=== PATIENT | male | born 1960 | race Caucasian/White ===

== ENCOUNTER → 2020-03-04 15:27 | Outpatient (CLI) | payer MEDICARE, SELFPAY ==
[2020-03-04 19:01] LABS: Chloride 107 mmol/L (98-107)
[2020-03-04 19:02] LABS: Potassium 4.3 mmoL/L (3.5-5.1); Sodium 144 mmol/L (136-145)
[2020-03-04 19:04] LABS: Alanine Aminotransferase 16 U/L (12-78); Albumin Level 4.3 g/dl (3.5-5.0); Albumin/Globulin Ratio 1.2 (1.1-1.8); Alkaline Phosphatase 86 U/L (38-126); Anion Gap 16.3 mEq/L (5-15); Aspartate Amino Transferase 23 U/L (17-59); Bilirubin,Total 0.8 mg/dl (0.2-1.3); Blood Urea Nitrogen 19 mg/dl (9-20); Carbon Dioxide 25 mmol/L (22.0-30.0); Cholesterol 145 mg/dl (140-200); Estimated Glomerular Filt Rate 99 ml/min (>60); GFR (African American) 119 ML/MIN (>60); Globulin 3.5 g/dL (1.3-3.2); Total Protein,Serum 7.8 g/dl (6.3-8.2); Triglycerides 159 mg/dl (30-150); VLDL Cholesterol 32 mg/dL (0-40)
[2020-03-04 19:05] LABS: Calcium 9.7 mg/dl (8.4-10.2); Chol/HDL Ratio 3.6 (1-3.5); Glucose 100 mg/dl (74-100); HDL Cholesterol 40 mg/dl (40-60)
[2020-03-04 19:16] LABS: Direct LDL Cholesterol 87.23 mg/dL (100-129)
== END ==
PROVIDERS: Visit Provider Family Medicine
DX: E11.9 Type 2 diabetes mellitus without complications (principal); Z79.84 Long term (current) use of oral hypoglycemic drugs
CPT/HCPCS: 80053; 80061

== ENCOUNTER → 2020-11-07 14:04 | Outpatient (CLI) | payer MEDICARE, SELFPAY ==
[2020-11-07 14:29] LABS: Basophils # 0.2 K/mm3 (0-0.2); Basophils % 1.4 % (0.1-2.0); Eosinophils # 0.2 K/mm3 (0.0-0.4); Eosinophils % 1.7 % (0.1-12.0); Hematocrit 54.7 % (42.0-52.0); Hemoglobin 17.4 g/dL (14.1-18.0); Lymphocytes # 2.3 K/mm3 (0.7-4.5); Mean Corpuscular HGB Conc 31.9 g/dL (31.8-35.4); Mean Corpuscular Hemoglobin 29.1 pg (27.0-31.2); Mean Corpuscular Volume 91.5 fl (80-94); Mean Platelet Volume 7.8 fl (7.4-10.4); Monocytes # 0.6 K/mm3 (0.1-1.0); Monocytes % 5.5 % (1.7-9.3); Neutrophils # 7.4 K/mm3 (1.8-7.8); Neutrophils % 69.5 % (37.0-80.0); Platelet Count 390 K/mm3 (142-424); Red Blood Count 5.98 M/mm3 (4.60-6.20); Red Cell Distribution Width 14.7 % (11.5-17.5); White Blood Count 10.6 K/mm3 (4.8-10.8)
[2020-11-07 14:32] LABS: Chol/HDL Ratio 4.5 (1-3.5); Cholesterol 156 mg/dl (140-200); HDL Cholesterol 35 mg/dl (40-60); Triglycerides 221 mg/dl (30-150); VLDL Cholesterol 44 mg/dL (0-40)
[2020-11-07 14:43] LABS: Direct LDL Cholesterol 79.27 mg/dL (100-129)
[2020-11-07 15:04] LABS: Prostate Specific Ag Screen 0.7 ng/ml (0.0-4.0)
[2020-11-07 15:09] LABS: Hemoglobin A1C 6.3 % (4.0-6.0)
== END ==
PROVIDERS: Visit Provider Family Medicine
DX: E11.9 Type 2 diabetes mellitus without complications (principal); Z12.5 Encounter for screening for malignant neoplasm of prostate; E66.09 Other obesity due to excess calories; Z68.33 Body mass index [BMI] 33.0-33.9, adult; Z79.84 Long term (current) use of oral hypoglycemic drugs
CPT/HCPCS: 80061; 83036; 85025; G0103

== ENCOUNTER → 2021-06-11 14:29 | Outpatient (CLI) | payer MEDICARE, SELFPAY ==
[2021-06-11 15:16] LABS: Basophils # 0.1 K/mm3 (0-0.2); Basophils % 1.5 % (0.1-2.0); Eosinophils # 0.2 K/mm3 (0.0-0.4); Hematocrit 51.2 % (42.0-52.0); Hemoglobin 16.7 g/dL (14.1-18.0); Lymphocytes # 2.4 K/mm3 (0.7-4.5); Mean Corpuscular HGB Conc 32.5 g/dL (31.8-35.4); Mean Corpuscular Hemoglobin 30.7 pg (27.0-31.2); Mean Corpuscular Volume 94.4 fl (80-94); Mean Platelet Volume 9.1 fl (7.4-10.4); Monocytes # 0.5 K/mm3 (0.1-1.0); Monocytes % 6.7 % (1.7-9.3); Neutrophils # 4.5 K/mm3 (1.8-7.8); Neutrophils % 58.8 % (37.0-80.0); Platelet Count 318 K/mm3 (142-424); Red Blood Count 5.42 M/mm3 (4.60-6.20); Red Cell Distribution Width 14.6 % (11.5-17.5); White Blood Count 7.6 K/mm3 (4.8-10.8)
[2021-06-11 15:23] LABS: Alanine Aminotransferase 9 U/L (12-78); Albumin Level 3.8 g/dl (3.5-5.0); Albumin/Globulin Ratio 1.2 (1.1-1.8); Alkaline Phosphatase 81 U/L (38-126); Anion Gap 11.3 mEq/L (5-15); Aspartate Amino Transferase 20 U/L (17-59); Bilirubin,Total 0.4 mg/dl (0.2-1.3); Blood Urea Nitrogen 22 mg/dl (9-20); Calcium 9.1 mg/dl (8.4-10.2); Carbon Dioxide 28 mmol/L (22.0-30.0); Chloride 105 mmol/L (98-107); Chol/HDL Ratio 2.9 (1-3.5); Cholesterol 120 mg/dl (140-200); Estimated Glomerular Filt Rate 98 ml/min (>60); GFR (African American) 119 ML/MIN (>60); Globulin 3.1 g/dL (1.3-3.2); Glucose 81 mg/dl (74-100); HDL Cholesterol 42 mg/dl (40-60); Potassium 4.3 mmoL/L (3.5-5.1); Sodium 140 mmol/L (136-145); Total Protein,Serum 6.9 g/dl (6.3-8.2); Triglycerides 81 mg/dl (30-150); VLDL Cholesterol 16 mg/dL (0-40)
[2021-06-11 15:34] LABS: Direct LDL Cholesterol 70.53 mg/dL (100-129)
[2021-06-11 16:11] LABS: Hemoglobin A1C 5.4 % (4.0-6.0)
== END ==
PROVIDERS: Visit Provider Family Medicine
DX: E78.5 Hyperlipidemia, unspecified (principal); E11.9 Type 2 diabetes mellitus without complications; Z79.84 Long term (current) use of oral hypoglycemic drugs
CPT/HCPCS: 80053; 80061; 83036; 85025

== ENCOUNTER → 2022-02-09 20:43 | Outpatient (CLI) | payer MEDICARE, SELFPAY ==
[2022-02-09 17:07] LABS: Basophils # 0.1 K/mm3 (0-0.2); Basophils % 1.4 % (0.1-2.0); Eosinophils # 0.1 K/mm3 (0.0-0.4); Eosinophils % 1.4 % (0.1-12.0); Hematocrit 50.1 % (42.0-52.0); Hemoglobin 16.7 g/dL (14.1-18.0); Lymphocytes % 24.1 % (10-50); Mean Corpuscular HGB Conc 33.3 g/dL (31.8-35.4); Mean Corpuscular Hemoglobin 31.4 pg (27.0-31.2); Mean Corpuscular Volume 94.3 fl (80-94); Mean Platelet Volume 8.2 fl (7.4-10.4); Monocytes # 0.5 K/mm3 (0.1-1.0); Monocytes % 6.4 % (1.7-9.3); Neutrophils # 5.5 K/mm3 (1.8-7.8); Neutrophils % 66.7 % (37.0-80.0); Platelet Count 307 K/mm3 (142-424); Red Blood Count 5.32 M/mm3 (4.60-6.20); Red Cell Distribution Width 13.4 % (11.5-17.5); White Blood Count 8.2 K/mm3 (4.8-10.8)
[2022-02-09 17:11] LABS: Alanine Aminotransferase 14 U/L (12-78); Albumin Level 3.7 g/dl (3.5-5.0); Albumin/Globulin Ratio 1.1 (1.1-1.8); Alkaline Phosphatase 85 U/L (38-126); Anion Gap 11.5 mEq/L (5-15); Aspartate Amino Transferase 23 U/L (17-59); Bilirubin,Total 0.2 mg/dl (0.2-1.3); Blood Urea Nitrogen 18 mg/dl (9-20); Calcium 9.5 mg/dl (8.4-10.2); Carbon Dioxide 24 mmol/L (22.0-30.0); Chloride 105 mmol/L (98-107); Chol/HDL Ratio 4.4 (1-3.5); Cholesterol 159 mg/dl (140-200); Estimated Glomerular Filt Rate 98 ml/min (>60); GFR (African American) 119 ML/MIN (>60); Globulin 3.3 g/dL (1.3-3.2); Glucose 111 mg/dl (74-100); HDL Cholesterol 36 mg/dl (40-60); Potassium 4.5 mmoL/L (3.5-5.1); Sodium 136 mmol/L (136-145); Triglycerides 108 mg/dl (30-150); VLDL Cholesterol 22 mg/dL (0-40)
[2022-02-09 17:22] LABS: Direct LDL Cholesterol 96.67 mg/dL (100-129)
[2022-02-09 17:37] LABS: Hemoglobin A1C 5.5 % (4.0-6.0)
[2022-02-09 17:42] LABS: Prostate Specific Ag Screen 3.2 ng/ml (0.0-4.0)
== END ==
PROVIDERS: PCP Family Medicine; Visit Provider Family Medicine
DX: E78.5 Hyperlipidemia, unspecified (principal); E11.9 Type 2 diabetes mellitus without complications; Z00.00 Encounter for general adult medical examination without abnormal findings; N40.0 Benign prostatic hyperplasia without lower urinary tract symptoms; Z12.5 Encounter for screening for malignant neoplasm of prostate; Z79.84 Long term (current) use of oral hypoglycemic drugs
CPT/HCPCS: 80053; 80061; 83036; 85025; G0103

== ENCOUNTER → 2022-05-06 14:01 | Outpatient (CLI) | payer MEDICARE, SELFPAY ==
[2022-05-06 13:36] LABS: Microalbumin/Creatinine Ratio 12.8
[2022-05-06 13:58] LABS: Creatinine,Urine Random 52 mg/dL (Not Estab.)
== END ==
PROVIDERS: PCP Family Medicine; Visit Provider Family Medicine
DX: E11.9 Type 2 diabetes mellitus without complications (principal); G89.29 Other chronic pain; Z79.84 Long term (current) use of oral hypoglycemic drugs
CPT/HCPCS: 82043; 82570

== ENCOUNTER → 2022-08-04 11:08 | Outpatient (CLI) | payer MEDICARE, SELFPAY ==
[2022-08-04 12:03] LABS: Chloride 103 mmol/L (98-107); Potassium 4.7 mmoL/L (3.5-5.1); Sodium 139 mmol/L (136-145)
[2022-08-04 12:04] LABS: Basophils # 0.2 K/mm3 (0-0.2); Basophils % 1.8 % (0.1-2.0); Eosinophils # 0.2 K/mm3 (0.0-0.4); Eosinophils % 2.2 % (0.1-12.0); Hematocrit 56.1 % (42.0-52.0); Hemoglobin 17.9 g/dL (14.1-18.0); Lymphocytes # 2.7 K/mm3 (0.7-4.5); Lymphocytes % 30.6 % (10-50); Mean Corpuscular Hemoglobin 30.7 pg (27.0-31.2); Mean Corpuscular Volume 95.9 fl (80-94); Mean Platelet Volume 7.7 fl (7.4-10.4); Monocytes # 0.5 K/mm3 (0.1-1.0); Monocytes % 5.6 % (1.7-9.3); Neutrophils # 5.2 K/mm3 (1.8-7.8); Neutrophils % 59.8 % (37.0-80.0); Platelet Count 324 K/mm3 (142-424); Red Blood Count 5.85 M/mm3 (4.60-6.20); White Blood Count 8.7 K/mm3 (4.8-10.8)
[2022-08-04 12:06] LABS: Alanine Aminotransferase 14 U/L (12-78); Albumin Level 4.2 g/dl (3.5-5.0); Albumin/Globulin Ratio 1.1 (1.1-1.8); Alkaline Phosphatase 95 U/L (38-126); Anion Gap 14.7 mEq/L (5-15); Aspartate Amino Transferase 19 U/L (17-59); Bilirubin,Total 0.6 mg/dl (0.2-1.3); Blood Urea Nitrogen 21 mg/dl (9-20); Carbon Dioxide 26 mmol/L (22.0-30.0); Estimated Glomerular Filt Rate 86 ml/min (>60); GFR (African American) 103 ML/MIN (>60); Globulin 3.7 g/dL (1.3-3.2); Total Protein,Serum 7.9 g/dl (6.3-8.2)
[2022-08-04 12:07] LABS: Calcium 9.2 mg/dl (8.4-10.2); Glucose 121 mg/dl (74-100)
[2022-08-04 13:15] LABS: INR 1.01 (0.9-1.1); Prothrombin Time 10.9 seconds (10.1-12.5)
== END ==
PROVIDERS: PCP Family Medicine; Visit Provider Surgery
DX: E11.9 Type 2 diabetes mellitus without complications (principal); K29.70 Gastritis, unspecified, without bleeding; K61.1 Rectal abscess; Z01.812 Encounter for preprocedural laboratory examination
CPT/HCPCS: 36415; 80053; 85025; 85610

== ENCOUNTER 2022-08-04 11:11 | Day surgery (SDC) | payer MEDICARE, SELFPAY ==
[2022-08-04] VITALS (8 sets, daily range): BP systolic 91–141; BP diastolic 50–80; PULSE 95–106; RESP 12–18; TEMP 36.5–36.8; O2SAT 91–94; BMI 29.6
[2022-08-04 12:14] LABS: POC Glucose,Bedside 112 (70-110)
--- NOTE | 2022-08-04 14:58 | EXP.OP.NOTE ---
Date of procedure: 08/04/22 Pre-op Diagnosis:: Right perianal/ischiorectal fossa abscess Post-op Diagnosis:: Same Procedure performed:: Incision and drainage of right perianal/ischiorectal fossa abscess Surgeon:: Alex White MD MIXING MACHINE TENDER CORK GASKET:: Jeromy Marquez Anesthesia: LMA Estimated blood loss (mL): 10 Operative findings:: Pocket of purulence with surrounding induration and right perianal/ischiorectal fossa region Operative note:: After informed consent was obtained the patient was taken to the operating room and placed in the supine position. General anesthesia with laryngeal mask airway was achieved. He was transferred to the left lateral decubitus position. The perianal/buttock region was prepped and draped in a sterile fashion. An elliptical incision around the central portion of lesion was made with electrocautery. The underlying tissue was dissected with electrocautery into the deeper subcutaneous space where a pocket of purulence was encountered. The entire cavity was evacuated and packed with dry gauze. The entire region was then infiltrated with 1% lidocaine. Dressings were applied and the patient was transferred recovery in stable condition. Condition: stable Disposition: PACU Specimens:: None Complications:: No immediate
--- NOTE | 2022-08-04 15:00 | P.PN_ITS ---
[facility] Disclaimer: The information contained in this section may have been updated after the patient was seen, as this information can be updated by other users. Medical History (Updated 08/04/22 @ 12:02 by Ap Weber RN) Cervical vertebral fusion Diabetes GERD (gastroesophageal reflux disease) HLD (hyperlipidemia) HTN (hypertension) Spinal cord stimulator status Surgical History History of colonoscopy Family History (Updated 08/04/22 @ 12:02 by Ap Weber RN) Other Family history of cardiac disorder Social History (Updated 08/04/22 @ 12:03 by Ap Weber RN) Smoking Status: Current every day smoker tobacco type: cigarettes packs per day: 1 alcohol intake: never substance use type: denies use current occupational status: unemployed and disabled Travel in the last 8 weeks: None household members: significant other housing: house [facility] Anesthesia Checklist Patient Identification Patient Identification: Verbal (Name & ) Structural Data Admitted From: Home Planned Operative Procedure/s: i/d abcess buttock Consent for Planned Operative Procedure(s) Verified: Yes Additional verifications Anesthesia Reactions: No Hx Blood Transfusions: No Blood Transfusion Reaction: No Airway Assessment C-Spine Mobility Assessed: Yes TMJ Mobility Assessed: Yes Dentition: Edentulous Neurological Assessment Level of Consciousness: Awake, Alert and Appropriate Anesthesia Plan Anesthesia Risk discussed: Yes Anesthesia Plan: Verified ASA Class: III Anesthesia Type: General
--- NOTE | 2022-08-04 15:00 | EXP.ANES.I ---
[facility] Anesthesia Record Part I Anesthesia Record I Intake, IV Amount: 500 Estimated blood loss (mL): 0 Urine output (mL): 0 Blood Pressure: 106/56 SaO2: 94 Pulse Rate: 105 Respiratory Rate: 12 Temperature: 98.2 F Patient is:: Awake and Stable Stable to PACU at:: 14:55
[2022-08-04 15:07] LABS: POC Glucose,Bedside 105 (70-110)
== END 2022-08-04 16:07 | disposition home or self-care (01) ==
PROVIDERS: PCP Family Medicine; Visit Provider Surgery
DX: K61.39 Other ischiorectal abscess (principal); F17.210 Nicotine dependence, cigarettes, uncomplicated; E11.9 Type 2 diabetes mellitus without complications
CPT/HCPCS: 46040; 36415; 80053; 82962; 85025; 85610; 96374

== ENCOUNTER 2022-11-02 10:13 | Day surgery (SDC) | payer MEDICARE, SELFPAY ==
[2022-08-06 07:19] VITALS: BP 103/57; PULSE 102; TEMP 36.8
--- NOTE | 2022-08-06 07:19 | P.PNANES_ITS ---
[facility] Anesthesia Record Part II Anesthesia Record Part II Discharge Time: 15:25 Destination: Surgical Day Care (OP Surgery) PACU nurse assessment reviewed?: Yes Patient Condition:: Good Anesthesia Complications:: None Swallowing reflex intact?: Yes Cyanosis?: No Blood Pressure: 103/57 Pulse Rate: 102 Temperature: 98.3 F Mental Status: Alert & Oriented Pain level:: 0 Nausea and/or vomitting:: None Intake, IV Amount: 0
[2022-11-01 10:48] VITALS: BMI 31.3
[2022-11-02 10:37] VITALS: BP 153/95; PULSE 91; RESP 18; TEMP 36.4; O2SAT 92
[2022-11-02 10:42] LABS: POC Glucose,Bedside 123 (70-110)
--- NOTE | 2022-11-02 10:47 | EXP.ANES.CKL ---
[facility] Disclaimer: The information contained in this section may have been updated after the patient was seen, as this information can be updated by other users. Medical History Anxiety and depression Cervical vertebral fusion Diabetes GERD (gastroesophageal reflux disease) HLD (hyperlipidemia) HTN (hypertension) Spinal cord stimulator status Surgical History History of appendectomy History of cervical spinal surgery History of colonoscopy History of incision and drainage History of laparoscopic cholecystectomy History of lumbar surgery Family History Other Family history of cardiac disorder Social History Smoking Status: Current every day smoker tobacco type: cigarettes packs per day: 1 alcohol intake: never substance use type: denies use current occupational status: unemployed and disabled Travel in the last 8 weeks: None household members: significant other housing: house caffeine: Yes [facility] Anesthesia Checklist Patient Identification Patient Identification: Arm Band and Verbal (Name & ) Structural Data Admitted From: Home Planned Operative Procedure/s: Colonoscopy Consent for Planned Operative Procedure(s) Verified: Yes NPO Status Verified Time NPO: 00:00 Additional verifications Anesthesia Reactions: No Hx Blood Transfusions: No Blood Transfusion Reaction: No Airway Assessment C-Spine Mobility Assessed: Yes TMJ Mobility Assessed: Yes Dentition: Dentures-poor fitting Neurological Assessment Level of Consciousness: Awake Hx Seizures: No Numbness or tingling in extremities: No Anesthesia Plan Anesthesia Risk discussed: Yes Anesthesia Plan: Verified ASA Class: III Anesthesia Type: MAC
[2022-11-02 11:11] VITALS: O2SAT 92
[2022-11-02 11:47] VITALS: BP 107/72; PULSE 116; RESP 14; TEMP 36.5; O2SAT 94
--- NOTE | 2022-11-02 11:53 | HMH.SCOPE ---
Procedure: Date: 11/02/22 Patient Date of :: 1960 Procedure Performed:: Colonoscopy with polypectomy by means other than snare Indications:: History of colon polyps Performing Provider:: Alex White MD Referring Provider:: . Sedation:: Monitored anesthesia care Procedure:: After informed consent was obtained the patient was taken to the endoscopy suite. Sedation ensued after the patient was transferred to the left lateral decubitus position. Pulse, blood pressure, and oxygen saturation were monitored throughout the procedure. Digital rectal exam revealed no significant abnormality. The colonoscope was placed in position. The entire colon was evaluated. The colonoscope was carefully removed and the patient was transferred to recovery in stable condition. Please see findings and specimens below for detail. Findings:: Bowel preparation moderate (somewhat poor in areas) Fairly significant spasticity/lack of relaxation Scattered sigmoid diverticulosis Tattoo at prior polypectomy site appeared normal Polyp at 10 cm Specimens:: Polyp at 10 cm (cold biopsy forceps) Recommendations:: Timing of repeat colonoscopy is pending pathology but likely be around 2 years with extended/alternate bowel preparation. Complications:: No immediate Estimated blood obtained (mL): 1
[2022-11-02 11:57] VITALS: BP 102/71; PULSE 108; RESP 16; O2SAT 96
[2022-11-02 12:07] VITALS: BP 135/74; PULSE 103; RESP 18; O2SAT 96
[2022-11-02 12:16] VITALS: BP 128/86; PULSE 99; RESP 18; O2SAT 93
== END 2022-11-02 12:21 | disposition home or self-care (01) ==
PROVIDERS: PCP Family Medicine; Visit Provider Surgery
PROC: 0DJD8ZZ Inspection of Lower Intestinal Tract, Via Natural or Artificial Opening Endoscopic (ICD-10-PCS; principal; 2022-11-02 11:30)
DX: Z12.11 Encounter for screening for malignant neoplasm of colon (principal); K63.5 Polyp of colon; Z86.010 Personal history of colon polyps; K57.30 Diverticulosis of large intestine without perforation or abscess without bleeding; Z79.899 Other long term (current) drug therapy; E11.9 Type 2 diabetes mellitus without complications
CPT/HCPCS: 45380; 82962; 88305; J2704

== ENCOUNTER → 2023-03-09 06:57 | Outpatient (CLI) | payer MEDICARE, SELFPAY ==
--- NOTE | 2023-03-09 | CA_ITS ---
APPROVED REPORT Exam: Pharmacologic Technologist: Francesca Hamilton Ht: 5 ft 7 in Wt: 206 lbs BSA: 2.05 m2 HR: 76 bpm BP: 126/70 mmHg Rhythm: NSR Indications: Chest pain Medical History Medications: Lisinopril,,,,, Metformin,,,,, Lexapro,,,,, Vitamin D3,,,,, Pantoprazole,,,,, Calcium,,,,, FeNOfibrate,,,,, DicyCLOMINE,,,,, Fluoxetine,,,,, Cyclobenzaprine,,,,, Vitamin D2,,,,, Hydroxyzine,,,,, Stress Test Details Test: LEXISCAN HR Resting HR: 84 bpm Max Heart Rate (APMHR): 157 bpm Max HR Achieved: 107 bpm Target HR (85% APMHR): 133 bpm % of APMHR: 68 Recovery HR: 95 bpm BP Resting BP: 126.0/70.0 mmHg Max BP: 140.0/71.0 mmHg Recovery BP: 125.0/71.0 mmHg ECG Resting ECG: Normal sinus rhythm, NS ST abnormalities inferiorly and laterally. Stress ECG: No change Arrhythmia: PACs Clinical Exercise duration: 04:01 min Highest Stage Achieved: Stress ECG Conclusion Symptoms: dyspnea, mild head discomfort. No chest pain. Arrhythmias/Ectopy: occasional PACs ST-T Changes: No significant ST changes. Conclusion: Unremarkable Lexiscan stress test. Myoview images reported separately. Test Summary REST . . . . . . . Resting REST 03:35 . . 84 . 126/ 70 . . Stage 1 . . . . . . . Myoview Injected Stage 1 01:00 . . 100 . . . . Stage 2 01:00 . . 103 . 115/ 68 . . Stage 3 01:00 . . 97 . 125/ 73 . . Stage 4 01:00 . . 96 . 122/ 69 . . Stage 4 01:01 . . 96 . 122/ 69 . Stop exercise at 04:01 RECOVERY 01:00 . . 98 . . . . RECOVERY 02:00 . . 98 . 127/ 71 . . RECOVERY 03:00 . . 98 . 140/ 71 . . RECOVERY 04:00 . . 95 . 125/ 71 . . RECOVERY 04:40 . . 94 . 125/ 71 . . Electronically signed by : Melissa Moscoso, 03/12/2023 15:08:04
--- NOTE | 2023-03-09 07:08 | NM_ITS ---
APPROVED REPORT Exam: Nuclear Stress Test Indication: chest pain..soa Patient Location: Outpatient Stress Tech: Francesca Hamilton CT Tech:DELORES Elizabeth RT(R)(N) Ht: 5 ft 7 in Wt: 200 lbs HR: 84 bpm BP: 126/70 mmHg BSA: 2.02 m2 TID: 1.14 BMI: 31.3 History: chest pain..soa Procedure: Patient received 0.4 mg of intravenous Lexiscan, resting heart rate 84 bpm, resting blood pressure 126/70 mmHg, with Lexiscan maximum heart rate achieved was 107 bpm which is 85 % of the maximum predicted heart rate and blood pressure was 140/71 mmHg. With Lexiscan, patient denied any complaint of chest pain. The pt was not able to lay on his abdomen for prone images. Cardiac Stress and Resting SPECT Images: Cardiac Stress and Resting SPECT images were obtained using technetium 99m Myoview 30.1 mCi stress and 10.35 mCi at rest. The patient could not lie on his abdomen. Therefore, prone stress imaging could not be performed. This may affect the diagnostic interpretation of the study findings. Resting and stress imaging in supine position demonstrate a large-sized, moderate, fixed perfusion defect in the inferior, inferoseptal, and septal LV smith from the base and extending distally towards the inferoapical region. Gated imaging demonstrates normal global LV systolic function. There is mild hypokinesis in the inferior and septal LV smith. LVEF is calculated at 67%. Conclusion: The patient could not lie on his abdomen. Therefore, prone stress imaging could not be performed. This may affect the diagnostic interpretation of the study findings. Large-sized, moderate, fixed perfusion defect in the inferior, inferoseptal, and septal LV smith from the base and extending distally towards the inferoapical region. No evidence of reversible ischemia. Gated imaging demonstrates normal global LV systolic function. There is mild hypokinesis in the inferior and septal LV smith. LVEF is calculated at 67%. Electronically signed by : Melissa Moscoso, 03/12/2023 15:11:32
== END ==
LOC: RAD 06:58
PROVIDERS: PCP Family Medicine; Visit Provider Family Medicine
DX: R07.9 Chest pain, unspecified (principal)
CPT/HCPCS: 78452; 93017; A9502; J2785

== ENCOUNTER → 2023-03-25 12:41 | Outpatient (CLI) | payer MEDICARE, SELFPAY ==
--- NOTE | 2023-03-25 13:07 | CA_ITS ---
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 [employer] Processing: Jessica Almazan, RCS, RVS Ht: 5 ft 7 in Wt: 204lbs BSA: 2.04 BP: 142/76 mmHg Indications: CP, Abn stress test, smoker, LEMON 2D Dimensions Aortic Root 3.31 cm LA Volume 83.90 mL Left Atrium 3.13 cm LA Volume Index [id number] mL/m2 (M/F) 16-34 LVOT 1.94 cm (M/F) 1.5-2.5 M-Mode Dimensions RVDd 1.73 cm (0.9-2.6) LVDd 6.09 cm (3.5-5.7) LVDs 3.83 cm (3.5-5.7) IVSd 1.42 cm (0.6-1.1) PWd 1.16 cm (0.6-1.1) EF (Teich) 66.10% EPSs 0.45 cm FS 37.10% EDV (Teich) 186.20 mL ESV (Teich) 63.10 mL LV Diastology E Decel Time 160.00 (160-240 msec) E/A Ratio 1.09 MED E' 8.50 (< 7 cm/sec) MED A' 11.90 cm/s E'/MED E' Ratio 10.31 (>14) LAT E' 8.00 (<10 cm/sec) LAT A' 9.90 cm/s E/LAT E' Ratio 10.95 (>14) Aortic Valve LVOT Max 125.00 (70-110 cm/s) LVOT VTI 23.66 cm AoV Peak Jaguar. 162.00 (50-130 cm/s) AO Peak GR. 10.50 mmHg AO Mean GR. 4.60 (<5 mmHg) AO VTI 25.58 (18-25 cm) YENNI (VTI) 2.73 (2.5-4.5 cm2) Mitral Valve MV A Velocity 81.00 (40-130 cm/s) E/A Ratio 1.09 MV Decel. Time 160.00 (160-240 ms) MV Mean Gr. 2.00 (<2mmHg) Pulmonary Valve PV Peak Velocity 70.00 (50-150 cm/s) Tricuspid Valve TR P. Velocity 179.00 cm/s RAP Estimate 10.00 mmHg RVSP 22.70 mmHg Left Ventricle The left ventricle is normal size. The left ventricular systolic function is normal. The left ventricular ejection fraction is within the normal range. There is normal left ventricular wall thickness. There is normal LV segmental wall motion. The left ventricular diastolic function is normal. LVEF is 60%. Right Ventricle Right ventricle is mildly dilated. The right ventricular systolic function is normal. Atria The left atrium size is normal. The right atrium size is normal. There is no Doppler evidence of interatrial shunt. Aortic Valve The aortic valve is mildly thickened. There is no aortic valvular stenosis. No aortic regurgitation is present. Mitral Valve The mitral valve is normal in structure. No evidence of mitral valve stenosis. Trace mitral regurgitation. Tricuspid Valve The tricuspid valve leaflets are thin and pliable. Trace tricuspid regurgitation. RVSP is normal. Pulmonic Valve The pulmonary valve is normal in structure. Trace pulmonic regurgitation. Great Vessels The aortic root is normal in size. The ascending aorta is not well visualized. IVC is normal in size and collapses >50% with inspiration. Pericardium There is no pericardial effusion. Other Information Study Quality: Fair Conclusion Normal biventricular systolic function. Mild RV dilation. No significant valvular disease. Electronically signed by : Melissa Moscoso, 03/28/2023 16:21:29
== END ==
LOC: RT 12:41
PROVIDERS: PCP Family Medicine; Visit Provider Family Medicine
DX: R06.09 Other forms of dyspnea (principal); R07.9 Chest pain, unspecified
CPT/HCPCS: 93306

== ENCOUNTER → 2023-03-30 10:43 | Outpatient (CLI) | payer MEDICARE, SELFPAY ==
[2023-03-30 11:40] LABS: Basophils # 0.1 K/mm3 (0-0.2); Basophils % 0.8 % (0.1-2.0); Eosinophils # 0.1 K/mm3 (0.0-0.4); Eosinophils % 1.7 % (0.1-12.0); Hematocrit 54.9 % (42.0-52.0); Hemoglobin 17.4 g/dL (14.1-18.0); Lymphocytes # 2.6 K/mm3 (0.7-4.5); Lymphocytes % 31.7 % (10-50); Mean Corpuscular HGB Conc 31.6 g/dL (31.8-35.4); Mean Corpuscular Hemoglobin 29.5 pg (27.0-31.2); Mean Corpuscular Volume 93.1 fl (80-94); Mean Platelet Volume 7.7 fl (7.4-10.4); Monocytes # 0.5 K/mm3 (0.1-1.0); Monocytes % 6.1 % (1.7-9.3); Neutrophils # 4.9 K/mm3 (1.8-7.8); Neutrophils % 59.6 % (37.0-80.0); Platelet Count 283 K/mm3 (142-424); Red Blood Count 5.89 M/mm3 (4.60-6.20); Red Cell Distribution Width 14.3 % (11.5-17.5); White Blood Count 8.2 K/mm3 (4.8-10.8)
[2023-03-30 12:09] LABS: Chloride 105 mmol/L (98-107); Potassium 4.5 mmoL/L (3.5-5.1); Sodium 140 mmol/L (136-145)
[2023-03-30 12:11] LABS: Blood Urea Nitrogen 20 mg/dl (9-20); Estimated Glomerular Filt Rate 85 ml/min (>60); GFR (African American) 103 ML/MIN (>60)
[2023-03-30 12:12] LABS: Alanine Aminotransferase 19 U/L (12-78); Albumin Level 3.8 g/dl (3.5-5.0); Alkaline Phosphatase 107 U/L (38-126); Anion Gap 14.5 mEq/L (5-15); Aspartate Amino Transferase 22 U/L (17-59); Bilirubin,Direct 0.3 mg/dl (0.0-0.4); Bilirubin,Total 0.3 mg/dl (0.2-1.3); Calcium 9.3 mg/dl (8.4-10.2); Carbon Dioxide 25 mmol/L (22.0-30.0); Cholesterol 165 mg/dl (140-200); Glucose 165 mg/dl (74-100); Magnesium 1.6 mg/dl (1.6-2.3); Total Protein,Serum 7.5 g/dl (6.3-8.2); Triglycerides 151 mg/dl (30-150); VLDL Cholesterol 30 mg/dL (0-40)
[2023-03-30 12:13] LABS: Chol/HDL Ratio 4.5 (1-3.5); HDL Cholesterol 37 mg/dl (40-60)
[2023-03-30 12:24] LABS: Direct LDL Cholesterol 95.37 mg/dL (100-129)
[2023-03-30 12:29] LABS: Free T4 (Free Thyroxine) 1.06 ng/dl (0.78-2.19)
[2023-03-30 12:42] LABS: Thyroid Stimulating Hormone 0.76 uIU/mL (0.465-4.68)
== END ==
PROVIDERS: PCP Family Medicine; Visit Provider Internal Medicine
DX: E78.5 Hyperlipidemia, unspecified (principal); I10 Essential (primary) hypertension; R06.00 Dyspnea, unspecified; R07.9 Chest pain, unspecified; R94.30 Abnormal result of cardiovascular function study, unspecified; R94.31 Abnormal electrocardiogram [ECG] [EKG]; I20.8 Other forms of angina pectoris
CPT/HCPCS: 36415; 80048; 80061; 80076; 83735; 84439; 84443; 85025

== ENCOUNTER 2023-04-08 07:50 | Day surgery (SDC) | payer MEDICARE, SELFPAY ==
[2023-04-08] VITALS (13 sets, daily range): BP systolic 83–120; BP diastolic 49–75; PULSE 82–101; RESP 12–18; O2SAT 90–95; BMI 31.8
--- NOTE | 2023-04-08 07:14 | IR_ITS ---
APPROVED REPORT Patient Location: Outpatient PROCEDURES Left heart catheterization Left ventriculogram Selective coronary angiogram INDICATION Abnormal Myoview, Angina pectoris, Informed consent was obtained prior to the procedure. COMPLICATIONS None Estimated Blood Loss: Less than 10 mls TECHNIQUE One percent lidocaine used to anesthetize the right anterior aspect of the wrist. The right radial artery was accessed via the Seldinger technique. A 6 [place] sheath was placed in the right radial artery. 2.5 mg of Verapamil, 800 mcg of nitroglycerin, 1mg Lidocaine and 5000 U Heparin were given through the arterial sheath. The papa catheter was also used to perform left heart catheterization, left ventriculogram and selective coronary angiogram. At the end of the procedure the sheath was removed good hemostasis was achieved using Traclet band, patient was transferred to the postop holding area in stable condition. ANGIOGRAPHIC RESULTS The left main artery Has an ostial 30% stenosis The left anterior descending artery Has proximal mid vessel 20% stenosis The circumflex artery Nondominant yet still large with mild 10% luminal irregularities The right coronary artery Large dominant with mid vessel 30 to 40% stenoses and distal 30% stenoses The [place] ventriculogram reveals Normal 65% The left ventricular end-diastolic pressure 20 mmHg IMPRESSION Mild to moderate disease in the dominant right coronary as described above Mild to moderate ostial left main disease Normal ejection fraction Elevated LVEDP PLAN 1. Medical management 2. Aggressive risk factor modification 3. Consider stress testing in 2 to 3 years for surveillance of left main disease Electronically signed by : Fausto Sr MD 04/08/2023 14:43:30
--- NOTE | 2023-04-08 11:42 | SUR.PHASEII ---
LUNCH TRAY PROVIDED. PT. STATES NO NEEDS AT THIS TIME.
== END 2023-04-08 13:40 | disposition home or self-care (01) ==
PROVIDERS: PCP Family Medicine; Visit Provider Internal Medicine
DX: E78.5 Hyperlipidemia, unspecified (principal); I10 Essential (primary) hypertension; I25.118 Atherosclerotic heart disease of native coronary artery with other forms of angina pectoris; R06.00 Dyspnea, unspecified; R07.9 Chest pain, unspecified; R94.31 Abnormal electrocardiogram [ECG] [EKG]; Z79.899 Other long term (current) drug therapy; Z79.84 Long term (current) use of oral hypoglycemic drugs
CPT/HCPCS: 93458; 99152; C1725; C1769; J1644; Q9967

== ENCOUNTER → 2023-06-09 23:45 | Outpatient (CLI) | payer MEDICARE, SELFPAY ==
[2023-06-09 19:47] LABS: Prostate Specific Ag Screen 0.4 ng/ml (0.0-4.0)
[2023-06-09 20:08] LABS: Hemoglobin A1C 7.9 % (4.0-6.0)
== END ==
PROVIDERS: PCP Family Medicine; Visit Provider Family Medicine
DX: Z12.5 Encounter for screening for malignant neoplasm of prostate (principal); E11.9 Type 2 diabetes mellitus without complications; Z79.84 Long term (current) use of oral hypoglycemic drugs
CPT/HCPCS: 83036; G0103

== ENCOUNTER → 2023-07-11 06:47 | Outpatient (CLI) | payer MEDICARE, SELFPAY ==
[2023-07-11 19:22] LABS: Amphetamine/Metha Screen,Urine Negative ng/ml (<1000)
[2023-07-11 19:25] LABS: Barbiturates Screen,Urine Negative ng/ml (<200); Cannabinoid Screen,Urine Negative ng/ml (<50)
[2023-07-11 19:26] LABS: Benzodiazepines Screen,Urine Negative ng/ml (<200)
[2023-07-11 19:27] LABS: Cocaine Screen,Urine Negative ng/ml (<300); Opiate Screen,Urine Positive ng/ml (<300)
[2023-07-11 19:28] LABS: Methadone Screen,Urine Negative ng/ml (<300)
[2023-07-11 19:29] LABS: Phencyclidine Screen,Urine Negative ng/ml (<25)
== END ==
PROVIDERS: PCP Family Medicine; Visit Provider Family Medicine
DX: Z79.899 Other long term (current) drug therapy (principal)
CPT/HCPCS: 80305

== ENCOUNTER 2023-09-20 12:29 | Day surgery (SDC) | payer MEDICARE, SELFPAY ==
[2023-09-20] MEDS: LACTATED RINGERS 1000ML 1,000 ML 25 ML IV (12:42)
[2023-09-20 12:48] VITALS: BP 151/78; PULSE 101; RESP 18; TEMP 36.5; O2SAT 90; BMI 31.3
--- NOTE | 2023-09-20 12:54 | HMH.SCOPE ---
Procedure: Date: 09/20/23 Patient Date of :: 1960 Procedure Performed:: Esophagogastroduodenoscopy with biopsy Indications:: Dysphagia Performing Provider:: Alex White MD Referring Provider:: Dr. Croft Sedation:: Monitored anesthesia care Procedure:: After informed consent was obtained the patient was taken to the endoscopy suite. Sedation ensued after the patient was transferred to the left lateral decubitus position. Pulse, blood pressure, and oxygen saturation were monitored throughout the procedure. The endoscope was advanced beyond the duodenal bulb. Retroflexion within the gastric lumen was accomplished. The gastroscope was carefully removed and the patient was transferred to recovery in stable condition. Please see findings and specimens below for detail. Findings:: No definitive stricture Moderate gastritis Recommendations:: Follow-up pathology Continue PPI Consider barium swallow Consider modified barium swallow Considering ENT evaluation Complications:: No immediate Estimated blood obtained (mL): 1 Colonoscopy Component Colonoscopy Component Was a colonoscopy performed during today's procedure?: No
[2023-09-20 12:57] LABS: POC Glucose,Bedside 137 (70-110)
--- NOTE | 2023-09-20 12:58 | EXP.ANES.CKL ---
[facility] Disclaimer: The information contained in this section may have been updated after the patient was seen, as this information can be updated by other users. Medical History Anxiety and depression Cervical vertebral fusion Chest pain Coronary artery disease Diabetes GERD (gastroesophageal reflux disease) HLD (hyperlipidemia) HTN (hypertension) Spinal cord stimulator status Surgical History History of appendectomy History of cervical spinal surgery History of colonoscopy History of incision and drainage History of laparoscopic cholecystectomy History of lumbar surgery Family History Other Family history of cardiac disorder Social History Smoking Status: Current every day smoker tobacco type: cigarettes packs per day: 1 alcohol intake: never substance use type: denies use current occupational status: unemployed and disabled Travel in the last 8 weeks: None household members: significant other housing: house caffeine: Yes [facility] Anesthesia Checklist Patient Identification Patient Identification: Arm Band and Verbal (Name & ) Structural Data Admitted From: Home Planned Operative Procedure/s: EGD NPO Status Verified Time NPO: 00:00 Additional verifications Anesthesia Reactions: No Hx Blood Transfusions: No Blood Transfusion Reaction: No Airway Assessment Mallampati Score:: Class III C-Spine Mobility Assessed: Yes TMJ Mobility Assessed: Yes Dentition: Edentulous Neurological Assessment Level of Consciousness: Awake Hx Seizures: No Numbness or tingling in extremities: No Anesthesia Plan Anesthesia Risk discussed: Yes Anesthesia Plan: Verified ASA Class: III Anesthesia Type: MAC
[2023-09-20 13:05] VITALS: O2SAT 90
[2023-09-20 13:25] VITALS: BP 152/80; PULSE 122; RESP 12; TEMP 37.3; O2SAT 96
--- NOTE | 2023-09-20 13:27 | XR_ITS ---
FINAL REPORT CLINICAL HISTORY: r/o asp pna FINDINGS: A portable view of the chest was obtained. Cardiac and mediastinal silhouettes are within normal limits. There is right greater than left basilar opacity, may represent pneumonia. There is no pleural effusion or pneumothorax. IMPRESSION: Right greater than left basilar opacity, may represent pneumonia. Reviewed, Interpreted and Dictated by Prachi Corrales MD Transcribed by Xin Chambers Authenticated and . [facility]
[2023-09-20 13:35] VITALS: BP 127/75; PULSE 106; RESP 17; O2SAT 91
[2023-09-20 13:45] VITALS: BP 136/68; PULSE 99; RESP 16; O2SAT 91
[2023-09-20 13:55] VITALS: BP 142/78; PULSE 98; RESP 16; TEMP 36.6; O2SAT 91
--- NOTE | 2023-09-20 13:59 | SUR.PHASEII ---
1340 - Per Karthik Bains,PATTIE pt appropriate for DC from her standpoint. F/U made w/ Dr. Croft' office.
== END 2023-09-20 14:05 | disposition home or self-care (01) ==
PROVIDERS: PCP Family Medicine; Visit Provider Surgery
PROC: 0DJ08ZZ Inspection of Upper Intestinal Tract, Via Natural or Artificial Opening Endoscopic (ICD-10-PCS; CPT 43235; principal; 2023-09-20 13:30)
DX: R13.10 Dysphagia, unspecified (principal); K29.50 Unspecified chronic gastritis without bleeding; E11.9 Type 2 diabetes mellitus without complications
CPT/HCPCS: 43239; 71045; 82962; 88305

== ENCOUNTER 2023-11-07 10:27 | Emergency (ER) | payer MEDICARE, SELFPAY ==
[2023-11-07] VITALS (9 sets, daily range): BP systolic 115–145; BP diastolic 62–79; PULSE 79–105; RESP 16–20; TEMP 36.8; O2SAT 83–98; BMI 31.3
--- NOTE | 2023-11-07 10:31 | PC.NURSE ---
Dr. Delvalle at [facility] for pt eval
--- NOTE | 2023-11-07 10:34 | XR_ITS ---
FINAL REPORT TECHNIQUE: Chest PA & Lateral CLINICAL HISTORY: SOB, decreased breath sounds COMPARISON: 09/20/2023 FINDINGS: 2 views of the chest were performed. The heart size is normal. The mediastinum is within normal limits. Linear opacities at the lung bases are probably due to scarring. There are no pleural effusions. There is no pneumothorax. The bony thorax appears intact. Stimulator leads are seen in the lower thoracic spine. IMPRESSION: No acute cardiopulmonary process. Reviewed, Interpreted and Dictated by Jose D Martin MD Transcribed by Bethany Winkler Authenticated and [facility]
--- NOTE | 2023-11-07 10:39 | PC.NURSE ---
Respiratory notified of [facility]BG order
--- NOTE | 2023-11-07 10:41 | HMH.EDCP ---
Discharge Plan Disposition Patient Disposition: Left Against Medical Advice Condition: Good Prescriptions Prescriptions: New prednisone 50 mg tablet 50 mg PO DAILY 5 Days Qty: 5 0RF No Action ergocalciferol (vitamin D2) 50 mcg (2,000 unit) tablet 50 mcg PO DAILY hydroxyzine HCl 25 mg tablet 25 mg PO HS PRN (Reason: sleep) Qty: 90 3RF fluoxetine 20 mg capsule 20 mg PO DAILY Qty: 90 3RF metformin 1,000 mg tablet 1,000 mg PO BID Qty: 180 3RF atorvastatin 40 mg tablet 40 mg PO ONCE Qty: 90 5RF cholecalciferol (vitamin D3) 250 mcg (10,000 unit) capsule 250 mcg PO DAILY Qty: 90 3RF escitalopram oxalate [Lexapro] 20 mg tablet 20 mg PO DAILY Qty: 90 3RF fenofibrate 160 mg tablet 160 mg PO DAILY Qty: 90 3RF lisinopril 10 mg tablet See Rx Instructions .ROUTE .COMPLEX Qty: 90 3RF Dose Instruction: TAKE 1 TABLET BY MOUTH DAILY Rx Instructions: TAKE 1 TABLET BY MOUTH DAILY tamsulosin 0.4 mg capsule 0.4 mg PO DAILY Qty: 90 3RF pantoprazole 40 mg tablet,delayed release (DR/EC) See Rx Instructions .ROUTE .COMPLEX Qty: 180 0RF Dose Instruction: TAKE 1 TABLET BY MOUTH TWICE DAILY Rx Instructions: TAKE 1 TABLET BY MOUTH TWICE DAILY hydrocodone-acetaminophen 10-325 mg tablet 1 tab PO .bid-tid PRN (Reason: pain) Qty: 70 0RF trazodone 150 mg tablet See Rx Instructions .ROUTE .COMPLEX Qty: 90 3RF Rx Instructions: TAKE 1 TABLET BY MOUTH EVERYDAY AT BEDTIME cyclobenzaprine 10 mg tablet 10 mg PO DAILY Qty: 90 0RF Referrals Follow up/Referrals: Gerson Giang MD [Primary Care Provider] - See instructions Activity Restrictions/Add. Instructions Additional Instructions/Restrictions: You have been evaluated in the ED for your complaints. You may follow-up with your PCP in the next 3 to 5 days. Please return to ED for any new or worsening symptoms. I have written for prednisone to take over the next 5 days. As discussed, you will need to use your oxygen at home as you has been hypoxic today in the ED. Please follow-up with your primary care physician tomorrow or soon as possible as discussed. Clinical Impressions Clinical Impression: COPD exacerbation Other Amb Orders Other Ambulatory Orders: Home Medical Equipment (Routine) Location: None Selected Ordered By: Sander Arellano Discharge ED Provider: Mj Delvalle General Chief Complaint: Shortness of Breath/Dyspnea Stated Complaint: SOA Time Seen by Provider: 11/07/23 10:30 Mode of Arrival: Ambulatory Source of Information: Patient Limitations: No Limitations Description of Symptoms (Recalled from ER Triage Doc. by RN): pt presents to ED from dr giang office for further evaluation. pt presented to dr rose for shortness of air and increased swelling. pt reports that he has had increased shortness of air over the past 3 months. worsening today. pt does have COPD and has history of oxygen use. History of Present Illness HPI narrative: 63-year-old male with past medical history significant for CAD, GERD, HLD, HTN, DM2, COPD not currently requiring oxygen however he does state that he used to be on 2 L a year ago, presents today for evaluation concerning shortness of breath, cough and congestion over the past few days. He was at his provider's office and was noted to have an oxygen saturation of 76% on room air and was sent to the ED for further evaluation. He denies have any fevers, chills, chest pain, nausea, vomiting and abdominal pain or any other associated symptoms at this time. No further complaints. Related Data Home Medications Medication Instructions Recorded Confirmed ergocalciferol (vitamin D2) 50 mcg 50 mcg PO DAILY . 09/23/20 11/07/23 (2,000 unit) tablet Previous Rx's Medication Instructions Recorded hydroxyzine HCl 25 mg tablet 25 mg PO HS PRN sleep #90 tabs 03/03/23 fluoxetine 20 mg capsule 20 mg PO DAILY #90 caps 05/05/23 metformin 1,000 mg tablet 1,000 mg PO BID Diabetes #180 tabs 07/11/23 atorvastatin 40 mg tablet 40 mg PO ONCE #90 tabs 08/24/23 cholecalciferol (vitamin D3) 250 250 mcg PO DAILY . #90 caps 08/24/23 mcg (10,000 unit) capsule escitalopram oxalate 20 mg tablet 20 mg PO DAILY Anxiety #90 tabs 08/24/23 (Lexapro) fenofibrate 160 mg tablet 160 mg PO DAILY supple,ment #90 08/24/23 tabs lisinopril 10 mg tablet See Rx Instructions .Route 08/24/23 .COMPLEX #90 tabs pantoprazole 40 mg tablet,delayed See Rx Instructions .Route 08/24/23 release .COMPLEX #180 tabs tamsulosin 0.4 mg capsule 0.4 mg PO DAILY . #90 caps 08/24/23 cyclobenzaprine 10 mg tablet 10 mg PO DAILY . #90 tabs 09/01/23 hydrocodone 10 mg-acetaminophen 1 tab PO .bid-tid PRN pain #70 tabs 11/07/23 325 mg tablet prednisone 50 mg tablet 50 mg PO DAILY 5 days #5 tabs 11/07/23 trazodone 150 mg tablet See Rx Instructions .Route 11/07/23 .COMPLEX sleep #90 tabs Allergies Allergy/AdvReac Type Severity Reaction Status Date / Time ciprofloxacin [From Cipro] Allergy Severe Rash Verified 11/07/23 08:14 methocarbamol [Robaxin] Allergy Severe Rash Verified 11/07/23 08:14 From Penicillin G Sodium Allergy Unknown Uncoded 11/07/23 08:14 Penicillin Allergy Unknown Uncoded 11/07/23 08:14 [facility] Disclaimer: The information contained in this section may have been updated after the patient was seen, as this information can be updated by other users. Medical History Coronary artery disease Chest pain Anxiety and depression Spinal cord stimulator status Cervical vertebral fusion GERD (gastroesophageal reflux disease) HLD (hyperlipidemia) HTN (hypertension) Diabetes Surgical History History of laparoscopic cholecystectomy History of appendectomy History of cervical spinal surgery History of lumbar surgery History of incision and drainage History of colonoscopy Family History Other Family history of cardiac disorder Social History Smoking Status: Current every day smoker tobacco type: cigarettes packs per day: 1 alcohol intake: never substance use type: denies use current occupational status: unemployed and disabled Travel in the last 8 weeks: None household members: significant other housing: house caffeine: Yes ROS Obtained: Yes All systems reviewed & no additional complaints except as documented Physical Exam General General appearance: alert and in no apparent distress Head Head exam: atraumatic and normocephalic Eye Eye exam: Present normal appearance, PERRL and EOMI ENT ENT exam: Present normal oropharynx and mucous membranes moist Neck Neck exam: Present full ROM; Absent meningismus Respiratory Respiratory exam: Present wheezes and other (Decreased breath sounds in the upper and midlung finney. Mild expiratory wheezing auscultated.); Absent respiratory distress, stridor or accessory muscle use Cardiovascular Cardiovascular exam: Present normal rhythm Abdominal Exam Abdominal exam: Present soft; Absent distention, tenderness, guarding, rebound or rigidity Neurological Exam Neurological exam: Present alert, oriented X3 and CN II-XII intact; Absent motor sensory deficit Psychiatric Psychiatric exam: Present normal affect and normal mood Skin Skin exam: Present warm and dry HEART Score HEART Score HEART Score assessment performed?: Yes History (anamnesis): Slightly suspicious ECG: Normal Age: 45-65 years Risk factors: 3 or more risk factors Troponin: </= normal limit HEART Score: 3 Critical Care Critical Care Time Critical Care Time: No Medical Decision Making Martínez Inquiry Pt receiving controlled substance: No Vital Signs Vital Signs: 11/07/23 10:27 11/07/23 10:27 11/07/23 10:32 Temperature 98.3 F Temperature Source Oral Pulse Rate 91 H Pulse Rate [Left Radial] 85 Respiratory Rate 16 Blood Pressure Blood Pressure [Right Arm] 145/79 H Blood Pressure Mean [Right Arm] 101 02 Sat by Pulse Oximetry 94 L 85 L 92 L Oxygen Delivery Method Nasal Cannula Room Air Nasal Cannula Oxygen Flow Rate (LPM) 2 2 11/07/23 11:00 11/07/23 12:00 11/07/23 12:30 Temperature Temperature Source Pulse Rate 79 102 H 82 Pulse Rate [Left Radial] Respiratory Rate Blood Pressure 120/78 122/69 115/65 Blood Pressure [Right Arm] Blood Pressure Mean [Right Arm] 02 Sat by Pulse Oximetry 98 86 L 93 L Oxygen Delivery Method Room Air Room Air Nasal Cannula Oxygen Flow Rate (LPM) 11/07/23 12:52 11/07/23 13:00 11/07/23 13:30 Temperature Temperature Source Pulse Rate 105 H 91 H 83 Pulse Rate [Left Radial] Respiratory Rate Blood Pressure 127/76 119/62 Blood Pressure [Right Arm] Blood Pressure Mean [Right Arm] 02 Sat by Pulse Oximetry 83 L 91 L 92 L Oxygen Delivery Method Room Air Nasal Cannula Nasal Cannula Oxygen Flow Rate (LPM) 2 2 Lab Data Labs: Lab Results 11/07/23 10:39: WBC 7.1, RBC 6.21 H, Hgb 16.9, Hct 54.3 H, MCV 87.5, MCH 27.3, MCHC 31.2 L, RDW 17.6 H, Plt Count 222, MPV 7.9, Neut % (Auto) 63.7, Lymph % (Auto) 27.6, Atkinson % (Auto) 5.6, Eos % (Auto) 2.0, Baso % (Auto) 1.1, Neut # (Auto) 4.5, Lymph # (Auto) 2.0, Atkinson # (Auto) 0.4, Eos # (Auto) 0.1, Baso # (Auto) 0.1, VBG pH 7.34, VBG pCO2 52.4 H, VBG pO2 32.9, VBG HCO3 27.9, VBG Total CO2 29.5 H, VBG O2 Saturation 73.4 H, VBG Base Excess 2.2, VBG Lactic Acid 1.6, Sodium 138, Potassium 4.4, Chloride 104, Carbon Dioxide 31 H, Anion Gap 7.4, BUN 14, Creatinine 0.80, Estimated Creat Clear 96, Estimated GFR 97, Est GFR ( Amer) 118, Glucose 174 H, Calcium 8.8, Total Bilirubin 0.6, AST 27, ALT 18, Alkaline Phosphatase 88, Troponin I < 0.01, NT-Pro-B Natriuret Pep 33.1, Total Protein 7.6, Albumin 3.8, Globulin 3.8 H, Albumin/Globulin Ratio 1.0 L 11/07/23 14:11: Troponin I < 0.01 11/07/23 10:39 11/07/23 10:39 Response Orders (Tests/Meds): ED MEDICATIONS Generic Name Dose Route Start Last Admin Trade Name Freq PRN Reason Stop Dose Admin Sodium Chloride 10 ml 11/07/23 10:45 Sodium Chloride 0.9% 10ml Flush Syringe IV 12/07/23 10:44 NEEDED PRN Maintain IV Site Discontinued Medications Generic Name Dose Route Start Last Admin Trade Name Freq PRN Reason Stop Dose Admin Albuterol/Ipratropium 9 ml 11/07/23 10:35 11/07/23 10:58 Ipratropium/Albuterol 3 Ml Neb IH 11/07/23 10:36 9 ml ONCE ONE Administration Magnesium Sulfate 2 gm in 50 mls @ 50 mls/hr 11/07/23 13:14 11/07/23 13:16 Magnesium Sulfate 2gm/50ml Premix IV 11/07/23 14:13 50 mls/hr ONCE ONE Administration Magnesium Sulfate 2 gm 11/07/23 13:08 11/07/23 13:19 Magnesium Sulfate 1gm/2ml Vial IM 11/07/23 13:09 Not Given ONCE ONE Prednisone 60 mg 11/07/23 11:42 11/07/23 11:47 Prednisone 20mg Tab PO 11/07/23 11:43 60 mg ONCE ONE Administration ORDERS Category Date Time Status CXR 2 view (NOT portable) [XR chest 2V] Stat Exams 11/07/23 10:34 Completed BNP [NT Pro Brain Natriuretic Pep.] Stat Lab 11/07/23 10:39 Completed CBC w/Auto Diff [Complete Blood Count Auto Diff] Stat Lab 11/07/23 10:39 Completed CMP [Comprehensive Metabolic Panel] Stat Lab 11/07/23 10:39 Completed Trop I [Troponin I] Stat Lab 11/07/23 10:39 Completed Troponin I Q3H Lab 11/07/23 14:11 Completed Troponin I Q3H Lab 11/07/23 16:45 Ordered VBG [Venous Blood Gas] Stat RT 11/07/23 10:39 Completed EKG Request [ECG Request] Stat Y 11/07/23 10:34 Ordered ECG Data Tracing #1: Attestation: I reviewed this ECG and interpreted as documented below: ECG Narrative: EKG personally inter by me. Normal sinus rhythm with a rate of 79 bpm. No ischemic changes. MDM Narrative Medical Decision Narrative: 63-year-old male with past medical history significant for CAD, GERD, HLD, HTN, DM2, COPD not currently requiring oxygen however he does state that he used to be on 2 L a year ago, presents today for evaluation concerning shortness of breath, cough and congestion over the past few days. He was at his provider's office and was noted to have an oxygen saturation of 76% on room air and was sent to the ED for further evaluation. On assessment, the patient is medically stable and in no acute distress. Afebrile. He did have decreased breath sounds in the upper and mid lung finney. There was also expiratory wheezing auscultated. He was not tachycardic. Abdomen soft nondistended nontender palpation. No peripheral edema noted. Otherwise exam vitals unremarkable. Differential diagnoses include but limited to COPD exacerbation, pneumonia, ACS, pleural effusion, CHF, among others. Patient has a room air saturation of 83% at rest. Was placed on 2 L of oxygen for support. His lab workup today has been remarkable for a WBC of 7.1. Mild CO2 retention on VBG at 52.4. No acidosis with pH of 7.34. Troponin is less than 0.01. BNP 33.1. I did give patient 60 mg of prednisone and also gave DuoNebs while in the ED. He was reassessed and his breath sounds were improved. I did give him an ambulatory trial without oxygen and when he returned and was at rest he was a candidate 83%. I did place him on 2 L of oxygen once again and he had appropriate oxygen saturation in the mid and upper 90s. I did give him 2 g of magnesium to further facilitate his airway and oxygenation in the setting of his COPD exacerbation. He remained well-appearing overall on 2 L of oxygen. He did reveal to me that he has oxygen at home and when he had to use it he used 2 L however has not had to use this for quite some time. He has also voiced that he would prefer not to be admitted to the hospital today since he has oxygen at home and can follow-up with his provider very soon. Given this, I did have a shared decision-making discussion with patient and decision was made to discuss with case management to assist with providing patient with oxygen so that he can transition to his home for his home oxygen. Case management has been working on obtaining oxygen for patient however patient has decided that he will like to leave the hospital against medical vice at this time as he has oxygen at home and does not want to pay $25 to have oxygen delivered to his home. I discussed with patient risks versus benefits of leaving in the setting of hypoxia. I noted to patient that his oxygen saturation on 2 L was appropriate however when off of oxygen he did have desaturations. He stated that he will get his oxygen as soon as possible and will schedule appointment with his PCP. He verbalized understanding and agreement of risks versus benefits. I provided him with strict return ED precautions. He was subsequently allowed to leave the hospital AMA. He was overall well-appearing and was not in distress.
--- NOTE | 2023-11-07 10:43 | ECG_ITS ---
APPROVED REPORT Exam: Resting ECG HR:79 bpm ECG Measurements Heart Rate 79 AXES WV 148 P 46 QRSd 101 QRS 66 QT 388 T 68 QTc 422 Conclusion SINUS RHYTHM NORMAL ECG UNCONFIRMED REPORT Electronically signed by : RANULFO SLOAN, 11/07/2023 16:14:46
[2023-11-07 10:47] LABS: Lactate Venous 1.6 mmol/L (0.4-2.0); VBG Base Excess 2.2 mmol/L (-2.4-2.3); VBG HCO3 27.9 mmol/L (23-30); VBG Oxygen Saturation 73.4 % (50-70); VBG PCO2 52.4 mmol/L (35-51); VBG PH 7.34 mmol/L (7.31-7.41); VBG PO2 32.9 mmol/L (28-40); VBG Total CO2 29.5 mmol/L (23-27)
[2023-11-07 10:49] LABS: Basophils # 0.1 K/mm3 (0-0.2); Basophils % 1.1 % (0.1-2.0); Eosinophils # 0.1 K/mm3 (0.0-0.4); Hematocrit 54.3 % (42.0-52.0); Hemoglobin 16.9 g/dL (14.1-18.0); Lymphocytes % 27.6 % (10-50); Mean Corpuscular HGB Conc 31.2 g/dL (31.8-35.4); Mean Corpuscular Hemoglobin 27.3 pg (27.0-31.2); Mean Corpuscular Volume 87.5 fl (80-94); Mean Platelet Volume 7.9 fl (7.4-10.4); Monocytes # 0.4 K/mm3 (0.1-1.0); Monocytes % 5.6 % (1.7-9.3); Neutrophils # 4.5 K/mm3 (1.8-7.8); Neutrophils % 63.7 % (37.0-80.0); Platelet Count 222 K/mm3 (142-424); Red Blood Count 6.21 M/mm3 (4.60-6.20); Red Cell Distribution Width 17.6 % (11.5-17.5); White Blood Count 7.1 K/mm3 (4.8-10.8)
[2023-11-07 10:52] LABS: Chloride 104 mmol/L (98-107); Sodium 138 mmol/L (136-145)
[2023-11-07 10:53] LABS: Potassium 4.4 mmoL/L (3.5-5.1)
[2023-11-07 10:55] LABS: Alanine Aminotransferase 18 U/L (12-78); Albumin Level 3.8 g/dl (3.5-5.0); Alkaline Phosphatase 88 U/L (38-126); Anion Gap 7.4 mEq/L (5-15); Aspartate Amino Transferase 27 U/L (17-59); Bilirubin,Total 0.6 mg/dl (0.2-1.3); Blood Urea Nitrogen 14 mg/dl (9-20); Carbon Dioxide 31 mmol/L (22.0-30.0); Creatinine Clearance Estimated 96 mL/min (50-200); Estimated Glomerular Filt Rate 97 ml/min (>60); GFR (African American) 118 ML/MIN (>60); Globulin 3.8 g/dL (1.3-3.2); Total Protein,Serum 7.6 g/dl (6.3-8.2)
[2023-11-07 10:56] LABS: Calcium 8.8 mg/dl (8.4-10.2); Glucose 174 mg/dl (74-100)
[2023-11-07] MEDS: IPRATROPIUM/ALBUTEROL 3 ML NEB 9 ML IH (10:58)
[2023-11-07 11:05] LABS: NT Pro Brain Natriuretic Pep. 33.1 pg/mL (0-125)
[2023-11-07 11:09] LABS: Troponin I < 0.01 ng/ml (0.00-0.034)
[2023-11-07] MEDS: predniSONE 20MG TAB 60 MG PO (11:47)
[2023-11-07] MEDS: MAGNESIUM SULFATE IN WATER 2 GM/50 ML PIGGYBACK IV (13:16)
[2023-11-07 14:49] LABS: Troponin I < 0.01 ng/ml (0.00-0.034)
--- NOTE | 2023-11-07 15:01 | CARE MANAGER ---
Patient stated he got his O2 from [employer]. Could not locate the company. Spoke with Dr. Croft's office and they stated he received it from [facility] in [facility]. Patient had stated he would like to switch his Oxygen to somewhere more local. Contacted [employer] and they called and found patient is actually with [employer] and changing companies right now is not possible. Reached out to [facility], but have ont heard back from them yet. [employer] can provide a portable tank for $25 and pick it up later this week. Communicated this to ER staff and they state patient is signing out AMA. Will send order and information to [facility] so they can still set up what he needs. ANGELIQUE Bahena
--- NOTE | 2023-11-07 15:09 | PC.NURSE ---
Pt elected to leave A vs paying for $25 for another tank from [employer] or waiting further for [employer] to bring another O2 tank.
== END 2023-11-07 15:16 | disposition left against medical advice (07) ==
PROVIDERS: Emergency Provider Emergency Medicine; PCP Family Medicine
DX: J44.1 Chronic obstructive pulmonary disease with (acute) exacerbation (principal); F17.210 Nicotine dependence, cigarettes, uncomplicated; R06.02 Shortness of breath; R05.9 Cough, unspecified; R09.81 Nasal congestion; I11.9 Hypertensive heart disease without heart failure; I25.10 Atherosclerotic heart disease of native coronary artery without angina pectoris; E78.5 Hyperlipidemia, unspecified; K21.9 Gastro-esophageal reflux disease without esophagitis; E11.9 Type 2 diabetes mellitus without complications; Z79.84 Long term (current) use of oral hypoglycemic drugs
CPT/HCPCS: 71046; 80053; 82803; 83880; 84484; 85025; 93005; 96365; 96372; 99284; J3475

== ENCOUNTER 2023-11-16 10:37 | Outpatient (CLI) | payer MEDICARE, SELFPAY ==
--- NOTE | 2023-11-16 10:38 | FL_ITS ---
FINAL REPORT CLINICAL HISTORY: 426.83 dap 4.33 fluoro time FINDINGS: MODIFIED BARIUM SWALLOW History: Dysphagia FINDINGS: Fluoroscopy was provided for the speech pathologist to evaluate the swallowing mechanism. The patient was given several different consistencies of barium while the swallow was visualized fluoroscopically. The report of the speech pathologist should be consulted prior to making dietary decisions. Fluoroscopy time: 4 minutes and 33 Fluoro dose: 426.83 DAP in uGym2 IMPRESSION: Modified barium swallow under fluoroscopic guidance. Please see the report of the speech pathologist for Dietary recommendations. Films reviewed , interpreted and dictated by Dr. Martin. Transcribed by Jeromy Mcdonnell PA-C. Reviewed, Interpreted and Dictated by Jose D Martin MD Transcribed by NICK Steinberg Authenticated and [facility]
--- NOTE | 2023-11-16 13:49 | HMH.SLMBS2 ---
Speech & Language Evaluation Speech/Language Mod Barium Swallow Start: 11/16/23 13:17 Freq: once Status: Complete Protocol: Document 11/16/23 13:18 SCARLETTROLANDO (Rec: 11/16/23 13:49 [facility] [id number][facility] General Information General Current Food Consistancy Regular,Thin Liquids Dentition Good Dentition Oxygen Status Room Air Patient Orientation Person,Place,Time,Situation Ability to Follow Directions Good Communication Ability No Impairment MBS Recommendations Diet Dietary Recommendations Regular,Thin Liquids Treatment/Strategies Strategy/Precaution Recommend Sitting Upright (90 deg),Chin Tuck,Double Swallow, Supraglottic Swallow, Supersupraglottic Swallow,No Straw,Small Bites and Sips, Alternate Liquids/Solids Referrals/Other Recommended Referrals GI Consult Other Recommendations Globus sensation, difficulty with GERD, Mod Barium Swallow Impressions Summary and Impressions Oral Phase Impression No Impairment (WFL) Oral Phase Summary No impairment of the oral preparatory or oral transit phases of the swallow. Mastication and manipulation of the bolus appear to be WFL. Pharyngeal Phase Impression Severe Impairment Pharyngeal Phase Summary Moderate to severe impairment of the pharyngeal phase of the swallow. Pt exhibits copious amounts of residual in the vallecular space across all consistencies trialed that require multiple swallows, a throat clear, and a head tilt to clear. Pt aspirated a small amount of thin liquid when given prompt to take consecutive sips. Pt has reduced BOT retraction, limited PPW movement, reduced hyolaryngeal excursion resulting in decreased epiglottic coverage. Mr. Sandhu was also noted to report discomfort following swallow, attempting to clear his throat. It was observed throughout that Mr. Sandhu had an abnormal of the esophagus resulting in multiple effortful swallows to successfully clear bolus. When presented with head tilt back, bolus was observed to move at a more efficient rate. NUISANCE [employer]IMAL DAMAGE CONTROL AGENT reviewed various strategies performed during MBSS and importance of implementing into day to day meals in the home environment. He expressed understanding. Speech/Language MBS Assessment/Goals/Plan Assessment Date of Evaluation: 11/16/23 Evaluation Type Initial Certification Assessment/Problems dysphagia per MD order. Does Patient Qualify for Service No Qualify/Failure Comment Based on results of MBSS instrumental assessment, pt would benefit from a GI consult to further assess esophageal phase of the swallow. Mastication and manipulation of bolus appear to be WFL. Swallow with implementation of compensatory strategies is WFL and pt expressed understanding. At this time, no further skilled speech therapy services are warranted at this time. Recommendations PHYSICIAN CERTIFICATION: The specified therapy services are required, authorized, and reviewed every 30 days. Diet Recommendations Normal Liquid Type Recommendations Normal/Thin SL Swallow Guidelines Alt bite w/sip thru meal, Standard Aspiration Prec.,Eat at slow rate,Reflux precautions Dysphagia Swallow Precautions/Strategies Chin Tuck,Double Swallow, Supraglottic Swallow, Supersupraglottic Swallow,No Straw,Small Bites and Sips, Alternate Liquids/Solids Plan Pt/Guardian verbally ack understanding Yes of dx/prognosis/goals G -code Required No Education Instructions provided Discussed, MBSS results, diet recommendations, aspiration precautions, and compensatory stratgies; as well as provided an educational handout to pt who expressed understanding. Pt/Caregiver able to recall information Able to recall/restate Reinforcement needed No Mod Barium Swallow Setup Exam Setup Radiologist Joesph Franks Level of Consciousness Awake,Alert,Appropriate, Follows Commands Mod Barium Swallow-Lat View Textures Lateral View Food Presentation Thin Liquid via Cup,[place] Liquid via Cup,Pureed Food- Thin,Mech. Soft Food- Regular, Barium Tablet,Regular Food, Pudding Oral Phase Labial Closure No Impairment (WFL) Bolus Formation Pooling L/R No Impairment (WFL) Bolus Formation under Tongue Minimal Impairment Bolus Formation Scattered Loss No Impairment (WFL) Mastication Rotary Chew Minimal Impairment Mastication Munching No Impairment (WFL) Mastication Lateralization No Impairment (WFL) Lingual Movement Minimal Impairment Residue Clearing Minimal Impairment Pharyngeal Phase A/P Lingual Propulsion Spills Mild Impairment Swallow Response Delay Mild Impairment Base of Tongue Moderate Impairment Epiglottic Coverage Moderate Impairment Laryngeal Elevation Moderate Impairment Vallecular Retention Clearing Severe Impairment Pharyn. Wall Residue Clearing Severe Impairment Piriform Sinus Retention Moderate Impairment Aspiration? Yes Degree of Aspiration Small When aspirated During the swallow Consistencies Aspirated thin liquid with consecutive sips Silent aspiration? No Mod Barium Swallow-AP View Performed Mod Barium Swallow A/P View Test Not Applicable/Performed PHYSICIAN CERTIFICATION: I certify the specified therapy services for Douglas Zazueta are required, authorized, and reviewed every 30 days.
== END 2023-11-16 23:59 | disposition home or self-care (01) ==
LOC: RAD 10:38
PROVIDERS: PCP Family Medicine; Visit Provider Family Medicine
DX: R13.10 Dysphagia, unspecified (principal)
CPT/HCPCS: 70371; 92611

== ENCOUNTER 2024-03-08 11:17 | Outpatient (CLI) | payer MEDICARE, SELFPAY ==
--- NOTE | 2024-03-08 11:30 | XR_ITS ---
FINAL REPORT CLINICAL HISTORY: pain LUE FINDINGS: CERVICAL SPINE Three views demonstrate no acute fracture. There are moderate degenerative changes. There is fusion from C4-C6. There is no malalignment. IMPRESSION: Degenerative and postsurgical changes. Reviewed, Interpreted and Dictated by Joesph Franks III, MD Transcribed by Xin Chambers Authenticated and [facility]
--- NOTE | 2024-03-08 11:30 | XR_ITS ---
FINAL REPORT CLINICAL HISTORY: LUE pain FINDINGS: Left humerus Two views were obtained. There is no acute fracture or dislocation. There are mild degenerative changes of the AC joint. No soft tissue abnormality is identified. IMPRESSION: No acute process. Reviewed, Interpreted and Dictated by Joesph Franks III, MD Transcribed by Xin Chambers Authenticated and [facility]
--- NOTE | 2024-03-08 11:30 | XR_ITS ---
FINAL REPORT CLINICAL HISTORY: COPD COMPARISON: 11/07/2023 FINDINGS: TWO-VIEW CHEST The heart size is normal. The mediastinum is normal. The lungs are hyperinflated consistent with COPD. There is mild pulmonary vascular congestion. There are mild bibasilar opacities, favor atelectasis over pneumonia. Moderate right and small left pleural effusions are identified. There is no pneumothorax. IMPRESSION: Bibasilar opacities, favor atelectasis over pneumonia with bilateral effusions. Reviewed, Interpreted and Dictated by Joesph Franks III, MD Transcribed by Xin Chambers Authenticated and [facility]
== END 2024-03-08 23:59 | disposition home or self-care (01) ==
LOC: RAD 11:19
PROVIDERS: PCP Family Medicine; Visit Provider Family Medicine
DX: M79.602 Pain in left arm (principal); G89.29 Other chronic pain; J44.1 Chronic obstructive pulmonary disease with (acute) exacerbation
CPT/HCPCS: 71046; 72040; 73060

== ENCOUNTER 2024-03-20 10:28 | Emergency (ER) | payer MEDICARE, SELFPAY ==
[2024-03-20] VITALS (10 sets, daily range): BP systolic 103–128; BP diastolic 66–83; PULSE 93–127; RESP 9–18; TEMP 36.6–36.7; O2SAT 92–95; BMI 31.3
--- NOTE | 2024-03-20 10:33 | ECG_ITS ---
APPROVED REPORT Exam: Resting ECG HR:115 bpm ECG Measurements Heart Rate 115 AXES CO 130 P 54 QRSd 101 QRS 74 QT 332 T 52 QTc 400 Conclusion SINUS TACHYCARDIA V4 ARTIFACT Electronically signed by : Terry Coon, 03/20/2024 16:12:29
--- NOTE | 2024-03-20 10:58 | PC.NURSE ---
DR LOMBARDO AT BEDSIDE
--- NOTE | 2024-03-20 11:03 | XR_ITS ---
FINAL REPORT CLINICAL HISTORY: Left shoulder pain, no known trauma FINDINGS: LEFT SHOULDER 3 views were obtained. There is no acute fracture or dislocation. There are mild hypertrophic changes at the acromioclavicular joint. The glenohumeral joint is intact. There is no soft tissue abnormality. IMPRESSION: No acute bony abnormality. Reviewed, Interpreted and Dictated by Jose D Martin MD Transcribed by Bethany Winkler Authenticated and [facility] [place] [place]
--- NOTE | 2024-03-20 11:03 | XR_ITS ---
FINAL REPORT CLINICAL HISTORY: Left arm pain, no known trauma FINDINGS: LEFT HUMERUS 2 views were obtained. There is no acute fracture or dislocation. There is a slightly, expansile, lucent lesion in the distal humeral diaphysis measuring 2.5 cm. There is no overlying periosteal reaction. The margins are not well-defined. The joint spaces are intact. There is no soft tissue abnormality. IMPRESSION: Lucent lesion in the distal humeral diaphysis concerning for an aggressive lesion. Correlate with known history of malignancy. CT or MRI could better define. Reviewed, Interpreted and Dictated by Jose D Martin MD Transcribed by Bethany Winkler Authenticated and [facility]
--- NOTE | 2024-03-20 11:03 | XR_ITS ---
FINAL REPORT CLINICAL HISTORY: Left elbow pain, no trauma FINDINGS: LEFT ELBOW 3 views were obtained. An IV is seen in the left antecubital fossa. There is no acute fracture or dislocation. The joint spaces are intact. There is no joint effusion. There is no soft tissue abnormality. IMPRESSION: No acute bony abnormality. Reviewed, Interpreted and Dictated by Jose D Martin MD Transcribed by Bethany Winkler Authenticated and [facility]
--- NOTE | 2024-03-20 11:06 | HMH.EDGENADL ---
Discharge Plan Disposition Patient Disposition: Home, Self-Care Condition: Good Prescriptions Prescriptions: New prednisone 20 mg tablet 40 mg PO DAILY 5 Days Qty: 10 0RF No Action ergocalciferol (vitamin D2) 50 mcg (2,000 unit) tablet 50 mcg PO DAILY fluoxetine 20 mg capsule 20 mg PO DAILY Qty: 90 3RF metformin 1,000 mg tablet 1,000 mg PO BID Qty: 180 3RF atorvastatin 40 mg tablet 40 mg PO ONCE Qty: 90 5RF cholecalciferol (vitamin D3) 250 mcg (10,000 unit) capsule 250 mcg PO DAILY Qty: 90 3RF escitalopram oxalate [Lexapro] 20 mg tablet 20 mg PO DAILY Qty: 90 3RF fenofibrate 160 mg tablet 160 mg PO DAILY Qty: 90 3RF lisinopril 10 mg tablet See Rx Instructions .ROUTE .COMPLEX Qty: 90 3RF Dose Instruction: TAKE 1 TABLET BY MOUTH DAILY Rx Instructions: TAKE 1 TABLET BY MOUTH DAILY tamsulosin 0.4 mg capsule 0.4 mg PO DAILY Qty: 90 3RF albuterol sulfate 90 mcg/actuation HFA aerosol inhaler 2 puff inhalation QID PRN (Reason: shortness of breath or wheezing) Qty: 8.5 10RF torsemide 20 mg tablet 20 mg PO DAILY PRN (Reason: edema) Qty: 30 2RF Rx Instructions: take once daily if legs swell not on a regular basis nystatin 100,000 unit/mL suspension See Rx Instructions .ROUTE .COMPLEX Qty: 60 3RF Rx Instructions: swish and swallow 4-6 cc qid pregabalin [Lyrica] 100 mg capsule 100 mg PO TID PRN (Reason: pain, severe) Qty: 90 5RF trazodone 150 mg tablet See Rx Instructions .ROUTE .COMPLEX Qty: 90 3RF Rx Instructions: TAKE 1 TABLET BY MOUTH EVERYDAY AT BEDTIME ipratropium-albuterol 0.5 mg-3 mg(2.5 mg base)/3 mL solution for nebulization 3 ml inhalation QID PRN (Reason: shortness of breath or wheezing) Qty: 180 10RF cyclobenzaprine 10 mg tablet 10 mg PO DAILY Qty: 90 0RF hydrocodone-acetaminophen 10-325 mg tablet 1 tab PO Q6H PRN (Reason: pain) Qty: 70 0RF Rx Instructions: dose change pantoprazole 40 mg tablet,delayed release (DR/EC) See Rx Instructions .ROUTE .COMPLEX Qty: 180 0RF Dose Instruction: TAKE 1 TABLET BY MOUTH TWICE DAILY Rx Instructions: TAKE 1 TABLET BY MOUTH TWICE DAILY hydroxyzine HCl 25 mg tablet 25 mg PO HS PRN (Reason: sleep) Qty: 90 3RF prednisone 50 mg tablet 50 mg PO DAILY 5 Days Qty: 5 0RF Referrals Follow up/Referrals: Gerson Croft MD [Primary Care Provider] - See instructions Activity Restrictions/Add. Instructions Additional Instructions/Restrictions: It is very important to follow-up with your primary care doctor regarding the finding on your x-ray that could be suggestive of a bone lesion or, at worst cancer. Follow-up within the next 2 to 3 days. Regarding your shortness of breath, your primary care doctor may want to increase your fluid pill. Also component of a COPD exacerbation, so complete your course of steroids as prescribed. Return to the emergency department if you develop worsening chest pain worsening shortness of breath or become concerned for your health. Clinical Impressions Clinical Impression: Acute exacerbation of chronic obstructive pulmonary disease, Acute exacerbation of CHF (congestive heart failure) Print Language Print Language: Tamazight Discharge ED Provider: Terry Coon Adult HPI General Chief complaint: Extremity Injury, Upper Stated complaint: soa L arm pain Time Seen by Provider: 03/20/24 10:36 Mode of Arrival: Ambulatory Source of Information: Patient Limitations: No Limitations Description of Symptoms (Recalled from ER Triage Doc. by RN): pt states his primary complaint is L arm pain that radiates from his shoulder to his hand. pt states the pain is sharp, 9/10, and ongoing x3wks. pt denies injury. pt states he had an xray by Dr. Croft that was negative. pts L hand is edematous. pt also c/o SOA x1 wk. pt was 76% on RA at arrival. when pt was placed on his home 4LNC his SOA
--- NOTE | 2024-03-20 11:09 | XR_ITS ---
FINAL REPORT CLINICAL HISTORY: shortness of breath, home oxygen use FINDINGS: A single view of the chest was obtained. The heart is mildly enlarged. The patient is rotated to the right. The mediastinum is unremarkable. There is a small right pleural effusion. Interstitial opacities are seen at the lung bases. There is no pneumothorax. There is no acute osseous abnormality. IMPRESSION: Right pleural effusion and bibasilar interstitial opacities may represent mild edema. Reviewed, Interpreted and Dictated by Jose D Martin MD Transcribed by Bethany Winkler Authenticated and [facility]
--- NOTE | 2024-03-20 11:11 | CA_ITS ---
FINAL REPORT TECHNIQUE: Graded compression, spectral analysis and ultrasound images of the venous system of the upper extremity were obtained. CLINICAL HISTORY: pain in left deltoid area of left arm, tenderness to touch FINDINGS: The jugular vein, subclavian vein, axillary vein, brachial vein, cephalic vein and basilic venous system are fully compressible and demonstrate no evidence of thrombosis. There may be some noncompressibility of the superficial veins in the region of the left deltoid which may represent superficial venous thrombosis. IMPRESSION: No evidence of thrombosis of the venous system of the left upper extremity. Findings which may represent superficial venous thrombosis. Reviewed, Interpreted and Dictated by Jose D Martin MD Transcribed by Bethany Winkler Authenticated and [facility]
[2024-03-20 11:22] LABS: Basophils # 0.1 K/mm3 (0-0.2); Basophils % 0.4 % (0.1-2.0); Eosinophils # 0.1 K/mm3 (0.0-0.4); Eosinophils % 0.7 % (0.1-12.0); Hematocrit 51.9 % (42.0-52.0); Hemoglobin 15.8 g/dL (14.1-18.0); Lymphocytes # 1.3 K/mm3 (0.7-4.5); Lymphocytes % 12.6 % (10-50); Mean Corpuscular HGB Conc 30.4 g/dL (31.8-35.4); Mean Corpuscular Hemoglobin 28.2 pg (27.0-31.2); Mean Corpuscular Volume 92.7 fl (80-94); Monocytes # 0.6 K/mm3 (0.1-1.0); Monocytes % 5.7 % (1.7-9.3); Neutrophils # 8.4 K/mm3 (1.8-7.8); Neutrophils % 80.5 % (37.0-80.0); Platelet Count 364 K/mm3 (142-424); Red Blood Count 5.59 M/mm3 (4.60-6.20); Red Cell Distribution Width 17.3 % (11.5-17.5); White Blood Count 10.4 K/mm3 (4.8-10.8)
[2024-03-20 11:23] LABS: Albumin Level 3.6 g/dl (3.5-5.0); Chloride 101 mmol/L (98-107); Sodium 135 mmol/L (136-145)
[2024-03-20 11:24] LABS: Potassium 4.4 mmoL/L (3.5-5.1)
[2024-03-20 11:26] LABS: Alanine Aminotransferase 21 U/L (12-78); Albumin/Globulin Ratio 0.9 (1.1-1.8); Alkaline Phosphatase 109 U/L (38-126); Anion Gap 6.4 mEq/L (5-15); Aspartate Amino Transferase 22 U/L (17-59); Bilirubin,Total 0.8 mg/dl (0.2-1.3); Blood Urea Nitrogen 15 mg/dl (9-20); Carbon Dioxide 32 mmol/L (22.0-30.0); Creatinine Clearance Estimated 96 mL/min (50-200); Estimated Glomerular Filt Rate 97 ml/min (>60); GFR (African American) 118 ML/MIN (>60); Globulin 4.1 g/dL (1.3-3.2); Total Protein,Serum 7.7 g/dl (6.3-8.2)
[2024-03-20 11:27] LABS: Calcium 8.5 mg/dl (8.4-10.2); Glucose 201 mg/dl (74-100); INR 1.14 (0.9-1.1); Magnesium 1.5 mg/dl (1.6-2.3); Prothrombin Time 12.6 seconds (10.1-12.5)
[2024-03-20 11:41] LABS: Troponin I < 0.01 ng/ml (0.00-0.034)
--- NOTE | 2024-03-20 11:52 | PC.NURSE ---
xray at bs
[2024-03-20 12:48] LABS: NT Pro Brain Natriuretic Pep. 1080 pg/mL (0-125)
--- NOTE | 2024-03-20 14:02 | PC.NURSE ---
DR LOMBARDO AT BEDSIDE TO UPDATE PT AND FAMILY ON POC
== END 2024-03-20 14:16 | disposition home or self-care (01) ==
PROVIDERS: Emergency Provider Emergency Medicine; PCP Family Medicine
DX: J44.1 Chronic obstructive pulmonary disease with (acute) exacerbation (principal); F17.210 Nicotine dependence, cigarettes, uncomplicated; R06.02 Shortness of breath; I11.0 Hypertensive heart disease with heart failure; I50.9 Heart failure, unspecified; M79.602 Pain in left arm; Z99.81 Dependence on supplemental oxygen; R00.0 Tachycardia, unspecified; J90 Pleural effusion, not elsewhere classified
CPT/HCPCS: 71045; 73030; 73060; 73080; 80053; 83735; 83880; 84484; 85025; 85610; 93005; 93971; 96365; 96375; 99285; J0131; J1885; J1940; J2919; J3475; J7620

== ENCOUNTER 2024-03-22 07:25 | Outpatient (CLI) | payer MEDICARE, SELFPAY ==
--- NOTE | 2024-03-22 07:25 | CT_ITS ---
FINAL REPORT TECHNIQUE: Thin section axial CT images of the left humerus were obtained and reviewed before and after the administration of contrast. Coronal and sagittal reformats were obtained and reviewed. This study was performed with techniques to keep radiation doses as low as reasonably achievable (ALARA). Individualized dose reduction techniques using automated exposure control or adjustment of mA and/or kV according to the patient's size were employed. CLINICAL HISTORY: Bone Mass; Lung Masses; RPE COMPARISON: Right humerus x-ray 03/20/2024 FINDINGS: There is a 2.4 x 1.5 cm slightly expansile intramedullary mass in the distal humeral diaphysis best seen on image 28 of series 602. There appears to be erosion of the cortex. There is no overlying periosteal reaction. No extraosseous soft tissue component is identified. IMPRESSION: Expansile intramedullary mass with overlying cortical disruption. In a patient this age, metastasis is most likely. Consider bone scan or PET scan to better assess the full extent of disease. Reviewed, Interpreted and Dictated by Jose D Martin MD Transcribed by Jaqui Lazo Authenticated and [facility]
--- NOTE | 2024-03-22 07:25 | CT_ITS ---
FINAL REPORT CLINICAL HISTORY: Lung Masses and R PE FINDINGS: CT CHEST WITHOUT AND WITH CONTRAST TECHNIQUE: Pre and postcontrast axial images through the chest were performed by computed tomography. This study was performed with techniques to keep radiation doses as low as reasonably achievable, (ALARA). Individualized dose reduction techniques using automated exposure control or adjustment of mA and/or kV according to the patient's size were employed. FINDINGS: There is no axillary adenopathy. There is no hilar or mediastinal adenopathy. There are moderate coronary artery calcifications. The heart size is normal. There is no pericardial effusion. There is a moderate right pleural effusion. There are mild changes of centrilobular emphysema. There is dense right lower lobe consolidation. There is atelectasis noted in the right lung base. Limited images of the upper abdomen are unremarkable. IMPRESSION: Moderate right pleural effusion and right lower lobe consolidation may be due to pneumonia or aspiration. Reviewed, Interpreted and Dictated by Jose D Martin MD Transcribed by Bethany Winkler Authenticated and [facility]
[2024-03-22] MEDS: SODIUM CHLORIDE 0.9% 10ML SYR (RAD ONLY) 10 ML IV (08:08)
[2024-03-22] MEDS: IOPAMIDOL-370 (76%);100ML BOTTLE 75 ML IV (08:08)
== END 2024-03-22 23:59 | disposition home or self-care (01) ==
LOC: RAD 07:25
PROVIDERS: PCP Family Medicine; Visit Provider Family Medicine
DX: J90 Pleural effusion, not elsewhere classified (principal); R91.8 Other nonspecific abnormal finding of lung field; M89.9 Disorder of bone, unspecified
CPT/HCPCS: 71270; 73202; Q9967

== ENCOUNTER 2024-03-28 07:25 | Outpatient (CLI) | payer MEDICARE, SELFPAY ==
[2024-03-28] VITALS (10 sets, daily range): BP systolic 114–133; BP diastolic 60–70; PULSE 84–117; RESP 18; TEMP 36.1–36.6; O2SAT 76–94; BMI 31.3
--- NOTE | 2024-03-28 | XR_ITS ---
FINAL REPORT CLINICAL HISTORY: .post thora rt side-- COMPARISON: 03/20/2024 FINDINGS: TWO-VIEW CHEST The heart size is normal. The mediastinum is normal. There is partially improved right effusion. There is no pneumothorax. IMPRESSION: Partially improved right effusion. Reviewed, Interpreted and Dictated by Joesph Franks III, MD Transcribed by Xin Chambers Authenticated and . [facility]
--- NOTE | 2024-03-28 07:31 | US_ITS ---
FINAL REPORT CLINICAL HISTORY: RT PLEURAL EFFUSION -- THORACENTESIS RT -- EPPE ROMERO -- 850 ML FINDINGS: ULTRASOUND GUIDED RIGHT THORACENTESIS HISTORY: Right pleural effusion. ATTENDING PHYSICIAN: Dr. Franks PHYSICIAN METAL DIE FINISHER: Viv Mcghee PA-C TECHNIQUE: Informed consent was obtained from the patient. The risks of the procedure were discussed with the patient prior to beginning. This included, but was not limited to, the risk of pneumothorax requiring chest tube placement. Appropriate pocket was localized for drainage. The patient was prepped and draped in routine fashion. Local anesthesia was achieved with 1% lidocaine. Using imaging guidance with images acquired, an 18-gauge sheath needle was directed into the pleural fluid. Approximately 850mL of yellow serous fluid was aspirated. 50 mL of fluid was sent for laboratory analysis. IMPRESSION: Successful ultrasound guided right thoracentesis. Reviewed, Interpreted and Dictated by Joesph Franks III, MD Transcribed by Viv Mcghee PA-C Authenticated and [facility]
--- NOTE | 2024-03-28 08:21 | PC.NURSE ---
patient arrived to pre op for vitals signs prior to thoracentesis. patient's O2 76% on room air. patient states portal oxygen was suppose to arrived to home yesterday, but it was not delivered. patient wears home O2 3L at baseline. RN to place patient on 3L NC. O2 now 87% on 3L. will continue to monitor patient post procedure and portable oxygen to be sent home with patient.
--- NOTE | 2024-03-28 11:03 | PC.NURSE ---
Dr. Croft office called at 0915 for order for portable oxygen tank for discharge. patient's room air saturation 79%. order to be sent to [facility]
[2024-03-28] MEDS: HYDROCODONE 10MG/APAP 325MG TAB 2 TAB PO (11:48)
[2024-03-28 13:23] LABS: POC Glucose,Bedside 175 (70-110)
[2024-03-29 13:11] LABS: LD, Body Fluid 163 IU/L (.); Protein, Body Fluid 4.2 g/dL (.)
== END 2024-03-28 11:55 | disposition home or self-care (01) ==
PROVIDERS: PCP Family Medicine; Visit Provider Internal Medicine Medical Oncology
DX: J90 Pleural effusion, not elsewhere classified (principal); C79.51 Secondary malignant neoplasm of bone; E11.9 Type 2 diabetes mellitus without complications; E78.5 Hyperlipidemia, unspecified; G89.3 Neoplasm related pain (acute) (chronic); J98.11 Atelectasis; R91.8 Other nonspecific abnormal finding of lung field
CPT/HCPCS: 32555; 71046; 82962; 83615; 84155; 88112; 88305

== ENCOUNTER 2024-03-31 21:45 | Emergency (ER) | payer MEDICARE, SELFPAY ==
[2024-03-31 22:23] VITALS: BP 138/73; PULSE 80; RESP 19; TEMP 36.7; O2SAT 98; BMI 31.3
[2024-03-31 22:30] VITALS: BP 133/79; PULSE 105; O2SAT 96
--- NOTE | 2024-03-31 22:32 | XR_ITS ---
PROCEDURE INFORMATION: Exam: XR Left Humerus Exam date and time: 03/31/2024 10:38 PM Age: 63 years old Clinical indication: Pain; Upper arm; Left; Additional info: Pain, h/o cancer, concern for pathologic fracture TECHNIQUE: Imaging protocol: Radiologic exam of the left humerus. Views: 2 or more views. COMPARISON: CR XR HUMERUS LT 03/31/2024 10:38 PM FINDINGS: Bones/joints: A lytic lesion in the mid humeral diaphysis measures 3.5 cm in length with severe cortical thinning. There is a wide zone of transition. No visible fracture through the lesion. Soft tissues: Normal. IMPRESSION: Large lytic lesion in the humeral diaphysis is compatible with myeloma or metastasis. No visible fracture.
--- NOTE | 2024-03-31 22:32 | XR_ITS ---
PROCEDURE INFORMATION: Exam: XR Left Elbow Exam date and time: 03/31/2024 10:38 PM Age: 63 years old Clinical indication: Pain; Upper arm; Left; Additional info: Pain, h/o cancer, concern for pathologic fracture TECHNIQUE: Imaging protocol: Radiologic exam of the left elbow. Views: 3 or more views. COMPARISON: CR XR ELBOW LT MIN 3V 03/20/2024 11:41 AM FINDINGS: Bones/joints: In the humerus at the upper margin of the images, there is a lytic lesion with cortical thinning. Lesion is incompletely included on the exam. There is no visible fracture at this site. No evidence of acute fracture or dislocation elsewhere. No erosive disease. No significant degenerative change. No joint effusion. Soft tissues: Mild dorsal soft tissue swelling. IMPRESSION: Lytic lesion in the humeral diaphysis is partly imaged. There is no visible fracture through the imaged portion of that lesion. Intact elbow without joint effusion.
--- NOTE | 2024-03-31 22:32 | XR_ITS ---
PROCEDURE INFORMATION: Exam: XR Left Shoulder Exam date and time: 03/31/2024 10:38 PM Age: 63 years old Clinical indication: Pain; Upper arm; Left; Additional info: Pain, h/o cancer, concern for pathologic fracture TECHNIQUE: Imaging protocol: Radiologic exam of the left shoulder. Views: 2 or more views. COMPARISON: CR XR SHOULDER LT MIN 2V 03/31/2024 10:38 PM FINDINGS: Bones/joints: Subjective bony demineralization. No fracture or dislocation. Mild acromioclavicular osteoarthritis. Soft tissues: Normal. IMPRESSION: No acute bony injury. Mild AC osteoarthritis.
--- NOTE | 2024-03-31 22:49 | HMH.EDGENADL ---
Discharge Plan Disposition Patient Disposition: Home, Self-Care Condition: Good Prescriptions Prescriptions: No Action ergocalciferol (vitamin D2) 50 mcg (2,000 unit) tablet 50 mcg PO DAILY fluoxetine 20 mg capsule 20 mg PO DAILY Qty: 90 3RF metformin 1,000 mg tablet 1,000 mg PO BID Qty: 180 3RF atorvastatin 40 mg tablet 40 mg PO ONCE Qty: 90 5RF cholecalciferol (vitamin D3) 250 mcg (10,000 unit) capsule 250 mcg PO DAILY Qty: 90 3RF escitalopram oxalate [Lexapro] 20 mg tablet 20 mg PO DAILY Qty: 90 3RF fenofibrate 160 mg tablet 160 mg PO DAILY Qty: 90 3RF lisinopril 10 mg tablet See Rx Instructions .ROUTE .COMPLEX Qty: 90 3RF Dose Instruction: TAKE 1 TABLET BY MOUTH DAILY Rx Instructions: TAKE 1 TABLET BY MOUTH DAILY tamsulosin 0.4 mg capsule 0.4 mg PO DAILY Qty: 90 3RF albuterol sulfate 90 mcg/actuation HFA aerosol inhaler 2 puff inhalation QID PRN (Reason: shortness of breath or wheezing) Qty: 8.5 10RF torsemide 20 mg tablet 20 mg PO DAILY PRN (Reason: edema) Qty: 30 2RF Rx Instructions: take once daily if legs swell not on a regular basis nystatin 100,000 unit/mL suspension See Rx Instructions .ROUTE .COMPLEX Qty: 60 3RF Rx Instructions: swish and swallow 4-6 cc qid ibuprofen 800 mg tablet 800 mg PO Q8H PRN (Reason: pain) Qty: 45 2RF trazodone 150 mg tablet See Rx Instructions .ROUTE .COMPLEX Qty: 90 3RF Rx Instructions: TAKE 1 TABLET BY MOUTH EVERYDAY AT BEDTIME ipratropium-albuterol 0.5 mg-3 mg(2.5 mg base)/3 mL solution for nebulization 3 ml inhalation QID PRN (Reason: shortness of breath or wheezing) Qty: 180 10RF cyclobenzaprine 10 mg tablet 10 mg PO DAILY Qty: 90 0RF pantoprazole 40 mg tablet,delayed release (DR/EC) See Rx Instructions .ROUTE .COMPLEX Qty: 180 0RF Dose Instruction: TAKE 1 TABLET BY MOUTH TWICE DAILY Rx Instructions: TAKE 1 TABLET BY MOUTH TWICE DAILY hydroxyzine HCl 25 mg tablet 25 mg PO HS PRN (Reason: sleep) Qty: 90 3RF hydrocodone-acetaminophen 10-325 mg tablet See Rx Instructions PO Q4H PRN (Reason: pain) Qty: 120 0RF Rx Instructions: 1-2 orally every 4 hours PRN; dose change Referrals Follow up/Referrals: Honorio Gomes DO [Staff Physician] - See instructions (has bone mets, brace at home broke, came to ER with humerus pain but no new fx, placed in liz brace for now, needs follow up) Gerson Croft MD [Primary Care Provider] - See instructions Activity Restrictions/Add. Instructions Additional Instructions/Restrictions: You were evaluated in the ER and are appropriate for discharge at this time. Wear the brace at all times as previously directed by Dr. Gomes. Take it off once a day to clean the skin. Always wear the brace with the sleeve under it. Continue taking your home medications as prescribed, including the hydrocodone. Make an appointment to follow-up with Dr. Gomes to recheck the arm and to recheck the brace. Also follow-up with Dr. Rashid regarding your cancer. Return to the ER with new, worsening, or otherwise concerning symptoms. Clinical Impressions Clinical Impression: Pain of left humerus, Cancer, metastatic to bone Print Language Print Language: Yakut Discharge ED Provider: Janette Mendoza General Adult HPI <Janette Mendoza DO - Last Filed: 03/31/24 23:19> General Chief complaint: PAIN Stated complaint: Left Arm Pain Time Seen by Provider: 03/31/24 22:20 Mode of Arrival: Family Vehicle Source of Information: Patient Limitations: No Limitations Description of Symptoms (Recalled from ER Triage Doc. by RN): 63 yo male presents with cc of left arm pain, atraumatic. according to patient he recently was diagnosed with a 2 in lesion in the bone of his arm. He is just starting his evaluation for mets and location determination with his physicians so the details are still unknown. He was walking and felt/heard his bone snap. 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 Patient reports that he was diagnosed with a bone lesion in this arm and was walking down to his driveway this evening when he suddenly felt a snap in his arm. He believes it is broken. He arrives by EMS who gave him 50 mcg of fentanyl en route which helped his pain some, but is still an 8/10. No falls or injuries. No other concerns noted at this time. Related Data Home Medications ?Medication ?Instructions ?Recorded ?Confirmed ergocalciferol (vitamin D2) 50 mcg 50 mcg PO DAILY . 09/23/20 03/22/24 (2,000 unit) tablet Previous Rx's ?Medication ?Instructions ?Recorded fluoxetine 20 mg capsule 20 mg PO DAILY #90 caps 05/05/23 metformin 1,000 mg tablet 1,000 mg PO BID Diabetes #180 tabs 07/11/23 atorvastatin 40 mg tablet 40 mg PO ONCE #90 tabs 08/24/23 cholecalciferol (vitamin D3) 250 250 mcg PO DAILY . #90 caps 08/24/23 mcg (10,000 unit) capsule escitalopram oxalate 20 mg tablet 20 mg PO DAILY Anxiety #90 tabs 08/24/23 (Lexapro) fenofibrate 160 mg tablet 160 mg PO DAILY supple,ment #90 08/24/23 tabs lisinopril 10 mg tablet See Rx Instructions .Route 08/24/23 .COMPLEX #90 tabs tamsulosin 0.4 mg capsule 0.4 mg PO DAILY . #90 caps 08/24/23 trazodone 150 mg tablet See Rx Instructions .Route 11/07/23 .COMPLEX sleep #90 tabs ipratropium 0.5 mg-albuterol 3 mg 3 ml inhalation QID PRN shortness 11/11/23 (2.5 mg base)/3 mL nebulization of breath or wheezing #180 mL soln nystatin 100,000 unit/mL oral See Rx Instructions .Route 11/18/23 suspension .COMPLEX #60 mL torsemide 20 mg tablet 20 mg PO DAILY PRN edema #30 tabs 11/18/23 albuterol sulfate 90 mcg/actuation 2 puff inhalation QID PRN 12/05/23 aerosol inhaler shortness of breath or wheezing #8.5 grams pantoprazole 40 mg tablet,delayed See Rx Instructions .Route 01/09/24 release .COMPLEX #180 tabs cyclobenzaprine 10 mg tablet 10 mg PO DAILY . #90 tabs 02/01/24 hydroxyzine HCl 25 mg tablet 25 mg PO HS PRN sleep #90 tabs 02/08/24 ibuprofen 800 mg tablet 800 mg PO Q8H PRN pain #45 tabs 03/21/24 hydrocodone 10 mg-acetaminophen See Rx Instructions PO Q4H PRN 03/28/24 325 mg tablet pain #120 tabs Allergies Allergy/AdvReac Type Severity Reaction Status Date / Time ciprofloxacin [From Cipro] Allergy Severe Rash Verified 03/22/24 13:39 methocarbamol [Robaxin] Allergy Severe Rash Verified 03/22/24 13:39 From Penicillin G Sodium Allergy Unknown Hives Uncoded 03/22/24 13:39 Penicillin Allergy Unknown Hives Uncoded 03/22/24 13:39 PFSH <Janette Mendoza DO - Last Filed: 03/31/24 23:19> [facility] Disclaimer: The information contained in this section may have been updated after the patient was seen, as this information can be updated by other users. Medical History Dysphagia Coronary artery disease Chest pain Anxiety and depression Spinal cord stimulator status Cervical vertebral fusion GERD (gastroesophageal reflux disease) HLD (hyperlipidemia) HTN (hypertension) Diabetes Surgical History History of laparoscopic cholecystectomy History of appendectomy History of cervical spinal surgery History of lumbar surgery History of incision and drainage History of colonoscopy Family History Other Family history of cardiac disorder Social History Smoking Status: Unknown if ever smoked alcohol intake: never substance use type: denies use current occupational status: unemployed and disabled Travel in the last 8 weeks: None household members: significant other housing: house caffeine: Yes <Janette Mendoza DO - Last Filed: 03/31/24 23:19> ROS Obtained: Yes All systems reviewed & no additional complaints except as documented Physical Exam <Janette Mendoza DO - Last Filed: 03/31/24 23:19> General General appearance: alert and in no apparent distress Head Head exam: atraumatic and normocephalic Eye Eye exam: Present normal appearance, PERRL and EOMI ENT ENT exam: Present normal exam, normal oropharynx, mucous membranes moist and normal external ear exam Neck Neck exam: Present normal inspection, full ROM and trachea midline; Absent tenderness Chest Chest inspection: Present normal inspection and symmetric chest wall rise; Absent tenderness Respiratory Respiratory exam: Present normal lung sounds bilaterally; Absent respiratory distress, wheezes, stridor or accessory muscle use Cardiovascular Cardiovascular exam: Present regular rate and normal rhythm Abdominal Exam Abdominal exam: Present soft; Absent distention, tenderness or guarding Extremities Exam Extremities exam: Present tenderness (Mid humerus), normal capillary refill and other (All compartment soft, neurovascularly intact distally); Absent full ROM (Limited range of motion of the left upper extremity secondary to pain) or edema Back Exam Back exam: Present normal inspection and full ROM; Absent tenderness Neurological Exam Neurological exam: Present alert, oriented X3, CN II-XII intact and normal gait; Absent motor sensory deficit Psychiatric Psychiatric exam: Present normal affect and normal mood Skin Skin exam: Present warm and dry Medical Decision Making <Janette Mendoza, DO - Last Filed: 03/31/24 23:19> Medical Records Medical records reviewed: Yes I reviewed the patient's medical records. Martínez Inquiry Pt receiving controlled substance: No Vital Signs: 03/31/24 22:23 03/31/24 22:30 03/31/24 23:00 Temperature 98.0 F Temperature Source Oral Pulse Rate 105 H 103 H Pulse Rate [Right Brachial] 80 Respiratory Rate 19 Blood Pressure 133/79 118/75 Blood Pressure [Right Arm] 138/73 Blood Pressure Mean [Right Arm] 94 Blood Pressure Source [Right Arm] Automatic Cuff Blood Pressure Position [Right Arm] Sitting 02 Sat by Pulse Oximetry 98 96 92 L Oxygen Delivery Method Room Air 03/31/24 23:30 03/31/24 23:58 Temperature 98.1 F Temperature Source Oral Pulse Rate 103 H 78 Pulse Rate [Right Brachial] Respiratory Rate 17 Blood Pressure 124/70 124/70 Blood Pressure [Right Arm] Blood Pressure Mean [Right Arm] Blood Pressure Source [Right Arm] Blood Pressure Position [Right Arm] 02 Sat by Pulse Oximetry 95 Oxygen Delivery Method Room Air Lab Data Lab results reviewed: Yes I reviewed the patient's lab results. Orders (Tests/Meds): ED MEDICATIONS Discontinued Medications Generic Name Dose Route Start Last Admin Trade Name Freq PRN Reason Stop Dose Admin Hydrocodone Bitart/Acetaminophen 2 tab 03/31/24 23:50 03/31/24 23:59 Hydrocodone/Apap 5/325 Mg Tablet PO 03/31/24 23:51 2 tab ONCE ONE Administration Hydromorphone HCl 0.5 mg 03/31/24 23:03 03/31/24 23:04 Hydromorphone 2mg/Ml Syringe IV 03/31/24 23:04 0.5 mg ONCE ONE Administration Morphine Sulfate 4 mg 03/31/24 22:50 03/31/24 22:58 Morphine 4mg/Ml Syringe IV 03/31/24 22:51 Not Given ONCE ONE Ondansetron HCl 4 mg 03/31/24 22:50 03/31/24 22:55 Ondansetron 4mg/2ml Vial IV 03/31/24 22:51 4 mg ONCE ONE Administration ORDERS Category Date Time Status Elbow XR left mininum 3 views [XR elbow LT min 3V] Stat Exams 03/31/24 22:32 Completed Humerus XR left [XR humerus LT] Stat Exams 03/31/24 22:32 Completed Shoulder XR left minimum 2 views [XR shoulder LT min 2V Exams 03/31/24 22:32 Completed ] Stat Medical Decision Narrative: In summary, this patient is a 63-year-old male presenting to the Emergency Department for evaluation of upper arm pain. Differential diagnoses considered include but are not limited to pathologic fracture, musculoskeletal strain/sprain, neurovascular injury. Ruling out the most morbid conditions drove assessment. It should be noted patient's history includes newly diagnosed cancer with metastasis to the bone with unknown definitive primary at this time which is not at goal therapy. This complicates all aspects of care by increasing patient's risk for morbidity. I reviewed patient's past medical records and noted previous evaluations by oncology as well as prior CT of his arm in the past. On exam, the patient is lying in bed in no acute distress. He is neurovascularly intact in his left upper extremity with intact range of motion of all digits of his hand. Workup included x-rays of the left shoulder, humerus, and elbow. He was given IV Dilaudid and Zofran for symptomatic improvement of pain. Patient care signed out to the oncoming provider, Dr. Johnson, pending XR and disposition. <Keila Johnson MD - Last Filed: 04/01/24 00:04> Vital Signs: 03/31/24 22:23 03/31/24 22:30 03/31/24 23:00 Temperature 98.0 F Temperature Source Oral Pulse Rate 105 H 103 H Pulse Rate [Right Brachial] 80 Respiratory Rate 19 Blood Pressure 133/79 118/75 Blood Pressure [Right Arm] 138/73 Blood Pressure Mean [Right Arm] 94 Blood Pressure Source [Right Arm] Automatic Cuff Blood Pressure Position [Right Arm] Sitting 02 Sat by Pulse Oximetry 98 96 92 L Oxygen Delivery Method Room Air 03/31/24 23:30 03/31/24 23:58 Temperature 98.1 F Temperature Source Oral Pulse Rate 103 H 78 Pulse Rate [Right Brachial] Respiratory Rate 17 Blood Pressure 124/70 124/70 Blood Pressure [Right Arm] Blood Pressure Mean [Right Arm] Blood Pressure Source [Right Arm] Blood Pressure Position [Right Arm] 02 Sat by Pulse Oximetry 95 Oxygen Delivery Method Room Air Orders (Tests/Meds): ED MEDICATIONS Discontinued Medications Generic Name Dose Route Start Last Admin Trade Name Freq PRN Reason Stop Dose Admin Hydrocodone Bitart/Acetaminophen 2 tab 03/31/24 23:50 03/31/24 23:59 Hydrocodone/Apap 5/325 Mg Tablet PO 03/31/24 23:51 2 tab ONCE ONE Administration Hydromorphone HCl 0.5 mg 03/31/24 23:03 03/31/24 23:04 Hydromorphone 2mg/Ml Syringe IV 03/31/24 23:04 0.5 mg ONCE ONE Administration Morphine Sulfate 4 mg 03/31/24 22:50 03/31/24 22:58 Morphine 4mg/Ml Syringe IV 03/31/24 22:51 Not Given ONCE ONE Ondansetron HCl 4 mg 03/31/24 22:50 03/31/24 22:55 Ondansetron 4mg/2ml Vial IV 03/31/24 22:51 4 mg ONCE ONE Administration ORDERS Category Date Time Status Elbow XR left mininum 3 views [XR elbow LT min 3V] Stat Exams 03/31/24 22:32 Completed Humerus XR left [XR humerus LT] Stat Exams 03/31/24 22:32 Completed Shoulder XR left minimum 2 views [XR shoulder LT min 2V Exams 03/31/24 22:32 Completed ] Stat Medical Decision Narrative: In summary, this patient is a 63-year-old male presenting to the Emergency Department for evaluation of upper arm pain. Differential diagnoses considered include but are not limited to pathologic fracture, musculoskeletal strain/sprain, neurovascular injury. Ruling out the most morbid conditions drove assessment. It should be noted patient's history includes newly diagnosed cancer with metastasis to the bone with unknown definitive primary at this time which is not at goal therapy. This complicates all aspects of care by increasing patient's risk for morbidity. I reviewed patient's past medical records and noted previous evaluations by oncology as well as prior CT of his arm in the past. On exam, the patient is lying in bed in no acute distress. He is neurovascularly intact in his left upper extremity with intact range of motion of all digits of his hand. Workup included x-rays of the left shoulder, humerus, and elbow. He was given IV Dilaudid and Zofran for symptomatic improvement of pain. Patient care signed out to the oncoming provider, Dr. Johnson, pending XR and disposition. Johnson: Upon my assumption of care patient is stable, pain is improved since receiving morphine. I personally interpreted x-ray and do not appreciate obvious fracture, metastatic lesion appreciated in the left humerus. See radiology read for final interpretation. On reevaluation, patient and family at bedside report he previously had a brace for the left upper arm that had broken. Though he does not have a fracture, patient was placed in a Liz brace for stability given the extremely thin cortex of the bone and high probability of sustaining a pathologic fracture without direct trauma. Patient reports he has only been taking his hydrocodone once a day though it is prescribed up to 4 times daily. With his increased pain since the incident today, I instructed him to increase the frequency of this medication if needed so he is taking it as directed at home to help better control his pain. Patient and family were given instructions on use of this brace, symptomatic management, follow-up instructions including close follow-up with Dr. Gomes, and strict return precautions for the ER. They indicated understanding and the patient was discharged in stable condition. Critical Care <Janette Mendoza, DO - Last Filed: 03/31/24 23:19> Critical Care Time Critical Care Time: No
[2024-03-31] MEDS: ONDANSETRON 4MG/2ML VIAL 4 MG IV (22:55)
--- NOTE | 2024-03-31 22:58 | PC.NURSE ---
Patient reports that he gets a severe headache from morphine and would rather not take it if possible. Notified provider, patient also had fentanyl in route with EMS and tolerated this well also. Orders received.
[2024-03-31 23:00] VITALS: BP 118/75; PULSE 103; O2SAT 92
[2024-03-31] MEDS: HYDROMORPHONE 2MG/ML SYRINGE 0.5 MG IV (23:04)
[2024-03-31 23:30] VITALS: BP 124/70; PULSE 103; O2SAT 95
[2024-03-31 23:58] VITALS: BP 124/70; PULSE 78; RESP 17; TEMP 36.7; O2SAT 95
[2024-03-31] MEDS: HYDROCODONE/APAP 5/325 MG TABLET 2 TAB PO (23:59)
== END 2024-04-01 00:05 | disposition home or self-care (01) ==
PROVIDERS: Emergency Provider Emergency Medicine; PCP Family Medicine
DX: G89.3 Neoplasm related pain (acute) (chronic) (principal); M79.602 Pain in left arm; C79.51 Secondary malignant neoplasm of bone; I25.10 Atherosclerotic heart disease of native coronary artery without angina pectoris; I10 Essential (primary) hypertension; E11.9 Type 2 diabetes mellitus without complications; E78.5 Hyperlipidemia, unspecified
CPT/HCPCS: 73030; 73060; 73080; 96374; 96375; 99284; J1170; J2270; J2405

== ENCOUNTER 2024-04-05 14:56 | Outpatient (POV) | payer MEDICARE, SELFPAY ==
--- NOTE | 2024-04-05 15:10 | EXP.PAIN.OV ---
HPI Data of Consult Patient: new to practice Consult date: 04/05/24 Requesting Physician: Janette Gomes APRN Primary Care Provider: Gerson Croft MD Consult Narrative Reason for consult: Neck pain, left shoulder pain, left arm pain History of present illness: Mr. Zazueta is a 63 year old male who presents today as a new patient. He is a referral from Dr. Croft. Today he rates his pain a 10 out of 10. He states he has pain through his neck all the way radiating down his entire left shoulder into his left arm to his wrist. Patient states he has had chronic neck pain for years and has actually had 2 cervical fusions as well as a lumbar fusion in the past. He states however that the shoulder symptoms started about 2 to 3 months ago and that it just kept being very sore and that he would occasionally bump into staff however it never seem like it made sense as severe as it was. Patient has also experienced severe swelling all down the entire left extremity into his hand. Patient states he ended up coming for evaluation due to the worsening pain and come to find out that it was cancer. Patient states that he is waiting to see whether or not it is if insurance is going to cover a CT for additional imaging to see whether or not if it is just in the shoulder or has metastasis to other areas. Patient does state it is a sharp achy sensation with numbness. He does state the pain interferes with his ability perform activities of daily living. Patient does state that he can barely even move this entire extremity.Patient is currently managed with Foristell 10 mg 4 times a day, pregabalin 100 mg 3 times a day, Flexeril 10 mg 3 times a day and ibuprofen 800 mg 3 times daily as needed. Patient was most recently given a prescription of oxycodone 10 mg with 60 tablets on 04/02. He does state that the original pain medication did not seem to do as much and then that was when Dr. Croft called with the new prescription. He does state that that does seem to help much better. Patient does state he is just very sore to touch. His Martínez has been reviewed. CC: Janette Gomes APRN [facility] Disclaimer: The information contained in this section may have been updated after the patient was seen, as this information can be updated by other users. Medical History (Updated 04/05/24 @ 15:47 by Janette Gomes APRN) Cancer of bone Dysphagia Coronary artery disease Chest pain Anxiety and depression Spinal cord stimulator status Cervical vertebral fusion GERD (gastroesophageal reflux disease) HLD (hyperlipidemia) HTN (hypertension) Diabetes Surgical History (Updated 04/05/24 @ 15:47 by Janette Gomes APRN) History of laparoscopic cholecystectomy History of appendectomy History of cervical spinal surgery History of lumbar surgery History of incision and drainage History of colonoscopy Family History Other Family history of cardiac disorder Social History Smoking Status: Unknown if ever smoked alcohol intake: never substance use type: denies use current occupational status: unemployed and disabled Travel in the last 8 weeks: None household members: significant other housing: house caffeine: Yes Review of Systems Review of Systems Review of systems:: pertinent systems reviewed and negative unless documented below Review of systems (narrative): Review of Systems: General: No recent weight changes, no fever, no sleep disturbances Respiratory: No cough, no shortness of air, no recurring pulmonary infections Cardiovascular/peripheral vascular: No chest pain, no palpitations, no edema, no shortness of breath Gastrointestinal: No new onset incontinence, normal bowel movements reported Genitourinary: No new onset incontinence Musculoskeletal: Neck pain, left shoulder pain, left arm pain Psychiatric: [Normal mood/affect] Neurological: [Denies weakness in extremities], [denies balance issues] Meds Home Medications and Allergies Home Medications ?Medication ?Instructions ?Recorded ?Confirmed ?Type ergocalciferol (vitamin D2) 50 mcg 50 mcg PO DAILY . 09/23/20 03/22/24 History (2,000 unit) tablet fluoxetine 20 mg capsule 20 mg PO DAILY #90 caps 05/05/23 03/28/24 Rx metformin 1,000 mg tablet 1,000 mg PO BID Diabetes #180 tabs 07/11/23 03/28/24 Rx atorvastatin 40 mg tablet 40 mg PO ONCE #90 tabs 08/24/23 03/28/24 Rx cholecalciferol (vitamin D3) 250 250 mcg PO DAILY . #90 caps 08/24/23 03/28/24 Rx mcg (10,000 unit) capsule escitalopram oxalate 20 mg tablet 20 mg PO DAILY Anxiety #90 tabs 08/24/23 03/28/24 Rx (Lexapro) fenofibrate 160 mg tablet 160 mg PO DAILY supple,ment #90 08/24/23 03/28/24 Rx tabs lisinopril 10 mg tablet See Rx Instructions .Route 08/24/23 03/28/24 Rx .COMPLEX #90 tabs tamsulosin 0.4 mg capsule 0.4 mg PO DAILY . #90 caps 08/24/23 03/28/24 Rx trazodone 150 mg tablet See Rx Instructions .Route 11/07/23 03/28/24 Rx .COMPLEX sleep #90 tabs ipratropium 0.5 mg-albuterol 3 mg 3 ml inhalation QID PRN shortness 11/11/23 03/22/24 Rx (2.5 mg base)/3 mL nebulization of breath or wheezing #180 mL soln nystatin 100,000 unit/mL oral See Rx Instructions .Route 11/18/23 03/22/24 Rx suspension .COMPLEX #60 mL torsemide 20 mg tablet 20 mg PO DAILY PRN edema #30 tabs 11/18/23 03/22/24 Rx albuterol sulfate 90 mcg/actuation 2 puff inhalation QID PRN 12/05/23 03/22/24 Rx aerosol inhaler shortness of breath or wheezing #8.5 grams pantoprazole 40 mg tablet,delayed See Rx Instructions .Route 01/09/24 03/28/24 Rx release .COMPLEX #180 tabs cyclobenzaprine 10 mg tablet 10 mg PO DAILY . #90 tabs 02/01/24 03/28/24 Rx hydroxyzine HCl 25 mg tablet 25 mg PO HS PRN sleep #90 tabs 02/08/24 03/28/24 Rx ibuprofen 800 mg tablet 800 mg PO Q8H PRN pain #45 tabs 03/21/24 03/22/24 Rx hydrocodone 10 mg-acetaminophen See Rx Instructions PO Q4H PRN 03/28/24 Rx 325 mg tablet pain #120 tabs dexamethasone 4 mg tablet 4 mg PO DAILY #30 tabs 04/02/24 Rx ibuprofen 800 mg tablet 800 mg PO Q8H #90 tabs 04/02/24 Rx oxycodone 10 mg tablet 10 mg PO Q4H PRN pain #60 tabs 04/02/24 Rx New Prescriptions to Start Prescriptions: Allergies Allergy/AdvReac Type Severity Reaction Status Date / Time ciprofloxacin [From Cipro] Allergy Severe Rash Verified 03/22/24 13:39 methocarbamol [Robaxin] Allergy Severe Rash Verified 03/22/24 13:39 From Penicillin G Sodium Allergy Unknown Hives Uncoded 03/22/24 13:39 Penicillin Allergy Unknown Hives Uncoded 03/22/24 13:39 Objective Narrative: Physical Exam: General: Alert and oriented x3, no acute distress, pleasant and cooperative Lungs: Respirations even and unlabored, symmetrical chest expansion Eyes: PERRL Musculoskeletal: Flexion and extension of cervical [spine] somewhat guarded secondary to pain, [antalgic gait noted] positive Spurling's test, extreme point tenderness along left shoulder with palpation Neurological: Speech clear, no gross sensory deficit Skin: Swelling noted from his left shoulder down to his fingertips Additional findings Additional findings: FINDINGS: Bones/joints: A lytic lesion in the mid humeral diaphysis measures 3.5 cm in length with severe cortical thinning. There is a wide zone of transition. No visible fracture through the lesion. Soft tissues: Normal. IMPRESSION: Large lytic lesion in the humeral diaphysis is compatible with myeloma or metastasis. No visible fracture. Assessment and Plan *Assessment and plan (1) Cancer, metastatic to bone: Status: Acute Category: Medical Code(s): C79.51 - Secondary malignant neoplasm of bone (2) Pain of left humerus: Status: Acute Category: Medical Code(s): M89.8X2 - Other specified disorders of bone, upper arm (3) Arm pain: Status: Acute Qualifiers: Laterality: left Qualified Code(s): M79.602 - Pain in left arm Category: Medical Code(s): M79.603 - Pain in arm, unspecified (4) Degenerative disc disease, cervical: Status: Acute Category: Medical Code(s): M50.30 - Other cervical disc degeneration, unspecified cervical region (5) Chronic neck pain: Status: Acute Category: Medical Code(s): M54.2 - Cervicalgia; G89.29 - Other chronic pain (6) History of fusion of cervical spine: Status: Acute Category: Surgical Code(s): Z98.1 - Arthrodesis status (7) History of lumbar fusion: Status: Acute Category: Surgical Code(s): Z98.1 - Arthrodesis status Plan Patient is experiencing significant pain from his neck with radiating symptoms down his entire left extremity. Patient just was recently diagnosed with bone cancer and the left humerus and is awaiting current imaging to see if there is additional metastasis. I did discuss with the patient due to his limited range of motion of his cervical spine and point tenderness along his left shoulder with numbness and swelling that he may benefit from a cervical epidural steroid injection. Risk and benefits were discussed with the patient and he would like to proceed forward with this plan of care. Patient has had these injections in the past and states that they have done really well however they often would vary on how long they lasted whether 6 months with 1 injection or 3 on another. Patient denies any recent injections. Patient during today's exam did have extensive hardware noted with palpation around his cervical spine. I did discuss with the patient due to this that I am not sure we will be able to access his epidural space to give the cervical epidural and that if this is the case then we will switch gears and proceed forward with a peripheral nerve block. Patient is in agreement with this. Patient will be ordered compounded cream. Patient will return to clinic for a JACQUE C6-C7 under fluoroscopy. Patient has been instructed to contact the clinic with any concerns before the next appointment. Dr. Lynn has reviewed this note and agrees with this plan of care. This note was dictated using voice recognition software and make contain errors or omissions. All injections are used with Lidocaine or Bupivacaine and Depo Medrol.
[2024-04-05 15:24] VITALS: BP 149/79; PULSE 119; RESP 22; O2SAT 86; BMI 31.3
== END 2024-04-05 23:59 | disposition home or self-care (01) ==
LOC: SC.PAIN 14:57
PROVIDERS: PCP Family Medicine; Visit Provider Nurse Practitioner Family
DX: C79.51 Secondary malignant neoplasm of bone (principal); M89.8X2 Other specified disorders of bone, upper arm; M79.602 Pain in left arm; M50.30 Other cervical disc degeneration, unspecified cervical region; G89.29 Other chronic pain; Z98.1 Arthrodesis status; Z73.89 Other problems related to life management difficulty; Z79.899 Other long term (current) drug therapy
CPT/HCPCS: 99202; G0463

== ENCOUNTER 2024-04-09 11:00 | Inpatient (IN) | payer MEDICARE, SELFPAY ==
[2024-04-09] VITALS (11 sets, daily range): BP systolic 122–149; BP diastolic 80–101; PULSE 99–119; RESP 17–20; TEMP 36.7–37.1; O2SAT 89–99; BMI 31.3
--- NOTE | 2024-04-09 11:47 | CT_ITS ---
FINAL REPORT TECHNIQUE: Axial imaging of the chest is obtained after the administration of contrast. 3-D MIP reformatted images were also obtained and reviewed per PE protocol. This study was performed with techniques to keep radiation doses as low as reasonably achievable (ALARA). Individualized dose reduction techniques using automated exposure control or adjustment of mA and/or kV according to the patient's size were employed. CLINICAL HISTORY: cancer, volume overload, swelling COMPARISON: 03/22/2024 FINDINGS: The pulmonary arteries are well filled. There is no evidence of pulmonary embolus. There is no aortic dissection or intimal flap. There is a subcarinal node present which measures 35 mm in diameter, was previously 30 mm on March 22. Left hilar adenopathy has increased as well since the prior CT. Changes of emphysema are once again noted. There is complete collapse of the right lower lobe with increasing right middle lobe airspace disease, favor pneumonia. New ground glass opacities are noted bilaterally, favor pulmonary edema. The right pleural effusion noted on the prior CT is stable in appearance.. Limited evaluation of the upper abdomen is without acute abnormality. IMPRESSION: No evidence of pulmonary embolism or aortic dissection. There is worsening subcarinal and left hilar adenopathy when compared to the prior exam, reactive or neoplastic. Complete collapse of the right lower lobe with increasing right middle lobe airspace disease, favor pneumonia. New ground glass opacities are present bilaterally, favor pulmonary edema. Reviewed, Interpreted and Dictated by Prachi Corrales MD Transcribed by Belkis Goyal Authenticated and [facility]
--- NOTE | 2024-04-09 11:47 | CT_ITS ---
FINAL REPORT TECHNIQUE: Thin section axial images were obtained through the cervical spine without contrast. Multiplanar reconstruction images were obtained from the axial data. Exam was performed using dose reduction techniques. CLINICAL HISTORY: cancer, volume overload, swelling COMPARISON: None FINDINGS: Postoperative changes from an anterior fusion of C3-C5 are present. There is minimal anterolisthesis of C5 on C6, likely degenerative. There is no acute fracture or acute malalignment of the cervical spine. There is no evidence of unilateral or bilateral facet lock. Multilevel degenerative disc disease is present, particularly severe in the lower cervical spine. Vertebral body height is preserved. A few nonspecific cervical lymph nodes are noted, stable. IMPRESSION: No acute osseous abnormality of the cervical spine. Multilevel degenerative disc disease is present, particularly severe in the lower cervical spine. Reviewed, Interpreted and Dictated by Prachi Corrales MD Transcribed by Belkis Goyal Authenticated and [facility]
--- NOTE | 2024-04-09 11:47 | CT_ITS ---
FINAL REPORT TECHNIQUE: Thin section axial images were obtained through the thoracic spine without contrast. Sagittal and coronal images were obtained from the axial data. This study was performed with techniques to keep radiation doses as low as reasonably achievable (ALARA). Individualized dose reduction techniques using automated exposure control or adjustment of mA and/or kV according to the patient's size were employed. CLINICAL HISTORY: cancer, volume overload, swelling COMPARISON: None FINDINGS: There is no acute fracture of the thoracic spine. There is no malalignment. Multilevel degenerative disease is noted with osteophyte formation and multilevel disc space narrowing. Spinal stimulator leads are present in the posterior canal. No acute posterior paraspinal abnormality is identified. IMPRESSION: No acute osseous abnormality of the thoracic spine. Degenerative disc disease. Reviewed, Interpreted and Dictated by Prachi Corrales MD Transcribed by Belkis Goyal Authenticated and [facility]
--- NOTE | 2024-04-09 11:47 | CT_ITS ---
FINAL REPORT TECHNIQUE: Thin section axial images were obtained through the left upper extremity without contrast. Reconstruction images were obtained from the axial data. Exam was performed using dose reduction technique. CLINICAL HISTORY: h/o cancer, worsened pain, hx fx , pain COMPARISON: 03/22/2024 FINDINGS: There is a left humeral expansile lytic lesion in the mid to distal shaft of the left humerus, which has increased in size to 3.5 cm in the sagittal dimension, was previously 2.4. In the axial plane, the mass has increased size to 1.5 cm, was previously 1 cm. There are no cortical defects both anteriorly and posteriorly, with soft tissue extending likely outside the cortex. No additional lesions are seen. IMPRESSION: There has been interval increase in size and the lytic bone lesion of the mid and distal shaft of the left humerus as described above. Cortical defects are now present both anteriorly and posteriorly, with soft tissue extending outside of the cortex. Favor metastasis versus primary bone lesion. Reviewed, Interpreted and Dictated by Prachi Corrales MD Transcribed by Belkis Goyal Authenticated and [facility]
--- NOTE | 2024-04-09 11:50 | CA_ITS ---
FINAL REPORT TECHNIQUE: Graded compression, spectral analysis and ultrasound images of the venous system of the upper extremity were obtained. CLINICAL HISTORY: worsened pain/swelling, patient has lung ca with recent diagnosis of left humeral bone mets. Patient is in intense pain and a brace of left shoulder and arm. Left hand is swollen. Patient has difficulty with range of motion of left arm. Nurse aids me in moving arm to see limited veins of LUE. CHF, HTN, HLD, DM II. smoking history uknown. COMPARISON: None FINDINGS: The jugular vein, subclavian vein, axillary vein, brachial vein, cephalic vein and basilic venous system are fully compressible and demonstrate no evidence of thrombosis. The exam is somewhat limited in scope, however no evidence of deep venous thrombosis was visualized. IMPRESSION: No evidence of thrombosis of the venous system of the left upper extremity, limited exam. Reviewed, Interpreted and Dictated by Prachi Corrales MD Transcribed by Belkis Goyal Authenticated and [facility]
--- NOTE | 2024-04-09 12:08 | HMH.EDGENADL ---
Discharge Plan Disposition Patient Disposition: Admitted Condition: Good Clinical Impressions Clinical Impression: Cancer associated pain, Acute exacerbation of CHF (congestive heart failure) Discharge ED Provider: Janette Mendoza General Adult HPI General Chief complaint: PAIN Stated complaint: Pain in L shoulder and elbow, sent by dr giang Time Seen by Provider: 04/09/24 11:43 Mode of Arrival: Ambulatory Limitations: No Limitations Description of Symptoms (Recalled from ER Triage Doc. by RN): Patient reports he was recently diagnosed with bone cancer in his left arm. Patient reports he was sent home with pain medication but it is not helping. Patient was scheduled for an appt with [facility] this morning but just didnt go. Pt also has an appt with pain managment tomrrow for a pain injection. History of Present Illness HPI narrative: This patient is a 63-year-old male with a history of metastatic lung cancer, bone tumor, chronic respiratory failure on 3 L nasal cannula, CHF, hypertension, hyperlipidemia, GERD, and type 2 diabetes presenting to the emergency department for evaluation with concern for worsening left upper extremity pain as well as edema and let his left arm and both of his legs. He states his pain is shooting down his entire left arm. he notes that these symptoms been gradually worsening since he was last here 03/31/2024. He is prescribed hydrocodone's at home which did not improve his pain. He was supposed to follow-up at today for evaluation of his arm at [facility], and he also was supposed to see pain management tomorrow, but he states his pain is so severe that he could not tolerate going to or waiting for any of these appointments and wanted to come here today. No other concerns noted at this time Related Data Home Medications ?Medication ?Instructions ?Recorded ?Confirmed ergocalciferol (vitamin D2) 50 mcg 50 mcg PO DAILY 09/23/20 04/09/24 (2,000 unit) tablet albuterol sulfate 90 mcg/actuation 2 puff inhalation Q4HP PRN 04/09/24 04/09/24 aerosol inhaler shortness of breath or wheezing atorvastatin 40 mg tablet 40 mg PO DAILY 04/09/24 04/09/24 cholecalciferol (vitamin D3) 250 250 mcg PO DAILY 04/09/24 04/09/24 mcg (10,000 unit) capsule cyclobenzaprine 10 mg tablet 10 mg PO DAILY 04/09/24 04/09/24 escitalopram oxalate 20 mg tablet 20 mg PO DAILY 04/09/24 04/09/24 (Lexapro) fenofibrate 160 mg tablet 160 mg PO DAILY 04/09/24 04/09/24 hydroxyzine HCl 25 mg tablet 25 mg PO HSP PRN sleep 04/09/24 04/09/24 ibuprofen 800 mg tablet 800 mg PO Q8HP PRN Mild Pain 04/09/24 04/09/24 (Scale Score 1-4) ipratropium 0.5 mg-albuterol 3 mg 3 ml inhalation Q4HP PRN shortness 04/09/24 04/09/24 (2.5 mg base)/3 mL nebulization of breath or wheezing soln lisinopril 10 mg tablet 10 mg PO DAILY 04/09/24 04/09/24 oxycodone 10 mg tablet 10 mg PO Q4HP PRN Moderate Pain 04/09/24 04/09/24 (Scale Score 5-6) pantoprazole 40 mg tablet,delayed 40 mg PO BID 04/09/24 04/09/24 release tamsulosin 0.4 mg capsule 0.4 mg PO DAILY 04/09/24 04/09/24 torsemide 20 mg tablet 20 mg PO DAILYP PRN edema 04/09/24 04/09/24 trazodone 150 mg tablet 150 mg PO HS 04/09/24 04/09/24 Previous Rx's ?Medication ?Instructions ?Recorded metformin 1,000 mg tablet 1,000 mg PO BID Diabetes #180 tabs 07/11/23 dexamethasone 4 mg tablet 4 mg PO DAILY #30 tabs 04/02/24 Allergies Allergy/AdvReac Type Severity Reaction Status Date / Time ciprofloxacin [From Cipro] Allergy Severe Rash Verified 03/22/24 13:39 methocarbamol [Robaxin] Allergy Severe Rash Verified 03/22/24 13:39 Penicillins Allergy Hives Verified 04/09/24 15:18 PFSH [facility] Disclaimer: The information contained in this section may have been updated after the patient was seen, as this information can be updated by other users. Medical History Cancer of bone Dysphagia Coronary artery disease Chest pain Anxiety and depression Spinal cord stimulator status Cervical vertebral fusion GERD (gastroesophageal reflux disease) HLD (hyperlipidemia) HTN (hypertension) Diabetes Surgical History History of laparoscopic cholecystectomy History of appendectomy History of cervical spinal surgery History of lumbar surgery History of incision and drainage History of colonoscopy Family History Other Family history of cardiac disorder Social History Smoking Status: Never smoker alcohol intake: never substance use type: denies use current occupational status: other Travel in the last 8 weeks: None household members: significant other housing: house caffeine: Yes ROS Obtained: Yes All systems reviewed & no additional complaints except as documented Physical Exam General General appearance: alert and in no apparent distress Head Head exam: atraumatic and normocephalic Eye Eye exam: Present normal appearance, PERRL and EOMI ENT ENT exam: Present normal exam, normal oropharynx, mucous membranes moist and normal external ear exam Neck Neck exam: Present normal inspection, full ROM and trachea midline; Absent tenderness Chest Chest inspection: Present normal inspection and symmetric chest wall rise; Absent tenderness Respiratory Respiratory exam: Present normal lung sounds bilaterally; Absent respiratory distress, wheezes, stridor or accessory muscle use Cardiovascular Cardiovascular exam: Present normal rhythm and tachycardia Abdominal Exam Abdominal exam: Present soft; Absent distention, tenderness or guarding Extremities Exam Extremities exam: Present full ROM, tenderness, normal capillary refill, edema (Significant edema to the entire left upper extremity, especially the left hand, but all compartments are soft and is neurovascularly intact. He also has significant bilateral lower extremity edema) and other (splint in place in left upper extremity) Back Exam Back exam: Present normal inspection and full ROM; Absent tenderness Neurological Exam Neurological exam: Present alert, oriented X3, CN II-XII intact and normal gait; Absent motor sensory deficit Psychiatric Psychiatric exam: Present normal affect and normal mood Skin Skin exam: Present warm and dry Medical Decision Making Medical Records Medical records reviewed: Yes I reviewed the patient's medical records. Martínez Inquiry Pt receiving controlled substance: No Vital Signs: 04/09/24 11:08 04/09/24 11:11 04/09/24 11:30 Temperature 98.8 F Temperature Source Oral Pulse Rate 99 H Pulse Rate [Right Brachial] 113 H Respiratory Rate 17 Blood Pressure 149/84 H 132/82 Blood Pressure [Right Arm] 149/84 H Blood Pressure Mean 94 100 Blood Pressure Mean [Right Arm] 105 02 Sat by Pulse Oximetry 91 L 99 94 L Oxygen Delivery Method Nasal Cannula Room Air Nasal Cannula Oxygen Flow Rate (LPM) 3 3 04/09/24 12:00 04/09/24 13:24 04/09/24 13:30 Temperature Temperature Source Pulse Rate 102 H 110 H 110 H Pulse Rate [Right Brachial] Respiratory Rate Blood Pressure 130/80 140/92 H 124/84 Blood Pressure [Right Arm] Blood Pressure Mean 102 102 100 Blood Pressure Mean [Right Arm] 02 Sat by Pulse Oximetry 94 L 89 L 93 L Oxygen Delivery Method Nasal Cannula Nasal Cannula Nasal Cannula Oxygen Flow Rate (LPM) 3 04/09/24 14:00 04/09/24 14:30 04/09/24 15:59 Temperature 98.0 F Temperature Source Pulse Rate 109 H 110 H 119 H Pulse Rate [Right Brachial] Respiratory Rate 20 Blood Pressure 144/101 H 129/80 129/80 Blood Pressure [Right Arm] Blood Pressure Mean 115 96 Blood Pressure Mean [Right Arm] 02 Sat by Pulse Oximetry 93 L 93 L Oxygen Delivery Method Nasal Cannula Nasal Cannula Nasal Cannula Oxygen Flow Rate (LPM) 4 Lab Data Lab results reviewed: Yes I reviewed the patient's lab results. Lab Results 04/09/24 12:15: WBC 10.8, RBC 5.66, Hgb 15.0, Hct 50.3, MCV 89.0, MCH 26.5 L, MCHC 29.8 L, RDW 18.0 H, Plt Count 361, MPV 7.3 L, Neut % (Auto) 81.2 H, Lymph % (Auto) 11.2, [place] % (Auto) 5.5, Eos % (Auto) 1.3, Baso % (Auto) 0.8, Neut # (Auto) 8.8 H, Lymph # (Auto) 1.2, [place] # (Auto) 0.6, Eos # (Auto) 0.1, Baso # (Auto) 0.1, PT 12.3, INR 1.11 H, APTT 32.9 H, Sodium 136, Potassium 3.6, Chloride 100, Carbon Dioxide 35 H, Anion Gap 4.6 L, BUN 17, Creatinine 0.60 L, Estimated Creat Clear 96, Estimated GFR 136, Est GFR ( Amer) 164, Glucose 154 H, Calcium 8.6, Total Bilirubin 0.7, AST 23, ALT 16, Alkaline Phosphatase 141 H, Troponin I < 0.01, NT-Pro-B Natriuret Pep 1810 H, Total Protein 7.4, Albumin 3.3 L, Globulin 4.1 H, Albumin/Globulin Ratio 0.8 L 04/09/24 12:15 04/09/24 12:15 Orders (Tests/Meds): ED MEDICATIONS Generic Name Dose Route Start Last Admin Trade Name Freq PRN Reason Stop Dose Admin Ketorolac Tromethamine 30 mg 04/09/24 14:54 Ketorolac 30mg/Ml Vial IV 04/14/24 14:53 Q6HP PRN Moderate Pain (4-6) Oxycodone/Acetaminophen 1.5 each 04/09/24 14:54 Oxycodone 10mg W/Apap 325mg Tablet PO 05/09/24 14:53 Q4HP PRN Severe Pain (7-10) Discontinued Medications Generic Name Dose Route Start Last Admin Trade Name Freq PRN Reason Stop Dose Admin Furosemide 40 mg 04/09/24 14:49 04/09/24 15:04 Furosemide 40mg/4ml Vial IV 04/09/24 14:50 40 mg ONCE ONE Administration Hydromorphone HCl 2 mg 04/09/24 11:47 04/09/24 12:27 Hydromorphone 2mg/Ml Syringe IV 04/09/24 11:48 2 mg ONCE ONE Administration Iopamidol 80 ml 04/09/24 13:02 04/09/24 13:03 Iopamidol-370 (76%);100ml Bottle IV 04/09/24 13:03 80 ml ONCE ONE Administration Ondansetron HCl 4 mg 04/09/24 11:47 04/09/24 12:27 Ondansetron 4mg/2ml Vial IV 04/09/24 11:48 4 mg ONCE ONE Administration Sodium Chloride 50 ml 04/09/24 13:02 04/09/24 13:03 0.9 % Sodium Chloride 50 Ml Vial IV 04/09/24 13:03 50 ml ONCE ONE Administration Sodium Chloride 10 ml 04/09/24 13:02 04/09/24 13:03 Sodium Chloride 0.9% 10ml Syr (Rad Only) IV 04/09/24 13:03 10 ml ONCE ONE Administration ORDERS Category Date Time Status CT angio chest PE protocol Stat Cat Scan 04/09/24 11:[address] cervical spine wo con Stat Cat Scan 04/09/24 11:[address] humerus LT wo con Stat Cat Scan 04/09/24 11:[address] thoracic spine wo con Stat Cat Scan 04/09/24 11:47 Completed Activated Partial Thrombo Time Stat Lab 04/09/24 12:15 Completed BNP [NT Pro Brain Natriuretic Pep.] Stat Lab 04/09/24 12:15 Completed Complete Blood Count Auto Diff AMLAB Lab 04/10/24 06:00 Ordered Complete Blood Count Auto Diff Stat Lab 04/09/24 12:15 Completed Comprehensive Metabolic Panel AMLAB Lab 04/10/24 06:00 Ordered Comprehensive Metabolic Panel Stat Lab 04/09/24 12:15 Completed Magnesium AMLAB Lab 04/10/24 06:00 Ordered Prothrombin Time INR Stat Lab 04/09/24 12:15 Completed Trop I [Troponin I] Stat Lab 04/09/24 12:15 Completed Troponin I Q3H Lab 04/09/24 16:00 Received Troponin I Q3H Lab 04/09/24 18:00 Ordered CA venous doppler UE LT Stat Y 04/09/24 11:50 Completed ECG Data Tracing #1: I reviewed this ECG and interpreted as documented below: Normal sinus rhythm with ventricular rate of [address] changes concerning for ischemia. Normal axis and intervals. ECG initial impression date: 04/09/24 ECG initial impression time: 12:24 Medical Decision Narrative: In summary, this patient is a 63-year-old male presenting to the Emergency Department for evaluation of worsening left arm pain as well as swelling of the left arm and bilateral lower extremity. Differential diagnoses considered include but are not limited to CHF exacerbation, SVC syndrome, chronic pain secondary to bone lesion, cervical radiculopathy, dependent edema. Ruling out the most morbid conditions drove assessment. It should be noted patient's history includes metastatic cancer and CHF which are not at goal therapy. This complicates all aspects of care by increasing patient's risk for morbidity. I reviewed patient's past medical records and noted evaluations here in the past for arm pain as well as acute CHF. On exam, the patient is sitting upright in the bed in no acute distress resting comfortably on his home oxygen. He does have significant swelling of his left lower extremity as well as bilateral lower extremities. All compartments are soft and he is neurovascularly intact. Workup included CBC, CMP, BNP, CTA PE protocol, CT left upper extremity, CT C and T-spine, DVT ultrasound of the left upper extremity. Patient was given IV Dilaudid and Zofran for symptomatic improvement. I independently interpreted CT scan prior to the radiologist read and noted the pathologic fracture/lesion of the patient's left upper extremity as well as findings concerning for pulmonary edema. Please see their read for final interpretation. Labs were obtained that demonstrated elevated BNP. Ultimately given the patient's elevated BNP and signs of volume overload on exam in the setting of pulmonary edema, I feel he would benefit from admission for diuresis. They can also attempt to better control his chronic cancer related pain that is currently flared up. Patient agreeable to admission and is actively requesting it because he does not feel comfortable going home. I had an interactive discussion with the hospitalist who admitted the patient. Critical Care Critical Care Time Critical Care Time: No
--- NOTE | 2024-04-09 12:22 | ECG_ITS ---
APPROVED REPORT Exam: Resting ECG HR:95 bpm ECG Measurements Heart Rate 95 AXES UT 136 P 58 QRSd 106 QRS 43 QT 377 T 12 QTc 430 Conclusion SINUS RHYTHM NORMAL ECG Electronically signed by : AUSTIN BARRY, 04/09/2024 16:33:21
[2024-04-09 12:25] LABS: Basophils # 0.1 K/mm3 (0-0.2); Basophils % 0.8 % (0.1-2.0); Eosinophils # 0.1 K/mm3 (0.0-0.4); Eosinophils % 1.3 % (0.1-12.0); Hematocrit 50.3 % (42.0-52.0); Lymphocytes # 1.2 K/mm3 (0.7-4.5); Lymphocytes % 11.2 % (10-50); Mean Corpuscular HGB Conc 29.8 g/dL (31.8-35.4); Mean Corpuscular Hemoglobin 26.5 pg (27.0-31.2); Mean Platelet Volume 7.3 fl (7.4-10.4); Monocytes # 0.6 K/mm3 (0.1-1.0); Monocytes % 5.5 % (1.7-9.3); Neutrophils # 8.8 K/mm3 (1.8-7.8); Neutrophils % 81.2 % (37.0-80.0); Platelet Count 361 K/mm3 (142-424); Red Blood Count 5.66 M/mm3 (4.60-6.20); White Blood Count 10.8 K/mm3 (4.8-10.8)
[2024-04-09 12:27] LABS: Chloride 100 mmol/L (98-107)
[2024-04-09] MEDS: ONDANSETRON 4MG/2ML VIAL 4 MG IV (12:27)
[2024-04-09] MEDS: HYDROMORPHONE 2MG/ML SYRINGE 2 MG IV (12:27)
[2024-04-09 12:28] LABS: Albumin Level 3.3 g/dl (3.5-5.0); Potassium 3.6 mmoL/L (3.5-5.1); Sodium 136 mmol/L (136-145)
[2024-04-09 12:30] LABS: Blood Urea Nitrogen 17 mg/dl (9-20); Creatinine Clearance Estimated 96 mL/min (50-200); Estimated Glomerular Filt Rate 136 ml/min (>60); GFR (African American) 164 ML/MIN (>60)
[2024-04-09 12:31] LABS: Alanine Aminotransferase 16 U/L (12-78); Albumin/Globulin Ratio 0.8 (1.1-1.8); Alkaline Phosphatase 141 U/L (38-126); Anion Gap 4.6 mEq/L (5-15); Aspartate Amino Transferase 23 U/L (17-59); Bilirubin,Total 0.7 mg/dl (0.2-1.3); Calcium 8.6 mg/dl (8.4-10.2); Carbon Dioxide 35 mmol/L (22.0-30.0); Globulin 4.1 g/dL (1.3-3.2); Glucose 154 mg/dl (74-100); Total Protein,Serum 7.4 g/dl (6.3-8.2)
[2024-04-09 12:32] LABS: Activated Partial Thrombo Time 32.9 seconds (22.8-30.6); INR 1.11 (0.9-1.1); Prothrombin Time 12.3 seconds (10.1-12.5)
[2024-04-09 12:43] LABS: NT Pro Brain Natriuretic Pep. 1810 pg/mL (0-125)
[2024-04-09 12:47] LABS: Troponin I < 0.01 ng/ml (0.00-0.034)
[2024-04-09] MEDS: IOPAMIDOL-370 (76%);100ML BOTTLE 80 ML IV (13:03)
[2024-04-09] MEDS: 0.9 % SODIUM CHLORIDE 50 ML VIAL IV (13:03)
[2024-04-09] MEDS: SODIUM CHLORIDE 0.9% 10ML SYR (RAD ONLY) 10 ML IV (13:03)
--- NOTE | 2024-04-09 14:58 | P.HP_ITS ---
History of Present Illness *Admission Date: 04/09/24 *Reason for visit:: Pain, shortness of breath *History of present illness: Mr. Augustine is a 63-year-old male with chronic respiratory failure on oxygen, CHF, new finding of suspected metastatic cancer to his left humerus, see ED, obesity, chronic pain. He presented to the ER because of worsening pain, swelling in his legs, shortness of breath. States he was due to see orthopedics at today for evaluation of his new finding of suspected metastatic lesion to his left upper arm. Presumed to be cancer. Was unable to make it to his appointment today due to pain and transportation difficulties. On arrival to the ER, patient is having severe pain as well as increased respiratory distress from baseline. Normal wears 2 to 3 L at baseline, requiring 4 L on arrival. Workup concerning for CHF exacerbation with elevated BNP of 1800, chest imaging showing pulmonary edema, and severe uncontrolled pain. Also noted to have significant edema in his legs and his left arm. Initiated on Lasix for diuresis and medicine consulted for further management. Denies chest pain, nausea, vomiting. Reports he is somewhat short of breath from baseline. Has noted significant swelling in his legs over the past few weeks. Pain has become excruciating over the past week. Unable to make it to his appointment [place] today. Denies fever, nausea, vomiting, diarrhea. No increased cough or production of sputum. Per my review of chart: Seen by Dr. Gomes with orthopedics on 03/[address] Rashid with oncology. Discussed concern for metastatic cancer of unknown primary to his arm. Most likely lung cancer. Recommended surgical stabilization of arm due to metastatic lesions. Medical comorbidities are complex. Patient was referred to Dr. Benitez at for definitive treatment. [facility] Disclaimer: The information contained in this section may have been updated after the patient was seen, as this information can be updated by other users. Medical History Cancer of bone Dysphagia Coronary artery disease Chest pain Anxiety and depression Spinal cord stimulator status Cervical vertebral fusion GERD (gastroesophageal reflux disease) HLD (hyperlipidemia) HTN (hypertension) Diabetes Surgical History History of laparoscopic cholecystectomy History of appendectomy History of cervical spinal surgery History of lumbar surgery History of incision and drainage History of colonoscopy Family History Other Family history of cardiac disorder Social History Smoking Status: Never smoker alcohol intake: never substance use type: denies use current occupational status: other Travel in the last 8 weeks: None household members: significant other housing: house caffeine: Yes Review of Systems Review of Systems Review of systems (narrative): 14 point review of systems performed, pertinent positives and negatives as per HPI Meds Home Medications and Allergies Home Medications ?Medication ?Instructions ?Recorded ?Confirmed ?Type ergocalciferol (vitamin D2) 50 mcg 50 mcg PO DAILY 09/23/20 04/09/24 History (2,000 unit) tablet metformin 1,000 mg tablet 1,000 mg PO BID Diabetes #180 tabs 07/11/23 04/09/24 Rx dexamethasone 4 mg tablet 4 mg PO DAILY #30 tabs 04/02/24 04/09/24 Rx albuterol sulfate 90 mcg/actuation 2 puff inhalation Q4HP PRN 04/09/24 04/09/24 History aerosol inhaler shortness of breath or wheezing atorvastatin 40 mg tablet 40 mg PO DAILY 04/09/24 04/09/24 History cholecalciferol (vitamin D3) 250 250 mcg PO DAILY 04/09/24 04/09/24 History mcg (10,000 unit) capsule cyclobenzaprine 10 mg tablet 10 mg PO DAILY 04/09/24 04/09/24 History escitalopram oxalate 20 mg tablet 20 mg PO DAILY 04/09/24 04/09/24 History (Lexapro) fenofibrate 160 mg tablet 160 mg PO DAILY 04/09/24 04/09/24 History hydroxyzine HCl 25 mg tablet 25 mg PO HSP PRN sleep 04/09/24 04/09/24 History ibuprofen 800 mg tablet 800 mg PO Q8HP PRN Mild Pain 04/09/24 04/09/24 History (Scale Score 1-4) ipratropium 0.5 mg-albuterol 3 mg 3 ml inhalation Q4HP PRN shortness 04/09/24 04/09/24 History (2.5 mg base)/3 mL nebulization of breath or wheezing soln lisinopril 10 mg tablet 10 mg PO DAILY 04/09/24 04/09/24 History oxycodone 10 mg tablet 10 mg PO Q4HP PRN Moderate Pain 04/09/24 04/09/24 History (Scale Score 5-6) pantoprazole 40 mg tablet,delayed 40 mg PO BID 04/09/24 04/09/24 History release tamsulosin 0.4 mg capsule 0.4 mg PO DAILY 04/09/24 04/09/24 History torsemide 20 mg tablet 20 mg PO DAILYP PRN edema 04/09/24 04/09/24 History trazodone 150 mg tablet 150 mg PO HS 04/09/24 04/09/24 History New Prescriptions to Start Prescriptions: Allergies Allergy/AdvReac Type Severity Reaction Status Date / Time ciprofloxacin [From Cipro] Allergy Severe Rash Verified 03/22/24 13:39 methocarbamol [Robaxin] Allergy Severe Rash Verified 03/22/24 13:39 Penicillins Allergy Hives Verified 04/09/24 15:18 Exam Data for Last 24 hours Vital signs and Labs for Last 24 Hours: Temp Pulse Resp BP Pulse Ox O2 Del Method O2 Flow Rate 98.8 F 110 H 17 129/80 93 L Nasal Cannula 3 04/09/24 11:11 04/09/24 14:30 04/09/24 11:11 04/09/24 14:30 04/09/24 14:30 04/09/24 14:30 04/09/24 12:00 Laboratory Results - last 24 hr 04/09/24 12:15: WBC 10.8, RBC 5.66, Hgb 15.0, Hct 50.3, MCV 89.0, MCH 26.5 L, MCHC 29.8 L, RDW 18.0 H, Plt Count 361, MPV 7.3 L, Neut % (Auto) 81.2 H, Lymph % (Auto) 11.2, [place] % (Auto) 5.5, Eos % (Auto) 1.3, Baso % (Auto) 0.8, Neut # (Auto) 8.8 H, Lymph # (Auto) 1.2, [place] # (Auto) 0.6, Eos # (Auto) 0.1, Baso # (Auto) 0.1, PT 12.3, INR 1.11 H, APTT 32.9 H, Sodium 136, Potassium 3.6, Chloride 100, Carbon Dioxide 35 H, Anion Gap 4.6 L, BUN 17, Creatinine 0.60 L, Estimated Creat Clear 96, Estimated GFR 136, Est GFR ( Amer) 164, Glucose 154 H, Calcium 8.6, Total Bilirubin 0.7, AST 23, ALT 16, Alkaline Phosphatase 141 H, Troponin I < 0.01, NT-Pro-B Natriuret Pep 1810 H, Total Protein 7.4, Albumin 3.3 L, Globulin 4.1 H, Albumin/Globulin Ratio 0.8 L I & O for Last 24 hours: Intake & Output 04/06/24 04/07/24 04/08/24 04/09/24 23:59 23:59 23:59 23:59 Weight 90.718 kg Constitutional Constitutional: mild distress, obese, chronically ill appearing and cooperative *Routine HEENT Exam Head: Present normocephalic Eye: Present EOMI and PERRL ENT: Present mucous membranes moist *Routine Neck Exam Neck: Present supple; Absent lymphadenopathy *Routine Respiratory Exam Respiratory: Present accessory muscle use, prolonged expiratory phase, rhonchi and crackles (Crackles in dependent portions); Absent wheezes *Routine Cardiovascular Exam Cardiovascular: Present RRR *Routine Abdominal Exam Abdominal: Present soft and normoactive bowel sounds; Absent tenderness *Routine Rectal Exam Rectal:: deferred *Routine Genitalia Exam Genitalia:: deferred *Routine Extremities Exam Extremities: Present edema (2+ in left upper extremity, 2+ in bilateral lower extremities); Absent cyanosis or clubbing *Routine Skin Exam Skin: Present warm; Absent rash *Routine Neurological Exam Neurological: Present alert, oriented X3 and moving all extremities; Absent altered mental status Assessment and Plan *Assessment and plan (1) Acute exacerbation of CHF (congestive heart failure): Status: Acute Category: Medical Code(s): I50.9 - Heart failure, unspecified (2) Cancer associated pain: Status: Acute Category: Medical Code(s): G89.3 - Neoplasm related pain (acute) (chronic) (3) Chronic neck pain: Status: Acute Category: Medical Code(s): M54.2 - Cervicalgia; G89.29 - Other chronic pain (4) Degenerative disc disease, cervical: Status: Acute Category: Medical Code(s): M50.30 - Other cervical disc degeneration, unspecified cervical region (5) Cancer, metastatic to bone: Status: Acute Category: Medical Code(s): C79.51 - Secondary malignant neoplasm of bone (6) COPD exacerbation: Status: Acute Category: Medical Code(s): J44.1 - Chronic obstructive pulmonary disease with (acute) exacerbation (7) Type 2 diabetes mellitus: Status: Acute Qualifiers: Diabetes mellitus complication status: without complication Diabetes mellitus correction insulin use: with correction use Qualified Code(s): E11.9 - Type 2 diabetes mellitus without complications; Z79.4 - second baker (current) use of insulin Category: Medical Code(s): E11.9 - Type 2 diabetes mellitus without complications (8) Essential hypertension: Status: Acute Category: Medical Code(s): I10 - Essential (primary) hypertension (9) Obesity: Status: Acute Qualifiers: Body mass index: BMI 33.0-33.9 Obesity classification: adult class 1 (BMI 30 - 34.9) Obesity type: due to excess calories Serious obesity comorbidity presence: with serious comorbidity Qualified Code(s): E66.09 - Other obesity due to excess calories; Z68.33 - Body mass index (BMI) 33.0-33.9, adult Category: Medical Code(s): E66.9 - Obesity, unspecified (10) Chronic pain: Status: Acute Qualifiers: Chronic pain type: chronic pain syndrome Qualified Code(s): G89.4 - Chronic pain syndrome Category: Medical Code(s): G89.29 - Other chronic pain (11) Coronary artery disease: Status: Acute Qualifiers: Associated angina: without angina Coronary Disease-Associated Artery/Lesion type: [place] artery [place] vs. transplanted heart: [place] heart Qualified Code(s): I25.10 - Atherosclerotic heart disease of [place] coronary artery without angina pectoris Category: Medical Code(s): I25.10 - Atherosclerotic heart disease of [place] coronary artery without angina pectoris Plan 63-year-old male with history of CAD, sees the, diabetes,. Has had worsening pain in his left arm with worsening swelling and shortness of breath over the past few weeks. Has seen oncology and orthopedics for his left arm pain. Concern for cancer of unknown primary. Presentation to the ER, having CHF exacerbation and uncontrolled pain. ER consulted medicine for admission, discussed case and request admission for pain control and diuresis. I agreed to admit for further management. Received Lasix in the ER 80 mg IV x 1. Addressing pain with opiate and NSAID therapy. Necessitating inpatient management. Problems addressed as follows: Suspected CHF exacerbation Pulmonary edema COPD exacerbation - Echo from 1 year ago reportedly shows normal heart function with no diastolic or systolic dysfunction. Repeat echo pending given elevated BNP and increased oxygen requirement along with edema. - Kidney function normal BUN 17, creatinine 0.6. Electrolytes normal with potassium 3.6, sodium 136. Carbon dioxide elevated at 35, consistent with chronic compensated hypercapnic respiratory failure -Continue diuresis with Lasix 80 mg daily, responding well to dose given in the ER. Strict I's and O -Repeat echo pending for the morning. -Continue supplemental oxygen as needed, currently on 4 L. Baseline of 3 L. Wean as tolerated. -DuoNebs as needed every 4 hours Chronic pain with acute cancer related pain.: Continue oxycodone, increase to 15 mg p.o. every 4 hours as needed. Will consider Dilaudid for severe breakthrough pain. Initiate Toradol 30 mg IV every 6 hours as needed Continue Flexeril 10 mg daily Continue dexamethasone 4 mg daily for cancer pain Hyperlipidemia: Continue Lipitor 40 mg daily Depression: Continue Lexapro 20 mg daily Hypertension: Continue lisinopril 10 mg daily Diabetes: Continue metformin 1000 mg twice daily BPH: Continue tamsulosin 0.4 mg daily Sleep disorder: Continue trazodone 150 mg nightly Obesity complicates last excess Full code Regular diet Lovenox 40 mg subcu daily
[2024-04-09] MEDS: FUROSEMIDE 40MG/4ML VIAL 40 MG IV (15:04)
--- NOTE | 2024-04-09 15:16 | HMH.PHAINT1 ---
Pharmacy Intervention Comments: MEDICATION RECONCILIATION COMPLETED ON PATIENT USING EXTERNAL FILL HISTORY FROM PHARMACY AND [facility] REPORT. -JAYLIN PEARSON, BOWEND
--- NOTE | 2024-04-09 15:58 | PC.NURSE ---
CALLED REPORT TO [facility] ON 2ND FLOOR AND ANSWERED ALL QUESTIONS
[2024-04-09 16:42] LABS: Troponin I < 0.01 ng/ml (0.00-0.034)
--- NOTE | 2024-04-09 16:44 | PC.NURSE ---
arrived by stretcher from ED
[2024-04-09 19:24] LABS: Troponin I < 0.01 ng/ml (0.00-0.034)
[2024-04-09] MEDS: OXYCODONE 10MG W/APAP 325MG TABLET 1.5 EACH PO (19:42)
[2024-04-09] MEDS: PANTOPRAZOLE 40MG TABLET 40 MG PO (20:52)
[2024-04-09] MEDS: PATIENT'S OWN HOME MEDICATION (Metformin 1,000 mg tablet) 1000 EACH PO (20:55)
[2024-04-09] MEDS: PATIENT'S OWN HOME MEDICATION (Trazodone 150 mg tablet) 150 EACH PO (20:55)
[2024-04-09] MEDS: KETOROLAC 30MG/ML VIAL 30 MG IV (21:18)
[2024-04-09] MEDS: ENOXAPARIN 40MG/0.4ML SYRINGE 40 MG SQ (21:19)
[2024-04-09 21:23] LABS: POC Glucose,Bedside 160 (70-110)
[2024-04-10] MEDS: OXYCODONE 10MG W/APAP 325MG TABLET 1.5 EACH PO ×4 (01:56→15:51)
[2024-04-10 04:00] VITALS: BP 100/76; PULSE 109; RESP 18; TEMP 37; O2SAT 93; BMI 31.4
[2024-04-10] MEDS: KETOROLAC 30MG/ML VIAL 30 MG IV ×3 (05:25→19:55)
[2024-04-10 05:35] LABS: POC Glucose,Bedside 119 (70-110)
--- NOTE | 2024-04-10 05:46 | PC.NURSE ---
Pt is A&Ox4 and currently tolerating 4L well and sating at 93%. Pt has complained of severe pain in left arm and shoulder and has been treated per MAR. Staff has repositioned pt arm for comfort and applied sling to arm at pt request. Pt arm also remains elevated. Pt has had no other acute changes this shift and denies pain and needs at this time.
[2024-04-10 07:16] LABS: Basophils % 0.4 % (0.1-2.0); Eosinophils % 0.4 % (0.1-12.0); Hematocrit 46.6 % (42.0-52.0); Lymphocytes # 1.4 K/mm3 (0.7-4.5); Lymphocytes % 14.8 % (10-50); Mean Corpuscular Hemoglobin 27.5 pg (27.0-31.2); Mean Corpuscular Volume 91.7 fl (80-94); Mean Platelet Volume 6.6 fl (7.4-10.4); Monocytes # 0.8 K/mm3 (0.1-1.0); Neutrophils % 75.5 % (37.0-80.0); Platelet Count 329 K/mm3 (142-424); Red Blood Count 5.08 M/mm3 (4.60-6.20); Red Cell Distribution Width 17.4 % (11.5-17.5); White Blood Count 9.3 K/mm3 (4.8-10.8)
[2024-04-10 07:45] LABS: Alanine Aminotransferase 12 U/L (12-78); Albumin/Globulin Ratio 0.9 (1.1-1.8); Alkaline Phosphatase 119 U/L (38-126); Anion Gap 0.9 mEq/L (5-15); Aspartate Amino Transferase 18 U/L (17-59); Bilirubin,Total 0.6 mg/dl (0.2-1.3); Blood Urea Nitrogen 11 mg/dl (9-20); Calcium 8.3 mg/dl (8.4-10.2); Carbon Dioxide 40 mmol/L (22.0-30.0); Chloride 99 mmol/L (98-107); Creatinine Clearance Estimated 96 mL/min (50-200); Estimated Glomerular Filt Rate 136 ml/min (>60); GFR (African American) 164 ML/MIN (>60); Globulin 3.5 g/dL (1.3-3.2); Glucose 118 mg/dl (74-100); Magnesium 1.5 mg/dl (1.6-2.3); Sodium 137 mmol/L (136-145); Total Protein,Serum 6.5 g/dl (6.3-8.2)
[2024-04-10] MEDS: IPRATROPIUM/ALBUTEROL 3 ML NEB IH (07:50)
[2024-04-10 08:00] VITALS: BP 132/72; PULSE 120; RESP 20; TEMP 37.7; O2SAT 93
[2024-04-10 08:15] LABS: Potassium 2.9 mmoL/L (3.5-5.1)
[2024-04-10] MEDS: CITALOPRAM 40MG TABLET 40 MG PO (08:51)
[2024-04-10] MEDS: FUROSEMIDE 40MG/4ML VIAL 80 MG IV (08:51)
[2024-04-10] MEDS: CYCLOBENZAPRINE 10MG TABLET 10 MG PO (08:51)
[2024-04-10] MEDS: POTASSIUM CHLORIDE 20MEQ TAB 40 MEQ PO ×2 (08:52→20:22)
[2024-04-10] MEDS: DEXAMETHASONE 4MG TABLET 4 MG PO (08:52)
[2024-04-10] MEDS: PANTOPRAZOLE 40MG TABLET 40 MG PO ×2 (08:52→20:22)
[2024-04-10] MEDS: LISINOPRIL 10MG TABLET 10 MG PO (08:52)
[2024-04-10] MEDS: FENOFIBRATE 134MG CAPSULE 134 MG PO (08:52)
--- NOTE | 2024-04-10 09:05 | PC.NURSE ---
TECH NOTE; NURSE NOTIFIED OF VITAL SIGNS FOR 0[address] DEMOND, SRNA
[2024-04-10 09:35] LABS: Procalcitonin 0.088 ng/mL (0.0-2.0)
--- NOTE | 2024-04-10 09:37 | P.CONS_ITS ---
History of Present Illness History of present illness: Mr. Turcios is a 63-year-old male current smoker greater than [id number] smoking history as a diagnosis COPD chronic hypoxic respiratory failure on 3 to 4 L oxygen supplementation at baseline presented to the hospital with worsening left-sided arm pain and CT on admission also showed pleural effusion and right lower lobe collapse and pulmonary was called for further evaluation and management. [facility] Disclaimer: The information contained in this section may have been updated after the patient was seen, as this information can be updated by other users. Medical History (Updated 04/10/24 @ 11:18 by Darinel Waller MD) Mediastinal lymphadenopathy Hilar lymphadenopathy Lung collapse Pleural effusion on right Cancer of bone Dysphagia Coronary artery disease Chest pain Anxiety and depression Spinal cord stimulator status Cervical vertebral fusion GERD (gastroesophageal reflux disease) HLD (hyperlipidemia) HTN (hypertension) Diabetes Surgical History History of laparoscopic cholecystectomy History of appendectomy History of cervical spinal surgery History of lumbar surgery History of incision and drainage History of colonoscopy Family History Other Family history of cardiac disorder Social History Smoking Status: Never smoker alcohol intake: never substance use type: denies use current occupational status: other Travel in the last 8 weeks: None household members: significant other housing: house caffeine: Yes Review of Systems Constitutional Constitutional: Reports anorexia, Denies body ache(s) and Reports fatigue Eyes Eyes: Denies eye discharge, Denies dry eyes, Denies irritation and Denies itchy eyes ENT Ears, Nose, Mouth, and Throat: Denies epistaxis, Denies facial pain, Denies lip swelling and Denies throat swelling *Cardiovascular Cardiovascular: Reports dyspnea and Reports dyspnea on exertion *Respiratory Respiratory: Denies change in phlegm color, Reports chest congestion, Reports cough, Reports dyspnea, Reports dyspnea on exertion, Denies excessive phlegm production and Reports wheezing *Gastrointestinal Gastrointestinal: Denies abdominal pain, Denies belching and Denies cramping *Musculoskeletal Musculoskeletal: Reports back pain, Reports myalgias and Reports other (No small joint swelling or Pain) Comments: Arm pain and decreased mobility Psychiatric Psychiatric: Denies homicidal ideation and Denies suicidal ideation Endocrine Endocrine: Reports fatigue and Denies heat intolerance Hematologic/Lymphatic Hematologic/Lymphatic: Denies easy bleeding and Denies lymphadenopathy Allergic/Immunologic Allergic/Immunologic: Denies itchy eyes, Denies lip swelling, Denies throat swelling and Reports wheezing Pulmonology Exam Inpatient Vital signs and Labs for Last 24 Hours: Temp Pulse Resp BP Pulse Ox O2 Del Method O2 Flow Rate 99.8 F H 120 H 20 132/72 93 L Nasal Cannula 4 04/10/24 08:00 04/10/24 08:00 04/10/24 08:00 04/10/24 08:00 04/10/24 04:00 04/10/24 06:32 04/10/24 06:32 Laboratory Results - last 24 hr 04/09/24 12:15: WBC 10.8, RBC 5.66, Hgb 15.0, Hct 50.3, MCV 89.0, MCH 26.5 L, M CHC 29.8 L, RDW 18.0 H, Plt Count 361, MPV 7.3 L, Neut % (Auto) 81.2 H, Lymph % (Auto) 11.2, [place] % (Auto) 5.5, Eos % (Auto) 1.3, Baso % (Auto) 0.8, Neut # (Auto) 8.8 H, Lymph # (Auto) 1.2, [place] # (Auto) 0.6, Eos # (Auto) 0.1, Baso # (Auto) 0.1, PT 12.3, INR 1.11 H, APTT 32.9 H, Sodium 136, Potassium 3.6, Chloride 100, Carbon Dioxide 35 H, Anion Gap 4.6 L, BUN 17, Creatinine 0.60 L, Estimated Creat Clear 96, Estimated GFR 136, Est GFR ( Amer) 164, Glucose 154 H, Calcium 8.6, Total Bilirubin 0.7, AST 23, ALT 16, Alkaline Phosphatase 141 H, Troponin I < 0.01, NT-Pro-B Natriuret Pep 1810 H, Total Protein 7.4, A lbumin 3.3 L, Globulin 4.1 H, Albumin/Globulin Ratio 0.8 L 04/09/24 16:00: Troponin I < 0.01 04/09/24 18:30: Troponin I < 0.01 04/09/24 21:15: POC Glucose 160 H 04/10/24 05:26: POC Glucose 119 H 04/10/24 06:14: WBC 9.3, RBC 5.08, Hgb 14.0 L, Hct 46.6, MCV 91.7, MCH 27.5, M CHC 30.0 L, RDW 17.4, Plt Count 329, MPV 6.6 L, Neut % (Auto) 75.5, Lymph % (Auto) 14.8, [place] % (Auto) 9.0, Eos % (Auto) 0.4, Baso % (Auto) 0.4, Neut # (Auto) 7.0, Lymph # (Auto) 1.4, [place] # (Auto) 0.8, Eos # (Auto) 0.0, Baso # (Auto) 0.0, Sodium 137, Potassium 2.9 L*, Chloride 99, Carbon Dioxide 40 H, A nion Gap 0.9 L, BUN 11 D, Creatinine 0.60 L, Estimated Creat Clear 96, Estimated GFR 136, Est GFR ( Amer) 164, Glucose 118 H D, Calcium 8.3 L, M agnesium 1.5 L, Total Bilirubin 0.6, AST 18, ALT 12, Alkaline Phosphatase 119, Total Protein 6.5, Albumin 3.0 L, Globulin 3.5 H, Albumin/Globulin Ratio 0.9 L I & O for Labs for Last 24 Hours: Intake & Output 04/07/24 04/08/24 04/09/24 04/10/24 23:59 23:59 23:59 23:59 Intake Total 0 / 240 720 / 720 Output Total 1250 / 1250 550 / 550 Balance -1250 / -1010 170 / 170 Weight 200 lb 200 lb Constitutional: Present moderate distress Head: Present normocephalic and atraumatic ENT: Present normal exam, normal oropharynx and mucous membranes moist Neck: Present normal inspection and full ROM Respiratory: Present prolonged expiratory phase, respiratory distress, diminished air movement, normal respiratory effort and able to speak in complete sentences; Absent wheezes Cardiac: Present S1/S2, Tachycardia and radial pulses present GI: Present soft and distention; Absent tenderness or guarding Skin: Present intact; Absent cyanosis or jaundice Neuro: Present alert, awake and oriented x 3 Extremities: Present normal inspection; Absent clubbing or cyanosis Psychiatric: Present normal affect and cooperative Meds Home Medications and Allergies Home Medications ?Medication ?Instructions ?Recorded ?Confirmed ?Type ergocalciferol (vitamin D2) 50 mcg 50 mcg PO DAILY 09/23/20 04/09/24 History (2,000 unit) tablet metformin 1,000 mg tablet 1,000 mg PO BID Diabetes #180 tabs 07/11/23 04/09/24 Rx dexamethasone 4 mg tablet 4 mg PO DAILY #30 tabs 04/02/24 04/09/24 Rx albuterol sulfate 90 mcg/actuation 2 puff inhalation Q4HP PRN 04/09/24 04/09/24 History aerosol inhaler shortness of breath or wheezing atorvastatin 40 mg tablet 40 mg PO DAILY 04/09/24 04/09/24 History cholecalciferol (vitamin D3) 250 250 mcg PO DAILY 04/09/24 04/09/24 History mcg (10,000 unit) capsule cyclobenzaprine 10 mg tablet 10 mg PO DAILY 04/09/24 04/09/24 History escitalopram oxalate 20 mg tablet 20 mg PO DAILY 04/09/24 04/09/24 History (Lexapro) fenofibrate 160 mg tablet 160 mg PO DAILY 04/09/24 04/09/24 History hydroxyzine HCl 25 mg tablet 25 mg PO HSP PRN sleep 04/09/24 04/09/24 History ibuprofen 800 mg tablet 800 mg PO Q8HP PRN Mild Pain 04/09/24 04/09/24 History (Scale Score 1-4) ipratropium 0.5 mg-albuterol 3 mg 3 ml inhalation Q4HP PRN shortness 04/09/24 04/09/24 History (2.5 mg base)/3 mL nebulization of breath or wheezing soln lisinopril 10 mg tablet 10 mg PO DAILY 04/09/24 04/09/24 History oxycodone 10 mg tablet 10 mg PO Q4HP PRN Moderate Pain 04/09/24 04/09/24 History (Scale Score 5-6) pantoprazole 40 mg tablet,delayed 40 mg PO BID 04/09/24 04/09/24 History release tamsulosin 0.4 mg capsule 0.4 mg PO DAILY 04/09/24 04/09/24 History torsemide 20 mg tablet 20 mg PO DAILYP PRN edema 04/09/24 04/09/24 History trazodone 150 mg tablet 150 mg PO HS 04/09/24 04/09/24 History New Prescriptions to Start Prescriptions: Allergies Allergy/AdvReac Type Severity Reaction Status Date / Time ciprofloxacin [From Cipro] Allergy Severe Rash Verified 03/22/24 13:39 methocarbamol [Robaxin] Allergy Severe Rash Verified 03/22/24 13:39 Penicillins Allergy Hives Verified 04/09/24 15:18 Results Laboratory Findings 04/10/24 06:14 04/10/24 06:14 PT/INR, D-dimer PT 12.3 seconds (10.1-12.5) 04/09/24 12:15 INR 1.11 (0.9-1.1) H 04/09/24 12:15 Abnormal lab findings: Abnormal Labs 04/09/24 04/09/24 04/10/24 12:15 21:15 05:26 Hgb MCH 26.5 L MCHC 29.8 L RDW 18.0 H MPV 7.3 L Neut % (Auto) 81.2 H Neut # (Auto) 8.8 H INR 1.11 H APTT 32.9 H Potassium Carbon Dioxide 35 H Anion Gap 4.6 L Creatinine 0.60 L Glucose 154 H POC Glucose 160 H 119 H Calcium Magnesium Alkaline Phosphatase 141 H NT-Pro-B Natriuret Pep 1810 H Albumin 3.3 L Globulin 4.1 H Albumin/Globulin Ratio 0.8 L 04/10/24 06:14 Hgb 14.0 L MCH MCHC 30.0 L RDW MPV 6.6 L Neut % (Auto) Neut # (Auto) INR APTT Potassium 2.9 L* Carbon Dioxide 40 H Anion Gap 0.9 L Creatinine 0.60 L Glucose 118 H D POC Glucose Calcium 8.3 L Magnesium 1.5 L Alkaline Phosphatase NT-Pro-B Natriuret Pep Albumin 3.0 L Globulin 3.5 H Albumin/Globulin Ratio 0.9 L Assessment and Plan *Assessment and plan (1) Pleural effusion on right: Status: Acute Category: Medical Code(s): J90 - Pleural effusion, not elsewhere classified (2) Lung collapse: Status: Acute Category: Medical Code(s): J98.19 - Other pulmonary collapse (3) Hilar lymphadenopathy: Status: Acute Category: Medical Code(s): R59.0 - Localized enlarged lymph nodes (4) Mediastinal lymphadenopathy: Status: Acute Category: Medical Code(s): R59.0 - Localized enlarged lymph nodes Plan Mr. Turcios is a 63-year-old male current smoker greater than [id number] smoking history as a diagnosis COPD chronic hypoxic respiratory failure on 3 to 4 L oxygen supplementation at baseline presented to the hospital with worsening left-sided arm pain and CT on admission also showed pleural effusion and right lower lobe collapse and pulmonary was called for further evaluation and management. Patient had a recent thoracentesis and resulted negative for malignancy. CT chest on this admission showed small to moderate right pleural effusion along with what appears to be a right lower lobe collapse. No other dense consolidative/airspace lesions noted. Concerning for evolving right middle lobe collapse. Collapse appears likely from endobronchial lesion with near complete occlusion of bronchus intermedius. Will follow the patient in pulmonary clinic and we will proceed with bronchoscopy airway examination. Patient is also due to follow orthopedics at [facility] for the noted lytic lesion on his humerus. Patient today denies any worsening respiratory distress. Denies any worsening cough or productive phlegm. Denies any subjective fevers. No wheezing on auscultation. Plan: Continue oxygen supplementation to maintain O2 saturation goal of 89% and Continue Trelegy 100 inhaler DuoNebs every 6 hours on as-needed basis No need for antibiotics or steroids at this point of time from pulmonary standpoint. Initiate flutter valve -Follow as an outpatient schedule bronchoscopy transbronchial biopsy airway examination and EBUS FNA # Thank you for involving pulmonary in this patient care. Will continue to follow.
[2024-04-10 11:13] LABS: POC Glucose,Bedside 258 (70-110)
--- NOTE | 2024-04-10 13:58 | P.PN_ITS ---
Subjective *Date: 04/10/24 *Time: 14:18 Interval history: Patient was lying in bed comfortably this morning without acute concerns or distress. He states his breathing and lower extremity edema has improved this morning after diuresis overnight. He also states his left arm pain is well- controlled with current pain regimen. Denies chest pain, shortness of breath, abdominal pain, urinary symptoms. Exam Data for Last 24 hours Vital signs and Labs for Last 24 Hours: Temp Pulse Resp BP Pulse Ox O2 Del Method O2 Flow Rate 99.8 F H 120 H 20 132/72 93 L Nasal Cannula 4 04/10/24 08:00 04/10/24 08:00 04/10/24 08:00 04/10/24 08:00 04/10/24 08:00 04/10/24 08:00 04/10/24 08:00 Laboratory Results - last 24 hr 04/09/24 16:00: Troponin I < 0.01 04/09/24 18:30: Troponin I < 0.01 04/09/24 21:15: POC Glucose 160 H 04/10/24 05:26: POC Glucose 119 H 04/10/24 06:14: WBC 9.3, RBC 5.08, Hgb 14.0 L, Hct 46.6, MCV 91.7, MCH 27.5, MCHC 30.0 L, RDW 17.4, Plt Count 329, MPV 6.6 L, Neut % (Auto) 75.5, Lymph % (Auto) 14.8, [place] % (Auto) 9.0, Eos % (Auto) 0.4, Baso % (Auto) 0.4, Neut # (Auto) 7.0, Lymph # (Auto) 1.4, [place] # (Auto) 0.8, Eos # (Auto) 0.0, Baso # (Auto) 0.0, Sodium 137, Potassium 2.9 L*, Chloride 99, Carbon Dioxide 40 H, Anion Gap 0.9 L, BUN 11 D, Creatinine 0.60 L, Estimated Creat Clear 96, Estimated GFR 136, Est GFR ( Amer) 164, Glucose 118 H D, Calcium 8.3 L, Magnesium 1.5 L, Total Bilirubin 0.6, AST 18, ALT 12, Alkaline Phosphatase 119, Total Protein 6.5, Albumin 3.0 L, Globulin 3.5 H, Albumin/Globulin Ratio 0.9 L, Procalcitonin 0.088 04/10/24 11:06: POC Glucose 258 H I & O for Last 24 hours: Intake & Output 04/07/24 04/08/24 04/09/24 04/10/24 23:59 23:59 23:59 23:59 Intake Total 0 / 240 1020 / 1020 Output Total 1250 / 1250 1550 / 1550 Balance -1250 / -1010 -530 / -530 Weight 90.718 kg 90.718 kg Constitutional Constitutional: no acute distress *Routine HEENT Exam Head: Present normocephalic Eye: Present EOMI and PERRL ENT: Present mucous membranes moist *Routine Neck Exam Neck: Present supple; Absent lymphadenopathy *Routine Respiratory Exam Respiratory: Present CTA bilaterally *Routine Cardiovascular Exam Cardiovascular: Present RRR *Routine Abdominal Exam Abdominal: Present soft and normoactive bowel sounds; Absent tenderness *Routine Extremities Exam Extremities: Present edema; Absent cyanosis or clubbing Comments: Lower extremity bilateral 1+ pitting edema. Chronic venous stasis skin discoloration changes lower extremities. *Routine Skin Exam Skin: Present warm; Absent rash *Routine Neurological Exam Neurological: Present alert and oriented X3 Assessment and Plan *Assessment and plan (1) Lung collapse: Status: Acute Category: Medical Code(s): J98.19 - Other pulmonary collapse (2) Pleural effusion on right: Status: Acute Category: Medical Code(s): J90 - Pleural effusion, not elsewhere classified (3) Acute exacerbation of CHF (congestive heart failure): Status: Acute Category: Medical Code(s): I50.9 - Heart failure, unspecified (4) Cancer associated pain: Status: Acute Category: Medical Code(s): G89.3 - Neoplasm related pain (acute) (chronic) (5) Hilar lymphadenopathy: Status: Acute Category: Medical Code(s): R59.0 - Localized enlarged lymph nodes (6) Mediastinal lymphadenopathy: Status: Acute Category: Medical Code(s): R59.0 - Localized enlarged lymph nodes Plan Plan 63-year-old male with history of CAD, diabetes,. Has had worsening pain in his left arm with worsening swelling and shortness of breath over the past few weeks. Has seen oncology and orthopedics for his left arm pain. Concern for cancer of unknown primary. Presentation to the ER, having CHF exacerbation and uncontrolled pain. ER consulted medicine for admission, discussed case and request admission for pain control and diuresis. I agreed to admit for further management. Received Lasix in the ER 80 mg IV x 1. Addressing pain with opiate and NSAID therapy. Necessitating inpatient management. Problems addressed as follows: #HFpEF exacerbation Pulmonary edema - Echo from 1 year ago reportedly shows normal heart function with no diastolic or systolic dysfunction. Elevated BNP and increased oxygen requirement along with edema. - Carbon dioxide elevated at 35, consistent with chronic compensated hypercapnic respiratory failure and as such less likely to be a COPD exacerbation. - IV Lasix 40 twice daily. Having good urinary output with stable renal function. - Blood pressure currently well-controlled. - Follow-up limited ECHO reveals LVEF 65% with increased LV wall thickness. Normal global LV systolic function. - Continue supplemental oxygen as needed, currently on 4 L. Baseline of 3 L. Wean as tolerated. #COPD ? Trelegy 100 inhaler - DuoNebs as needed every 4 hours #Right lower lobe collapse #Moderate right pleural effusion ? There is also likely involvement of right middle lobe collapse. Unlikely to be pneumonia given no leukocytosis, fevers. ? Collapse may be sequela of obstructive component of likely primary lung cancer. ? Pulmonology consulted, appreciate recommendations. Planning for outpatient bronchoscopy for further evaluation management upon discharge. #Physical deconditioning ? PT consulted, pending recommendations at this time. #Left humeral lytic lesion concerning for metastatic cancer, unclear primary #Chronic pain with acute cancer related pain ? Evaluated by Dr. Gomes with orthopedics on 03/22/2024. Referred to Dr. Benitez with [facility]opedic oncology for further evaluation and management. Has appointment scheduled for 04/23/2024. Plan is to have patient follow-up with this appointment. ? Primary likely pulmonary with CT findings of right lower lobe collapse. See above. Continue oxycodone, increase to 15 mg p.o. every 4 hours as needed. Will consider Dilaudid for severe breakthrough pain. Initiate Toradol 30 mg IV every 6 hours as needed Continue Flexeril 10 mg daily Continue dexamethasone 4 mg daily for cancer pain Hyperlipidemia: Continue Lipitor 40 mg daily Depression: Continue Lexapro 20 mg daily Hypertension: Continue lisinopril 10 mg daily Diabetes: Continue metformin 1000 mg twice daily BPH: Continue tamsulosin 0.4 mg daily Sleep disorder: Continue trazodone 150 mg nightly Obesity complicates medical care. Full code Regular diet Lovenox 40 mg subcu daily
--- NOTE | 2024-04-10 13:59 | HMH.OTEV ---
OT Inpatient Evaluation Rehab OT IP Evaluation Start: 04/10/24 10:31 Freq: ONCE Status: Active Protocol: [facility]24 [facility] (Rec: 04/10/24 13:59 [facility] [id number]) Rehab OT IP Assessment Subjective History Pt oriented x3 on arrival. Pt agreeable to engage in evaluation. Pt admitted to [facility] on 04/09/24 due to pain and shortness of breath. Pt history and physical report : Mr. Augustine is a 63-year-old male with chronic respiratory failure on oxygen, CHF, new finding of suspected metastatic cancer to his left humerus, see ED, obesity, chronic pain. He presented to the ER because of worsening pain, swelling in his legs, shortness of breath. States he was due to see orthopedics at today for evaluation of his new finding of suspected metastatic lesion to his left upper arm. Presumed to be cancer. Was unable to make it to his appointment today due to pain and transportation difficulties. On arrival to the ER, patient is having severe pain as well as increased respiratory distress from baseline. Normal wears 2 to 3 L at baseline, requiring 4 L on arrival. Workup concerning for CHF exacerbation with elevated BNP of 1800, chest imaging showing pulmonary edema, and severe uncontrolled pain. Also noted to have significant edema in his legs and his left arm. Initiated on Lasix for diuresis and medicine consulted for further management. Denies chest pain, nausea, vomiting. Reports he is somewhat short of breath from baseline. Has noted significant swelling in his legs over the past few weeks. Pain has become excruciating over the past week. Unable to make it to his appointment [place] today. Denies fever, nausea, vomiting, diarrhea. No increased cough or production of sputum. Subjective Prior to admission to hospital , pt reports living at home with his girlfriend. Pt's home is one story with one step to enter. Pt is independent with all ADLs. Pt reports that they require assistance from their girlfriend for some IADLs such as cooking and cleaning. Pt does not sleep in a bed but rather a lift chair . Pt does not use any assistive device for functional transfers. Objective Patient Orientation Place,Name,Birthday Right Upper Extremity Gross ROM WFL Left Upper Extremity Gross ROM Unable to move Shoulder ROM Limitations Pain Elbow ROM Limitations Pain Wrist Limitations of Range of Motion Pain Bed Mobility bed mobility - supine/sit Assist Level Moderate x 2 (50% assist) Transfer Training Sit/Stand/Pivot Transfer Assist Level Contact Guard/Hand Hold Chair Transfer Ability Contact Guard/Hand Hold Chair Transfer Technique Sit to/from Ambulatory Chair Transfer Assistive Devices None Rehab OT IP prob,goals,plan Problems Date of Evaluation: 04/10/24 OT IP Problems Bed Mobility,Transfers,Balance ,Self care,Safety Rehab Potential Rehab Potential Good Equipment Needs Assistive Devices Straight Cane Plan OT intervention Plan Bed Mobility,Transfers,Balance ,Self care,Safety,Therapeutic Exercise OT Plan Frequency Daily Duration LOS Discharge Goals Bed Mobility Ability Assistance x1 Sit to Stand Chair Transfer Ability Supervision/Stand by Chair Transfer Ability Supervision/Stand by Chair Transfer Technique Sit to/from Ambulatory Chair Transfer Assistive Devices Straight Cane Feeding Ability Assist with Tray Set Up Lower Body Dressing Ability Moderate Assistance Upper Body Dressing Ability Moderate Assistance Bathing Ability Moderate Assistance Performing Toilet Hygiene Ability Minimal Assistance Overall Commode/Toilet Transfer Ability Minimal Assistance Commode/Toilet Transfer Technique Sit to/from Ambulatory Commode/Toilet Transfer Assistive Grab Bars Devices Oral Care Assist Standby Assistance Discharge Plan OT Discharge Plan Pt will continue to be seen for OT services while at [facility]. Pt appears to be at baseline with functional transfers and ADL independence. Once medically stable, pt could return living at home with girlfriend with 14/02 care and assistance. Pt is recommended for HH evaluation to maintain function and occupational performance. Pt would benefit from a cane to support their safety as they are unable to use L UE during functional transfers. Continued skilled services are important to improve strength, balance, safety, functional transfers, endurance, and ADL independence. Eval Complexity Eval Charge Codes 54957 - Moderate Complexity PHYSICIAN CERTIFICATION: I certify the specified therapy services for Douglas Zazueta are required, authorized, and reviewed every 30 days.
--- NOTE | 2024-04-10 14:21 | HMH.PTEV ---
Physical Therapy Evaluation Rehab PT IP Evaluation Start: 04/10/24 10:31 Freq: ONCE Status: Active Protocol: Document 04/10/24 14:04 DEAN (Rec: 04/10/24 14:20 DEAN [id number]) Subjective/History History History Per H&P: Mr. Augustine is a 63- year-old male with chronic respiratory failure on oxygen, CHF, new finding of suspected metastatic cancer to his left humerus, see ED, obesity, chronic pain. He presented to the ER because of worsening pain, swelling in his legs, shortness of breath. States he was due to see orthopedics at today for evaluation of his new finding of suspected metastatic lesion to his left upper arm. Presumed to be cancer. Was unable to make it to his appointment today due to pain and transportation difficulties. On arrival to the ER, patient is having severe pain as well as increased respiratory distress from baseline. Normal wears 2 to 3 L at baseline, requiring 4 L on arrival. Workup concerning for CHF exacerbation with elevated BNP of 1800, chest imaging showing pulmonary edema, and severe uncontrolled pain. Also noted to have significant edema in his legs and his left arm. Initiated on Lasix for diuresis and medicine consulted for further management. Subjective Subjective Prior to admission to hospital , pt reports living at home with his girlfriend. Pt's home is one story with one step to enter. Pt is independent with all ADLs. Pt reports that they require assistance from his girlfriend for some IADLs such as cooking and cleaning. Pt does not sleep in a bed but rather a lift chair. Pt does not use any assistive device for functional transfers. Pt currently limited primarily by shoulder pain. [ End ] New diagnosis of cancer in past 12 No months? Rehab PT IP Eval Objective Appearance Patient Behavior Appropriate,Cooperative Patient Orientation Person,Place Difficulty following instructions none Speech Pattern Clear Ambulation Patient Able to Ambulate Yes Ambulation Observation IP General Gait Pattern Observation Wide Based Gait Ambulation Distance (feet) 4 Ambulation Assistive Device None Ambulation Ability Minimal x 1 (25% assist) Balance Ability to Arise Able, uses arms to help Sitting Balance Steady, safe Standing Balance Steady, wide stance Dynamic Sitting Balance Ability Good Dynamic Standing Balance Ability Fair Transfers Bed Transfer Ability Moderate x 1 (50% assist) Sit to Stand Bed Transfer Ability Contact Guard/Hand Hold Sit to Stand Chair Transfer Ability Contact Guard/Hand Hold Rehab PT IP prob,goals,plan Problems Date of Evaluation: 04/10/24 PT IP Problems Bed Mobility,Transfers,Gait, Balance,Self care,Safety Rehab Potential Rehab Potential Good Equipment Needs Assistive Devices None / NA Plan PT Intervention Plan Bed Mobility,Transfers,Gait, Balance,Self care,Safety, Therapeutic Exercise Other Intervention Plan 1-2 times PT Plan Frequency Daily Duration LOS Discharge Goals Sit to Stand Chair Transfer Ability Supervision/Stand by Ambulation Assistive Device None Ambulation Distance (feet) 10 Discharge Plan PT Discharge Plan Initial physical therapy evaluation performed. Patient presents below baseline at this time in functional mobility, transfers, gait, and strength. Pt would benefit from skilled PT while at [facility] to prevent further functional decline and maximize safety with mobility. Pt safe to d/c home when deemed medically necessary d/t current level of mobility, home set-up, available equipment, and family support. PT recommending home health PT services to address deficits. Eval Complexity Eval Charge Codes 04888 - Moderate Complexity PHYSICIAN CERTIFICATION: I certify the specified therapy services for Douglas Zazueta are required, authorized, and reviewed every 30 days.
--- NOTE | 2024-04-10 14:58 | SW/DCPLANNER ---
Addendum entered by Debby Moe RN 04/12/24 11:44: Per [facility], services will start Tuesday04/13/2024. Addendum entered by Amina Warner 04/12/24 08:04: Patient information/order has been faxed to [facility]. Original Note: I spoke w/ this patient regarding plans once medically stable for discharge. PT/OT evaluated patient and recommended home health services. Patient is agreeable to home health and prefers [facility]. I will set up home health services at time of discharge. Discharge date is unknown at this time. I will continue to follow up w/ patient and MD.
[2024-04-10 16:00] VITALS: BP 128/64; PULSE 86; RESP 20; TEMP 37.1; O2SAT 92
[2024-04-10] MEDS: METFORMIN 500MG TABLET 1000 MG PO (16:23)
[2024-04-10] MEDS: FUROSEMIDE 40MG/4ML VIAL 40 MG IV (16:24)
[2024-04-10 16:38] LABS: POC Glucose,Bedside 233 (70-110)
--- NOTE | 2024-04-10 18:08 | PC.NURSE ---
Patient a&ox4 and vss. Patient has c/o pain throughout shift and has met his tolerable level for pain control.
[2024-04-10] MEDS: ENOXAPARIN 40MG/0.4ML SYRINGE 40 MG SQ (19:56)
[2024-04-10 20:00] VITALS: BP 130/74; PULSE 89; RESP 18; TEMP 37; O2SAT 94
--- NOTE | 2024-04-10 20:18 | CA_ITS ---
APPROVED REPORT EXAM: Limited 2D and color flow Echocardiogram Furnace Mechanic: Sonja Savage CRT Ht: 5 ft 7 in Wt: 200lbs BSA: 2.02 BP: 129/80 mmHg Indications: SOB, EDEMA, NEWLY DX LEFT ARM LESION ? METS, left arm in sling, lying across chest HTN, HLD, DM,Home o2, CAD M-Mode Dimensions RVDd 3.13 cm (0.9-2.6) LVDd 4.30 cm (3.5-5.7) LVDs 3.15 cm (3.5-5.7) IVSd 1.88 cm (0.6-1.1) PWd 0.90 cm (0.6-1.1) EF (Teich) 61.90% FS 33.30% EDV (Teich) 103.40 mL ESV (Teich) 39.40 mL Other Information Study Quality: Technically Difficult Conclusion This is a limited TTE to evaluate for biventricular function. Limited windows were obtained. Technically difficult study. The left ventricle is normal in size. There is increased LV wall thickness. There is normal global LV systolic function. LVEF is 65%. The right ventricle is not very well-visualized, but grossly appears mildly dilated with mild reduced RV function. No evidence of pericardial effusion. Electronically signed by : Melissa Moscoso MD 04/10/2024 13:02:33
[2024-04-10] MEDS: TRAZODONE 50MG TABLET 150 MG PO (20:22)
[2024-04-10] MEDS: TAMSULOSIN 0.4MG CAPSULE 0.4 MG PO (20:22)
[2024-04-10] MEDS: ATORVASTATIN 40MG TABLET 40 MG PO (20:22)
[2024-04-10 20:48] LABS: POC Glucose,Bedside 137 (70-110)
[2024-04-11] MEDS: OXYCODONE 10MG W/APAP 325MG TABLET 1.5 EACH PO ×3 (01:05→14:19)
--- NOTE | 2024-04-11 03:06 | PC.NURSE ---
Resting up in recliner. Left arm in brace and sling for support. 02 at 4lnc. Requires frequent pain meds for pain control. Voids per urinal. No resp. distress. Vitals signs stable, afebrile.
[2024-04-11 04:00] VITALS: BP 126/63; PULSE 92; RESP 18; TEMP 36.9; O2SAT 90; BMI 31.4
[2024-04-11 05:09] LABS: POC Glucose,Bedside 106 (70-110)
--- NOTE | 2024-04-11 05:14 | PC.NURSE ---
Jayda. CONSULTED RE 02 SAT 89-90% ON 4 LNC.
[2024-04-11] MEDS: IPRATROPIUM/ALBUTEROL 3 ML NEB IH (05:16)
[2024-04-11 05:17] VITALS: PULSE 103; PULSE 98
[2024-04-11] MEDS: KETOROLAC 30MG/ML VIAL 30 MG IV (05:42)
[2024-04-11] MEDS: FLUTICASONE/UMECLIDIN/VILANTER 100/62.5/25MCG INHALER 1 PUFF IH (06:24)
[2024-04-11 08:00] VITALS: BP 121/67; PULSE 68; RESP 20; TEMP 36.9; O2SAT 90
[2024-04-11] MEDS: POTASSIUM CHLORIDE 20MEQ TAB 40 MEQ PO ×2 (08:20→14:13)
[2024-04-11] MEDS: PANTOPRAZOLE 40MG TABLET 40 MG PO (08:20)
[2024-04-11] MEDS: FUROSEMIDE 40MG/4ML VIAL 40 MG IV (08:20)
[2024-04-11] MEDS: DEXAMETHASONE 4MG TABLET 4 MG PO (08:20)
[2024-04-11] MEDS: METFORMIN 500MG TABLET 1000 MG PO (08:20)
[2024-04-11] MEDS: LISINOPRIL 10MG TABLET 10 MG PO (08:20)
[2024-04-11] MEDS: CYCLOBENZAPRINE 10MG TABLET 10 MG PO (08:20)
[2024-04-11] MEDS: CITALOPRAM 40MG TABLET 40 MG PO (08:20)
[2024-04-11] MEDS: FENOFIBRATE 134MG CAPSULE 134 MG PO (08:20)
[2024-04-11] MEDS: LIDOCAINE 5% TRANSDERMAL PATCH 1 EACH TP (09:28)
--- NOTE | 2024-04-11 09:42 | P.PN_ITS ---
Subjective *Date: 04/11/24 *Time: 13:20 Interval history: No acute respiratory vents overnight Pulmonology Exam Inpatient Vital signs and Labs for Last 24 Hours: Temp Pulse Resp BP Pulse Ox O2 Del Method O2 Flow Rate 98.5 F 68 20 121/67 90 L Nasal Cannula 4 04/11/24 08:00 04/11/24 08:00 04/11/24 08:00 04/11/24 08:00 04/11/24 08:00 04/11/24 08:00 04/11/24 08:00 Laboratory Results - last 24 hr 04/10/24 11:06: POC Glucose 258 H 04/10/24 16:27: POC Glucose 233 H 04/10/24 20:41: POC Glucose 137 H 04/11/24 05:02: POC Glucose 106 Temp Pulse Resp BP Pulse Ox O2 Del Method O2 Flow Rate 99.8 F H 120 H 20 132/72 93 L Nasal Cannula 4 04/10/24 08:00 04/10/24 08:00 04/10/24 08:00 04/10/24 08:00 04/10/24 04:00 04/10/24 06:32 04/10/24 06:32 Laboratory Results - last 24 hr 04/09/24 12:15: WBC 10.8, RBC 5.66, Hgb 15.0, Hct 50.3, MCV 89.0, MCH 26.5 L, MCHC 29.8 L, RDW 18.0 H, Plt Count 361, MPV 7.3 L, Neut % (Auto) 81.2 H, Lymph % (Auto) 11.2, [place] % (Auto) 5.5, Eos % (Auto) 1.3, Baso % (Auto) 0.8, Neut # (Auto) 8.8 H, Lymph # (Auto) 1.2, [place] # (Auto) 0.6, Eos # (Auto) 0.1, Baso # (Auto) 0.1, PT 12.3, INR 1.11 H, APTT 32.9 H, Sodium 136, Potassium 3.6, Chloride 100, Carbon Dioxide 35 H, Anion Gap 4.6 L, BUN 17, Creatinine 0.60 L, Estimated Creat Clear 96, Estimated GFR 136, Est GFR ( Amer) 164, Glucose 154 H, Calcium 8.6, Total Bilirubin 0.7, AST 23, ALT 16, Alkaline Phosphatase 141 H, Troponin I < 0.01, NT-Pro-B Natriuret Pep 1810 H, Total Protein 7.4, Albumin 3.3 L, Globulin 4.1 H, Albumin/Globulin Ratio 0.8 L 04/09/24 16:00: Troponin I < 0.01 04/09/24 18:30: Troponin I < 0.01 04/09/24 21:15: POC Glucose 160 H 04/10/24 05:26: POC Glucose 119 H 04/10/24 06:14: WBC 9.3, RBC 5.08, Hgb 14.0 L, Hct 46.6, MCV 91.7, MCH 27.5, MCHC 30.0 L, RDW 17.4, Plt Count 329, MPV 6.6 L, Neut % (Auto) 75.5, Lymph % (Auto) 14.8, [place] % (Auto) 9.0, Eos % (Auto) 0.4, Baso % (Auto) 0.4, Neut # (Auto) 7.0, Lymph # (Auto) 1.4, [place] # (Auto) 0.8, Eos # (Auto) 0.0, Baso # (Auto) 0.0, Sodium 137, Potassium 2.9 L*, Chloride 99, Carbon Dioxide 40 H, Anion Gap 0.9 L, BUN 11 D, Creatinine 0.60 L, Estimated Creat Clear 96, Estimated GFR 136, Est GFR ( Amer) 164, Glucose 118 H D, Calcium 8.3 L, Magnesium 1.5 L, Total Bilirubin 0.6, AST 18, ALT 12, Alkaline Phosphatase 119, Total Protein 6.5, Albumin 3.0 L, Globulin 3.5 H, Albumin/Globulin Ratio 0.9 L I & O for Labs for Last 24 Hours: Intake & Output 04/08/24 04/09/24 04/10/24 04/11/24 23:59 23:59 23:59 23:59 Intake Total 0 / 240 1260 / 1620 860 / 860 Output Total 1250 / 1250 2050 / 2250 600 / 600 Balance -1250 / -1010 -790 / -630 260 / 260 Weight 200 lb 200 lb 199 lb 15.983 oz Intake & Output 04/07/24 04/08/24 04/09/24 04/10/24 23:59 23:59 23:59 23:59 Intake Total 0 / 240 720 / 720 Output Total 1250 / 1250 550 / 550 Balance -1250 / -1010 170 / 170 Weight 200 lb 200 lb Constitutional: Present moderate distress Head: Present normocephalic and atraumatic ENT: Present normal exam, normal oropharynx and mucous membranes moist Neck: Present normal inspection and full ROM Respiratory: Present prolonged expiratory phase, respiratory distress, diminished air movement, normal respiratory effort and able to speak in complete sentences; Absent wheezes Cardiac: Present S1/S2, Tachycardia and radial pulses present GI: Present soft and distention; Absent tenderness or guarding Skin: Present intact; Absent cyanosis or jaundice Neuro: Present alert, awake and oriented x 3 Extremities: Present normal inspection; Absent clubbing or cyanosis Psychiatric: Present normal affect and cooperative Assessment and Plan *Assessment and plan (1) Pleural effusion on right: Status: Acute Category: Medical Code(s): J90 - Pleural effusion, not elsewhere classified (2) Lung collapse: Status: Acute Category: Medical Code(s): J98.19 - Other pulmonary collapse (3) Hilar lymphadenopathy: Status: Acute Category: Medical Code(s): R59.0 - Localized enlarged lymph nodes (4) Mediastinal lymphadenopathy: Status: Acute Category: Medical Code(s): R59.0 - Localized enlarged lymph nodes Plan Mr. Turcios is a 63-year-old male current smoker greater than [id number] smoking history as a diagnosis COPD chronic hypoxic respiratory failure on 3 to 4 L oxygen supplementation at baseline presented to the hospital with worsening left-sided arm pain and CT on admission also showed pleural effusion and right lower lobe collapse and pulmonary was called for further evaluation and man agement. Patient had a recent thoracentesis and resulted negative for malignancy. CT chest on this admission showed small to moderate right pleural effusion along with what appears to be a right lower lobe collapse. The effusion appears relatively stable from the CT from 03/22/2024 but despite having rapid reaccumulation/malignant origin, despite cytology resulted negative for malignancy on the pleural fluid. No other dense consolidative/airspace lesions noted. Concerning for evolving right middle lobe collapse. Collapse appears likely from endobronchial lesion with near complete occlusion of bronchus intermedius. Will follow the patient in pulmonary clinic and we will proceed with bronchoscopy airway examination. Patient is also due to follow orthopedics at [facility] for the noted lytic lesion on his humerus. Patient on admission denies any worsening respiratory distress. Denies any worsening cough or productive phlegm. Denies any subjective fevers. No wheezing on auscultation. Interval update: No acute respiratory vents overnight. Relatively stable ox and requirements of 4 L saturating 90 to 91%. Continue to receive diuretics. Procalcitonin within normal limits. Left upper extremity venous Doppler negative for DVT Plan: Continue oxygen supplementation to maintain O2 saturation goal of 89% and Continue Trelegy 100 inhaler DuoNebs every 6 hours on as-needed basis No need for antibiotics or steroids at this point of time from pulmonary standpoint. Continue flutter valve # Scheduled for bronchoscopy EBUS FNA transbronchial biopsy on 04/20/2024 at 10:15 AM. # Thank you for involving pulmonary in this patient care. Will continue to follow.
--- NOTE | 2024-04-11 09:55 | PC.WOUNDNOTE ---
skin abrasion from wiping after bowel movement coccyx
--- NOTE | 2024-04-11 10:43 | PC.NURSE ---
Patient c/o worsening localized pain in LUE. No new abnormalities noted to LUE. Patient given pain medication with some relief, and lidocaine patch placed near the location of pain. MD aware of acute worsening of pain with pain medication on board that had previously been helping with pain control.
[2024-04-11 10:44] LABS: ABG Base Excess 13.3 mmol/L (-2.4-2.3); ABG HCO3 37.1 mmhg (22.0-26.0); ABG Oxygen Saturation 90 % (90-100); ABG PH 7.47 mmol/L (7.35-7.45); ABG PO2 54.4 mmhg (80-100); ABG TCO2 38.7 mmhg (23-27)
[2024-04-11 10:47] LABS: Allen's Test acceptable
[2024-04-11 10:48] LABS: ABG PCO2 52.6 mmhg (35.0-45.0); Source Right Radial
[2024-04-11] MEDS: MORPHINE 4MG/ML SYRINGE 3 MG IV (12:07)
[2024-04-11 12:17] LABS: POC Glucose,Bedside 236 (70-110)
[2024-04-11 12:56] LABS: Chloride 99 mmol/L (98-107); Potassium 3.9 mmoL/L (3.5-5.1); Sodium 137 mmol/L (136-145)
[2024-04-11 12:59] LABS: Anion Gap 1.9 mEq/L (5-15); Blood Urea Nitrogen 21 mg/dl (9-20); Carbon Dioxide 40 mmol/L (22.0-30.0); Creatinine Clearance Estimated 96 mL/min (50-200); Estimated Glomerular Filt Rate 114 ml/min (>60); GFR (African American) 137 ML/MIN (>60)
[2024-04-11 13:00] LABS: Calcium 8.5 mg/dl (8.4-10.2); Glucose 192 mg/dl (74-100)
[2024-04-11 13:20] LABS: Magnesium 1.3 mg/dl (1.6-2.3)
[2024-04-11] MEDS: MAGNESIUM SULFATE IN WATER 2 GM/50 ML PIGGYBACK IV (14:13)
--- NOTE | 2024-04-11 14:54 | PC.NURSE ---
Patient requires cane due to mobility impairment but there is potential for ambulation. ANGELIQUE Bahena
--- NOTE | 2024-04-12 13:45 | CARE MANAGER ---
Contacted patient/family. States he is in pain, but is able to tolerate at this time. He has PET scan tomorrow. He is aware of follow up appointments and denies questions or concerns. He has new medication. ANGELIQUE Bahena
--- NOTE | 2024-04-17 17:53 | P.DS_ITS ---
General Admission date:: 04/09/24 Discharge date: 04/11/24 HPI HPI HPI: Mr. Augustine is a 63-year-old male with chronic respiratory failure on oxygen, CHF, new finding of suspected metastatic cancer to his left humerus, see ED, obesity, chronic pain. He presented to the ER because of worsening pain, swelling in his legs, shortness of breath. States he was due to see orthopedics at today for evaluation of his new finding of suspected metastatic lesion to his left upper arm. Presumed to be cancer. Was unable to make it to his appointment today due to pain and transportation difficulties. On arrival to [facility] ER, patient is having severe pain as well as increased respiratory distress from baseline. Normal wears 2 to 3 L at baseline, requiring 4 L on arrival. Workup concerning for CHF exacerbation with elevated BNP of 1800, chest imaging showing pulmonary edema, and severe uncontrolled pain. Also noted to have significant edema in his legs and his left arm. Initiated on Lasix for diuresis and medicine consulted for further management. Denies chest pain, nausea, vomiting. Reports he is somewhat short of breath from baseline. Has noted significant swelling in his legs over the past few weeks. Pain has become excruciating over the past week. Unable to make it to his appointment [place] today. Denies fever, nausea, vomiting, diarrhea. No increased cough or production of sputum. Per my review of chart: Seen by Dr. Gomes with orthopedics on 03/[address] Rashid with oncology. Discussed concern for metastatic cancer of unknown primary to his arm. Most likely lung cancer. Recommended surgical stabilization of arm due to metastatic lesions. Medical comorbidities are complex. Patient was referred to Dr. Benitez at for definitive treatment. Hospital Course Hospital Course Hospital Course: 63-year-old male with history of CAD, diabetes,. Has had worsening pain in his left arm with worsening swelling and shortness of breath over the past few weeks. Has seen oncology and orthopedics for his left arm pain, and has an upcoming appointment with oncology in the next 2 weeks. #HFpEF exacerbation Pulmonary edema - Elevated BNP and increased oxygen requirement along with edema. Increased O2 requirements to 4L, baseline 3L. - ECHO reveals LVEF 65% with increased LV wall thickness. Normal global LV systolic function. - Fluid overload and respiratory status improved with IV Lasix. - Discharged with Lasix 40mg BID, stopped home torsemide. - Will followup with cardiology and PCP within 1 week. #Right lower lobe collapse #Hilar lymphadenopathy #Moderate right pleural effusion, chronic - CTA chest: There is worsening subcarinal and left hilar adenopathy when compared to the prior exam, reactive or neoplastic. ? There is also likely involvement of right middle lobe collapse. Unlikely to be pneumonia given no leukocytosis, fevers. ? Collapse may be sequela of obstructive component of likely primary lung cancer. ? Pulmonology consulted, appreciate recommendations. Will perform outpatient bronchoscopy further evaluation. #Left humeral lytic lesion concerning for metastatic cancer, unclear primary #Chronic pain with acute cancer related pain left arm - Left humeral CT: interval increase in size and the lytic bone lesion of the mid and distal shaft of the left humerus as described above. Cortical defects are now present both anteriorly and posteriorly, with soft tissue extending outside of the cortex. Favor metastasis versus primary bone lesion. ? Evaluated by Dr. Gomes with orthopedics on 03/22/2024. Referred to Dr. Benitez with orthopedic oncology for further evaluation and management. Has appointment scheduled for 04/23/2024. Plan is to have patient follow-up with this appointment. ? Primary likely lung cancer with CT findings of right lower lobe collapse. See above. Continue home oxycodone. Continue dexamethasone 4 mg daily for cancer pain #Physical deconditioning ? PT/OT consulted, recommended HH with PT/OT and ordered. - DME order for cane placed fot left arm pain from bone cancer. Exam Data for Last 24 hours Vital signs and Labs for Last 24 Hours: Temp Pulse Resp BP Pulse Ox O2 Del Method O2 Flow Rate 98.5 F 68 20 121/67 90 L Nasal Cannula 4 04/11/24 08:00 04/11/24 08:00 04/11/24 08:00 04/11/24 08:00 04/11/24 08:00 04/11/24 08:00 04/11/24 08:00 Constitutional Constitutional: no acute distress *Routine HEENT Exam Head: Present normocephalic Eye: Present EOMI and PERRL ENT: Present mucous membranes moist *Routine Neck Exam Neck: Present supple; Absent lymphadenopathy *Routine Respiratory Exam Respiratory: Present CTA bilaterally *Routine Cardiovascular Exam Cardiovascular: Present RRR *Routine Abdominal Exam Abdominal: Present soft and normoactive bowel sounds; Absent tenderness *Routine Extremities Exam Extremities: Present edema; Absent cyanosis or clubbing Comments: Lower extremity bilateral trace edema. Chronic venous stasis skin discoloration changes lower extremities. Left arm in sling. *Routine Skin Exam Skin: Present warm; Absent rash *Routine Neurological Exam Neurological: Present alert and oriented X3 DS: Diagnosis Discharge Diagnosis (1) Pleural effusion on right: Status: Acute Code(s): J90 - Pleural effusion, not elsewhere classified (2) Lung collapse: Status: Acute Code(s): J98.19 - Other pulmonary collapse (3) Hilar lymphadenopathy: Status: Acute Code(s): R59.0 - Localized enlarged lymph nodes (4) Mediastinal lymphadenopathy: Status: Acute Code(s): R59.0 - Localized enlarged lymph nodes Meds Home Medications and Allergies Home Medications ?Medication ?Instructions ?Recorded ?Confirmed ?Type ergocalciferol (vitamin D2) 50 mcg 50 mcg PO DAILY 09/23/20 04/18/24 History (2,000 unit) tablet metformin 1,000 mg tablet 1,000 mg PO BID Diabetes #180 tabs 07/11/23 04/18/24 Rx dexamethasone 4 mg tablet 4 mg PO DAILY #30 tabs 04/02/24 04/18/24 Rx albuterol sulfate 90 mcg/actuation 2 puff inhalation Q4HP PRN 04/09/24 04/18/24 History aerosol inhaler shortness of breath or wheezing atorvastatin 40 mg tablet 40 mg PO DAILY 04/09/24 04/18/24 History cholecalciferol (vitamin D3) 250 250 mcg PO DAILY 04/09/24 04/18/24 History mcg (10,000 unit) capsule escitalopram oxalate 20 mg tablet 20 mg PO DAILY 04/09/24 04/18/24 History (Lexapro) fenofibrate 160 mg tablet 160 mg PO DAILY 04/09/24 04/18/24 History hydroxyzine HCl 25 mg tablet 25 mg PO HSP PRN sleep 04/09/24 04/18/24 History ipratropium 0.5 mg-albuterol 3 mg 3 ml inhalation Q4HP PRN shortness 04/09/24 04/18/24 History (2.5 mg base)/3 mL nebulization of breath or wheezing soln lisinopril 10 mg tablet 10 mg PO DAILY 04/09/24 04/18/24 History pantoprazole 40 mg tablet,delayed 40 mg PO BID 04/09/24 04/18/24 History release tamsulosin 0.4 mg capsule 0.4 mg PO DAILY 04/09/24 04/18/24 History trazodone 150 mg tablet 150 mg PO HS 04/09/24 04/18/24 History furosemide 40 mg tablet 40 mg PO BIDL 30 days #60 tabs 04/11/24 04/18/24 Rx lidocaine 5 % topical patch 1 patch topical Q24H #15 ea 04/11/24 04/18/24 Rx magnesium oxide 500 mg capsule 500 mg PO DAILY #30 caps 04/11/24 04/18/24 Rx potassium chloride 20 mEq 40 meq (2 x 20 mEq) PO BID #30 tabs 04/11/24 04/18/24 Rx tablet,extended release(part/cryst) (Klor-Con M) cefdinir 300 mg capsule 300 mg PO BID 10 days #20 caps 04/16/24 04/18/24 Rx ibuprofen 800 mg tablet 800 mg PO Q8H #90 tabs 04/16/24 04/18/24 Rx naloxone 4 mg/actuation nasal 4 mg intranasal Q3M PRN opioid 04/16/24 04/18/24 Rx spray (Narcan) overdose #2 ea oxycodone 30 mg tablet 30 mg PO Q8H PRN pain #60 tabs 04/16/24 04/18/24 Rx metoprolol succinate 25 mg 25 mg PO DAILY #30 tabs 04/18/24 04/18/24 Rx tablet,extended release 24 hr (Toprol XL) New Prescriptions to Start Prescriptions: Ap Mccarty lidocaine Liliana,Ap magnesium oxide Ap Ford potassium chloride [Klor-Con M20] Ap Ford Allergies Allergy/AdvReac Type Severity Reaction Status Date / Time ciprofloxacin [From Cipro] Allergy Severe Rash Verified 04/18/24 11:14 methocarbamol [Robaxin] Allergy Severe Rash Verified 04/18/24 11:14 Penicillins Allergy Hives Verified 04/18/24 11:14 Discharge Plan Disposition Patient Disposition: Home Health Service Condition: Fair Discharge Order Discharge Orders: Discharge Order (Routine); Ordered 04/11/24 Ordered By: Ap Ford Follow up Plan Follow up with: Fausto Sr MD [Staff Physician] - 04/16/24 11:00 am Darinel Waller MD [Physician] - 04/18/24 11:00 am (Right lung mass) Gerson Croft MD [Primary Care Provider] - 04/20/24 10:45 am Prescriptions/Medication Reconciliation: New magnesium oxide 500 mg capsule 500 mg PO DAILY Qty: 30 0RF furosemide 40 mg Tablet 40 mg PO BIDL 30 Days Qty: 60 0RF lidocaine 5 % Adhesive Patch,Medicated 1 patch topical Q24H Qty: 15 0RF potassium chloride [Klor-Con M20] 20 mEq Tablet,Er Particles/Crystals 40 meq PO BID Qty: 30 0RF Continued ergocalciferol (vitamin D2) 50 mcg (2,000 unit) tablet 50 mcg PO DAILY metformin 1,000 mg tablet 1,000 mg PO BID Qty: 180 3RF cefdinir 300 mg capsule 300 mg PO BID 10 Days Qty: 20 0RF naloxone [Narcan] 4 mg/actuation spray,non-aerosol 4 mg intranasal Q3M PRN (Reason: opioid overdose) Qty: 2 0RF Rx Instructions: spray 1 dose into ONE nostril; alternate nostrils w each dose until help arrives dexamethasone 4 mg tablet 4 mg PO DAILY Qty: 30 0RF oxycodone 30 mg tablet 30 mg PO Q8H PRN (Reason: pain) Qty: 60 0RF Rx Instructions: take along with motrin 800 for cancer related pain ibuprofen 800 mg tablet 800 mg PO Q8H Qty: 90 3RF atorvastatin 40 mg tablet 40 mg PO DAILY ipratropium-albuterol 0.5 mg-3 mg(2.5 mg base)/3 mL solution for nebulization 3 ml inhalation Q4HP PRN (Reason: shortness of breath or wheezing) tamsulosin 0.4 mg capsule 0.4 mg PO DAILY pantoprazole 40 mg tablet,delayed release (DR/EC) 40 mg PO BID trazodone 150 mg tablet 150 mg PO HS lisinopril 10 mg tablet 10 mg PO DAILY hydroxyzine HCl 25 mg tablet 25 mg PO HSP PRN (Reason: sleep) albuterol sulfate 90 mcg/actuation HFA aerosol inhaler 2 puff inhalation Q4HP PRN (Reason: shortness of breath or wheezing) escitalopram oxalate [Lexapro] 20 mg tablet 20 mg PO DAILY cholecalciferol (vitamin D3) 250 mcg (10,000 unit) capsule 250 mcg PO DAILY fenofibrate 160 mg tablet 160 mg PO DAILY Discontinued cyclobenzaprine 10 mg tablet 10 mg PO DAILY torsemide 20 mg tablet 20 mg PO DAILYP PRN (Reason: edema) ibuprofen 800 mg tablet 800 mg PO Q8HP PRN (Reason: Mild Pain (Scale Score 1-4)) No Action metoprolol succinate [Toprol XL] 25 mg tablet extended release 24 hr 25 mg PO DAILY Qty: 30 3RF Other Ambulatory Orders: Home Medical Equipment (Routine) Location: None Selected Ordered By: Ap Ford Home Medical Equipment (Routine) Location: None Selected Ordered By: Ap Ford Problem Reconciliation Problems Reviewed?: Yes Patient Discharge Instructions ACTIVITY: Ambulate as tolerated DIET: cardiac Additional Instructions: Start Lasix 40 mg twice daily. Stop torsemide until you follow-up with cardiology. Follow-up with Dr. Sr who is our waiter/waitress buffet within 1 week of discharge. Follow-up with your PCP within 3 days of discharge. Patient Instructions: DI for Cancer Pain Syndromes, DI for Heart Failure, DI for Heart Failure Exacerbations Print Language: Citizen Of [place] Providers Primary Care Provider: Gerson Croft Admit Provider: Sander Arellano Attending Provider: Sander Arellano
== END 2024-04-11 15:39 | disposition home health service (06) | DRG 291 ==
LOC: ER 15:08 → 2ND 16:39
PROVIDERS: Internal Medicine Pulmonary Disease; Student in an Organized Health Care Education/Training Program; Admitting Provider Internal Medicine Adolescent Medicine; Emergency Provider Emergency Medicine; PCP Family Medicine; Visit Provider Internal Medicine Adolescent Medicine
DX: I11.0 Hypertensive heart disease with heart failure (principal); I50.33 Acute on chronic diastolic (congestive) heart failure; C79.51 Secondary malignant neoplasm of bone; J44.1 Chronic obstructive pulmonary disease with (acute) exacerbation; J90 Pleural effusion, not elsewhere classified; J98.19 Other pulmonary collapse; J96.11 Chronic respiratory failure with hypoxia; G89.3 Neoplasm related pain (acute) (chronic); M54.2 Cervicalgia; G89.29 Other chronic pain; M50.30 Other cervical disc degeneration, unspecified cervical region; E11.9 Type 2 diabetes mellitus without complications; Z79.4 Long term (current) use of insulin; E66.09 Other obesity due to excess calories; Z68.33 Body mass index [BMI] 33.0-33.9, adult; G89.4 Chronic pain syndrome; I25.10 Atherosclerotic heart disease of native coronary artery without angina pectoris; R59.0 Localized enlarged lymph nodes; E78.5 Hyperlipidemia, unspecified; F41.9 Anxiety disorder, unspecified; F32.A Depression, unspecified; K21.9 Gastro-esophageal reflux disease without esophagitis; C80.1 Malignant (primary) neoplasm, unspecified
CPT/HCPCS: 36415; 71275; 72125; 72128; 73200; 80048; 80053; 82803; 82962; 83735; 83880; 84145; 84484; 85025; 85610; 85730; 93005; 93308; 93971; 94640; 97110; 97162; 97166; 97535; 99285; J1170; J1650; J1885; J1940; J2270; J2405; J3475; J7620; J8540; Q9967

== ENCOUNTER 2024-04-20 09:04 | Emergency (ER) | payer MEDICARE, SELFPAY ==
[2024-04-20] VITALS (23 sets, daily range): BP systolic 99–151; BP diastolic 58–99; PULSE 87–112; RESP 20–22; TEMP 36.7–36.9; O2SAT 79–95; BMI 31.3
--- NOTE | 2024-04-20 09:12 | XR_ITS ---
FINAL REPORT CLINICAL HISTORY: fall, pain, new injury on chronic pathologic fx FINDINGS: Left shoulder Two views were obtained. There is no acute fracture or dislocation. The joint spaces appear normal. No soft tissue abnormality is identified. IMPRESSION: No acute process. Reviewed, Interpreted and Dictated by Azeem Davidson MD Transcribed by Xin Chambers Authenticated and . [facility]
--- NOTE | 2024-04-20 09:12 | CT_ITS ---
FINAL REPORT TECHNIQUE: Axial imaging of the pelvis was obtained without contrast.This study was performed with techniques to keep radiation doses as low as reasonably achievable, (ALARA). Individualized dose reduction technique using automated exposure control or adjustment of mA and/or kV according to the patient's size were employed. CLINICAL HISTORY: fall, pain FINDINGS: There is no acute fracture or dislocation. There are postoperative changes of the lumbar spine. There is evidence of old right acetabular fracture. Femoral heads are located bilaterally. Soft tissues demonstrate no acute abnormality. Sacral ala are intact. IMPRESSION: No acute bony abnormality of the pelvis. Reviewed, Interpreted and Dictated by Azeem Davidson MD Transcribed by Ana Gonzalez Authenticated and [facility]
--- NOTE | 2024-04-20 09:12 | CT_ITS ---
FINAL REPORT TECHNIQUE: Thin section axial CT with sagittal reconstruction without contrast This study was performed with techniques to keep radiation doses as low as reasonably achievable, (ALARA). Individualized dose reduction techniques using automated exposure control or adjustment of mA and/or kV according to the patient''s size were employed. CLINICAL HISTORY: fall, pain COMPARISON: 04/09/2024 FINDINGS: No fracture is seen. Alignment is normal. There are postoperative changes from anterior and posterior fusion of C3-C5. There is straightening of the cervical spine without significant subluxation. Laminectomy is seen in the upper cervical spine. IMPRESSION: No fracture or malalignment. Reviewed, Interpreted and Dictated by Azeem Davidson MD Transcribed by Xin Chambers Authenticated and . [facility]
--- NOTE | 2024-04-20 09:12 | XR_ITS ---
FINAL REPORT CLINICAL HISTORY: fall, pain, new injury on chronic pathologic fx FINDINGS: Left humerus Two views were obtained. There is a pathologic fracture of the distal humeral shaft with up to 65 degrees angulation. IMPRESSION: Fracture of the distal humeral shaft. Reviewed, Interpreted and Dictated by Azeem Davidson MD Transcribed by Xin Chambers Authenticated and [facility]
--- NOTE | 2024-04-20 09:12 | CT_ITS ---
FINAL REPORT TECHNIQUE: Thin section axial CT with coronal reconstruction without IV contrast This study was performed with techniques to keep radiation doses as low as reasonably achievable, (ALARA). Individualized dose reduction techniques using automated exposure control or adjustment of mA and/or kV according to the patient''s size were employed. CLINICAL HISTORY: fall, pain FINDINGS: No fracture is present. Paranasal sinuses are clear. There is anterior subluxation of the bilateral TMJs, left greater than right. IMPRESSION: No evidence of facial fracture Reviewed, Interpreted and Dictated by Azeem Davidson MD Transcribed by Ana Gonzalez Authenticated and [facility]
--- NOTE | 2024-04-20 09:12 | XR_ITS ---
FINAL REPORT CLINICAL HISTORY: fall, pain, new injury on chronic pathologic fx FINDINGS: Left elbow Two views were obtained. There is suboptimal positioning of the frontal view. There is no dislocation. The radius and ulna are intact. Again identified is a distal humeral pathologic fracture. IMPRESSION: Distal humeral pathologic fracture. Reviewed, Interpreted and Dictated by Azeem Davidson MD Transcribed by Xin Chambers Authenticated and [facility]
--- NOTE | 2024-04-20 09:12 | CT_ITS ---
FINAL REPORT CLINICAL HISTORY: fall, pain COMPARISON: 04/09/2024 FINDINGS: CT THORACIC SPINE TECHNIQUE: Thin section axial CT with sagittal and coronal reconstructions This study was performed with techniques to keep radiation doses as low as reasonably achievable, (ALARA). Individualized dose reduction techniques using automated exposure control or adjustment of mA and/or kV according to the patient's size were employed. No fracture is present. Alignment is normal. No bony canal stenosis is seen. No significant disc abnormalities. IMPRESSION: Negative CT evaluation of the thoracic spine for acute bony injury. Reviewed, Interpreted and Dictated by Azeem Davidson MD Transcribed by Xin Chambers Authenticated and . [facility]
--- NOTE | 2024-04-20 09:12 | XR_ITS ---
FINAL REPORT CLINICAL HISTORY: fall, pain, new injury on chronic pathologic fx FINDINGS: Left forearm Three views were obtained. There is no acute fracture or dislocation. The joint spaces appear normal. No soft tissue abnormality is identified. IMPRESSION: No acute process. Reviewed, Interpreted and Dictated by Azeem Davidson MD Transcribed by Xin Chambers Authenticated and [facility]
--- NOTE | 2024-04-20 09:12 | XR_ITS ---
FINAL REPORT CLINICAL HISTORY: fall, pain, new injury on chronic pathologic fx FINDINGS: Left hand Three views were obtained. There is no acute fracture or dislocation. The joint spaces appear normal. There is soft tissue swelling over the dorsum of the hand. IMPRESSION: No acute process. Reviewed, Interpreted and Dictated by Azeem Davidson MD Transcribed by Xin Chambers Authenticated and [facility]
--- NOTE | 2024-04-20 09:12 | CT_ITS ---
FINAL REPORT TECHNIQUE: Noncontrast exam This study was performed with techniques to keep radiation doses as low as reasonably achievable, (ALARA). Individualized dose reduction techniques using automated exposure control or adjustment of mA and/or kV according to the patient''s size were employed. CLINICAL HISTORY: fall, pain FINDINGS: No abnormal density is seen. Ventricles are normal. There is no hemorrhage. No mass effect is seen. Bone windows show no evidence of fracture. IMPRESSION: No acute findings Reviewed, Interpreted and Dictated by Azeem Davidson MD Transcribed by Xin Chambers Authenticated and . [facility]
--- NOTE | 2024-04-20 09:12 | CT_ITS ---
FINAL REPORT TECHNIQUE: Axial images of the left upper extremity was performed by computed tomography. Sagittal and coronal reconstructed images were obtained and reviewed. This study was performed with techniques to keep radiation doses as low as reasonably achievable (ALARA). Individualized dose reduction techniques using automated exposure control or adjustment of mA and/or kV according to the patient's size were employed. CLINICAL HISTORY: fall, pain COMPARISON: 04/09/2024 FINDINGS: There is a severely angulated fracture of the distal humeral shaft. Fracture is pathologic with underlying lytic lesion suspected. The elbow and glenohumeral joints are intact. IMPRESSION: Severely angulated pathologic fracture of the distal humeral shaft. Reviewed, Interpreted and Dictated by Azeem Davidson MD Transcribed by Xin Chambers Authenticated and [facility]
--- NOTE | 2024-04-20 09:12 | CT_ITS ---
FINAL REPORT TECHNIQUE: Thin section axial CT with sagittal and coronal reconstructions CLINICAL HISTORY: fall, pain FINDINGS: CT LUMBAR SPINE No fracture is present. Alignment is normal. No bony canal stenosis is seen. There are postoperative changes from fusion of L5-S1. Thoracic stimulator is identified. IMPRESSION: Negative CT evaluation of the lumbar spine for acute bony injury. This study was performed using automated techniques to achieve radiation exposure as low as reasonably achievable Reviewed, Interpreted and Dictated by Azeem Davidson MD Transcribed by Xin Chambers Authenticated and [facility]
--- NOTE | 2024-04-20 09:12 | XR_ITS ---
FINAL REPORT CLINICAL HISTORY: fall, pain, new injury on chronic pathologic fx FINDINGS: Left wrist Three views were obtained. There is no acute fracture or dislocation. The joint spaces appear normal. No soft tissue abnormality is identified. IMPRESSION: No acute process. Reviewed, Interpreted and Dictated by Azeem Davidson MD Transcribed by Xin Chambers Authenticated and [facility] [place]
--- NOTE | 2024-04-20 09:15 | CT_ITS ---
FINAL REPORT TECHNIQUE: Axial imaging of the chest was obtained without contrast. Reformatted images were also obtained and reviewed.This study was performed with techniques to keep radiation doses as low as reasonably achievable, (ALARA). Individualized dose reduction technique using automated exposure control or adjustment of mA and/or kV according to the patient's size were employed. CLINICAL HISTORY: fall, pain COMPARISON: 04/09/2024 FINDINGS: There is no axillary adenopathy. There is no hilar or mediastinal mass or adenopathy. Heart size is normal. There is no pericardial effusion there is right lower lobe collapse. Endobronchial lesion not excluded. This is similar to prior exam. There is a moderate, stable right pleural effusion. Left lung is clear. There is no pneumothorax. No acute rib fracture is seen. IMPRESSION: Stable right pleural effusion and right lower lobe atelectasis. Right lower lobe collapse, endobronchial lesion not excluded but similar to prior exam. Reviewed, Interpreted and Dictated by Azeem Davidson MD Transcribed by Ana Gonzalez Authenticated and [facility]
--- NOTE | 2024-04-20 09:16 | CT_ITS ---
FINAL REPORT TECHNIQUE: Noncontrast CT exam of the abdomen and pelvis. This study was performed with techniques to keep radiation doses as low as reasonably achievable (ALARA). Individualized dose reduction techniques using automated exposure control or adjustment of mA and/or kV according to the patient''s size were employed. CLINICAL HISTORY: fall, pain FINDINGS: Abdomen: Exam is limited without contrast. Lung bases are clear. Liver, spleen, pancreas and adrenal glands have a normal CT appearance in their limited unenhanced state. There is mild nonspecific adenopathy of the ascencion hepatis. No free air or free fluid is identified. There is minimal right nephrolithiasis. There is an exophytic nodule in the right kidney, probably a cyst. No ureteral stones are present. Pelvis: There is presumed appendectomy. Pelvic bowel loops are unremarkable. The bladder and prostate are unremarkable. No fluid collection or adenopathy is seen. IMPRESSION: No obvious acute findings. Reviewed, Interpreted and Dictated by Azeem Davidson MD Transcribed by Xin Chambers Authenticated and [facility]
--- NOTE | 2024-04-20 09:18 | ED_ITS ---
Discharge Plan Disposition Patient Disposition: Xfer Short-Term Hosp Prescriptions Prescriptions: No Action ergocalciferol (vitamin D2) 50 mcg (2,000 unit) tablet 50 mcg PO DAILY metformin 1,000 mg tablet 1,000 mg PO BID Qty: 180 3RF metoprolol succinate [Toprol XL] 25 mg tablet extended release 24 hr 25 mg PO DAILY Qty: 30 3RF cefdinir 300 mg capsule 300 mg PO BID 10 Days Qty: 20 0RF naloxone [Narcan] 4 mg/actuation spray,non-aerosol 4 mg intranasal Q3M PRN (Reason: opioid overdose) Qty: 2 0RF Rx Instructions: spray 1 dose into ONE nostril; alternate nostrils w each dose until help arrives dexamethasone 4 mg tablet 4 mg PO DAILY Qty: 30 0RF oxycodone 30 mg tablet 30 mg PO Q8H PRN (Reason: pain) Qty: 60 0RF Rx Instructions: take along with motrin 800 for cancer related pain ibuprofen 800 mg tablet 800 mg PO Q8H Qty: 90 3RF atorvastatin 40 mg tablet 40 mg PO DAILY ipratropium-albuterol 0.5 mg-3 mg(2.5 mg base)/3 mL solution for nebulization 3 ml inhalation Q4HP PRN (Reason: shortness of breath or wheezing) tamsulosin 0.4 mg capsule 0.4 mg PO DAILY pantoprazole 40 mg tablet,delayed release (DR/EC) 40 mg PO BID trazodone 150 mg tablet 150 mg PO HS lisinopril 10 mg tablet 10 mg PO DAILY hydroxyzine HCl 25 mg tablet 25 mg PO HSP PRN (Reason: sleep) albuterol sulfate 90 mcg/actuation HFA aerosol inhaler 2 puff inhalation Q4HP PRN (Reason: shortness of breath or wheezing) escitalopram oxalate [Lexapro] 20 mg tablet 20 mg PO DAILY cholecalciferol (vitamin D3) 250 mcg (10,000 unit) capsule 250 mcg PO DAILY fenofibrate 160 mg tablet 160 mg PO DAILY magnesium oxide 500 mg capsule 500 mg PO DAILY Qty: 30 0RF furosemide 40 mg Tablet 40 mg PO BIDL 30 Days Qty: 60 0RF lidocaine 5 % Adhesive Patch,Medicated 1 patch topical Q24H Qty: 15 0RF potassium chloride [Klor-Con M20] 20 mEq Tablet,Er Particles/Crystals 40 meq PO BID Qty: 30 0RF Referrals Follow up/Referrals: Provider,Referral, [Referring] - See instructions Clinical Impressions Clinical Impression: Closed left humeral fracture, Acute and chronic respiratory failure, Abrasion of face, Collapse of right lung, Endobronchial mass Stand Alone Forms Stand Alone Forms: Transfer Record - ED Print Language Print Language: Uzbek Discharge ED Provider: Oma Gold General Adult HPI <Janette Mendoza DO - Last Filed: 04/20/24 16:06> General Chief complaint: Fall Stated complaint: Fall Time Seen by Provider: 04/20/24 09:05 Mode of Arrival: EMS Source of Information: Patient Limitations: No Limitations Description of Symptoms (Recalled from ER Triage Doc. by RN): Patient reports falling outside and injuring his nose and left arm. Reports no LOC. No other pain anywhere else other than his left arm. History of Present Illness HPI narrative: This patient is a 63-year-old male with h/o bone tumor, chronic respiratory failure on 3-4 L nasal cannula, CHF, hypertension, hyperlipidemia, GERD, and type 2 diabetes presenting to the emergency department for evaluation with concern for fall. Patient was leaving his house to come to an appointment here today for bronchoscopy when he stumbled and fell. He was walking out of the back door of his house, which is on level ground with no steps, and he lost his balance falling forward onto the concrete. He tried to catch himself with his left arm and complains of significant left arm pain at this time. 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 He hit his face/head on the concrete and has multiple wounds to his face. He does not think that he lost consciousness but he is not entirely sure. He does not take any blood thinners. He currently complains of significant pain in his back and his left arm. He was unable to get up after the fall, so his called EMS. EMS notes that he was initially hypoxic when they got him up into the vehicle after lying on the ground, but his oxygen quickly corrected on his home O2. He has been alert and oriented and route. Related Data Home Medications ?Medication ?Instructions ?Recorded ?Confirmed ergocalciferol (vitamin D2) 50 mcg 50 mcg PO DAILY 09/23/20 04/18/24 (2,000 unit) tablet albuterol sulfate 90 mcg/actuation 2 puff inhalation Q4HP PRN 04/09/24 04/18/24 aerosol inhaler shortness of breath or wheezing atorvastatin 40 mg tablet 40 mg PO DAILY 04/09/24 04/18/24 cholecalciferol (vitamin D3) 250 250 mcg PO DAILY 04/09/24 04/18/24 mcg (10,000 unit) capsule escitalopram oxalate 20 mg tablet 20 mg PO DAILY 04/09/24 04/18/24 (Lexapro) fenofibrate 160 mg tablet 160 mg PO DAILY 04/09/24 04/18/24 hydroxyzine HCl 25 mg tablet 25 mg PO HSP PRN sleep 04/09/24 04/18/24 ipratropium 0.5 mg-albuterol 3 mg 3 ml inhalation Q4HP PRN shortness 04/09/24 04/18/24 (2.5 mg base)/3 mL nebulization of breath or wheezing soln lisinopril 10 mg tablet 10 mg PO DAILY 04/09/24 04/18/24 pantoprazole 40 mg tablet,delayed 40 mg PO BID 04/09/24 04/18/24 release tamsulosin 0.4 mg capsule 0.4 mg PO DAILY 04/09/24 04/18/24 trazodone 150 mg tablet 150 mg PO HS 04/09/24 04/18/24 Previous Rx's ?Medication ?Instructions ?Recorded metformin 1,000 mg tablet 1,000 mg PO BID Diabetes #180 tabs 07/11/23 dexamethasone 4 mg tablet 4 mg PO DAILY #30 tabs 04/02/24 furosemide 40 mg tablet 40 mg PO BIDL 30 days #60 tabs 04/11/24 lidocaine 5 % topical patch 1 patch topical Q24H #15 ea 04/11/24 magnesium oxide 500 mg capsule 500 mg PO DAILY #30 caps 04/11/24 potassium chloride 20 mEq 40 meq (2 x 20 mEq) PO BID #30 tabs 04/11/24 tablet,extended release(part/cryst) (Klor-Con M) cefdinir 300 mg capsule 300 mg PO BID 10 days #20 caps 04/16/24 ibuprofen 800 mg tablet 800 mg PO Q8H #90 tabs 04/16/24 naloxone 4 mg/actuation nasal 4 mg intranasal Q3M PRN opioid 04/16/24 spray (Narcan) overdose #2 ea oxycodone 30 mg tablet 30 mg PO Q8H PRN pain #60 tabs 04/16/24 metoprolol succinate 25 mg 25 mg PO DAILY #30 tabs 04/18/24 tablet,extended release 24 hr (Toprol XL) Allergies Allergy/AdvReac Type Severity Reaction Status Date / Time ciprofloxacin [From Cipro] Allergy Severe Rash Verified 04/18/24 11:14 methocarbamol [Robaxin] Allergy Severe Rash Verified 04/18/24 11:14 Penicillins Allergy Hives Verified 04/18/24 11:14 PFSH <Janette Mendoza DO - Last Filed: 04/20/24 16:06> PFS Disclaimer: The information contained in this section may have been updated after the patient was seen, as this information can be updated by other users. Medical History Chronic respiratory failure with hypoxia Globus sensation Abnormal result of cardiovascular function study Dyspnea Typical angina Abnormal electrocardiogram [ECG] [EKG] Chest pain Perianal abscess Perirectal abscess Mediastinal lymphadenopathy Hilar lymphadenopathy Lung collapse Pleural effusion on right Cancer of bone Dysphagia Coronary artery disease Chest pain Anxiety and depression Spinal cord stimulator status Cervical vertebral fusion GERD (gastroesophageal reflux disease) HLD (hyperlipidemia) HTN (hypertension) Diabetes Surgical History History of laparoscopic cholecystectomy History of appendectomy History of cervical spinal surgery History of lumbar surgery History of incision and drainage History of colonoscopy Family History Other Family history of cardiac disorder Social History Smoking Status: Unknown if ever smoked alcohol intake: never substance use type: denies use current occupational status: disabled Travel in the last 8 weeks: None household members: significant other housing: house caffeine: Yes <Janette Mendoza DO - Last Filed: 04/20/24 16:06> ROS Obtained: Yes All systems reviewed & no additional complaints except as documented Physical Exam <Janette Mendoza DO - Last Filed: 04/20/24 16:06> General General appearance: alert and in no apparent distress Head Head exam: normocephalic and other (Scabbed abrasions to the face, especially about the nose) Eye Eye exam: Present normal appearance, PERRL and EOMI ENT ENT exam: Present normal oropharynx, mucous membranes moist, normal external ear exam and other (Dried blood in the nares) Neck Neck exam: Present normal inspection, full ROM and trachea midline; Absent tenderness Chest Chest inspection: Present normal inspection and symmetric chest wall rise; Absent tenderness Respiratory Respiratory exam: Present normal lung sounds bilaterally; Absent respiratory distress, wheezes, stridor or accessory muscle use Cardiovascular Cardiovascular exam: Present regular rate and normal rhythm Abdominal Exam Abdominal exam: Present soft; Absent distention, tenderness or guarding Extremities Exam Extremities exam: Present tenderness (deformity of L humerus with TTP. swelling of LUE which is chronic), normal capillary refill, edema (BLE and LUE edema. ) and other (neurovascularly intact distally) Back Exam Back exam: Present full ROM and tenderness (mid to low) Neurological Exam Neurological exam: Present alert, oriented X3, CN II-XII intact and normal gait; Absent motor sensory deficit Psychiatric Psychiatric exam: Present normal affect and normal mood Skin Skin exam: Present warm and dry Medical Decision Making <Janette Mendoza, DO - Last Filed: 04/20/24 16:06> Medical Records Medical records reviewed: Yes I reviewed the patient's medical records. Screening: Per USPSTF and CDC recommendations, given the prevalence of disease in our region, it is our hospital?s policy to screen for HIV and viral Hepatitis for all patients aged 18 and over and those with ongoing risk factors. Martínez Inquiry Pt receiving controlled substance: No Vital Signs: 04/20/24 09:05 04/20/24 09:29 04/20/24 09:31 Temperature 98.0 F Temperature Source Oral Pulse Rate 95 H 112 H Pulse Rate [Radial] 91 H Respiratory Rate 20 Blood Pressure 143/89 H 143/83 H Blood Pressure [Right Arm] 151/99 H Blood Pressure Mean 104 102 Blood Pressure Mean [Right Arm] 116 Blood Pressure Source [Right Arm] Automatic Cuff Blood Pressure Position [Right Arm] Sitting 02 Sat by Pulse Oximetry 93 L 91 L 79 L Oxygen Delivery Method Nasal Cannula Venturi Mask Venturi Mask Oxygen Flow Rate (LPM) 2 4 5 04/20/24 10:30 04/20/24 11:00 04/20/24 11:30 Temperature Temperature Source Pulse Rate 106 H 105 H 104 H Pulse Rate [Radial] Respiratory Rate Blood Pressure 122/72 122/73 118/70 Blood Pressure [Right Arm] Blood Pressure Mean 87 83 79 Blood Pressure Mean [Right Arm] Blood Pressure Source [Right Arm] Blood Pressure Position [Right Arm] 02 Sat by Pulse Oximetry 90 L 91 L 93 L Oxygen Delivery Method Nasal Cannula Nasal Cannula Nasal Cannula Oxygen Flow Rate (LPM) 5 5 5 04/20/24 12:00 04/20/24 12:08 04/20/24 12:30 Temperature Temperature Source Pulse Rate 104 H 103 H Pulse Rate [Radial] Respiratory Rate Blood Pressure 110/73 109/58 L Blood Pressure [Right Arm] Blood Pressure Mean 80 75 Blood Pressure Mean [Right Arm] Blood Pressure Source [Right Arm] Blood Pressure Position [Right Arm] 02 Sat by Pulse Oximetry 90 L 92 L Oxygen Delivery Method Nasal Cannula Oxygen Flow Rate (LPM) 5 04/20/24 13:00 04/20/24 13:30 04/20/24 14:00 Temperature Temperature Source Pulse Rate 107 H 101 H 99 H Pulse Rate [Radial] Respiratory Rate Blood Pressure 99/65 L 106/68 L 109/68 L Blood Pressure [Right Arm] Blood Pressure Mean 71 78 75 Blood Pressure Mean [Right Arm] Blood Pressure Source [Right Arm] Blood Pressure Position [Right Arm] 02 Sat by Pulse Oximetry 86 L 89 L 89 L Oxygen Delivery Method Nasal Cannula Nasal Cannula Nasal Cannula Oxygen Flow Rate (LPM) 5 5 5 04/20/24 14:30 04/20/24 15:00 04/20/24 15:30 Temperature Temperature Source Pulse Rate 97 H 98 H 98 H Pulse Rate [Radial] Respiratory Rate Blood Pressure 105/73 L 115/75 102/64 L Blood Pressure [Right Arm] Blood Pressure Mean 81 87 76 Blood Pressure Mean [Right Arm] Blood Pressure Source [Right Arm] Blood Pressure Position [Right Arm] 02 Sat by Pulse Oximetry 90 L 87 L 93 L Oxygen Delivery Method Nasal Cannula Nasal Cannula Nasal Cannula Oxygen Flow Rate (LPM) 5 5 5 04/20/24 16:00 04/20/24 16:30 04/20/24 17:00 Temperature Temperature Source Pulse Rate 93 H 87 95 H Pulse Rate [Radial] Respiratory Rate Blood Pressure 106/66 L 110/76 117/75 Blood Pressure [Right Arm] Blood Pressure Mean 77 84 83 Blood Pressure Mean [Right Arm] Blood Pressure Source [Right Arm] Blood Pressure Position [Right Arm] 02 Sat by Pulse Oximetry 95 95 93 L Oxygen Delivery Method Nasal Cannula Nasal Cannula Oxygen Flow Rate (LPM) 5 5 04/20/24 17:30 04/20/24 18:00 04/20/24 18:30 Temperature Temperature Source Pulse Rate 103 H 101 H 104 H Pulse Rate [Radial] Respiratory Rate Blood Pressure 121/80 101/66 L 108/67 L Blood Pressure [Right Arm] Blood Pressure Mean 88 78 73 Blood Pressure Mean [Right Arm] Blood Pressure Source [Right Arm] Blood Pressure Position [Right Arm] 02 Sat by Pulse Oximetry 90 L 88 L 91 L Oxygen Delivery Method Nasal Cannula Nasal Cannula Oxygen Flow Rate (LPM) 5 5 04/20/24 19:00 04/20/24 20:42 Temperature 98.4 F Temperature Source Oral Pulse Rate 96 H 107 H Pulse Rate [Radial] Respiratory Rate 22 Blood Pressure 107/70 L 116/69 Blood Pressure [Right Arm] Blood Pressure Mean 78 Blood Pressure Mean [Right Arm] Blood Pressure Source [Right Arm] Blood Pressure Position [Right Arm] 02 Sat by Pulse Oximetry 92 L Oxygen Delivery Method Nasal Cannula Nasal Cannula Oxygen Flow Rate (LPM) 5 5 Lab Data Lab results reviewed: Yes I reviewed the patient's lab results. Lab Results 04/20/24 09:13: WBC 10.7, RBC 5.14, Hgb 14.1, Hct 46.6, MCV 90.7, MCH 27.4, MCHC 30.2 L, RDW 18.6 H, Plt Count 448 H, MPV 8.2, Neut % (Auto) 73.5, Lymph % (Auto) 17.7, [place] % (Auto) 6.8, Eos % (Auto) 1.1, Baso % (Auto) 0.9, Neut # (Auto) 7.9 H, Lymph # (Auto) 1.9, [place] # (Auto) 0.7, Eos # (Auto) 0.1, Baso # (Auto) 0.1, S odium 133 L, Potassium 3.6, Chloride 102, Carbon Dioxide 31 H, Anion Gap 3.6 L, BUN 17, Creatinine 0.50 L, Estimated Creat Clear 96, Estimated GFR 167, Est GFR ( Amer) 203, Glucose 176 H, Calcium 8.6, Total Bilirubin 0.7, AST 62 H, ALT 35, Alkaline Phosphatase 152 H, Total Creatine Kinase 139, NT-Pro-B Natriuret Pep 3660 H, Total Protein 7.1, Albumin 3.2 L, Globulin 3.9 H, A lbumin/Globulin Ratio 0.8 L, HIV 1&2 Antibody Rapid Nonreactive 04/20/24 09:17: VBG pH 7.41, VBG pCO2 46.5, VBG pO2 48.9 H, VBG HCO3 29.1, VBG Total CO2 30.5 H, VBG O2 Saturation 87.6 H, VBG Base Excess 4.5 H, VBG Lactic Acid 2.0 04/20/24 09:33: PT 12.9 H, INR 1.17 H, APTT 28.2 04/20/24 09:13 04/20/24 09:13 Orders (Tests/Meds): ED MEDICATIONS Discontinued Medications Generic Name Dose Route Start Last Admin Trade Name Freq PRN Reason Stop Dose Admin Bacitracin 1 gm 04/20/24 12:28 Bacitracin Zinc Oint 30gm Tube TP 04/20/24 12:29 ONCE ONE Hydromorphone HCl 1 mg 04/20/24 12:28 04/20/24 12:58 Hydromorphone 2mg/Ml Syringe IV 04/20/24 12:29 1 mg ONCE ONE Administration Morphine Sulfate 4 mg 04/20/24 09:17 04/20/24 09:35 Morphine 4mg/Ml Syringe IV 04/20/24 09:18 4 mg ONCE ONE Administration Ondansetron HCl 4 mg 04/20/24 09:17 04/20/24 09:34 Ondansetron 4mg/2ml Vial IV 04/20/24 09:18 4 mg ONCE ONE Administration Tetanus/Reduced Diphtheria/Acell Pertussis 0.5 ml 04/20/24 09:16 04/20/24 09:35 Tet/Diphth/Pert-Adult 0.5ml Syringe IM 04/20/24 09:17 0.5 ml .ONCE ONE Administration ORDERS Category Date Time Status CT abdomen pelvis wo con Stat Cat Scan 04/20/24 09:[address] bony pelvis Stat Cat Scan 04/20/24 09:[address] cervical spine wo con Stat Cat Scan 04/20/24 09:[address] chest wo con Stat Cat Scan 04/20/24 09:[address] facial bones wo con Stat Cat Scan 04/20/24 09:[address] head/brain wo con Stat Cat Scan 04/20/24 09:[address] humerus LT wo con Stat Cat Scan 04/20/24 09:[address] lumbar spine wo con Stat Cat Scan 04/20/24 09:[address] thoracic spine wo con Stat Cat Scan 04/20/24 09:12 Completed Elbow XR left mininum 3 views [XR elbow LT min 3V] Stat Exams 04/20/24 09:12 Completed Forearm XR left 2 views [XR forearm LT 2V] Stat Exams 04/20/24 09:12 Completed Hand XR left minimum 3 views [XR hand LT min 3V] Stat Exams 04/20/24 09:12 Completed Humerus XR left [XR humerus LT] Stat Exams 04/20/24 09:12 Completed Shoulder XR left minimum 2 views [XR shoulder LT min 2V Exams 04/20/24 09:12 Completed ] Stat Wrist XR left minimum 3 views [XR wrist LT min 3V] Stat Exams 04/20/24 09:12 Completed BNP [NT Pro Brain Natriuretic Pep.] Stat Lab 04/20/24 09:13 Completed CK [Creatine Kinase] Stat Lab 04/20/24 09:13 Completed Complete Blood Count Auto Diff Stat Lab 04/20/24 09:13 Completed Comprehensive Metabolic Panel Stat Lab 04/20/24 09:13 Completed HIV (1&2) Antibody Rapid Stat Lab 04/20/24 09:13 Completed Hep C Ab with Reflex to RNA Stat Lab 04/20/24 09:13 Received PT INR [Prothrombin Time INR] Stat Lab 04/20/24 09:33 Completed PTT [Activated Partial Thrombo Time] Stat Lab 04/20/24 09:33 Completed VBG [Venous Blood Gas] Stat RT 04/20/24 09:17 Completed ECG Data Tracing #1: I reviewed this ECG and interpreted as documented below: Normal sinus rhythm ventricular rate of [address] changes concerning for ischemia. Normal axis and intervals ECG initial impression date: 04/20/24 ECG initial impression time: 09:34 Medical Decision Narrative: In summary, this patient is a 63-year-old male presenting to the Emergency Department for evaluation of fall with facial injury, left arm pain, and back pain. Differential diagnoses considered include but are not limited to head trauma facial trauma, neck trauma, polytrauma, acute on chronic left upper extremity. Ruling out the most morbid conditions drove assessment. It should be noted patient's history includes respiratory failure, type 2 diabetes, hypertension, hyperlipidemia, CAD, cancer which likely are not at goal therapy. This complicates all aspects of care by increasing patient's risk for morbidity. I reviewed patient's past medical records and noted previous evaluations twice so far this month in the ED for evaluation with concern for left arm pain and his chronic pathologic fracture. On exam, the patient is lying in bed in no acute distress. He is A&O x 4, GCS of 15. He has obvious facial trauma with multiple abrasions. He also has deformity of his left upper extremity with chronic swelling but is neurovascularly intact. Workup included noncontrasted trauma CT scans, as I did not feel that contrast is indicated given low mechanism. Also obtain lab evaluation including lactic acid and CK given fall and unable to get up. BNP was also ordered given lower extremity and upper extremity swelling. Patient is given IV morphine and Zofran for symptomatic improvement. Tdap booster was administered given his last tetanus shot was in 2018 on medical record review. I independently interpreted imaging prior to the radiologist read and noted chronic right lung issues secondary to likely mass which is being worked up as an outpatient as well as significant displaced left humerus fracture. Please see their read for final interpretation. Labs were obtained that demonstrated no significant changes from the patient's baseline. Ultimately given the significantly displaced fracture, consider procedural sedation for reduction and placement of a Diaz splint/brace, however the patient is very very high risk for sedation as he has acute on chronic respiratory failure with oxygen requirements up to 5 L nasal cannula now from baseline of 3 to 4 L nasal cannula at home. Given this, after shared decision- making with the patient and family, they were agreeable to pain control with IV Dilaudid and then placement of the brace. Patient tolerated this very well and remained neurovascularly intact afterward. Ultimately I feel he would benefit from admission for acute on chronic respiratory failure, difficulty walking, and traumatic injuries from fall. I had an interactive discussion with Dr. Waller his junior systems engineer who feels that we have exhausted our abilities to care for him here given that we do not have inpatient oncology, so he and I agree that the patient would benefit from transfer to higher level of care. I had an interactive discussion with Bouchra Gibbons in the transfer center who accepted the patient for transfer there to the ED for eval as trauma given new injuries. Patient alert, conversational, and hemodynamically stable on 5L NC. His wounds on his face were cleaned and antibiotic ointment was applied. Family is updated to plan of care. Unfortunately transport was delayed given weather and emergency disaster response status in the community preventing EMS from being able to leave. No helicopter flying. On multiple reassessments, he remains resting comfortably but transfer is still delayed as of 1600 because of weather and EMS protocols. Patient care signed out to Dr. Gold pending transport. <Oma Gold MD - Last Filed: 04/20/24 21:19> Vital Signs: 04/20/24 09:05 04/20/24 09:29 04/20/24 09:31 Temperature 98.0 F Temperature Source Oral Pulse Rate 95 H 112 H Pulse Rate [Radial] 91 H Respiratory Rate 20 Blood Pressure 143/89 H 143/83 H Blood Pressure [Right Arm] 151/99 H Blood Pressure Mean 104 102 Blood Pressure Mean [Right Arm] 116 Blood Pressure Source [Right Arm] Automatic Cuff Blood Pressure Position [Right Arm] Sitting 02 Sat by Pulse Oximetry 93 L 91 L 79 L Oxygen Delivery Method Nasal Cannula Venturi Mask Venturi Mask Oxygen Flow Rate (LPM) 2 4 5 04/20/24 10:30 04/20/24 11:00 04/20/24 11:30 Temperature Temperature Source Pulse Rate 106 H 105 H 104 H Pulse Rate [Radial] Respiratory Rate Blood Pressure 122/72 122/73 118/70 Blood Pressure [Right Arm] Blood Pressure Mean 87 83 79 Blood Pressure Mean [Right Arm] Blood Pressure Source [Right Arm] Blood Pressure Position [Right Arm] 02 Sat by Pulse Oximetry 90 L 91 L 93 L Oxygen Delivery Method Nasal Cannula Nasal Cannula Nasal Cannula Oxygen Flow Rate (LPM) 5 5 5 04/20/24 12:00 04/20/24 12:08 04/20/24 12:30 Temperature Temperature Source Pulse Rate 104 H 103 H Pulse Rate [Radial] Respiratory Rate Blood Pressure 110/73 109/58 L Blood Pressure [Right Arm] Blood Pressure Mean 80 75 Blood Pressure Mean [Right Arm] Blood Pressure Source [Right Arm] Blood Pressure Position [Right Arm] 02 Sat by Pulse Oximetry 90 L 92 L Oxygen Delivery Method Nasal Cannula Oxygen Flow Rate (LPM) 5 04/20/24 13:00 04/20/24 13:30 04/20/24 14:00 Temperature Temperature Source Pulse Rate 107 H 101 H 99 H Pulse Rate [Radial] Respiratory Rate Blood Pressure 99/65 L 106/68 L 109/68 L Blood Pressure [Right Arm] Blood Pressure Mean 71 78 75 Blood Pressure Mean [Right Arm] Blood Pressure Source [Right Arm] Blood Pressure Position [Right Arm] 02 Sat by Pulse Oximetry 86 L 89 L 89 L Oxygen Delivery Method Nasal Cannula Nasal Cannula Nasal Cannula Oxygen Flow Rate (LPM) 5 5 5 04/20/24 14:30 04/20/24 15:00 04/20/24 15:30 Temperature Temperature Source Pulse Rate 97 H 98 H 98 H Pulse Rate [Radial] Respiratory Rate Blood Pressure 105/73 L 115/75 102/64 L Blood Pressure [Right Arm] Blood Pressure Mean 81 87 76 Blood Pressure Mean [Right Arm] Blood Pressure Source [Right Arm] Blood Pressure Position [Right Arm] 02 Sat by Pulse Oximetry 90 L 87 L 93 L Oxygen Delivery Method Nasal Cannula Nasal Cannula Nasal Cannula Oxygen Flow Rate (LPM) 5 5 5 04/20/24 16:00 04/20/24 16:30 04/20/24 17:00 Temperature Temperature Source Pulse Rate 93 H 87 95 H Pulse Rate [Radial] Respiratory Rate Blood Pressure 106/66 L 110/76 117/75 Blood Pressure [Right Arm] Blood Pressure Mean 77 84 83 Blood Pressure Mean [Right Arm] Blood Pressure Source [Right Arm] Blood Pressure Position [Right Arm] 02 Sat by Pulse Oximetry 95 95 93 L Oxygen Delivery Method Nasal Cannula Nasal Cannula Oxygen Flow Rate (LPM) 5 5 04/20/24 17:30 04/20/24 18:00 04/20/24 18:30 Temperature Temperature Source Pulse Rate 103 H 101 H 104 H Pulse Rate [Radial] Respiratory Rate Blood Pressure 121/80 101/66 L 108/67 L Blood Pressure [Right Arm] Blood Pressure Mean 88 78 73 Blood Pressure Mean [Right Arm] Blood Pressure Source [Right Arm] Blood Pressure Position [Right Arm] 02 Sat by Pulse Oximetry 90 L 88 L 91 L Oxygen Delivery Method Nasal Cannula Nasal Cannula Oxygen Flow Rate (LPM) 5 5 04/20/24 19:00 04/20/24 20:42 Temperature 98.4 F Temperature Source Oral Pulse Rate 96 H 107 H Pulse Rate [Radial] Respiratory Rate 22 Blood Pressure 107/70 L 116/69 Blood Pressure [Right Arm] Blood Pressure Mean 78 Blood Pressure Mean [Right Arm] Blood Pressure Source [Right Arm] Blood Pressure Position [Right Arm] 02 Sat by Pulse Oximetry 92 L Oxygen Delivery Method Nasal Cannula Nasal Cannula Oxygen Flow Rate (LPM) 5 5 Lab Data Lab Results 04/20/24 09:13: WBC 10.7, RBC 5.14, Hgb 14.1, Hct 46.6, MCV 90.7, MCH 27.4, MCHC 30.2 L, RDW 18.6 H, Plt Count 448 H, MPV 8.2, Neut % (Auto) 73.5, Lymph % (Auto) 17.7, [place] % (Auto) 6.8, Eos % (Auto) 1.1, Baso % (Auto) 0.9, Neut # (Auto) 7.9 H, Lymph # (Auto) 1.9, [place] # (Auto) 0.7, Eos # (Auto) 0.1, Baso # (Auto) 0.1, S odium 133 L, Potassium 3.6, Chloride 102, Carbon Dioxide 31 H, Anion Gap 3.6 L, BUN 17, Creatinine 0.50 L, Estimated Creat Clear 96, Estimated GFR 167, Est GFR ( Amer) 203, Glucose 176 H, Calcium 8.6, Total Bilirubin 0.7, AST 62 H, ALT 35, Alkaline Phosphatase 152 H, Total Creatine Kinase 139, NT-Pro-B Natriuret Pep 3660 H, Total Protein 7.1, Albumin 3.2 L, Globulin 3.9 H, A lbumin/Globulin Ratio 0.8 L, HIV 1&2 Antibody Rapid Nonreactive 04/20/24 09:17: VBG pH 7.41, VBG pCO2 46.5, VBG pO2 48.9 H, VBG HCO3 29.1, VBG Total CO2 30.5 H, VBG O2 Saturation 87.6 H, VBG Base Excess 4.5 H, VBG Lactic Acid 2.0 04/20/24 09:33: PT 12.9 H, INR 1.17 H, APTT 28.2 Orders (Tests/Meds): ED MEDICATIONS Discontinued Medications Generic Name Dose Route Start Last Admin Trade Name Amado PRN Reason Stop Dose Admin Bacitracin 1 gm 04/20/24 12:28 Bacitracin Zinc Oint 30gm Tube TP 04/20/24 12:29 ONCE ONE Hydromorphone HCl 1 mg 04/20/24 12:28 04/20/24 12:58 Hydromorphone 2mg/Ml Syringe IV 04/20/24 12:29 1 mg ONCE ONE Administration Morphine Sulfate 4 mg 04/20/24 09:17 04/20/24 09:35 Morphine 4mg/Ml Syringe IV 04/20/24 09:18 4 mg ONCE ONE Administration Ondansetron HCl 4 mg 04/20/24 09:17 04/20/24 09:34 Ondansetron 4mg/2ml Vial IV 04/20/24 09:18 4 mg ONCE ONE Administration Tetanus/Reduced Diphtheria/Acell Pertussis 0.5 ml 04/20/24 09:16 04/20/24 09:35 Tet/Diphth/Pert-Adult 0.5ml Syringe IM 04/20/24 09:17 0.5 ml .ONCE ONE Administration ORDERS Category Date Time Status CT abdomen pelvis wo con Stat Cat Scan 04/20/24 09:[address] bony pelvis Stat Cat Scan 04/20/24 09:[address] cervical spine wo con Stat Cat Scan 04/20/24 09:[address] chest wo con Stat Cat Scan 04/20/24 09:[address] facial bones wo con Stat Cat Scan 04/20/24 09:[address] head/brain wo con Stat Cat Scan 04/20/24 09:[address] humerus LT wo con Stat Cat Scan 04/20/24 09:[address] lumbar spine wo con Stat Cat Scan 04/20/24 09:[address] thoracic spine wo con Stat Cat Scan 04/20/24 09:12 Completed Elbow XR left mininum 3 views [XR elbow LT min 3V] Stat Exams 04/20/24 09:12 Completed Forearm XR left 2 views [XR forearm LT 2V] Stat Exams 04/20/24 09:12 Completed Hand XR left minimum 3 views [XR hand LT min 3V] Stat Exams 04/20/24 09:12 Completed Humerus XR left [XR humerus LT] Stat Exams 04/20/24 09:12 Completed Shoulder XR left minimum 2 views [XR shoulder LT min 2V Exams 04/20/24 09:12 Completed ] Stat Wrist XR left minimum 3 views [XR wrist LT min 3V] Stat Exams 04/20/24 09:12 Completed BNP [NT Pro Brain Natriuretic Pep.] Stat Lab 04/20/24 09:13 Completed CK [Creatine Kinase] Stat Lab 04/20/24 09:13 Completed Complete Blood Count Auto Diff Stat Lab 04/20/24 09:13 Completed Comprehensive Metabolic Panel Stat Lab 04/20/24 09:13 Completed HIV (1&2) Antibody Rapid Stat Lab 04/20/24 09:13 Completed Hep C Ab with Reflex to RNA Stat Lab 04/20/24 09:13 Received PT INR [Prothrombin Time INR] Stat Lab 04/20/24 09:33 Completed PTT [Activated Partial Thrombo Time] Stat Lab 04/20/24 09:33 Completed VBG [Venous Blood Gas] Stat RT 04/20/24 09:17 Completed Medical Decision Narrative: In summary, this patient is a 63-year-old male presenting to the Emergency Department for evaluation of fall with facial injury, left arm pain, and back pain. Differential diagnoses considered include but are not limited to head trauma facial trauma, neck trauma, polytrauma, acute on chronic left upper extremity. Ruling out the most morbid conditions drove assessment. It should be noted patient's history includes respiratory failure, type 2 diabetes, hypertension, hyperlipidemia, CAD, cancer which likely are not at goal therapy. This complicates all aspects of care by increasing patient's risk for morbidity. I reviewed patient's past medical records and noted previous evaluations twice so far this month in the ED for evaluation with concern for left arm pain and his chronic pathologic fracture. On exam, the patient is lying in bed in no acute distress. He is A&O x 4, GCS of 15. He has obvious facial trauma with multiple abrasions. He also has deformity of his left upper extremity with chronic swelling but is neurovascularly intact. Workup included noncontrasted trauma CT scans, as I did not feel that contrast is indicated given low mechanism. Also obtain lab evaluation including lactic acid and CK given fall and unable to get up. BNP was also ordered given lower extremity and upper extremity swelling. Patient is given IV morphine and Zofran for symptomatic improvement. Tdap booster was administered given his last tetanus shot was in 2018 on medical record review. I independently interpreted imaging prior to the radiologist read and noted chronic right lung issues secondary to likely mass which is being worked up as an outpatient as well as significant displaced left humerus fracture. Please see their read for final interpretation. Labs were obtained that demonstrated no significant changes from the patient's baseline. Ultimately given the significantly displaced fracture, consider procedural sedation for reduction and placement of a Diaz splint/brace, however the patient is very very high risk for sedation as he has acute on chronic respiratory failure with oxygen requirements up to 5 L nasal cannula now from baseline of 3 to 4 L nasal cannula at home. Given this, after shared decision- making with the patient and family, they were agreeable to pain control with IV Dilaudid and then placement of the brace. Patient tolerated this very well and remained neurovascularly intact afterward. Ultimately I feel he would benefit from admission for acute on chronic respiratory failure, difficulty walking, and traumatic injuries from fall. I had an interactive discussion with Dr. Waller his junior systems engineer who feels that we have exhausted our abilities to care for him here given that we do not have inpatient oncology, so he and I agree that the patient would benefit from transfer to higher level of care. I had an interactive discussion with Bouchra Gibbons in the transfer center who accepted the patient for transfer there to the ED for eval as trauma given new injuries. Patient alert, conversational, and hemodynamically stable on 5L NC. His wounds on his face were cleaned and antibiotic ointment was applied. Family is updated to plan of care. Unfortunately transport was delayed given weather and emergency disaster response status in the community preventing EMS from being able to leave. No helicopter flying. On multiple reassessments, he remains resting comfortably but transfer is still delayed as of 1600 because of weather and EMS protocols. Patient care signed out to Dr. Gold pending transport. Patient remained hemodynamically stable on 5 L NC and in no distress while awaiting EMS transport. Once weather improved and restrictions were lifted, patient departed the emergency department without difficulty. Procedures <Janette Mendoza, DO - Last Filed: 04/20/24 16:06> Orthopedic Splinting/Casting Injury #1: Side: left Upper Extremity Injury Location: upper arm (Diaz brace) Post Cast/Splinting Neuro Status: intact and no change Post Cast/Splinting Vasc Status: intact and no change Critical Care <Janette Mendoza, DO - Last Filed: 04/20/24 16:06> Critical Care Time Critical Care Time: No
[2024-04-20 09:27] LABS: Albumin Level 3.2 g/dl (3.5-5.0); Chloride 102 mmol/L (98-107)
[2024-04-20 09:28] LABS: VBG Base Excess 4.5 mmol/L (-2.4-2.3); VBG HCO3 29.1 mmol/L (23-30); VBG Oxygen Saturation 87.6 % (50-70); VBG PCO2 46.5 mmol/L (35-51); VBG PH 7.41 mmol/L (7.31-7.41); VBG PO2 48.9 mmol/L (28-40); VBG Total CO2 30.5 mmol/L (23-27)
[2024-04-20 09:28] LABS: Potassium 3.6 mmoL/L (3.5-5.1); Sodium 133 mmol/L (136-145)
--- NOTE | 2024-04-20 09:28 | PC.NURSE ---
Becky in lab called and reports we need a new blue top and another VBG draw d/t not enough blood in tubes. ANGELIQUE Cary is redrawing
[2024-04-20 09:30] LABS: Alanine Aminotransferase 35 U/L (12-78); Alkaline Phosphatase 152 U/L (38-126); Aspartate Amino Transferase 62 U/L (17-59); Bilirubin,Total 0.7 mg/dl (0.2-1.3); Blood Urea Nitrogen 17 mg/dl (9-20); Creatinine Clearance Estimated 96 mL/min (50-200); Estimated Glomerular Filt Rate 167 ml/min (>60); GFR (African American) 203 ML/MIN (>60)
[2024-04-20 09:31] LABS: Albumin/Globulin Ratio 0.8 (1.1-1.8); Anion Gap 3.6 mEq/L (5-15); Calcium 8.6 mg/dl (8.4-10.2); Carbon Dioxide 31 mmol/L (22.0-30.0); Creatine Kinase 139 U/L (55-170); Globulin 3.9 g/dL (1.3-3.2); Glucose 176 mg/dl (74-100); Total Protein,Serum 7.1 g/dl (6.3-8.2)
--- NOTE | 2024-04-20 09:33 | PC.NURSE ---
pt to CT via stretcher with RAD techs x 2
[2024-04-20] MEDS: ONDANSETRON 4MG/2ML VIAL 4 MG IV (09:34)
[2024-04-20] MEDS: TET/DIPHTH/PERT-ADULT 0.5ML SYRINGE 0.5 ML IM (09:35)
[2024-04-20] MEDS: MORPHINE 4MG/ML SYRINGE 4 MG IV (09:35)
[2024-04-20 09:47] LABS: NT Pro Brain Natriuretic Pep. 3660 pg/mL (0-125)
--- NOTE | 2024-04-20 09:51 | PC.NURSE ---
family at BS; pt still in CT at this time
[2024-04-20 09:55] LABS: Basophils # 0.1 K/mm3 (0-0.2); Basophils % 0.9 % (0.1-2.0); Eosinophils # 0.1 K/mm3 (0.0-0.4); Eosinophils % 1.1 % (0.1-12.0); Hematocrit 46.6 % (42.0-52.0); Hemoglobin 14.1 g/dL (14.1-18.0); Lymphocytes # 1.9 K/mm3 (0.7-4.5); Lymphocytes % 17.7 % (10-50); Mean Corpuscular HGB Conc 30.2 g/dL (31.8-35.4); Mean Corpuscular Hemoglobin 27.4 pg (27.0-31.2); Mean Corpuscular Volume 90.7 fl (80-94); Mean Platelet Volume 8.2 fl (7.4-10.4); Monocytes # 0.7 K/mm3 (0.1-1.0); Monocytes % 6.8 % (1.7-9.3); Neutrophils # 7.9 K/mm3 (1.8-7.8); Neutrophils % 73.5 % (37.0-80.0); Platelet Count 448 K/mm3 (142-424); Red Blood Count 5.14 M/mm3 (4.60-6.20); Red Cell Distribution Width 18.6 % (11.5-17.5); White Blood Count 10.7 K/mm3 (4.8-10.8)
[2024-04-20 10:00] LABS: Activated Partial Thrombo Time 28.2 seconds (22.8-30.6); INR 1.17 (0.9-1.1); Prothrombin Time 12.9 seconds (10.1-12.5)
--- NOTE | 2024-04-20 10:01 | PC.NURSE ---
pt back from CT via stretcher; family at BS
--- NOTE | 2024-04-20 10:12 | PC.NURSE ---
Dr. Mendoza asked that we switch patient back to NC, on 5L from venti-mask. Will continue to monitor o2 sat.
--- NOTE | 2024-04-20 10:13 | PC.NURSE ---
portable xray at
[2024-04-20 10:23] LABS: HIV (1&2) Antibody Rapid NONREACTIVE (NONREACTIVE)
--- NOTE | 2024-04-20 10:35 | PC.NURSE ---
rounded on pt. no needs at this time.
--- NOTE | 2024-04-20 11:39 | PC.NURSE ---
Dr. Mendoza at BS for update on POC
--- NOTE | 2024-04-20 11:39 | PC.NURSE ---
DR BARRY AT BEDSIDE TO UPDATE PT AND FAMILY
[2024-04-20] MEDS: HYDROMORPHONE 2MG/ML SYRINGE 1 MG IV (12:58)
--- NOTE | 2024-04-20 13:02 | PC.NURSE ---
DR BARRY SPEAKING WITH HOSPITALIST
--- NOTE | 2024-04-20 13:05 | PC.NURSE ---
Asked radiology to power-share to [facility]
--- NOTE | 2024-04-20 13:07 | PC.NURSE ---
DR BARRY AT BEDSIDE TO UPDATE FAMILY
--- NOTE | 2024-04-20 13:19 | PC.NURSE ---
Called [facility] per Dr Mendoza to speak with Oncology about this pt. advised they had Dr Gibbons available and he was speaking with Dr Mendoza at this time
--- NOTE | 2024-04-20 16:45 | PC.NURSE ---
Patient sleeping at this time. No needs.
--- NOTE | 2024-04-20 17:35 | PC.NURSE ---
Pt needed to go to the bathroom was able to assist him with using the urinal
--- NOTE | 2024-04-20 18:19 | PC.NURSE ---
Updated pt's sister with expected time of transfer. Also verified the phone numbers for family are accurate for [facility] on face-sheet.
[2024-04-21 08:17] LABS: HCV Ab Non Reactive (Non Reactive)
== END 2024-04-20 20:47 | disposition short-term general hospital (02) ==
PROVIDERS: Emergency Medicine; Emergency Provider Student in an Organized Health Care Education/Training Program; PCP Family Medicine
DX: S42.352A Displaced comminuted fracture of shaft of humerus, left arm, initial encounter for closed fracture (principal); J98.11 Atelectasis; J96.20 Acute and chronic respiratory failure, unspecified whether with hypoxia or hypercapnia; R91.8 Other nonspecific abnormal finding of lung field; S00.81XA Abrasion of other part of head, initial encounter; W18.30XA Fall on same level, unspecified, initial encounter; Z23 Encounter for immunization
CPT/HCPCS: 70450; 70486; 71250; 72125; 72128; 72131; 72192; 73030; 73060; 73080; 73090; 73110; 73130; 73200; 74176; 80053; 82550; 82803; 83880; 85025; 85610; 85730; 86803; 87389; 90471; 90715; 96374; 96375; 99285; J1170; J2270; J2405

== ENCOUNTER 2024-05-21 12:39 | Outpatient (CLI) | payer MEDICARE, SELFPAY ==
--- NOTE | 2024-05-21 12:46 | XR_ITS ---
PROCEDURE INFORMATION: Exam: XR Chest Exam date and time: 05/21/2024 12:53 PM Age: 63 years old Clinical indication: Condition or disease; Lung condition and disease; Cancer of the lung; Bilateral; Unspecified; Shortness of breath; Additional info: Lung cancer TECHNIQUE: Imaging protocol: Radiologic exam of the chest. Views: 2 views. COMPARISON: CT CHEST WO CON 04/20/2024 9:49 AM FINDINGS: Lungs: See Pleural spaces finding. Pleural spaces: Moderate subpulmonic effusion on the right with adjacent airspace consolidation/atelectasis. Heart/Mediastinum: Unremarkable. No cardiomegaly. Bones/joints: Unremarkable. IMPRESSION: Moderate subpulmonic effusion on the right with adjacent airspace consolidation/atelectasis.
--- NOTE | 2024-05-21 12:46 | XR_ITS ---
PROCEDURE INFORMATION: Exam: XR Left Humerus Exam date and time: 05/21/2024 12:53 PM Age: 63 years old Clinical indication: Pain; Upper arm; Left; Additional info: Metastatic lung cx possibly in the humerus TECHNIQUE: Imaging protocol: Radiologic exam of the left humerus. Views: 2 or more views. COMPARISON: CR XR HUMERUS LT 04/20/2024 10:08 AM FINDINGS: Bones/joints: Lytic destructive process involving the cancellous and cortical bone of the distal humeral diaphysis with aggressive periosteal response about the region of lysis. Progressive. Previously visualized angulation at this region no longer present-alignment near normal. Soft tissues: See Bones/joints finding. IMPRESSION: Lytic destructive process involving the cancellous and cortical bone of the distal humeral diaphysis with aggressive periosteal response about the region of lysis. Progressive. Previously visualized angulation at this region no longer present-alignment near normal.
== END 2024-05-21 23:59 | disposition home or self-care (01) ==
LOC: RAD 12:40
PROVIDERS: PCP Family Medicine; Visit Provider Family Medicine
DX: C34.90 Malignant neoplasm of unspecified part of unspecified bronchus or lung (principal); M79.602 Pain in left arm; Z87.891 Personal history of nicotine dependence
CPT/HCPCS: 71046; 73060

== ENCOUNTER 2024-05-31 10:47 | Outpatient (CLI) | payer MEDICARE, SELFPAY ==
[2024-05-31 11:05] VITALS: BMI 27.1
[2024-05-31 11:22] LABS: Basophils # 0.1 K/mm3 (0-0.2); Basophils % 1.1 % (0.1-2.0); Eosinophils # 0.2 K/mm3 (0.0-0.4); Eosinophils % 1.9 % (0.1-12.0); Hematocrit 50.8 % (42.0-52.0); Hemoglobin 16.3 g/dL (14.1-18.0); Lymphocytes # 1.8 K/mm3 (0.7-4.5); Lymphocytes % 20.7 % (10-50); Mean Corpuscular Hemoglobin 28.5 pg (27.0-31.2); Mean Corpuscular Volume 89.2 fl (80-94); Mean Platelet Volume 6.9 fl (7.4-10.4); Monocytes # 0.5 K/mm3 (0.1-1.0); Monocytes % 5.4 % (1.7-9.3); Neutrophils # 6.2 K/mm3 (1.8-7.8); Neutrophils % 70.9 % (37.0-80.0); Platelet Count 283 K/mm3 (142-424); Red Cell Distribution Width 19.2 % (11.5-17.5); White Blood Count 8.8 K/mm3 (4.8-10.8)
[2024-05-31 11:31] LABS: Albumin Level 3.8 g/dl (3.5-5.0); Chloride 93 mmol/L (98-107); Potassium 3.7 mmoL/L (3.5-5.1); Sodium 134 mmol/L (136-145)
[2024-05-31 11:34] LABS: Alanine Aminotransferase 21 U/L (12-78); Albumin/Globulin Ratio 0.9 (1.1-1.8); Alkaline Phosphatase 104 U/L (38-126); Anion Gap 8.7 mEq/L (5-15); Aspartate Amino Transferase 27 U/L (17-59); Bilirubin,Total 0.5 mg/dl (0.2-1.3); Blood Urea Nitrogen 11 mg/dl (9-20); Calcium 8.8 mg/dl (8.4-10.2); Carbon Dioxide 36 mmol/L (22.0-30.0); Creatinine Clearance Estimated 83 mL/min (50-200); Estimated Glomerular Filt Rate 97 ml/min (>60); GFR (African American) 118 ML/MIN (>60); Globulin 4.1 g/dL (1.3-3.2); Glucose 141 mg/dl (74-100); Total Protein,Serum 7.9 g/dl (6.3-8.2)
[2024-05-31 12:04] LABS: Thyroid Stimulating Hormone 0.37 uIU/mL (0.465-4.68)
[2024-05-31] MEDS: PEMBROLIZUMAB 200 MG in 0.9 % SODIUM CHLORIDE 50 ML 100 MG IV (12:04)
[2024-05-31] MEDS: SODIUM CHLORIDE 0.9% 50ML BAG 50 ML IV (12:04)
[2024-05-31 12:11] VITALS: BP 112/70; PULSE 113; RESP 19; TEMP 36.1; O2SAT 90
[2024-05-31 12:50] VITALS: BP 101/62; PULSE 111; RESP 19; O2SAT 90
--- NOTE | 2024-06-01 15:52 | DIET.NUTRFU ---
RD contacted patient secondary to 1st dose of chemo. Sister answer call, patient was sleeping. RD reviewed dietary concerns with sister, she reports he does not eat much no appetite and some nausea. Has lost weight according to chart and she agreed, down 12kg since 04/05. She reports he does drink shakes or protein drink occasionally but nothing routine. offered handouts on weight gains and milkshakes and she replied it couldn't hurt. Will mail out the milkshake recipes and high calorie high protein nutrition therapy and recipes. Will also include contact information for any further concerns
== END 2024-05-31 12:50 | disposition home or self-care (01) ==
LOC: INF 10:48
PROVIDERS: PCP Family Medicine; Visit Provider Internal Medicine Medical Oncology
DX: C34.90 Malignant neoplasm of unspecified part of unspecified bronchus or lung (principal); Z79.899 Other long term (current) drug therapy
CPT/HCPCS: 80053; 82533; 84443; 85025; 96413; J9271

== ENCOUNTER 2024-06-05 14:51 | Emergency (ER) | payer MEDICARE, SELFPAY ==
[2024-06-05] VITALS (7 sets, daily range): BP systolic 100–132; BP diastolic 62–85; PULSE 90–108; RESP 12–24; TEMP 36.8–37.1; O2SAT 90–95; BMI 32.5
--- NOTE | 2024-06-05 14:54 | ECG_ITS ---
APPROVED REPORT Exam: Resting ECG HR:105 bpm ECG Measurements Heart Rate 105 AXES AK 140 P 62 QRSd 102 QRS 73 QT 353 T 89 QTc 414 Conclusion SINUS TACHYCARDIA Electronically signed by : KELLY LESLIE, 06/06/2024 08:20:25
--- NOTE | 2024-06-05 14:55 | ED_ITS ---
<Statement entered by Janette Mendoza DO - 06/06/24 00:22> I was consulted by the JAMEL, and we discussed the complexity of the problems being addressed. I approved the treatment and management plan for this patient's care in the emergency department, thus performing a substantive portion of the medical decision making. Janette Mendoza DO Discharge Plan Disposition Patient Disposition: Home, Self-Care Condition: Good Prescriptions Prescriptions: No Action ergocalciferol (vitamin D2) 50 mcg (2,000 unit) tablet 50 mcg PO DAILY metformin 1,000 mg tablet 1,000 mg PO BID Qty: 180 3RF Anoro Ellipta 62.5-25 mcg/actuation blister with device inhalation morphine 30 mg tablet extended release 30 mg PO Q12H Qty: 60 0RF naloxone [Narcan] 4 mg/actuation spray,non-aerosol 4 mg intranasal Q3M PRN (Reason: opioid overdose) Qty: 2 0RF Rx Instructions: spray 1 dose into ONE nostril; alternate nostrils w each dose until help arrives cyclobenzaprine 10 mg tablet 10 mg PO HS magnesium oxide 500 mg capsule 500 mg PO DAILY Qty: 30 0RF ondansetron 8 mg tablet,disintegrating 8 mg PO Q8H Qty: 90 0RF oxycodone 20 mg tablet 20 mg PO Q4H PRN (Reason: pain) Qty: 60 0RF methylprednisolone [Medrol (Waylon)] 4 mg tablets,dose pack See Rx Instructions PO PER PKG DIR Qty: 21 0RF Rx Instructions: PO PER PKG DIR atorvastatin 40 mg tablet 40 mg PO DAILY ipratropium-albuterol 0.5 mg-3 mg(2.5 mg base)/3 mL solution for nebulization 3 ml inhalation Q4HP PRN (Reason: shortness of breath or wheezing) tamsulosin 0.4 mg capsule 0.4 mg PO DAILY pantoprazole 40 mg tablet,delayed release (DR/EC) 40 mg PO BID trazodone 150 mg tablet 150 mg PO HS hydroxyzine HCl 25 mg tablet 25 mg PO HSP PRN (Reason: sleep) albuterol sulfate 90 mcg/actuation HFA aerosol inhaler 2 puff inhalation Q4HP PRN (Reason: shortness of breath or wheezing) escitalopram oxalate [Lexapro] 20 mg tablet 20 mg PO DAILY cholecalciferol (vitamin D3) 250 mcg (10,000 unit) capsule 250 mcg PO DAILY fenofibrate 160 mg tablet 160 mg PO DAILY furosemide 40 mg Tablet 40 mg PO BIDL 30 Days Qty: 60 0RF potassium chloride [Klor-Con M20] 20 mEq Tablet,Er Particles/Crystals 40 meq PO BID Qty: 30 0RF Referrals Follow up/Referrals: Provider,Referral, MD [Primary Care Provider] - See instructions Activity Restrictions/Add. Instructions Additional Instructions/Restrictions: We found no evidence today of GI bleed on imaging or laboratory testing. If your symptoms persist or recur follow-up with your PCP or return to the ER as needed. Clinical Impressions Clinical Impression: BRBPR (bright red blood per rectum) Print Language Print Language: Lithuanian Discharge ED Provider: Janette Mendoza General Adult HPI <NICK Jung - Last Filed: 06/05/24 18:15> General Chief complaint: Shortness of Breath/Dyspnea Stated complaint: RECTAL BLEEDING Time Seen by Provider: 06/05/24 14:55 History of Present Illness HPI narrative: Patient presents for evaluation of reported bright red blood per rectum. Patient had home health visit him today and reported that he had rectal bleeding . Patient himself does not know that he has rectal bleeding but he also denies any cardiac chest pain new shortness of breath fever chills hemoptysis hematochezia melena nausea vomit diarrhea. Patient has stage IV metastatic lung cancer and is currently undergoing palliative treatment and had his first infusion of Keytruda on Tuesday. He is chronically O2 dependent but nothing is changed otherwise. Related Data Home Medications ?Medication ?Instructions ?Recorded ?Confirmed ergocalciferol (vitamin D2) 50 mcg 50 mcg PO DAILY 09/23/20 06/01/24 (2,000 unit) tablet albuterol sulfate 90 mcg/actuation 2 puff inhalation Q4HP PRN 04/09/24 06/01/24 aerosol inhaler shortness of breath or wheezing atorvastatin 40 mg tablet 40 mg PO DAILY 04/09/24 06/01/24 cholecalciferol (vitamin D3) 250 250 mcg PO DAILY 04/09/24 06/01/24 mcg (10,000 unit) capsule escitalopram oxalate 20 mg tablet 20 mg PO DAILY 04/09/24 06/01/24 (Lexapro) fenofibrate 160 mg tablet 160 mg PO DAILY 04/09/24 06/01/24 hydroxyzine HCl 25 mg tablet 25 mg PO HSP PRN sleep 04/09/24 06/01/24 ipratropium 0.5 mg-albuterol 3 mg 3 ml inhalation Q4HP PRN shortness 04/09/24 06/01/24 (2.5 mg base)/3 mL nebulization of breath or wheezing soln pantoprazole 40 mg tablet,delayed 40 mg PO BID 04/09/24 06/01/24 release tamsulosin 0.4 mg capsule 0.4 mg PO DAILY 04/09/24 06/01/24 trazodone 150 mg tablet 150 mg PO HS 04/09/24 06/01/24 cyclobenzaprine 10 mg tablet 10 mg PO HS 05/18/24 06/01/24 umeclidinium 62.5 mcg-vilanterol inhalation 05/23/24 06/01/24 25 mcg/actuation powdr for inhalation (Anoro Ellipta) Previous Rx's ?Medication ?Instructions ?Recorded metformin 1,000 mg tablet 1,000 mg PO BID Diabetes #180 tabs 07/11/23 furosemide 40 mg tablet 40 mg PO BIDL 30 days #60 tabs 04/11/24 potassium chloride 20 mEq 40 meq (2 x 20 mEq) PO BID #30 tabs 04/11/24 tablet,extended release(part/cryst) (Klor-Con M) naloxone 4 mg/actuation nasal 4 mg intranasal Q3M PRN opioid 04/16/24 spray (Narcan) overdose #2 ea morphine 30 mg tablet,extended 30 mg PO Q12H #60 tabs 05/23/24 release magnesium oxide 500 mg capsule 500 mg PO DAILY #30 caps 05/28/24 ondansetron 8 mg disintegrating 8 mg PO Q8H nausea and vomiting 05/30/24 tablet #90 tabs oxycodone 20 mg tablet 20 mg PO Q4H PRN pain #60 tabs 06/01/24 methylprednisolone 4 mg tablets in See Rx Instructions PO PER PKG DIR 06/05/24 a dose pack (Medrol (Waylon)) #21 tabs Allergies Allergy/AdvReac Type Severity Reaction Status Date / Time ciprofloxacin (From Cipro) Allergy Severe Rash Verified 06/01/24 09:24 methocarbamol (Robaxin) Allergy Severe Rash Verified 06/01/24 09:24 Penicillins Allergy Hives Verified 06/01/24 09:24 [facility] <NICK Jung - Last Filed: 06/05/24 18:15> [facility] Disclaimer: The information contained in this section may have been updated after the patient was seen, as this information can be updated by other users. Medical History Cervical spinal cord injury Globus sensation Chronic respiratory failure with hypoxia Abnormal result of cardiovascular function study Dyspnea Typical angina Abnormal electrocardiogram [ECG] [EKG] Chest pain Perianal abscess Perirectal abscess Mediastinal lymphadenopathy Hilar lymphadenopathy Lung collapse Pleural effusion on right Cancer of bone Dysphagia Coronary artery disease Chest pain Anxiety and depression Spinal cord stimulator status Cervical vertebral fusion GERD (gastroesophageal reflux disease) HLD (hyperlipidemia) HTN (hypertension) Diabetes Surgical History History of laparoscopic cholecystectomy History of appendectomy History of cervical spinal surgery History of lumbar surgery History of incision and drainage History of colonoscopy Family History Other Family history of cardiac disorder Social History Smoking Status: Former smoker tobacco type: cigarettes packs per day: 1 alcohol intake: never substance use type: denies use current occupational status: disabled Travel in the last 8 weeks: None household members: significant other housing: house caffeine: Yes Other Medical History Have you received the Flu Vaccine for this season: No Have you received the Pneumonia Vaccine: Yes <NICK Jung - Last Filed: 06/05/24 18:15> ROS Obtained: Yes Systems reviewed as appropriate & no additional complaints except as documented Physical Exam <NICK Jung - Last Filed: 06/05/24 18:15> General General appearance: alert and in no apparent distress Respiratory Respiratory exam: Absent normal lung sounds bilaterally (Patient has faint bilateral end expiratory wheezing but no increased work of breathing or accessory muscle use.) or respiratory distress Cardiovascular Cardiovascular exam: Present regular rate and normal rhythm Abdominal Exam Abdominal exam: Present rebound Neurological Exam Neurological exam: Present alert and oriented X3 Medical Decision Making <NICK Jung - Last Filed: 06/05/24 18:15> Medical Records Medical records reviewed: Yes I reviewed the patient's medical records. Screening: Per USPSTF and CDC recommendations, given the prevalence of disease in our region, it is our hospital?s policy to screen for HIV and viral Hepatitis for all patients aged 18 and over and those with ongoing risk factors. Martínez Inquiry Pt receiving controlled substance: No Vital Signs: 06/05/24 14:51 06/05/24 15:03 06/05/24 15:30 Temperature 98.7 F Temperature Source Oral Pulse Rate 108 H 107 H Pulse Rate [Right Radial] 108 H Respiratory Rate 24 12 Blood Pressure 111/70 120/72 Blood Pressure [Right Arm] 132/85 Blood Pressure Mean 80 Blood Pressure Mean [Right Arm] 100 02 Sat by Pulse Oximetry 91 L 90 L 91 L Oxygen Delivery Method Nasal Cannula Oxygen Flow Rate (LPM) 2 06/05/24 16:00 06/05/24 17:00 06/05/24 17:30 Temperature Temperature Source Pulse Rate 90 Pulse Rate [Right Radial] Respiratory Rate 12 Blood Pressure 106/63 L 103/66 L 100/62 L Blood Pressure [Right Arm] Blood Pressure Mean 73 70 Blood Pressure Mean [Right Arm] 02 Sat by Pulse Oximetry 94 L 95 Oxygen Delivery Method Oxygen Flow Rate (LPM) 06/05/24 17:52 Temperature 98.2 F Temperature Source Pulse Rate 91 H Pulse Rate [Right Radial] Respiratory Rate 20 Blood Pressure 100/62 L Blood Pressure [Right Arm] Blood Pressure Mean Blood Pressure Mean [Right Arm] 02 Sat by Pulse Oximetry Oxygen Delivery Method Nasal Cannula Oxygen Flow Rate (LPM) 2 Lab Data Lab results reviewed: Yes I reviewed the patient's lab results. Lab Results 06/05/24 14:51: Stool Occult Blood Negative 06/05/24 15:30: WBC 6.6, RBC 5.60, Hgb 15.8, Hct 50.6, MCV 90.4, MCH 28.3, MCHC 31.3 L, RDW 19.1 H, Plt Count 268, MPV 6.8 L, Neut % (Auto) 77.2, Lymph % (Auto) 14.2, Overton % (Auto) 6.0, Eos % (Auto) 1.1, Baso % (Auto) 1.5, Neut # (Auto) 5.1, Lymph # (Auto) 0.9, Overton # (Auto) 0.4, Eos # (Auto) 0.1, Baso # (Auto) 0.1, PT 12.5, INR 1.13 H, Sodium 134 L, Potassium 3.4 L, Chloride 94 L, Carbon Dioxide 39 H, Anion Gap 4.4 L, BUN 12, Creatinine 0.70, Estimated Creat Clear 105, Estimated GFR 114, Est GFR ( Amer) 137, Glucose 145 H, Calcium 8.7, Total Bilirubin 0.7, AST 32, ALT 17, Alkaline Phosphatase 101, Total Protein 7.2, A lbumin 3.4 L, Globulin 3.8 H, Albumin/Globulin Ratio 0.9 L 06/05/24 15:30 06/05/24 15:30 Orders (Tests/Meds): ED MEDICATIONS Discontinued Medications Generic Name Dose Route Start Last Admin Trade Name Freq PRN Reason Stop Dose Admin Iopamidol 75 ml 06/05/24 16:29 06/05/24 16:30 Iopamidol-370 (76%);100ml Bottle IV 06/05/24 16:30 75 ml ONCE ONE Administration Sodium Chloride 10 ml 06/05/24 16:29 06/05/24 16:29 Sodium Chloride 0.9% 10ml Syr (Rad Only) IV 06/05/24 16:30 10 ml ONCE ONE Administration ORDERS Category Date Time Status CT abdomen pelvis w con Stat Cat Scan 06/05/24 14:56 Completed CBC w/Auto Diff [Complete Blood Count Auto Diff] Stat Lab 06/05/24 15:30 Completed CMP [Comprehensive Metabolic Panel] Stat Lab 06/05/24 15:30 Completed INR [Prothrombin Time INR] Stat Lab 06/05/24 15:30 Completed Occult Blood,Stool Stat Lab 06/05/24 14:51 Completed Medical Decision Narrative: In summary patient is a 63-year-old male who presents to the emergency department for evaluation of reported bright red blood per rectum at home health. Patient is initially normotensive with a blood pressure 132/85 heart rate 108 respiratory rate is 24 satting at 91% on his 2 L by nasal cannula upon arrival, afebrile. Physical exam reveals a much older than stated age appearing chronically ill-appearing 63-year-old gentleman who otherwise is in no acute distress. Physical exam is remarkable for faint end expiratory wheezes in all 4 finney with no increased work of breathing. Patient is at his baseline oxygenation on his 2 L by nasal cannula. Review of the perirectal area shows a pressure injury appears to be deep but there is no skin or muscle breakdown currently deafly no bleeding. Digital rectal exam reveals no masses or hemorrhoids and there was no evidence of lambert blood on my glove. Differential diagnosis includes GI bleed versus hemorrhoid versus other source of bleeding although I am unable to identify an external source etc. Initial workup will be conducted with hematologic labs CT scan abdomen pelvis. Initial interventions include acetaminophen. Initial workup reviewed by me stool for occult blood is negative, my informal interpretation of his CT scan abdomen pelvis shows significant amount of stool but no other acute processes prior to radiology read. His white count 6.6 hemoglobin hematocrit of 15.8 and 50.6 respectively no shift on differential, INR is 1.13, and the remainder of his hematologic labs are nonactionable. Upon repeat evaluation patient remains hemodynamically stable and without complaint. I then had an interactive discussion with both Dr. Rashid of hematology oncology as well as Dr. Lovell of gastroenterology about patient management. Dr. Rashid felt only with 1 infusion of Keytruda that the likely sources not GI which is supported by his MCKEON and Dr. Lovell felt that given the negative stool for occult blood as it is a pretty sensitive test likely not GI as well. Given this we have ruled out essentially any evidence that he had bright red blood per rectum and no evidence of any other serious or life-threatening condition other than his known stage IV cancer for which she is receiving palliative care. Patient is appropriate for discharge with strict return precautions and follow-up with his PCP for any recurring worsening or new symptoms as needed. <Janette Mendoza, DO - Last Filed: 06/05/24 15:24> Vital Signs: 06/05/24 14:51 06/05/24 15:03 06/05/24 15:30 Temperature 98.7 F Temperature Source Oral Pulse Rate 108 H 107 H Pulse Rate [Right Radial] 108 H Respiratory Rate 24 12 Blood Pressure 111/70 120/72 Blood Pressure [Right Arm] 132/85 Blood Pressure Mean 80 Blood Pressure Mean [Right Arm] 100 02 Sat by Pulse Oximetry 91 L 90 L 91 L Oxygen Delivery Method Nasal Cannula Oxygen Flow Rate (LPM) 2 06/05/24 16:00 06/05/24 17:00 06/05/24 17:30 Temperature Temperature Source Pulse Rate 90 Pulse Rate [Right Radial] Respiratory Rate 12 Blood Pressure 106/63 L 103/66 L 100/62 L Blood Pressure [Right Arm] Blood Pressure Mean 73 70 Blood Pressure Mean [Right Arm] 02 Sat by Pulse Oximetry 94 L 95 Oxygen Delivery Method Oxygen Flow Rate (LPM) 06/05/24 17:52 Temperature 98.2 F Temperature Source Pulse Rate 91 H Pulse Rate [Right Radial] Respiratory Rate 20 Blood Pressure 100/62 L Blood Pressure [Right Arm] Blood Pressure Mean Blood Pressure Mean [Right Arm] 02 Sat by Pulse Oximetry Oxygen Delivery Method Nasal Cannula Oxygen Flow Rate (LPM) 2 Lab Data Lab Results 06/05/24 14:51: Stool Occult Blood Negative 06/05/24 15:30: WBC 6.6, RBC 5.60, Hgb 15.8, Hct 50.6, MCV 90.4, MCH 28.3, MCHC 31.3 L, RDW 19.1 H, Plt Count 268, MPV 6.8 L, Neut % (Auto) 77.2, Lymph % (Auto) 14.2, Overton % (Auto) 6.0, Eos % (Auto) 1.1, Baso % (Auto) 1.5, Neut # (Auto) 5.1, Lymph # (Auto) 0.9, Overton # (Auto) 0.4, Eos # (Auto) 0.1, Baso # (Auto) 0.1, PT 12.5, INR 1.13 H, Sodium 134 L, Potassium 3.4 L, Chloride 94 L, Carbon Dioxide 39 H, Anion Gap 4.4 L, BUN 12, Creatinine 0.70, Estimated Creat Clear 105, Estimated GFR 114, Est GFR ( Amer) 137, Glucose 145 H, Calcium 8.7, Total Bilirubin 0.7, AST 32, ALT 17, Alkaline Phosphatase 101, Total Protein 7.2, A lbumin 3.4 L, Globulin 3.8 H, Albumin/Globulin Ratio 0.9 L Orders (Tests/Meds): ED MEDICATIONS Discontinued Medications Generic Name Dose Route Start Last Admin Trade Name Freq PRN Reason Stop Dose Admin Iopamidol 75 ml 06/05/24 16:29 06/05/24 16:30 Iopamidol-370 (76%);100ml Bottle IV 06/05/24 16:30 75 ml ONCE ONE Administration Sodium Chloride 10 ml 06/05/24 16:29 06/05/24 16:29 Sodium Chloride 0.9% 10ml Syr (Rad Only) IV 06/05/24 16:30 10 ml ONCE ONE Administration ORDERS Category Date Time Status CT abdomen pelvis w con Stat Cat Scan 06/05/24 14:56 Completed CBC w/Auto Diff [Complete Blood Count Auto Diff] Stat Lab 06/05/24 15:30 Completed CMP [Comprehensive Metabolic Panel] Stat Lab 06/05/24 15:30 Completed INR [Prothrombin Time INR] Stat Lab 06/05/24 15:30 Completed Occult Blood,Stool Stat Lab 06/05/24 14:51 Completed ECG Data Tracing #1: I reviewed this ECG and interpreted as documented below: Sinus tachycardia with a ventricular rate of [address] changes concerning for ischemia. Normal intervals. ECG initial impression date: 06/05/24 ECG initial impression time: 14:58 <Alvaro Conklin MD - Last Filed: 06/06/24 10:38> Vital Signs: 06/05/24 14:51 06/05/24 15:03 06/05/24 15:30 Temperature 98.7 F Temperature Source Oral Pulse Rate 108 H 107 H Pulse Rate [Right Radial] 108 H Respiratory Rate 24 12 Blood Pressure 111/70 120/72 Blood Pressure [Right Arm] 132/85 Blood Pressure Mean 80 Blood Pressure Mean [Right Arm] 100 02 Sat by Pulse Oximetry 91 L 90 L 91 L Oxygen Delivery Method Nasal Cannula Oxygen Flow Rate (LPM) 2 06/05/24 16:00 06/05/24 17:00 06/05/24 17:30 Temperature Temperature Source Pulse Rate 90 Pulse Rate [Right Radial] Respiratory Rate 12 Blood Pressure 106/63 L 103/66 L 100/62 L Blood Pressure [Right Arm] Blood Pressure Mean 73 70 Blood Pressure Mean [Right Arm] 02 Sat by Pulse Oximetry 94 L 95 Oxygen Delivery Method Oxygen Flow Rate (LPM) 06/05/24 17:52 Temperature 98.2 F Temperature Source Pulse Rate 91 H Pulse Rate [Right Radial] Respiratory Rate 20 Blood Pressure 100/62 L Blood Pressure [Right Arm] Blood Pressure Mean Blood Pressure Mean [Right Arm] 02 Sat by Pulse Oximetry Oxygen Delivery Method Nasal Cannula Oxygen Flow Rate (LPM) 2 Lab Data Lab Results 06/05/24 14:51: Stool Occult Blood Negative 06/05/24 15:30: WBC 6.6, RBC 5.60, Hgb 15.8, Hct 50.6, MCV 90.4, MCH 28.3, MCHC 31.3 L, RDW 19.1 H, Plt Count 268, MPV 6.8 L, Neut % (Auto) 77.2, Lymph % (Auto) 14.2, Overton % (Auto) 6.0, Eos % (Auto) 1.1, Baso % (Auto) 1.5, Neut # (Auto) 5.1, Lymph # (Auto) 0.9, Overton # (Auto) 0.4, Eos # (Auto) 0.1, Baso # (Auto) 0.1, PT 12.5, INR 1.13 H, Sodium 134 L, Potassium 3.4 L, Chloride 94 L, Carbon Dioxide 39 H, Anion Gap 4.4 L, BUN 12, Creatinine 0.70, Estimated Creat Clear 105, Estimated GFR 114, Est GFR ( Amer) 137, Glucose 145 H, Calcium 8.7, Total Bilirubin 0.7, AST 32, ALT 17, Alkaline Phosphatase 101, Total Protein 7.2, A lbumin 3.4 L, Globulin 3.8 H, Albumin/Globulin Ratio 0.9 L Orders (Tests/Meds): ED MEDICATIONS Discontinued Medications Generic Name Dose Route Start Last Admin Trade Name Freq PRN Reason Stop Dose Admin Iopamidol 75 ml 06/05/24 16:29 06/05/24 16:30 Iopamidol-370 (76%);100ml Bottle IV 06/05/24 16:30 75 ml ONCE ONE Administration Sodium Chloride 10 ml 06/05/24 16:29 06/05/24 16:29 Sodium Chloride 0.9% 10ml Syr (Rad Only) IV 06/05/24 16:30 10 ml ONCE ONE Administration ORDERS Category Date Time Status CT abdomen pelvis w con Stat Cat Scan 06/05/24 14:56 Completed CBC w/Auto Diff [Complete Blood Count Auto Diff] Stat Lab 06/05/24 15:30 Completed CMP [Comprehensive Metabolic Panel] Stat Lab 06/05/24 15:30 Completed INR [Prothrombin Time INR] Stat Lab 06/05/24 15:30 Completed Occult Blood,Stool Stat Lab 06/05/24 14:51 Completed Medical Decision Narrative: In summary patient is a 63-year-old male who presents to the emergency department for evaluation of reported bright red blood per rectum at home health. Patient is initially normotensive with a blood pressure 132/85 heart rate 108 respiratory rate is 24 satting at 91% on his 2 L by nasal cannula upon arrival, afebrile. Physical exam reveals a much older than stated age appearing chronically ill-appearing 63-year-old gentleman who otherwise is in no acute distress. Physical exam is remarkable for faint end expiratory wheezes in all 4 finney with no increased work of breathing. Patient is at his baseline oxygenation on his 2 L by nasal cannula. Review of the perirectal area shows a pressure injury appears to be deep but there is no skin or muscle breakdown currently deafly no bleeding. Digital rectal exam reveals no masses or hemorrhoids and there was no evidence of lambert blood on my glove. Differential diagnosis includes GI bleed versus hemorrhoid versus other source of bleeding although I am unable to identify an external source etc. Initial workup will be conducted with hematologic labs CT scan abdomen pelvis. Initial interventions include acetaminophen. Initial workup reviewed by me stool for occult blood is negative, my informal interpretation of his CT scan abdomen pelvis shows significant amount of stool but no other acute processes prior to radiology read. His white count 6.6 hemoglobin hematocrit of 15.8 and 50.6 respectively no shift on differential, INR is 1.13, and the remainder of his hematologic labs are nonactionable. Upon repeat evaluation patient remains hemodynamically stable and without complaint. I then had an interactive discussion with both Dr. Rashid of hematology oncology as well as Dr. Lovell of gastroenterology about patient management. Dr. Rashid felt only with 1 infusion of Keytruda that the likely sources not GI which is supported by his MCKEON and Dr. Lovell felt that given the negative stool for occult blood as it is a pretty sensitive test likely not GI as well. Given this we have ruled out essentially any evidence that he had bright red blood per rectum and no evidence of any other serious or life-threatening condition other than his known stage IV cancer for which she is receiving palliative care. Patient is appropriate for discharge with strict return precautions and follow-up with his PCP for any recurring worsening or new symptoms as needed. I was consulted by the JAMEL, and we discussed the complexity of the problems being addressed. I approved the treatment and management plan for this patient's care in the Emergency Department, thus performing a substantive portion of the medical decision making. Alvaro Conklin MD Critical Care <NICK Jung - Last Filed: 06/05/24 18:15> Critical Care Time Critical Care Time: No
--- NOTE | 2024-06-05 14:56 | CT_ITS ---
PROCEDURE INFORMATION: Exam: CT Abdomen And Pelvis With Contrast Exam date and time: 06/05/2024 4:28 PM Age: 63 years old Clinical indication: Other: Brbpr; Additional info: Bright red blood per rectum TECHNIQUE: Imaging protocol: Computed tomography of the abdomen and pelvis with contrast. Radiation optimization: All CT scans at this facility use at least one of these dose optimization techniques: automated exposure control; mA and/or kV adjustment per patient size (includes targeted exams where dose is matched to clinical indication); or iterative reconstruction. Contrast material: ISOVUE; Contrast volume: 75 ml; Contrast route: IV; COMPARISON: 1. PT P.E.T./CT SKULL BASE TO MID-THIGH 04/13/2024 9:[address] CHEST WO CON 04/20/2024 9:[address] ANGIO CHEST PE PROTOCOL 04/09/2024 1:05 PM FINDINGS: Tubes, catheters and devices: There is a spinal stimulator in place. Pleural spaces: Stable partially visualized right pleural effusion and collapse of the right lower lobe. Liver: There is early morphologic changes of cirrhosis with volume redistribution. No concerning focal liver lesion. Gallbladder and biliary ducts: The patient is status post cholecystectomy. Pancreas: Normal. Spleen: There is a small splenule. Adrenal glands: The adrenal glands appear normal. Kidneys and ureters: Nonobstructing right midpole intrarenal calculus. Simple appearing right renal cyst. Stomach and bowel: There is large volume stool throughout the colon. Appendix: No evidence of appendicitis. Intraperitoneal space: Unremarkable. Vasculature: The abdominal aorta and its major branches appear normal without evidence of aneurysm or stenosis. There are pelvic phleboliths. Lymph nodes: No lymphadenopathy. Urinary bladder: There is moderate distention of the urinary bladder. Reproductive: No acute process. Bones/joints: There is surgical hardware within the lumbar spine. Soft tissues: Unremarkable. IMPRESSION: Large volume stool throughout the colon. No evidence of active hemorrhage on portal venous phase images. COMMENTS: Consistent with the [employer]'s Incidental Findings Committee white paper (J Am Codey Radiol 2018): Any incidental renal lesion less than 1 cm or classified as too small to characterize, or any incidental cystic renal lesion characterized as simple-appearing, is likely benign. No follow-up imaging is recommended for these lesions per consensus recommendations based on imaging criteria.
[2024-06-05 15:37] LABS: Basophils # 0.1 K/mm3 (0-0.2); Basophils % 1.5 % (0.1-2.0); Eosinophils # 0.1 K/mm3 (0.0-0.4); Eosinophils % 1.1 % (0.1-12.0); Hematocrit 50.6 % (42.0-52.0); Hemoglobin 15.8 g/dL (14.1-18.0); Lymphocytes # 0.9 K/mm3 (0.7-4.5); Lymphocytes % 14.2 % (10-50); Mean Corpuscular HGB Conc 31.3 g/dL (31.8-35.4); Mean Corpuscular Hemoglobin 28.3 pg (27.0-31.2); Mean Corpuscular Volume 90.4 fl (80-94); Mean Platelet Volume 6.8 fl (7.4-10.4); Monocytes # 0.4 K/mm3 (0.1-1.0); Neutrophils # 5.1 K/mm3 (1.8-7.8); Neutrophils % 77.2 % (37.0-80.0); Platelet Count 268 K/mm3 (142-424); Red Cell Distribution Width 19.1 % (11.5-17.5); White Blood Count 6.6 K/mm3 (4.8-10.8)
[2024-06-05 16:07] LABS: Albumin Level 3.4 g/dl (3.5-5.0); Chloride 94 mmol/L (98-107); Potassium 3.4 mmoL/L (3.5-5.1); Sodium 134 mmol/L (136-145)
[2024-06-05 16:09] LABS: Alanine Aminotransferase 17 U/L (12-78); Aspartate Amino Transferase 32 U/L (17-59); Blood Urea Nitrogen 12 mg/dl (9-20); Creatinine Clearance Estimated 105 mL/min (50-200); Estimated Glomerular Filt Rate 114 ml/min (>60); GFR (African American) 137 ML/MIN (>60)
[2024-06-05 16:10] LABS: Albumin/Globulin Ratio 0.9 (1.1-1.8); Alkaline Phosphatase 101 U/L (38-126); Anion Gap 4.4 mEq/L (5-15); Bilirubin,Total 0.7 mg/dl (0.2-1.3); Calcium 8.7 mg/dl (8.4-10.2); Carbon Dioxide 39 mmol/L (22.0-30.0); Globulin 3.8 g/dL (1.3-3.2); Glucose 145 mg/dl (74-100); Total Protein,Serum 7.2 g/dl (6.3-8.2)
[2024-06-05] MEDS: SODIUM CHLORIDE 0.9% 10ML SYR (RAD ONLY) 10 ML IV (16:29)
[2024-06-05] MEDS: IOPAMIDOL-370 (76%);100ML BOTTLE 75 ML IV (16:30)
[2024-06-05 16:33] LABS: INR 1.13 (0.9-1.1); Prothrombin Time 12.5 seconds (10.1-12.5)
[2024-06-05 17:10] LABS: Occult Blood,Stool Negative (Negative)
== END 2024-06-05 18:09 | disposition home or self-care (01) ==
PROVIDERS: Physician Assistant; Emergency Provider Emergency Medicine
DX: K92.2 Gastrointestinal hemorrhage, unspecified (principal)
CPT/HCPCS: 74177; 80053; 82272; 85025; 85610; 93005; 99285; G0328; Q9967

== ENCOUNTER 2024-06-19 09:27 | Outpatient (CLI) | payer MEDICARE, SELFPAY ==
[2024-06-19 09:44] VITALS: BMI 37.4
[2024-06-19 09:55] LABS: Basophils # 0.1 K/mm3 (0-0.2); Basophils % 1.5 % (0.1-2.0); Eosinophils # 0.1 K/mm3 (0.0-0.4); Eosinophils % 1.3 % (0.1-12.0); Hematocrit 49.7 % (42.0-52.0); Hemoglobin 16.7 g/dL (14.1-18.0); Lymphocytes # 1.7 K/mm3 (0.7-4.5); Lymphocytes % 20.9 % (10-50); Mean Corpuscular HGB Conc 33.6 g/dL (31.8-35.4); Mean Corpuscular Hemoglobin 29.2 pg (27.0-31.2); Mean Platelet Volume 9.1 fl (7.4-10.4); Monocytes # 0.4 K/mm3 (0.1-1.0); Monocytes % 4.9 % (1.7-9.3); Neutrophils # 5.7 K/mm3 (1.8-7.8); Neutrophils % 71.4 % (37.0-80.0); Platelet Count 260 K/mm3 (142-424); Red Blood Count 5.72 M/mm3 (4.60-6.20); Red Cell Distribution Width 18.1 % (11.5-17.5)
[2024-06-19 10:14] LABS: Chloride 94 mmol/L (98-107)
[2024-06-19 10:15] LABS: Albumin Level 3.8 g/dl (3.5-5.0); Potassium 4.7 mmoL/L (3.5-5.1); Sodium 134 mmol/L (136-145)
[2024-06-19 10:17] LABS: Blood Urea Nitrogen 12 mg/dl (9-20); Creatinine Clearance Estimated 83 mL/min (50-200); Estimated Glomerular Filt Rate 136 ml/min (>60); GFR (African American) 164 ML/MIN (>60)
[2024-06-19 10:18] LABS: Alanine Aminotransferase 22 U/L (12-78); Albumin/Globulin Ratio 0.8 (1.1-1.8); Alkaline Phosphatase 130 U/L (38-126); Anion Gap 12.7 mEq/L (5-15); Aspartate Amino Transferase 45 U/L (17-59); Bilirubin,Total 1.1 mg/dl (0.2-1.3); Calcium 9.2 mg/dl (8.4-10.2); Carbon Dioxide 32 mmol/L (22.0-30.0); Globulin 4.6 g/dL (1.3-3.2); Glucose 145 mg/dl (74-100); Total Protein,Serum 8.4 g/dl (6.3-8.2)
[2024-06-19] MEDS: SODIUM CHLORIDE 0.9% 50ML BAG 50 ML IV (11:09)
[2024-06-19] MEDS: PEMBROLIZUMAB 200 MG in 0.9 % SODIUM CHLORIDE 50 ML 116 MG IV (11:09)
[2024-06-19 11:16] VITALS: BP 113/62; PULSE 92; RESP 18; O2SAT 96
[2024-06-19] MEDS: ZOLEDRONIC ACID 4 MG in 0.9 % SODIUM CHLORIDE 100 ML 420 MG IV (11:54)
[2024-06-19 12:18] VITALS: BP 100/59; PULSE 90; RESP 18; O2SAT 96
== END 2024-06-19 12:18 | disposition home or self-care (01) ==
LOC: INF 09:29
PROVIDERS: PCP Family Medicine; Visit Provider Internal Medicine Medical Oncology
DX: C79.51 Secondary malignant neoplasm of bone (principal)
CPT/HCPCS: 80053; 85025; 96375; 96413; J3489; J9271

== ENCOUNTER 2024-07-06 14:10 | Outpatient (CLI) | payer MEDICARE, SELFPAY | END 2024-07-06 23:59 | disposition home or self-care (01) | LOC: LAB.DROPOF 07-07 09:28 | PROVIDERS: PCP Family Medicine; Visit Provider Family Medicine | DX: T14.8XXA Other injury of unspecified body region, initial encounter (principal) | CPT/HCPCS: 87070; 87077; 87186; 87205 ==

== ENCOUNTER 2024-07-10 09:13 | Outpatient (CLI) | payer MEDICARE, SELFPAY ==
[2024-07-10 09:24] VITALS: BMI 28.6
[2024-07-10 09:46] LABS: Basophils # 0.2 K/mm3 (0-0.2); Basophils % 2.2 % (0.1-2.0); Eosinophils # 0.1 K/mm3 (0.0-0.4); Hematocrit 51.3 % (42.0-52.0); Hemoglobin 16.2 g/dL (14.1-18.0); Lymphocytes # 1.7 K/mm3 (0.7-4.5); Lymphocytes % 24.2 % (10-50); Mean Corpuscular HGB Conc 31.7 g/dL (31.8-35.4); Mean Corpuscular Hemoglobin 27.7 pg (27.0-31.2); Mean Corpuscular Volume 87.6 fl (80-94); Mean Platelet Volume 6.8 fl (7.4-10.4); Monocytes # 0.5 K/mm3 (0.1-1.0); Monocytes % 6.8 % (1.7-9.3); Neutrophils # 4.6 K/mm3 (1.8-7.8); Neutrophils % 64.7 % (37.0-80.0); Platelet Count 340 K/mm3 (142-424); Red Blood Count 5.86 M/mm3 (4.60-6.20); Red Cell Distribution Width 17.1 % (11.5-17.5); White Blood Count 7.1 K/mm3 (4.8-10.8)
[2024-07-10 09:55] LABS: Albumin Level 3.5 g/dl (3.5-5.0); Chloride 95 mmol/L (98-107); Potassium 4.1 mmoL/L (3.5-5.1); Sodium 131 mmol/L (136-145)
[2024-07-10 09:58] LABS: Alanine Aminotransferase 15 U/L (12-78); Albumin/Globulin Ratio 0.9 (1.1-1.8); Alkaline Phosphatase 160 U/L (38-126); Anion Gap 4.1 mEq/L (5-15); Aspartate Amino Transferase 22 U/L (17-59); Bilirubin,Total 0.6 mg/dl (0.2-1.3); Blood Urea Nitrogen 15 mg/dl (9-20); Calcium 8.4 mg/dl (8.4-10.2); Carbon Dioxide 36 mmol/L (22.0-30.0); Creatinine Clearance Estimated 88 mL/min (50-200); Estimated Glomerular Filt Rate 114 ml/min (>60); GFR (African American) 137 ML/MIN (>60); Glucose 113 mg/dl (74-100); Total Protein,Serum 7.5 g/dl (6.3-8.2)
[2024-07-10] MEDS: SODIUM CHLORIDE 0.9% 50ML BAG 50 ML IV (10:34)
[2024-07-10] MEDS: PEMBROLIZUMAB 200 MG in 0.9 % SODIUM CHLORIDE 50 ML 116 MG IV (10:34)
[2024-07-10 10:40] VITALS: BP 115/71; PULSE 71; RESP 18; O2SAT 90
[2024-07-10 10:45] LABS: Thyroid Stimulating Hormone 0.77 uIU/mL (0.465-4.68)
--- NOTE | 2024-07-10 11:33 | XR_ITS ---
FINAL REPORT CLINICAL HISTORY: pleural effusion COMPARISON: CT dated 04/20/2024 FINDINGS: There is moderate right effusion with associated atelectasis, similar to CT dated 04/20/2024. The mediastinum has a normal appearance. There is mild cardiomegaly. IMPRESSION: Moderate right effusion with right lower lobe pneumonia or atelectasis, post obstructing mass is not excluded. Reviewed, Interpreted and Dictated by Azeem Davidsno MD Transcribed by Xin Chambers Authenticated and [facility]
[2024-07-10 11:35] VITALS: BP 118/61; PULSE 92; RESP 19; O2SAT 90
== END 2024-07-10 11:35 | disposition home or self-care (01) ==
PROVIDERS: PCP Family Medicine; Visit Provider Internal Medicine Medical Oncology
DX: C79.51 Secondary malignant neoplasm of bone (principal); Z79.899 Other long term (current) drug therapy; J90 Pleural effusion, not elsewhere classified
CPT/HCPCS: 71046; 80053; 82024; 82533; 84443; 85025; 96413; J9271

== ENCOUNTER 2024-07-24 07:28 | Outpatient (CLI) | payer MEDICARE, SELFPAY ==
[2024-07-24] VITALS (8 sets, daily range): BP systolic 92–152; BP diastolic 49–76; PULSE 70–95; RESP 18–20; TEMP 36.6–36.7; O2SAT 93–99; BMI 29.0
--- NOTE | 2024-07-24 | XR_ITS ---
FINAL REPORT CLINICAL HISTORY: S/P RT THRORA COMPARISON: 07/10/2024 FINDINGS: PA and lateral views of the chest were obtained. The heart is stable in size. There are interstitial opacities bilaterally with right lower lobe airspace disease which could be atelectasis or pneumonia. The right pleural effusion has improved. There is no pneumothorax after thoracentesis. No acute osseous abnormality is identified. IMPRESSION: No pneumothorax after thoracentesis. Bilateral interstitial opacities with right lower lobe airspace disease could be atelectasis or pneumonia. Reviewed, Interpreted and Dictated by Prachi Corrales MD Transcribed by Jaqui Lazo Authenticated and [facility]
--- NOTE | 2024-07-24 07:28 | US_ITS ---
FINAL REPORT CLINICAL HISTORY: Right pleural effusion - Ugo ROMERO -- 1250 ml removed FINDINGS: ULTRASOUND GUIDED THORACENTESIS HISTORY: Right pleural effusion. ATTENDING PHYSICIAN: Dr. Corrales PHYSICIAN TOOL SHAPER SET UP OPERATOR: Viv Mcghee PA-C TECHNIQUE: Informed consent was obtained from the patient. Timeout procedure was performed prior to beginning. Appropriate pocket was localized for drainage. The patient was prepped and draped in routine sterile fashion. Local anesthesia was achieved with 1% lidocaine. Using imaging guidance with images acquired, an 18-gauge sheath needle was directed into the pleural fluid. Approximately 1,250 mL of yellow serous fluid was aspirated. 50 mL of fluid was sent for laboratory analysis. The patient tolerated the procedure well and left the department in good condition. IMPRESSION: Successful ultrasound guided right thoracentesis. Reviewed, Interpreted and Dictated by Prachi Corrales MD Transcribed by Viv Mcghee PA-C Authenticated and [facility]
[2024-07-24 08:01] LABS: POC Glucose,Bedside 124 (70-110)
[2024-07-24 14:33] LABS: Appearance,Body Fld. Hazy; Source, Body Fld. Pleural Fluid; Volume,Body Fld. 1250 mL
[2024-07-24 14:45] LABS: Mononuclear WBCs,Body Fluid 96 %; Polynuclear WBC,Body Fluid 4 %
[2024-07-24 14:47] LABS: RBC,Body Fluid < 10 cells/uL (< 10 X 10^3); TNC,Body Fluid 3473 cells/uL (< 1000)
[2024-07-27 07:09] LABS: LD, Body Fluid 125 IU/L (.); Protein, Body Fluid 4.1 g/dL (.)
== END 2024-07-24 11:20 | disposition home or self-care (01) ==
PROVIDERS: PCP Family Medicine; Visit Provider Internal Medicine Pulmonary Disease
DX: J90 Pleural effusion, not elsewhere classified (principal)
CPT/HCPCS: 32555; 71046; 82962; 83615; 84155; 87070; 88112; 88305; 89051

== ENCOUNTER 2024-08-02 09:41 | Outpatient (CLI) | payer MEDICARE, SELFPAY ==
[2024-08-02 09:47] VITALS: BMI 37.4
[2024-08-02 10:03] LABS: Basophils # 0.1 K/mm3 (0-0.2); Basophils % 0.9 % (0.1-2.0); Eosinophils # 0.1 K/mm3 (0.0-0.4); Eosinophils % 0.6 % (0.1-12.0); Hematocrit 48.4 % (42.0-52.0); Hemoglobin 15.1 g/dL (14.1-18.0); Lymphocytes # 1.3 K/mm3 (0.7-4.5); Lymphocytes % 15.3 % (10-50); Mean Corpuscular HGB Conc 31.2 g/dL (31.8-35.4); Mean Corpuscular Hemoglobin 26.3 pg (27.0-31.2); Mean Corpuscular Volume 84.2 fl (80-94); Mean Platelet Volume 8.5 fl (7.4-10.4); Monocytes # 0.6 K/mm3 (0.1-1.0); Monocytes % 7.5 % (1.7-9.3); Neutrophils # 6.4 K/mm3 (1.8-7.8); Neutrophils % 75.3 % (37.0-80.0); Platelet Count 241 K/mm3 (142-424); Red Blood Count 5.75 M/mm3 (4.60-6.20); White Blood Count 8.5 K/mm3 (4.8-10.8)
[2024-08-02 10:12] LABS: Albumin Level 3.4 g/dl (3.5-5.0); Chloride 95 mmol/L (98-107); Sodium 137 mmol/L (136-145)
[2024-08-02 10:13] LABS: Potassium 4.2 mmoL/L (3.5-5.1)
[2024-08-02 10:15] LABS: Alanine Aminotransferase 18 U/L (12-78); Albumin/Globulin Ratio 0.9 (1.1-1.8); Alkaline Phosphatase 168 U/L (38-126); Anion Gap 10.2 mEq/L (5-15); Aspartate Amino Transferase 24 U/L (17-59); Bilirubin,Total 0.4 mg/dl (0.2-1.3); Blood Urea Nitrogen 22 mg/dl (9-20); Carbon Dioxide 36 mmol/L (22.0-30.0); Creatinine Clearance Estimated 83 mL/min (50-200); Estimated Glomerular Filt Rate 114 ml/min (>60); GFR (African American) 137 ML/MIN (>60); Globulin 3.9 g/dL (1.3-3.2); Total Protein,Serum 7.3 g/dl (6.3-8.2)
[2024-08-02 10:16] LABS: Calcium 8.9 mg/dl (8.4-10.2); Glucose 170 mg/dl (74-100)
[2024-08-02] MEDS: PEMBROLIZUMAB 200 MG in 0.9 % SODIUM CHLORIDE 50 ML 116 MG IV (11:05)
[2024-08-02] MEDS: SODIUM CHLORIDE 0.9% 50ML BAG 50 ML IV (11:06)
[2024-08-02 11:10] VITALS: BP 98/61; PULSE 80; RESP 18; O2SAT 93
[2024-08-02] MEDS: ZOLEDRONIC ACID 4 MG in 0.9 % SODIUM CHLORIDE 100 ML 420 MG IV (11:52)
[2024-08-02 12:15] VITALS: BP 96/60; PULSE 75; RESP 18; O2SAT 92
== END 2024-08-02 12:15 | disposition home or self-care (01) ==
LOC: INF 09:42
PROVIDERS: PCP Family Medicine; Visit Provider Internal Medicine Medical Oncology
DX: Z51.11 Encounter for antineoplastic chemotherapy (principal); C34.92 Malignant neoplasm of unspecified part of left bronchus or lung
CPT/HCPCS: 80053; 85025; 96375; 96413; J3489; J9271

== ENCOUNTER 2024-08-10 09:38 | Outpatient (CLI) | payer MEDICARE, SELFPAY ==
--- NOTE | 2024-08-10 09:39 | NM_ITS ---
FINAL REPORT CLINICAL HISTORY: evaluation of treatment patient is on keytruda for his cancer primary lung ca that has gone to bone ca 9:45 am 24.8 mci tc mdp injected into rt ant COMPARISON: None FINDINGS: EXISTING RELEVANT IMAGING STUDIES: No prior bone scan or relevant imaging TECHNIQUE: The patient was injected with 24.8 mCi of technetium 99-MDP. 3 hour delayed images were obtained. FINDINGS: There is abnormal activity in the left distal humerus, which corresponds to a known lytic lesion seen on prior plain films and CT of February 2024, corresponding to the patient's known lytic lesion. There is also a small focus of abnormal uptake over the right tibia, that may represent artifact secondary to Ross catheter tubing or an underlying lesion. Recommend correlation with radiographs for further evaluation. IMPRESSION: Abnormal activity in the left distal humerus, corresponding to a known lytic lesion as described above. There is also a small focus of abnormal activity over the right tibia, that may represent artifact secondary to Ross catheter tubing or an underlying lesion. Correlation with radiographs for further evaluation is suggested. Reviewed, Interpreted and Dictated by Azeem Davidson MD Transcribed by Belkis Goyal Authenticated and [facility]
[2024-08-10] MEDS: SODIUM CHLORIDE 0.9% 10ML SYR (RAD ONLY) 10 ML IV (09:45)
[2024-08-10] MEDS: ISOTOPE MDP (BONE);1 DOSE VIAL IV (10:18)
== END 2024-08-10 23:59 | disposition home or self-care (01) ==
LOC: RAD 09:39
PROVIDERS: PCP Family Medicine; Visit Provider Internal Medicine Medical Oncology
DX: C79.51 Secondary malignant neoplasm of bone (principal)
CPT/HCPCS: 78306; A9503

== ENCOUNTER 2024-08-18 10:50 | Inpatient (IN) | payer MEDICARE, SELFPAY ==
[2024-08-18] VITALS (20 sets, daily range): BP systolic 91–115; BP diastolic 50–77; PULSE 69–106; RESP 11–22; TEMP 36.4–37.1; O2SAT 82–96; BMI 30.8; BMI 30.7
--- NOTE | 2024-08-18 11:05 | XR_ITS ---
PROCEDURE INFORMATION: Exam: XR Chest Exam date and time: 08/18/2024 11:14 AM Age: 63 years old Clinical indication: Cough and shortness of breath; Additional info: SOA cough, fluid overload TECHNIQUE: Imaging protocol: Radiologic exam of the chest. Views: 1 view. COMPARISON: CR XR CHEST 2V 07/24/2024 9:10 AM FINDINGS: Lungs: Unremarkable. No consolidation. Pleural spaces: Right pleural effusion Heart/Mediastinum: Cardiomegaly. Bones/joints: Unremarkable. Other findings: Mild congestion. IMPRESSION: Cardiomegaly with mild congestion and right pleural effusion
--- NOTE | 2024-08-18 11:11 | ED_ITS ---
Discharge Plan Disposition Patient Disposition: Admitted Clinical Impressions Clinical Impression: Acute hypercapnic respiratory failure, Acute hypoxic respiratory failure, CHF exacerbation, Acute exacerbation of chronic obstructive pulmonary disease Discharge ED Provider: Alvaro Conklin General Chief Complaint: Shortness of Breath/Dyspnea Stated Complaint: SOA, extreme weight gain Time Seen by Provider: 08/18/24 10:55 Mode of Arrival: Wheelchair Source of Information: Patient Limitations: No Limitations Description of Symptoms (Recalled from ER Triage Doc. by RN): Reports increased shortness of breath and filling up with fluid. States he has started to swell. Also reports having issues with the regulators for his oxygen at home. States they have notified the provider of the oxygen with no fix to their problem. Patient continues to smoke. History of Present Illness HPI narrative: Please note that above description of symptoms, in this electronic medical record under categorization of recalled from ER triage doctor by RN are reflective of an initial nursing assessment, however, is not reflective of my full history and physical exam that was personally taken and clarified. Consequentially, this preceding description of symptoms, which may include the patient's categorized chief complaint in the EMR, do not reflect my personal clinical impression, and the ultimate description of history of present illness and patient stated complaints should be deferred to this section of the note. Unless stated otherwise or congruent with this section of the note, additional signs, symptoms, or incongruence should be interpreted as inaccurate with my clinical impression. Related Data Home Medications ?Medication ?Instructions ?Recorded ?Confirmed albuterol sulfate 90 mcg/actuation 2 puff inhalation Q4HP PRN 04/09/24 08/02/24 aerosol inhaler shortness of breath or wheezing escitalopram oxalate 20 mg tablet 20 mg PO DAILY 04/09/24 08/02/24 (Lexapro) ipratropium 0.5 mg-albuterol 3 mg 3 ml inhalation Q4HP PRN shortness 04/09/24 08/02/24 (2.5 mg base)/3 mL nebulization of breath or wheezing soln tamsulosin 0.4 mg capsule 0.4 mg PO DAILY 04/09/24 08/02/24 trazodone 150 mg tablet 150 mg PO HS 04/09/24 08/02/24 umeclidinium 62.5 mcg-vilanterol 0 inh inhalation DAILY 10/30/24 01/09/25 25 mcg/actuation powdr for inhalation (Anoro Ellipta) potassium chloride 20 mEq 20 meq PO DAILY 07/24/24 08/02/24 tablet,extended release(part/cryst) (KlZeenat Mason) Previous Rx's ?Medication ?Instructions ?Recorded naloxone 4 mg/actuation nasal 4 mg intranasal Q3M PRN opioid 04/16/24 spray (Narcan) overdose #2 ea ondansetron 8 mg disintegrating 8 mg PO Q8H nausea and vomiting 05/30/24 tablet #90 tabs pantoprazole 40 mg tablet,delayed 40 mg PO BID #180 tabs 06/26/24 release bumetanide 2 mg tablet 2 mg PO BID #60 tabs 07/05/24 mupirocin 2 % topical ointment 1 applic topical TID #22 grams 07/09/24 oxycodone 20 mg tablet 20 mg PO Q4H PRN pain #120 tabs 08/01/24 magnesium 250 mg tablet 250 mg PO DAILY #30 tabs 08/03/24 metoprolol succinate 25 mg See Rx Instructions .Route 08/10/24 tablet,extended release 24 hr .COMPLEX #90 tabs fentanyl 50 mcg/hr transdermal 1 patch transdermal Q72H #10 ea 08/13/24 patch Allergies Allergy/AdvReac Type Severity Reaction Status Date / Time ciprofloxacin (From Cipro) Allergy Severe Rash Verified 08/02/24 10:09 methocarbamol (Robaxin) Allergy Severe Rash Verified 08/02/24 10:09 Penicillins Allergy Hives Verified 08/02/24 10:09 [facility] Disclaimer: The information contained in this section may have been updated after the patient was seen, as this information can be updated by other users. Medical History COPD (chronic obstructive pulmonary disease) Lung cancer Cervical spinal cord injury Chronic respiratory failure with hypoxia Mediastinal lymphadenopathy Hilar lymphadenopathy Lung collapse Pleural effusion on right Cancer of bone Dysphagia Globus sensation Abnormal result of cardiovascular function study Dyspnea Typical angina Coronary artery disease Chest pain Abnormal electrocardiogram [ECG] [EKG] Chest pain Anxiety and depression Spinal cord stimulator status Cervical vertebral fusion GERD (gastroesophageal reflux disease) HLD (hyperlipidemia) HTN (hypertension) Diabetes Perianal abscess Perirectal abscess Surgical History History of laparoscopic cholecystectomy History of appendectomy History of cervical spinal surgery History of lumbar surgery History of incision and drainage History of colonoscopy Family History Other Diabetes Family history of cardiac disorder Hypertension Social History Smoking Status: Current every day smoker tobacco type: cigarettes packs per day: 1 alcohol intake: never substance use type: denies use current occupational status: disabled Travel in the last 8 weeks: None household members: significant other housing: house caffeine: Yes Have you lived/traveled outside [place] in past 30 days?: No Contact w/someone who lives/traveled outside US past 30 days?: No Exposure to someone with infectious disease in past 14 days?: No Do you have a fever (greater than 100.4 F or 38 C)?: No Have you tested positive for COVID-19: No Exposed to someone with COVID-19 in past 14 days?: No Do you have a sore throat?: No Do you have a cough?: No Do you have any weakness?: No Do you have any diarrhea?: No Are you experiencing any unusual bleeding?: No Do you have any muscle aches/pain?: No Do you have any abdominal pain?: No Are you experiencing loss of taste or smell?: No Other Medical History Have you received the Flu Vaccine for this season: No Have you received the Pneumonia Vaccine: Yes ROS Obtained: Yes All systems reviewed & no additional complaints except as documented Physical Exam General General appearance: alert and other (Speaking in full sentences) Neck Neck exam: Present trachea midline Chest Chest inspection: Present normal inspection and symmetric chest wall rise Respiratory Respiratory exam: Present wheezes and other (Near persistent coughing); Absent respiratory distress, stridor, accessory muscle use or prolonged expiratory phase Cardiovascular Cardiovascular exam: Present regular rate, normal rhythm and other (Pulses equal and symmetric in upper and lower extremities) Extremities Exam Extremities exam: Present edema Neurological Exam Neurological exam: Present alert, oriented X3 and CN II-XII intact Skin Skin exam: Present warm and dry; Absent cyanosis, diaphoresis or pallor HEART Score HEART Score HEART Score assessment performed?: Yes History (anamnesis): Moderately suspicious ECG: Non-specific disturbance Age: 45-65 years Risk factors: 3 or more risk factors Troponin: </= normal limit HEART Score: 5 Procedures Limited Ultrasound Indication:: Limited cardiac ultrasound Indication: Chest pain shortness of Identified cardiac views: -Cardiac parasternal long axis -Cardiac parasternal short axis Findings: -Cardiac activity present -Gross wall motion normal -Pericardial effusion absent -Right heart strain absent Impression: -Grossly normal cardiac function with grossly normal EPSS Images were saved to permanent archive The study was technically adequate CPT: 19031 This study was performed by me, and I personally interpreted all images/videos. Based on my clinical judgement, these images were adequate and did not necessitate further imaging Critical Care Critical Care Time Critical Care Time: Yes (respiratory, cardiac) Attestation: On 08/18/24, the high probability of a clinically significant, sudden or life threatening deterioration of the following system(s) required my full and direct attention, intervention and personal management. The time I documented below is in addition to time spent performing reported procedures but includes the following listed in this critical care notation. Total Time Total Critical Care Time: 45 Medical Decision Making Medical Records Medical records reviewed: Yes I reviewed the patient's medical records. Martínez Inquiry Pt receiving controlled substance: No Martínez was queried for this patient: No Vital Signs Vital Signs: 08/18/24 10:50 08/18/24 11:00 08/18/24 11:30 Temperature 98.4 F Temperature Source Oral Pulse Rate 106 H 99 H Pulse Rate [Radial] 82 Respiratory Rate 22 20 Blood Pressure 115/67 102/66 L Blood Pressure [Right Arm] 95/77 L Blood Pressure Mean 83 80 Blood Pressure Mean [Right Arm] 83 Blood Pressure Source [Right Arm] Automatic Cuff Blood Pressure Position [Right Arm] Sitting 02 Sat by Pulse Oximetry 82 L 92 L 94 L Oxygen Delivery Method Room Air Fraction of Inspired Oxygen 08/18/24 12:00 08/18/24 12:00 Temperature Temperature Source Pulse Rate 100 H Pulse Rate [Radial] Respiratory Rate Blood Pressure 110/68 Blood Pressure [Right Arm] Blood Pressure Mean 77 Blood Pressure Mean [Right Arm] Blood Pressure Source [Right Arm] Blood Pressure Position [Right Arm] 02 Sat by Pulse Oximetry 96 Oxygen Delivery Method BiPAP Fraction of Inspired Oxygen 35 Lab Data Labs: Lab Results 08/18/24 11:05: VBG pH 7.29 L, VBG pCO2 69.0 H, VBG pO2 38.4, VBG HCO3 32.2 H, V BG Total CO2 34.3 H, VBG O2 Saturation 75.0 H, VBG Base Excess 5.6 H, VBG Lactic Acid 3.9 H 08/18/24 11:15: WBC 7.5, RBC 5.92, Hgb 14.9, Hct 48.5, MCV 81.9, MCH 25.2 L, M CHC 30.7 L, RDW 18.2 H, Plt Count 236, MPV 8.6, Neut % (Auto) 69.1, Lymph % (Auto) 17.9, [place] % (Auto) 9.7 H, Eos % (Auto) 1.9, Baso % (Auto) 1.1, Neut # (Auto) 5.2, Lymph # (Auto) 1.3, [place] # (Auto) 0.7, Eos # (Auto) 0.1, Baso # (Auto) 0.1, PT 12.1, INR 1.11 H, APTT 27.2, Sodium 135 L, Potassium 4.0, C hloride 95 L, Carbon Dioxide 34 H, Anion Gap 10.0, BUN 22 H, Creatinine 0.80, Estimated Creat Clear 91, Estimated GFR 97, Est GFR ( Amer) 118, Glucose 195 H, Lactate 2.7 H, Calcium 8.0 L, Magnesium 1.7, Total Bilirubin 0.4, AST 22, ALT 17, Alkaline Phosphatase 155 H, Troponin I < 0.01, NT-Pro-B Natriuret Pep 7070 H, Total Protein 7.1, Albumin 3.2 L, Globulin 3.9 H, Albumin/Globulin Ratio 0.8 L, SARS-CoV-2 (PCR) Not detected, Influenza A Untype (PCR) Not detected, Influenza Type B (PCR) Not detected 08/18/24 11:15 08/18/24 11:15 Response Orders (Tests/Meds): ED MEDICATIONS Generic Name Dose Route Start Last Admin Trade Name Freq PRN Reason Stop Dose Admin Bumetanide 2 mg 08/18/24 16:00 Bumetanide 1mg/4ml Vial IV 09/17/24 15:59 BIDL MYRIAM Discontinued Medications Generic Name Dose Route Start Last Admin Trade Name Freq PRN Reason Stop Dose Admin Albuterol/Ipratropium 9 ml 08/18/24 11:14 08/18/24 11:32 Ipratropium/Albuterol 3 Ml Neb IH 08/18/24 11:15 9 ml ONCE ONE Administration Furosemide 80 mg 08/18/24 11:05 08/18/24 11:15 Furosemide 40mg/4ml Vial IV 08/18/24 11:06 80 mg ONCE ONE Administration Methylprednisolone Sodium Succinate 125 mg 08/18/24 11:14 08/18/24 11:31 Methylprednisolone Sod Succ 125mg Vial IV 08/18/24 11:15 125 mg ONCE ONE Administration ORDERS Category Date Time Status POCUS Point of Care (ER Only) Stat Exams 08/18/24 11:05 Ordered XR chest portable Stat Exams 08/18/24 11:05 Completed Complete Blood Count Auto Diff AMLAB Lab 08/19/24 06:00 Ordered Complete Blood Count Auto Diff Stat Lab 08/18/24 11:15 Completed Comprehensive Metabolic Panel AMLAB Lab 08/19/24 06:00 Ordered Comprehensive Metabolic Panel Stat Lab 08/18/24 11:15 Completed Lactic Acid Stat Lab 08/18/24 11:15 Completed Magnesium AMLAB Lab 08/19/24 06:00 Ordered Magnesium Stat Lab 08/18/24 11:15 Completed NT Pro Brain Natriuretic Pep. Stat Lab 08/18/24 11:15 Completed PT INR [Prothrombin Time INR] Stat Lab 08/18/24 11:15 Completed PTT [Activated Partial Thrombo Time] Stat Lab 08/18/24 11:15 Completed Rapid PCR Covid and Flu A/B Stat Lab 08/18/24 11:15 Completed Troponin I Q3H Lab 08/18/24 14:15 Ordered Troponin I Q3H Lab 08/18/24 17:15 Ordered Troponin I Stat Lab 08/18/24 11:15 Completed Urinalysis and Microscopic Stat Lab 08/18/24 11:06 Ordered Blood Culture Stat Micro 08/18/24 Received VBG [Venous Blood Gas] Stat RT 08/18/24 11:05 Completed MDM Narrative Medical Decision Narrative: This is a 63-year-old male history of hypertension, hyperlipidemia, CAD status post stenting, diabetes, COPD on 2 L nasal cannula at home, lung cancer stage IV, CHF presenting with shortness of breath and cough. Patient states he has gained about 20 pounds in the last 2 or 3 weeks. Now has woody pitting edema up to the level of his mid thigh as well as left upper extremity swelling. Cough is productive of clear to pink sputum. No fevers or chills, nausea or vomiting. Does have PND and orthopnea. History was obtained via conversation with patient. On arrival, patient hemodynamically stable, alert, oriented x4, appropriate, GCS 15, moving all extremities spontaneously, pupils equal and reactive to light. Full physical exam performed and significant for 63-year-old male in mild respiratory distress. Speaking full sentences, but he is tachypneic, 77% on room air. Lungs with inspiratory and expiratory wheezes bilaterally. Cardiac exam without murmurs gallops or rubs. He does have pitting edema up to the level of his mid thigh, left upper extremity pitting edema and abdominal distention consistent with fluid overload. Differential includes CHF exacerbation, metabolic abnormality, endocrinologic abnormality, acute renal failure, ACS, [place], pneumonia, bronchitis, among others. Patient was given Lasix, DuoNebs and Solu-Medrol for symptomatic management and correction of underlying abnormalities. Patient placed on continuous cardiac monitoring and continuous pulse ox with initial blood pressure 95/77, heart rate 82, saturation 77% on room air. 94% on 4 L nasal cannula. Independent interpretation of EKG shows sinus rhythm 93 bpm with DE 148, QRS 94, QTc 410. Does have T wave inversions in V2 through V6. This is new from EKG in May 2024 consistent with subendocardial ischemia. No reciprocal elevations. Workup independently interpreted and significant for nonactionable CBC or coags. pH with respiratory acidosis pH 7.29/CO2 elevated at 69/bicarb elevated at 32. Chemistry nonactionable with normal kidney function. Patient's lactate 2.7, likely secondary to mild hypoxemia, increased work of breathing and decreased perfusion in the setting of CHF. On independent interpretation of imaging, patient has full effusion, cardiac enlargement, as well as pulmonary vascular congestion and pulmonary edema. BNP elevated 7000, troponin negative. See radiology read for full review of final results. Heart score 5. Patient still having mild respiratory distress, BiPAP was placed for correction of hypoxemia as well as hypercapnia. Antibiotics were considered, patient has no systemic signs or symptoms, no antibiotic initiation criteria for COPD and does not meet sepsis criteria, so I feel inappropriate this time. Lactate likely secondary to decreased perfusion in the setting of CHF as well as increased work of breathing as described previously. Hospital medicine contacted and case was discussed, patient to be admitted for CHF and COPD exacerbation with associated hypoxemic respiratory failure and hypercapnic respiratory failure. Shoe Polisher disclaimer Much of this encounter note is an electronic distribution operation supervisor spoken language to printed text. Electronic distribution operation supervisor of the spoken language may permit errors. Although I have reviewed the note, some errors may still exist.
--- NOTE | 2024-08-18 11:13 | PC.NURSE ---
XR AT BEDSIDE
[2024-08-18] MEDS: FUROSEMIDE 40MG/4ML VIAL 80 MG IV (11:15)
[2024-08-18 11:20] LABS: Coronavirus 19, PCR Not Detected (NotDetected); Influenza A, PCR Not Detected (NotDetected); Influenza B, PCR Not Detected (NotDetected)
[2024-08-18 11:21] LABS: Basophils # 0.1 K/mm3 (0-0.2); Basophils % 1.1 % (0.1-2.0); Eosinophils # 0.1 K/mm3 (0.0-0.4); Eosinophils % 1.9 % (0.1-12.0); Hematocrit 48.5 % (42.0-52.0); Hemoglobin 14.9 g/dL (14.1-18.0); Lymphocytes # 1.3 K/mm3 (0.7-4.5); Lymphocytes % 17.9 % (10-50); Mean Corpuscular HGB Conc 30.7 g/dL (31.8-35.4); Mean Corpuscular Hemoglobin 25.2 pg (27.0-31.2); Mean Corpuscular Volume 81.9 fl (80-94); Mean Platelet Volume 8.6 fl (7.4-10.4); Monocytes # 0.7 K/mm3 (0.1-1.0); Monocytes % 9.7 % (1.7-9.3); Neutrophils # 5.2 K/mm3 (1.8-7.8); Neutrophils % 69.1 % (37.0-80.0); Platelet Count 236 K/mm3 (142-424); Red Blood Count 5.92 M/mm3 (4.60-6.20); Red Cell Distribution Width 18.2 % (11.5-17.5); White Blood Count 7.5 K/mm3 (4.8-10.8)
[2024-08-18 11:22] LABS: VBG Base Excess 5.6 mmol/L (-2.4-2.3); VBG HCO3 32.2 mmol/L (23-30); VBG PH 7.29 mmol/L (7.31-7.41); VBG PO2 38.4 mmol/L (28-40); VBG Total CO2 34.3 mmol/L (23-27)
[2024-08-18 11:23] LABS: Lactate Venous 3.9 mmol/L (0.4-2.0)
[2024-08-18 11:27] LABS: Albumin Level 3.2 g/dl (3.5-5.0); Chloride 95 mmol/L (98-107); Sodium 135 mmol/L (136-145)
[2024-08-18 11:29] LABS: Alanine Aminotransferase 17 U/L (12-78); Aspartate Amino Transferase 22 U/L (17-59); Blood Urea Nitrogen 22 mg/dl (9-20); Creatinine Clearance Estimated 91 mL/min (50-200); Estimated Glomerular Filt Rate 97 ml/min (>60); GFR (African American) 118 ML/MIN (>60)
[2024-08-18 11:30] LABS: Albumin/Globulin Ratio 0.8 (1.1-1.8); Alkaline Phosphatase 155 U/L (38-126); Bilirubin,Total 0.4 mg/dl (0.2-1.3); Carbon Dioxide 34 mmol/L (22.0-30.0); Globulin 3.9 g/dL (1.3-3.2); Glucose 195 mg/dl (74-100); Magnesium 1.7 mg/dl (1.6-2.3); Total Protein,Serum 7.1 g/dl (6.3-8.2)
--- NOTE | 2024-08-18 11:30 | PC.NURSE ---
URSZULA-CARE COMPLETED, MALE PURE-WICK APPLIED
[2024-08-18 11:31] LABS: Lactic Acid 2.7 mmol/L (0.7-2.1)
[2024-08-18] MEDS: METHYLPREDNISOLONE SOD SUCC 125MG VIAL 125 MG IV (11:31)
[2024-08-18] MEDS: IPRATROPIUM/ALBUTEROL 3 ML NEB 9 ML IH (11:32)
[2024-08-18 11:37] LABS: INR 1.11 (0.9-1.1); Prothrombin Time 12.1 seconds (9.2-12.1)
[2024-08-18 11:39] LABS: NT Pro Brain Natriuretic Pep. 7070 pg/mL (0-125)
--- NOTE | 2024-08-18 11:41 | ECG_ITS ---
APPROVED REPORT Exam: Resting ECG HR:93 bpm ECG Measurements Heart Rate 93 AXES WA 148 P 31 QRSd 94 QRS 101 QT 359 T -4 QTc 410 Conclusion SINUS RHYTHM RIGHT AXIS DEVIATION [QRS AXIS > 100] ST DEVIATION AND MODERATE T-WAVE ABNORMALITY, CONSIDER ANTEROLATERAL ISCHEMIA [-0.1+ mV T-WAVE IN V3-V6] ABNORMAL ECG UNCONFIRMED REPORT Electronically signed by : Bhavin Centeno MD 08/18/2024 21:00:30
[2024-08-18 11:42] LABS: Troponin I < 0.01 ng/ml (0.00-0.034)
[2024-08-18 11:49] LABS: Activated Partial Thrombo Time 27.2 seconds (22.5-28.5)
--- NOTE | 2024-08-18 11:49 | PC.NURSE ---
RESPIRATORY NOTIFIED OF BI-PAP ORDER
--- NOTE | 2024-08-18 11:52 | PC.NURSE ---
DR LESLIE SPEAKING WITH DR LANDIN FOR ADMISSION
--- NOTE | 2024-08-18 11:53 | P.HP_ITS ---
History of Present Illness *Admission Date: 08/18/24 *Reason for visit:: Short of breath, swelling *History of present illness: Mr. Zazueta is a 63-year-old male with chronic respiratory failure on oxygen, CHF, metastatic lung cancer, BPH, obesity, chronic pain. He presented to the ER because of worsening swelling in his legs and shortness of breath. Normally wears 2 L oxygen at home. Was hypoxic on arrival. Initiated on BiPAP as he was found to have respiratory acidosis and respiratory distress. Chest imaging concerning for volume overload. BNP elevated at 7000. Patient denies any chest pain, nausea, vomiting. No fever. Cough at baseline. Given 80 mg Lasix once in the ER. Medicine consulted for admission and further management On evaluation, patient is doing somewhat better. Has been on BiPAP for about 4 hours. -1 L since admission. Taken off BiPAP for interview. Family at bedside helps supplement history. Denies any fever or known sick contacts. [facility] Disclaimer: The information contained in this section may have been updated after the patient was seen, as this information can be updated by other users. Medical History COPD (chronic obstructive pulmonary disease) Lung cancer Cervical spinal cord injury Chronic respiratory failure with hypoxia Mediastinal lymphadenopathy Hilar lymphadenopathy Lung collapse Pleural effusion on right Cancer of bone Dysphagia Globus sensation Abnormal result of cardiovascular function study Dyspnea Typical angina Coronary artery disease Chest pain Abnormal electrocardiogram [ECG] [EKG] Chest pain Anxiety and depression Spinal cord stimulator status Cervical vertebral fusion GERD (gastroesophageal reflux disease) HLD (hyperlipidemia) HTN (hypertension) Diabetes Perianal abscess Perirectal abscess Surgical History History of laparoscopic cholecystectomy History of appendectomy History of cervical spinal surgery History of lumbar surgery History of incision and drainage History of colonoscopy Family History Other Diabetes Family history of cardiac disorder Hypertension Social History Smoking Status: Current every day smoker tobacco type: cigarettes packs per day: 1 alcohol intake: never substance use type: denies use current occupational status: disabled Travel in the last 8 weeks: None household members: significant other housing: house caffeine: Yes Have you lived/traveled outside US in past 30 days?: No Contact w/someone who lives/traveled outside US past 30 days?: No Exposure to someone with infectious disease in past 14 days?: No Do you have a fever (greater than 100.4 F or 38 C)?: No Have you tested positive for COVID-19: No Exposed to someone with COVID-19 in past 14 days?: No Do you have a sore throat?: No Do you have a cough?: No Do you have any weakness?: No Do you have any diarrhea?: No Are you experiencing any unusual bleeding?: No Do you have any muscle aches/pain?: No Do you have any abdominal pain?: No Are you experiencing loss of taste or smell?: No Other Medical History Have you received the Flu Vaccine for this season: No Have you received the Pneumonia Vaccine: Yes Review of Systems Review of Systems Review of systems (narrative): 14 point review of systems performed, pertinent positives and negatives as per HPI Meds Home Medications and Allergies Home Medications ?Medication ?Instructions ?Recorded ?Confirmed ?Type escitalopram oxalate 20 mg tablet 20 mg PO DAILY 04/09/24 08/18/24 History (Lexapro) tamsulosin 0.4 mg capsule 0.4 mg PO DAILY 04/09/24 08/18/24 History trazodone 150 mg tablet 150 mg PO HS 04/09/24 08/18/24 History naloxone 4 mg/actuation nasal 4 mg intranasal Q3M PRN opioid 04/16/24 08/18/24 Rx spray (Narcan) overdose #2 ea ondansetron 8 mg disintegrating 8 mg PO Q8H nausea and vomiting 05/30/24 08/18/24 Rx tablet #90 tabs pantoprazole 40 mg tablet,delayed 40 mg PO BID #180 tabs 06/26/24 08/18/24 Rx release bumetanide 2 mg tablet 2 mg PO BID #60 tabs 07/05/24 08/18/24 Rx potassium chloride 20 mEq 20 meq PO DAILY 07/24/24 08/18/24 History tablet,extended release(part/cryst) (Klor-Con M) oxycodone 20 mg tablet 20 mg PO Q4H PRN pain #120 tabs 08/01/24 08/18/24 Rx magnesium 250 mg tablet 250 mg PO DAILY #30 tabs 08/03/24 08/18/24 Rx metoprolol succinate 25 mg See Rx Instructions .Route 08/10/24 08/18/24 Rx tablet,extended release 24 hr .COMPLEX #90 tabs fentanyl 50 mcg/hr transdermal 1 patch transdermal Q72H #10 ea 08/13/24 08/18/24 Rx patch New Prescriptions to Start Prescriptions: Allergies Allergy/AdvReac Type Severity Reaction Status Date / Time ciprofloxacin (From Cipro) Allergy Severe Rash Verified 08/02/24 10:09 methocarbamol (Robaxin) Allergy Severe Rash Verified 08/02/24 10:09 Penicillins Allergy Hives Verified 08/02/24 10:09 Exam Data for Last 24 hours Vital signs and Labs for Last 24 Hours: Temp Pulse Resp BP Pulse Ox O2 Del Method 98.4 F 82 22 95/77 L 82 L Room Air 08/18/24 10:50 08/18/24 10:50 08/18/24 10:50 08/18/24 10:50 08/18/24 10:50 08/18/24 10:50 Laboratory Results - last 24 hr 08/18/24 11:05: VBG pH 7.29 L, VBG pCO2 69.0 H, VBG pO2 38.4, VBG HCO3 32.2 H, VBG Total CO2 34.3 H, VBG O2 Saturation 75.0 H, VBG Base Excess 5.6 H, VBG Lactic Acid 3.9 H 08/18/24 11:15: WBC 7.5, RBC 5.92, Hgb 14.9, Hct 48.5, MCV 81.9, MCH 25.2 L, MCHC 30.7 L, RDW 18.2 H, Plt Count 236, MPV 8.6, Neut % (Auto) 69.1, Lymph % (Auto) 17.9, [place] % (Auto) 9.7 H, Eos % (Auto) 1.9, Baso % (Auto) 1.1, Neut # (Auto) 5.2, Lymph # (Auto) 1.3, [place] # (Auto) 0.7, Eos # (Auto) 0.1, Baso # (Auto) 0.1, PT 12.1, INR 1.11 H, APTT 27.2, Sodium 135 L, Potassium 4.0, Chloride 95 L, Carbon Dioxide 34 H, Anion Gap 10.0, BUN 22 H, Creatinine 0.80, Estimated Creat Clear 91, Estimated GFR 97, Est GFR ( Amer) 118, Glucose 195 H, Lactate 2.7 H, Calcium 8.0 L, Magnesium 1.7, Total Bilirubin 0.4, AST 22, ALT 17, Alkaline Phosphatase 155 H, Troponin I < 0.01, NT-Pro-B Natriuret Pep 7070 H, Total Protein 7.1, Albumin 3.2 L, Globulin 3.9 H, Albumin/Globulin Ratio 0.8 L I & O for Last 24 hours: Intake & Output 08/15/24 08/16/24 08/17/24 08/18/24 23:59 23:59 23:59 23:59 Weight 86.636 kg Constitutional Constitutional: mild distress, obese, chronically ill appearing and cooperative *Routine HEENT Exam Head: Present normocephalic Eye: Present EOMI and PERRL ENT: Present mucous membranes moist *Routine Neck Exam Neck: Present supple; Absent lymphadenopathy *Routine Respiratory Exam Respiratory: Present accessory muscle use, prolonged expiratory phase, rhonchi and crackles (Crackles in dependent portions); Absent wheezes *Routine Cardiovascular Exam Cardiovascular: Present RRR *Routine Abdominal Exam Abdominal: Present soft and normoactive bowel sounds; Absent tenderness *Routine Rectal Exam Rectal:: deferred *Routine Genitalia Exam Genitalia:: deferred *Routine Extremities Exam Extremities: Present edema (2+ in left upper extremity, 2+ in bilateral lower extremities to thighs); Absent cyanosis or clubbing Comments: Left arm in external brace due to chronic pathologic fracture *Routine Skin Exam Skin: Present intact and warm; Absent rash Comments: Chronic stasis changes lower extremities *Routine Neurological Exam Neurological: Present alert, oriented X3 and moving all extremities; Absent altered mental status Assessment and Plan *Assessment and plan (1) Acute exacerbation of CHF (congestive heart failure): Status: Resolved Qualifiers: Heart failure type: diastolic Qualified Code(s): I50.33 - Acute on chronic diastolic (congestive) heart failure Category: Medical Code(s): I50.9 - Heart failure, unspecified (2) Acute hypoxic respiratory failure: Status: Acute Category: Medical Code(s): J96.01 - Acute respiratory failure with hypoxia (3) Cancer associated pain: Status: Acute Category: Medical Code(s): G89.3 - Neoplasm related pain (acute) (chronic) (4) Chronic neck pain: Status: Acute Category: Medical Code(s): M54.2 - Cervicalgia; G89.29 - Other chronic pain (5) Degenerative disc disease, cervical: Status: Acute Category: Medical Code(s): M50.30 - Other cervical disc degeneration, unspecified cervical region (6) Cancer, metastatic to bone: Status: Acute Category: Medical Code(s): C79.51 - Secondary malignant neoplasm of bone (7) COPD exacerbation: Status: Resolved Category: Medical Code(s): J44.1 - Chronic obstructive pulmonary disease with (acute) exacerbation (8) Essential hypertension: Status: Acute Category: Medical Code(s): I10 - Essential (primary) hypertension (9) Obesity: Status: Acute Qualifiers: Obesity classification: adult class 1 (BMI 30 - 34.9) Serious obesity comorbidity presence: with serious comorbidity Body mass index: BMI 33.0-33.9 Obesity type: due to excess calories Qualified Code(s): E66.09 - Other obesity due to excess calories; Z68.33 - Body mass index (BMI) 33.0-33.9, adult Category: Medical Code(s): E66.9 - Obesity, unspecified (10) Chronic pain: Status: Acute Qualifiers: Chronic pain type: chronic pain syndrome Qualified Code(s): G89.4 - Chronic pain syndrome Category: Medical Code(s): G89.29 - Other chronic pain (11) Coronary artery disease: Status: Acute Qualifiers: Coronary Disease-Associated Artery/Lesion type: [place] artery [place] vs. transplanted heart: [place] heart Associated angina: without angina Qualified Code(s): I25.10 - Atherosclerotic heart disease of [place] coronary artery without angina pectoris Category: Medical Code(s): I25.10 - Atherosclerotic heart disease of [place] coronary artery without angina pectoris Plan 63-year-old male with history of CAD, diastolic heart failure, hypertension, chronic pain, metastatic lung cancer. Patient presented with worsening swelling over the past week in his legs and increased work of breathing. Normally wears 2 L oxygen continuously at baseline. In respiratory distress on arrival to the ER. Significant volume overload and concern for CHF exacerbation on workup with elevated BNP of 7000. ER started patient on BiPAP. Discussed case with ER physician, request admission for management of CHF exacerbation and respiratory failure. I agreed to admit. Initially admitted to ICU due to initiation on BiPAP. On evaluation, patient appearing somewhat better. -1 L from the time he presented to the time he was evaluated on the floor. Family at bedside. Problems addressed as follows: Acute on chronic hypoxic respiratory failure Acute on chronic HFpEF Right-sided pleural effusion Pulmonary edema COPD exacerbation -Echo from 2022 shows diastolic dysfunction. BNP elevated at 7000. Presentation consistent with heart failure exacerbation. -Aggressive diuresis. Received 80 mg Lasix in the ER, continue Bumex 2 mg IV twice daily -Kidney function normal BUN 22, creatinine 0.8. -Initial blood gas with pH 7.29, pCO2 69. Doing better by my evaluation. Transition to 4 L nasal cannula. Alert and oriented on evaluation. -Strict output, -1 L so far. Repeat CBC, CMP, magnesium ordered for the morning -Continue supplemental oxygen as needed, currently on 4 L. Goal sats greater 90%. -DuoNebs scheduled every 6 hours Chronic pain with acute cancer related pain.: -Continue oxycodone 20 mg every 4 hours as needed. Continue fentanyl patch 50 mcg daily Depression: Continue Lexapro 20 mg daily Hypertension: Continue metoprolol succinate 25 mL grams daily BPH: Continue tamsulosin 0.4 mg daily Sleep disorder: Continue trazodone 150 mg nightly Obesity complicates last excess Full code Regular diet Lovenox 40 mg subcu daily
--- NOTE | 2024-08-18 11:56 | PC.NURSE ---
[employer] NOTIFIED OF ADMISSION
--- NOTE | 2024-08-18 11:58 | PC.NURSE ---
DR LESLIE AT BEDSIDE TO UPDATE PT AND FAMILY
--- NOTE | 2024-08-18 12:09 | PC.NURSE ---
Report called to ANGELIQUE Ramires.
[2024-08-18 14:26] LABS: Microscopic, Urine URINE MICROSCOPIC (MICROSCOPIC)
[2024-08-18 14:35] LABS: Appearance,Urine CLEAR (Clear); Bilirubin,Urine Negative (Negative); Blood, Urine Negative (Negative); Color,Urine YELLOW (Yellow); Glucose,Urine (UA) Negative (Negative); Ketones,Urine Negative (Negative); Leukocyte Esterase,Urine Negative (Negative); Nitrate,Urine Negative (Negative); Protein,Urine Negative (Negative)
[2024-08-18 15:10] LABS: Troponin I < 0.01 ng/ml (0.00-0.034)
[2024-08-18 15:24] LABS: Reflex Lactic Add Lactic Reflex
[2024-08-18 15:59] LABS: Lactic Acid Follow Up (RFLX 1) 1.9 mmol/L (0.7-2.1)
[2024-08-18 16:10] LABS: Adenovirus,PCR Not Detected (NotDetected); Bordetella Pertussis Not Detected (NotDetected); Chlamydophila Pneumoniae, PCR Not Detected (NotDetected); Coronavirus 19, PCR Not Detected (NotDetected); Coronavirus 229E Not Detected (NotDetected); Coronavirus NL63 Not Detected (NotDetected); Coronavirus OC43 Not Detected (NotDetected); Coronovirus HKU1,PCR Not Detected (NotDetected); Human Metapneumovirus Not Detected (NotDetected); Influenza A, PCR Not Detected (NotDetected); Influenza AH1, 2009 Not Detected (NotDetected); Influenza AH1, PCR Not Detected (NotDetected); Influenza AH3,PCR Not Detected (NotDetected); Influenza B, PCR Not Detected (NotDetected); Mycoplasma Pneumoniae, PCR Not Detected (NotDetected); Parainfluenza 1, PCR Not Detected (NotDetected); Parainfluenza 2, PCR Not Detected (NotDetected); Parainfluenza 3, PCR Not Detected (NotDetected); Parainfluenza 4, PCR Not Detected (NotDetected); Respiratory Syncytial Virus Not Detected (NotDetected); Rhinovirus/Enterovirus Not Detected (NotDetected)
[2024-08-18 16:25] LABS: Bacteria,Urine Trace /lpf
[2024-08-18] MEDS: OXYCODONE 5MG IMMEDIATE RELEASE TABLET 20 MG PO ×2 (16:59→21:17)
[2024-08-18] MEDS: BUMETANIDE 1MG/4ML VIAL 2 MG IV (17:01)
[2024-08-18] MEDS: IPRATROPIUM/ALBUTEROL 3 ML NEB IH (18:30)
[2024-08-18 18:35] LABS: Troponin I < 0.01 ng/ml (0.00-0.034)
[2024-08-18] MEDS: POLYETHYLENE GLYCOL 3350 17 GM PACKET PO (20:37)
[2024-08-18] MEDS: PANTOPRAZOLE 40MG TABLET 40 MG PO (20:38)
[2024-08-18] MEDS: PATIENT'S OWN HOME MEDICATION (Trazodone 150 mg tablet) 150 EACH PO (20:38)
[2024-08-18] MEDS: SENNOSIDES 8.6MG/DOCUSATE 50MG TABLET 2 TAB PO (20:38)
[2024-08-18 21:15] LABS: POC Glucose,Bedside 193 (70-110)
[2024-08-18] MEDS: humaLOG 100 UNITS/ML 10ML VIAL (SSI) SUBCUT (22:48)
[2024-08-19] VITALS (21 sets, daily range): BP systolic 81–107; BP diastolic 47–70; PULSE 62–91; RESP 9–24; TEMP 36.4–37.2; O2SAT 89–95; BMI 30.3
[2024-08-19] MEDS: IPRATROPIUM/ALBUTEROL 3 ML NEB IH ×5 (00:08→23:22)
[2024-08-19] MEDS: OXYCODONE 5MG IMMEDIATE RELEASE TABLET 20 MG PO ×5 (03:46→23:25)
--- NOTE | 2024-08-19 05:42 | PC.NURSE ---
Pt rested majority of the night. Low-dose sliding scale insulin added to p
--- NOTE | 2024-08-19 05:43 | PC.NURSE ---
Pt rested majority of the shift. Sliding scale insulin added to pt's MAR this shift. 2 units of insulin administered for first dose. Pt continues to be q2h turn. Pt refused bath this shift. Pt requested PRN pain meds x2 for left arm/shoulder pain. Pt remains on 3L NC with o2 sats in low 90's. IS placed at bedside and pt educated on use. Pt refused to use IS at the beginning of shift, stated he would try it in the morning . Pt diuresed 1250 mL of clear, dark yellow urine this shift. +2 pitting edema noted to BLE and right hand. Call light within reach.
[2024-08-19 05:45] LABS: POC Glucose,Bedside 104 (70-110)
--- NOTE | 2024-08-19 05:59 | PC.NURSE ---
received report from Trupti Kenney RN
--- NOTE | 2024-08-19 06:23 | PC.NURSE ---
pt arrived to floor from unit via bed at 0610.
[2024-08-19 08:31] LABS: Basophils % 0.2 % (0.1-2.0); Eosinophils % 0.1 % (0.1-12.0); Hematocrit 47.7 % (42.0-52.0); Hemoglobin 14.2 g/dL (14.1-18.0); Lymphocytes # 1.3 K/mm3 (0.7-4.5); Lymphocytes % 14.3 % (10-50); Mean Corpuscular HGB Conc 29.8 g/dL (31.8-35.4); Mean Corpuscular Hemoglobin 24.6 pg (27.0-31.2); Mean Corpuscular Volume 82.5 fl (80-94); Mean Platelet Volume 8.6 fl (7.4-10.4); Monocytes # 0.6 K/mm3 (0.1-1.0); Neutrophils # 6.8 K/mm3 (1.8-7.8); Neutrophils % 78.1 % (37.0-80.0); Platelet Count 223 K/mm3 (142-424); Red Blood Count 5.78 M/mm3 (4.60-6.20); Red Cell Distribution Width 18.5 % (11.5-17.5); White Blood Count 8.7 K/mm3 (4.8-10.8)
[2024-08-19 08:39] LABS: Chloride 95 mmol/L (98-107); Potassium 4.1 mmoL/L (3.5-5.1); Sodium 136 mmol/L (136-145)
[2024-08-19 08:41] LABS: Blood Urea Nitrogen 19 mg/dl (9-20); Creatinine Clearance Estimated 90 mL/min (50-200); Estimated Glomerular Filt Rate 114 ml/min (>60); GFR (African American) 137 ML/MIN (>60)
[2024-08-19 08:42] LABS: Alanine Aminotransferase 16 U/L (12-78); Albumin/Globulin Ratio 0.8 (1.1-1.8); Alkaline Phosphatase 134 U/L (38-126); Anion Gap 9.1 mEq/L (5-15); Aspartate Amino Transferase 21 U/L (17-59); Bilirubin,Total 0.4 mg/dl (0.2-1.3); Carbon Dioxide 36 mmol/L (22.0-30.0); Globulin 3.6 g/dL (1.3-3.2); Glucose 148 mg/dl (74-100); Magnesium 1.8 mg/dl (1.6-2.3); Total Protein,Serum 6.6 g/dl (6.3-8.2)
[2024-08-19] MEDS: ENOXAPARIN 40MG/0.4ML SYRINGE 40 MG SUBCUT (09:09)
[2024-08-19] MEDS: CITALOPRAM 40MG TABLET 40 MG PO (09:09)
[2024-08-19] MEDS: MAGNESIUM OXIDE 400MG TABLET 400 MG PO (09:10)
[2024-08-19] MEDS: SENNOSIDES 8.6MG/DOCUSATE 50MG TABLET 2 TAB PO ×2 (09:12→20:37)
[2024-08-19] MEDS: PANTOPRAZOLE 40MG TABLET 40 MG PO ×2 (09:12→20:38)
[2024-08-19] MEDS: TAMSULOSIN 0.4MG CAPSULE 0.4 MG PO (09:12)
[2024-08-19] MEDS: POLYETHYLENE GLYCOL 3350 17 GM PACKET PO ×2 (09:13→20:38)
[2024-08-19] MEDS: BUMETANIDE 1MG/4ML VIAL 2 MG IV ×2 (10:48→17:19)
[2024-08-19 12:33] LABS: POC Glucose,Bedside 101 (70-110)
[2024-08-19] MEDS: HYDROMORPHONE 2MG/ML SYRINGE 2 MG IV (15:03)
[2024-08-19] MEDS: NYSTATIN TOPICAL POWDER 30GM TP ×2 (16:45→20:38)
[2024-08-19] MEDS: HYDROMORPHONE 2MG/ML SYRINGE 2 MG IM (16:45)
[2024-08-19] MEDS: LIDOCAINE 5% TRANSDERMAL PATCH 1 EACH TP (17:18)
[2024-08-19 17:34] LABS: POC Glucose,Bedside 133 (70-110)
--- NOTE | 2024-08-19 17:59 | EXP.ACUTE.PN ---
Subjective *Date: 08/19/24 *Time: 18:04 Interval history: Patient diuresed well overnight. Breathing better today. Weaned to 3 L on rounds. Denies any fever. Tolerating p.o. intake. Sleeving significant pain in left arm. Edema better in left arm. Medical Exam Vital signs and Labs for Last 24 Hours: Vital Signs Temp Pulse Pulse Pulse Resp BP BP 08/19/24 17:00 08/19/24 16:00 08/19/24 16:00 91 H 94/55 L 08/19/24 15:00 08/19/24 14:00 89 100/56 L 08/19/24 13:00 89 96/54 L 08/19/24 13:00 08/19/24 12:45 90 08/19/24 12:14 69 08/19/24 12:14 70 08/19/24 12:14 08/19/24 12:00 98.5 F 66 89/53 L 08/19/24 11:00 08/19/24 10:00 69 90/52 L 08/19/24 09:00 08/19/24 08:00 90 08/19/24 08:00 98.9 F 86 18 98/47 L 08/19/24 07:45 08/19/24 07:00 08/19/24 06:59 69 08/19/24 06:59 88 08/19/24 06:59 08/19/24 06:11 68 24 81/50 L 08/19/24 05:00 08/19/24 05:00 65 9 L 86/49 L 08/19/24 04:31 97.6 F 72 11 L 100/63 L 08/19/24 04:00 71 08/19/24 04:00 74 08/19/24 03:00 08/19/24 03:00 62 10 L 101/58 L 08/19/24 02:00 69 9 L 98/61 L 08/19/24 01:00 08/19/24 01:00 68 11 L 99/56 L 08/19/24 00:09 73 08/19/24 00:00 74 08/19/24 00:00 98 F 08/19/24 00:00 76 16 107/70 L 08/18/24 23:00 107/63 L 08/18/24 23:00 73 11 L 08/18/24 23:00 08/18/24 22:00 92/55 L 08/18/24 22:00 72 14 08/18/24 21:03 80 08/18/24 21:01 101/57 L 08/18/24 21:01 84 15 08/18/24 21:00 83 18 08/18/24 21:00 08/18/24 20:04 08/18/24 20:00 97.6 F 08/18/24 20:00 71 12 08/18/24 20:00 98/50 L 08/18/24 20:00 73 08/18/24 19:00 75 11 L 101/55 L 08/18/24 18:48 08/18/24 18:40 77 08/18/24 18:00 76 11 L 93/58 L Pulse Ox O2 Del Method O2 Flow Rate 08/19/24 17:00 Nasal Cannula 3 08/19/24 16:00 Nasal Cannula 3 08/19/24 16:00 90 L Nasal Cannula 3 08/19/24 15:00 Nasal Cannula 3 08/19/24 14:00 90 L Nasal Cannula 3 08/19/24 13:00 90 L Nasal Cannula 2.5 08/19/24 13:00 Nasal Cannula 3 08/19/24 12:45 08/19/24 12:14 08/19/24 12:14 08/19/24 12:14 92 L Nasal Cannula 2.5 08/19/24 12:00 93 L Nasal Cannula 2.5 08/19/24 11:00 Nasal Cannula 2.5 08/19/24 10:00 91 L Nasal Cannula 2.5 08/19/24 09:00 Nasal Cannula 5 08/19/24 08:00 08/19/24 08:00 90 L Nasal Cannula 5 08/19/24 07:45 Nasal Cannula 5 08/19/24 07:00 Nasal Cannula 4 08/19/24 06:59 08/19/24 06:59 08/19/24 06:59 93 L Nasal Cannula 4 08/19/24 06:11 90 L Nasal Cannula 4 08/19/24 05:00 Nasal Cannula 3 08/19/24 05:00 92 L Nasal Cannula 4 08/19/24 04:31 89 L Nasal Cannula 4 08/19/24 04:00 08/19/24 04:00 92 L Nasal Cannula 3 08/19/24 03:00 Nasal Cannula 3 08/19/24 03:00 95 Nasal Cannula 4 08/19/24 02:00 94 L Nasal Cannula 3 08/19/24 01:00 Nasal Cannula 3 08/19/24 01:00 94 L Nasal Cannula 3 08/19/24 00:09 08/19/24 00:00 08/19/24 00:00 08/19/24 00:00 92 L Nasal Cannula 3 08/18/24 23:00 08/18/24 23:00 92 L 08/18/24 23:00 Nasal Cannula 3 08/18/24 22:00 08/18/24 22:00 92 L 08/18/24 21:03 93 L Nasal Cannula 3 08/18/24 21:01 08/18/24 21:01 95 08/18/24 21:00 93 L 08/18/24 21:00 Nasal Cannula 2 08/18/24 20:04 Nasal Cannula 2 08/18/24 20:00 08/18/24 20:00 95 Nasal Cannula 3 08/18/24 20:00 08/18/24 20:00 08/18/24 19:00 93 L 08/18/24 18:48 Nasal Cannula 3 08/18/24 18:40 08/18/24 18:00 92 L Intake and Output 08/19/24 08/19/24 08/19/24 07:59 15:59 23:59 Intake Total 400 / 1120 720 / 1120 Output Total 450 / 1350 900 / 1350 Balance -50 / -230 -180 / -230 Intake: Intake, Oral Amount 400 / 1120 720 / 1120 Output: Output, Urine Amount 450 / 1350 900 / 1350 Other: Number of Unmeasured Voids 0 800 Weight 85.684 kg Patient Weight 08/19/24 23:59 Weight 85.684 kg Laboratory Results - last 24 hr 08/18/24 11:25: Chlamy pneumoniae PCR Not detected, Adenovirus (PCR) Not detected, B. pertussis DNA (PCR) Not detected, Coronavirus OC43 (PCR) Not detected, Coronavirus HKU1 (PCR) Not detected, Coronavirus 229E (PCR) Not detected, SARS-CoV-2 (PCR) Not detected, Coronavirus NL63 (PCR) Not detected, Human Metapneumovir PCR Not detected, Influenza A (H1) PCR Not detected, Influ A (H1N1/09) PCR Not detected, Influenza A (H3) PCR Not detected, Influenza Type A (PCR) Not detected, Influenza Type B (PCR) Not detected, M. pneumoniae (PCR) Not detected, Parainfluenza 1 (PCR) Not detected, Parainfluenza 2 (PCR) Not detected, Parainfluenza 3 (PCR) Not detected, Parainfluenza 4 (PCR) Not detected, RSV (PCR) Not detected, Entero/Rhino (PCR) Not detected 08/18/24 17:15: Troponin I < 0.01 08/18/24 21:04: POC Glucose 193 H 08/19/24 05:38: POC Glucose 104 08/19/24 08:10: WBC 8.7, RBC 5.78, Hgb 14.2, Hct 47.7, MCV 82.5, MCH 24.6 L, MCHC 29.8 L, RDW 18.5 H, Plt Count 223, MPV 8.6, Neut % (Auto) 78.1, Lymph % (Auto) 14.3, [place] % (Auto) 7.0, Eos % (Auto) 0.1, Baso % (Auto) 0.2, Neut # (Auto) 6.8, Lymph # (Auto) 1.3, [place] # (Auto) 0.6, Eos # (Auto) 0.0, Baso # (Auto) 0.0, Sodium 136, Potassium 4.1, Chloride 95 L, Carbon Dioxide 36 H, Anion Gap 9.1, BUN 19, Creatinine 0.70, Estimated Creat Clear 90, Estimated GFR 114, Est GFR ( Amer) 137, Glucose 148 H D, Calcium 8.0 L, Magnesium 1.8, Total Bilirubin 0.4, AST 21, ALT 16, Alkaline Phosphatase 134 H, Total Protein 6.6, Albumin 3.0 L, Globulin 3.6 H, Albumin/Globulin Ratio 0.8 L 08/19/24 12:24: POC Glucose 101 08/19/24 17:24: POC Glucose 133 H I & O for Labs for Last 24 Hours: Intake & Output 08/16/24 08/17/24 08/18/24 08/19/24 23:59 23:59 23:59 23:59 Intake Total 270 / 670 1120 / 1120 Output Total 2425 / 2425 1350 / 1350 Balance -2155 / -1755 -230 / -230 Weight 86.438 kg 85.684 kg Microbiology Reports for the Last 24 Hours: Microbiology 08/18/24 Unknown Blood Blood Culture - Preliminary NO GROWTH AFTER 24 HOURS 08/18/24 11:15 Blood Blood Culture - Preliminary NO GROWTH AFTER 24 HOURS Constitutional: Present no acute distress, obese, chronically ill appearing and cooperative Head: Present atraumatic and normocephalic ENT: Present normal exam Respiratory: Present prolonged expiratory phase, diminished air movement and normal respiratory effort; Absent rhonchi or wheezes Cardiac: Present Reg Rate and Rhythm GI: Present soft and normal bowel sounds; Absent distention or tenderness Extremities: Present tenderness (Left arm predominantly.) and edema (Intervally improved however.) Comment:: Has skin breakdown in left axilla. Yeasty smell from wound. Skin: Present erythema and wounds Neuro: Present Grossly Intact, alert, awake, oriented x 3 and moves all extremities Assessment and Plan *Assessment and plan (1) Acute exacerbation of CHF (congestive heart failure): Status: Resolved Qualifiers: Heart failure type: diastolic Qualified Code(s): I50.33 - Acute on chronic diastolic (congestive) heart failure Category: Medical Code(s): I50.9 - Heart failure, unspecified (2) Acute hypoxic respiratory failure: Status: Acute Category: Medical Code(s): J96.01 - Acute respiratory failure with hypoxia (3) Cancer associated pain: Status: Acute Category: Medical Code(s): G89.3 - Neoplasm related pain (acute) (chronic) (4) Chronic neck pain: Status: Acute Category: Medical Code(s): M54.2 - Cervicalgia; G89.29 - Other chronic pain (5) Degenerative disc disease, cervical: Status: Acute Category: Medical Code(s): M50.30 - Other cervical disc degeneration, unspecified cervical region (6) Cancer, metastatic to bone: Status: Acute Category: Medical Code(s): C79.51 - Secondary malignant neoplasm of bone (7) COPD exacerbation: Status: Resolved Category: Medical Code(s): J44.1 - Chronic obstructive pulmonary disease with (acute) exacerbation (8) Essential hypertension: Status: Acute Category: Medical Code(s): I10 - Essential (primary) hypertension (9) Obesity: Status: Acute Qualifiers: Body mass index: BMI 33.0-33.9 Obesity classification: adult class 1 (BMI 30 - 34.9) Obesity type: due to excess calories Serious obesity comorbidity presence: with serious comorbidity Qualified Code(s): E66.09 - Other obesity due to excess calories; Z68.33 - Body mass index (BMI) 33.0-33.9, adult Category: Medical Code(s): E66.9 - Obesity, unspecified (10) Chronic pain: Status: Acute Qualifiers: Chronic pain type: chronic pain syndrome Qualified Code(s): G89.4 - Chronic pain syndrome Category: Medical Code(s): G89.29 - Other chronic pain (11) Coronary artery disease: Status: Acute Qualifiers: Associated angina: without angina Coronary Disease-Associated Artery/Lesion type: [place] artery [place] vs. transplanted heart: [place] heart Qualified Code(s): I25.10 - Atherosclerotic heart disease of [place] coronary artery without angina pectoris Category: Medical Code(s): I25.10 - Atherosclerotic heart disease of [place] coronary artery without angina pectoris Plan 63-year-old male with history of CAD, diastolic heart failure, hypertension, chronic pain, metastatic lung cancer. Patient presented with worsening swelling over the past week in his legs and increased work of breathing. Normally wears 2 L oxygen continuously at baseline. In respiratory distress on arrival to the ER. Significant volume overload and concern for CHF exacerbation on workup with elevated BNP of 7000. ER started patient on BiPAP. Discussed case with ER physician, request admission for management of CHF exacerbation and respiratory failure. I agreed to admit. Patient has been downgraded to MedSurg. Overall doing well. Weaned to 3 L oxygen which is his baseline but still having severe pain in his left upper extremity. Also has foul smell coming from under his brace for his arm. Addressing wound today. Will monitor overnight and continue to diurese. Problems addressed as follows: Acute on chronic hypoxic respiratory failure Acute on chronic HFpEF Right-sided pleural effusion Pulmonary edema COPD exacerbation -Echo from 2022 shows diastolic dysfunction. BNP elevated at 7000. Presentation consistent with heart failure exacerbation. -Aggressive diuresis. Continue bumex 2 mg IV twice daily; negative at least 2 L since admission. -Kidney function remained stable with BUN 19, creatinine 0.7. Potassium 4.1. -Supplemental oxygen as needed for goal sats greater 90%. Weaned to 3 L this morning. - Repeat CBC, CMP, magnesium ordered for the morning -DuoNebs scheduled every 6 hours - Chronic pain with acute cancer related pain.: -Continue oxycodone 20 mg every 4 hours as needed. Continue fentanyl patch 50 mcg daily; high risk for toxicity. Monitor patient's respiratory status closely -Administered 2 mg Dilaudid IV for wound care of left arm. Yeast dermatitis: Breakdown under his brace for his left arm along with yeast presents. Cleaned wound well. Treated with topical nystatin. Will monitor daily. Continue nystatin 4 times a day. Depression: Continue Lexapro 20 mg daily Hypertension: Continue metoprolol succinate 25 mL grams daily BPH: Continue tamsulosin 0.4 mg daily Sleep disorder: Continue trazodone 150 mg nightly Obesity complicates last excess Full code Regular diet Lovenox 40 mg subcu daily
[2024-08-19] MEDS: TRAZODONE 50MG TABLET 150 MG PO (20:38)
[2024-08-19 21:03] LABS: POC Glucose,Bedside 144 (70-110)
[2024-08-20] VITALS (8 sets, daily range): BP systolic 91–102; BP diastolic 48–61; PULSE 62–100; RESP 15–18; TEMP 36.3–36.8; O2SAT 90–95; BMI 29.2
--- NOTE | 2024-08-20 00:18 | PC.NURSE ---
left arm sling applied. Pt tolerated well.
[2024-08-20] MEDS: OXYCODONE 5MG IMMEDIATE RELEASE TABLET 20 MG PO ×3 (05:43→14:51)
[2024-08-20] MEDS: IPRATROPIUM/ALBUTEROL 3 ML NEB IH ×2 (05:59→13:06)
[2024-08-20 06:35] LABS: POC Glucose,Bedside 92 (70-110)
[2024-08-20 06:59] LABS: Basophils % 0.5 % (0.1-2.0); Eosinophils % 0.6 % (0.1-12.0); Hematocrit 46.2 % (42.0-52.0); Lymphocytes # 1.2 K/mm3 (0.7-4.5); Lymphocytes % 17.7 % (10-50); Mean Corpuscular HGB Conc 30.3 g/dL (31.8-35.4); Mean Corpuscular Hemoglobin 25.1 pg (27.0-31.2); Mean Corpuscular Volume 82.9 fl (80-94); Monocytes # 0.7 K/mm3 (0.1-1.0); Monocytes % 10.7 % (1.7-9.3); Neutrophils # 4.6 K/mm3 (1.8-7.8); Neutrophils % 70.2 % (37.0-80.0); Platelet Count 212 K/mm3 (142-424); Red Blood Count 5.57 M/mm3 (4.60-6.20); Red Cell Distribution Width 18.3 % (11.5-17.5); White Blood Count 6.6 K/mm3 (4.8-10.8)
[2024-08-20 07:34] LABS: Alanine Aminotransferase 14 U/L (12-78); Albumin Level 3.1 g/dl (3.5-5.0); Albumin/Globulin Ratio 0.9 (1.1-1.8); Alkaline Phosphatase 140 U/L (38-126); Anion Gap 7.1 mEq/L (5-15); Aspartate Amino Transferase 25 U/L (17-59); Bilirubin,Total 0.8 mg/dl (0.2-1.3); Blood Urea Nitrogen 21 mg/dl (9-20); Calcium 8.1 mg/dl (8.4-10.2); Carbon Dioxide 39 mmol/L (22.0-30.0); Chloride 91 mmol/L (98-107); Creatinine Clearance Estimated 87 mL/min (50-200); Estimated Glomerular Filt Rate 136 ml/min (>60); GFR (African American) 164 ML/MIN (>60); Globulin 3.5 g/dL (1.3-3.2); Glucose 66 mg/dl (74-100); Magnesium 1.7 mg/dl (1.6-2.3); Potassium 4.1 mmoL/L (3.5-5.1); Sodium 133 mmol/L (136-145); Total Protein,Serum 6.6 g/dl (6.3-8.2)
[2024-08-20] MEDS: ENOXAPARIN 40MG/0.4ML SYRINGE 40 MG SUBCUT (08:19)
[2024-08-20] MEDS: CITALOPRAM 40MG TABLET 40 MG PO (08:19)
[2024-08-20] MEDS: NYSTATIN TOPICAL POWDER 30GM TP ×2 (08:19→12:39)
[2024-08-20] MEDS: MAGNESIUM OXIDE 400MG TABLET 400 MG PO (08:19)
[2024-08-20] MEDS: PANTOPRAZOLE 40MG TABLET 40 MG PO (08:19)
[2024-08-20] MEDS: POLYETHYLENE GLYCOL 3350 17 GM PACKET PO (08:20)
[2024-08-20] MEDS: TAMSULOSIN 0.4MG CAPSULE 0.4 MG PO (08:21)
[2024-08-20] MEDS: SENNOSIDES 8.6MG/DOCUSATE 50MG TABLET 2 TAB PO (08:24)
--- NOTE | 2024-08-20 09:47 | HMH.PTEV ---
Physical Therapy Evaluation Rehab PT IP Evaluation Start: 08/19/24 18:10 Freq: ONCE Status: Active Protocol: Document 08/20/24 09:39 DEAN (Rec: 08/20/24 09:47 DEAN [id number]) Subjective/History History History Per H&P: Mr. Zazueta is a 63 -year-old male with chronic respiratory failure on oxygen, CHF, metastatic lung cancer, BPH, obesity, chronic pain. He presented to the ER because of worsening swelling in his legs and shortness of breath. Normally wears 2 L oxygen at home. Was hypoxic on arrival. Initiated on BiPAP as he was found to have respiratory acidosis and respiratory distress. Chest imaging concerning for volume overload . BNP elevated at 7000. Patient denies any chest pain, nausea, vomiting. No fever. Cough at baseline. Given 80 mg Lasix once in the ER. Medicine consulted for admission and further management On evaluation, patient is doing somewhat better. Has been on BiPAP for about 4 hours. -1 L since admission. Taken off BiPAP for interview . Family at bedside helps supplement history. Denies any fever or known sick contacts. Subjective Subjective Pt lives with his girlfriend and friend. Pt lives in a single-story home with 1 [address]ISSE[address]. Pt usually IND with all mobility without an AD. 1-2 falls reported in past month. Pt sleeps in a recliner. Rehab PT IP Eval Objective Appearance Patient Behavior Appropriate,Cooperative Patient Orientation Person,Place,Situation Difficulty following instructions none Speech Pattern Clear Ambulation Patient Able to Ambulate Yes Ambulation Observation IP General Gait Pattern Observation Antalgic Gait Ambulation Distance (feet) 5 Ambulation Assistive Device None Ambulation Ability Minimal x 1 (25% assist) Balance Ability to Arise Able, uses arms to help Sitting Balance Steady, safe Standing Balance Steady, wide stance Dynamic Sitting Balance Ability Good Dynamic Standing Balance Ability Fair Transfers Bed Transfer Ability Minimal x 1 (25% assist) Sit to Stand Bed Transfer Ability Contact Guard/Hand Hold Sit to Stand Chair Transfer Ability Minimal x 1 (25% assist) Rehab PT IP prob,goals,plan Problems Date of Evaluation: 08/20/24 PT IP Problems Bed Mobility,Transfers,Gait, Balance,Self care,Safety Rehab Potential Rehab Potential Good Equipment Needs Assistive Devices Straight Cane Plan PT Intervention Plan Bed Mobility,Transfers,Gait, Balance,Self care,Safety, Therapeutic Exercise Other Intervention Plan 1-2 times PT Plan Frequency Daily Duration LOS Discharge Goals Bed Transfer Ability Supervision/Stand by Sit to Stand Chair Transfer Ability Supervision/Stand by Ambulation Assistive Device Straight Cane Ambulation Distance (feet) 10 Discharge Plan PT Discharge Plan Initial physical therapy evaluation performed. Patient presents below baseline at this time in functional mobility, transfers, gait, and strength. Pt would benefit from skilled PT while at [facility] to prevent further functional decline and maximize safety with mobility. Pt most appropriate to d/c home (with 24/ assistance provided) when deemed medically necessary d/ t current level of mobility, home set-up, and family support. PT recommending home health PT services to address deficits. Eval Complexity Eval Charge Codes 14751 - Moderate Complexity PHYSICIAN CERTIFICATION: I certify the specified therapy services for Douglas Zazueta are required, authorized, and reviewed every 30 days.
--- NOTE | 2024-08-20 10:06 | SW/DCPLANNER ---
Addendum entered by Doreen Cortés 08/20/24 15:17: [facility]. Kathy Original Note: I spoke w/ this patient regarding plans once medically stable for discharge. PT/OT evaluated patient and recommended home health services and 24/7 care. Patient stated that he resides at home w/ family to assist him 24/7. Patient is agreeable to home health services and has used [facility] in the past. I will set up home health services w/ [facility] once patient is medically stable for discharge. Discharge date is unknown at this time.
--- NOTE | 2024-08-20 10:20 | HMH.OTEV ---
OT Inpatient Evaluation Rehab OT IP Evaluation Start: 08/19/24 18:10 Freq: ONCE Status: Active Protocol: Document 08/20/24 10:15 [place] (Rec: 08/20/24 10:20 [place] [id number]) Rehab OT IP Assessment Subjective History Pt oriented x 3 on arrival. Pt agreeable to engage in therapy evaluation. Pt admitted on 08/18/24 due to shortness of breath and lower leg edema. History and physical: Per H&P: Mr. Zazueta is a 63 -year-old male with chronic respiratory failure on oxygen, CHF, metastatic lung cancer, BPH, obesity, chronic pain. He presented to the ER because of worsening swelling in his legs and shortness of breath. Normally wears 2 L oxygen at home. Was hypoxic on arrival. Initiated on BiPAP as he was found to have respiratory acidosis and respiratory distress. Chest imaging concerning for volume overload . BNP elevated at 7000. Patient denies any chest pain, nausea, vomiting. No fever. Cough at baseline. Given 80 mg Lasix once in the ER. Medicine consulted for admission and further management On evaluation, patient is doing somewhat better. Has been on BiPAP for about 4 hours. -1 L since admission. Taken off BiPAP for interview . Family at bedside helps supplement history. Denies any fever or known sick contacts. Subjective Pt lives with his girlfriend and friend. Pt lives in a single-story home with 1 [address]ISSE[address]. Pt usually IND with all functional transfers and no AE . Pt claims he is dependent upon family to complete all IADLs. He also requires assistance with lower body dressing and bathing. Pt does wear o2 at all times. 1-2 falls reported in past month. Pt sleeps in a recliner. Objective Patient Orientation Person,Place,Birthday Left Upper Extremity Gross ROM Mod Limitation 50% Shoulder ROM Limitations Pain Elbow ROM Limitations Pain Wrist Limitations of Range of Motion Pain Transfer Training Sit/Stand Transfer,Sit/Stand/ Step Transfer Assist Level Minimal x 1 (25% assist) Chair Transfer Ability Minimal x 1 (25% assist) Chair Transfer Technique Sit to/from Ambulatory Rehab OT IP prob,goals,plan Problems Date of Evaluation: 08/20/24 OT IP Problems Bed Mobility,Transfers,Balance ,Self care,Safety Rehab Potential Rehab Potential Good Equipment Needs Assistive Devices Rolling / Wheeled Walker Plan OT intervention Plan Bed Mobility,Transfers,Balance ,Self care,Safety,Therapeutic Exercise OT Plan Frequency Daily Duration LOS Discharge Goals Bed Mobility Ability Assistance x1 Sit to Stand Chair Transfer Ability Contact Guard/Hand Hold Chair Transfer Ability Contact Guard/Hand Hold Chair Transfer Technique Sit to/from Ambulatory Chair Transfer Assistive Devices Straight Cane Lower Body Dressing Ability Moderate Assistance Upper Body Dressing Ability Minimal Assistance Bathing Ability Moderate Assistance Performing Toilet Hygiene Ability Moderate Assistance Overall Commode/Toilet Transfer Ability Moderate Assistance Commode/Toilet Transfer Technique Sit to/from Ambulatory Discharge Plan OT Discharge Plan Initial occupational therapy evaluation performed. Patient presents below baseline at this time in functional transfers, ADL independence, and strength. Pt would benefit from skilled OT while at [facility] to prevent further functional decline and maximize safety. Pt most appropriate to d/c home (with / assistance provided) when deemed medically necessary d/t current level of mobility, home set-up, and family support. OT recommending home health OT services to address deficits. Eval Complexity Eval Charge Codes 60189 - Moderate Complexity PHYSICIAN CERTIFICATION: I certify the specified therapy services for Douglas Zazueta are required, authorized, and reviewed every 30 days.
[2024-08-20 11:05] LABS: POC Glucose,Bedside 177 (70-110)
--- NOTE | 2024-08-20 12:11 | CT_ITS ---
FINAL REPORT TECHNIQUE: Routine axial images were obtained from the lung apices to below the diaphragm following IV contrast administration. Individualized dose reduction techniques using automated exposure control or adjustment of the mA and/or kV according to the patient size were employed. CLINICAL HISTORY: lung ca COMPARISON: 04/20/2024 FINDINGS: There is collapse of the right lower lobe with apparent obstruction of the right lower lobe bronchus. Consolidation is seen in the posterior right middle lobe and left lower lobe. There is a large right and small left pleural effusion. There is no pneumothorax. There is no mediastinal or axillary adenopathy. Heart is normal in size. Pulmonary vasculature is adequately opacified. No filling defect is seen. IMPRESSION: Obstruction of the right lower lobe bronchus. Endobronchial lesion not excluded. Recommend bronchoscopy for further evaluation. Reviewed, Interpreted and Dictated by Jose D Martin MD Transcribed by Ana Gonzalez Authenticated and [facility]
--- NOTE | 2024-08-20 12:11 | CT_ITS ---
FINAL REPORT TECHNIQUE: After the administration of intravenous contrast, axial images were obtained through the abdomen and pelvis by computed tomography. This study was performed with technique to keep radiation doses as low as reasonably achievable, (ALARA). Individualized dose reduction techniques using automated exposure control or adjustment of the MA and/or KV according to the patient's size were employed. CLINICAL HISTORY: eval cancer mets COMPARISON: 04/20/2024 FINDINGS: Abdomen: There is subtle low-attenuation focus in the anterior right hepatic lobe measuring 1.2 cm seen on image 42 of series 5 which is indeterminate. Patient is status postcholecystectomy. The spleen is unremarkable. There is moderate adrenal hyperplasia. The pancreas is unremarkable. There is a 7 mm nonobstructing right renal stone. An exophytic cyst is seen arising from the left kidney measuring 2.9 cm.. The aorta is normal in caliber. No adenopathy is seen. Pelvis: Interbody fusion hardware is seen bridging L5-S1. There is a stimulator device in the superior gluteal region. The appendix is not identified. The urinary bladder is contracted. Apparent wall thickening is likely due to contracted state. Small pelvic ascites is new from prior exam. IMPRESSION: Right hepatic lobe low-attenuation focus. Recommend pre and postcontrast infuse liver MRI for further evaluation. Interval development of pelvic ascites. Reviewed, Interpreted and Dictated by Jose D Martin MD Transcribed by Ana Gonzalez Authenticated and . [facility]
[2024-08-20] MEDS: SODIUM CHLORIDE 0.9% 10ML SYR (RAD ONLY) 10 ML IV (12:56)
[2024-08-20] MEDS: IOPAMIDOL-370 (76%);100ML BOTTLE 75 ML IV (12:57)
--- NOTE | 2024-08-20 13:16 | P.DS_ITS ---
General Admission date:: 08/18/24 Discharge date: 08/20/24 HPI HPI HPI: Mr. Zazueta is a 63-year-old male with chronic respiratory failure on oxygen, CHF, metastatic lung cancer, BPH, obesity, chronic pain. He presented to the ER because of worsening swelling in his legs and shortness of breath. Normally wears 2 L oxygen at home. Was hypoxic on arrival. Initiated on BiPAP as he was found to have respiratory acidosis and respiratory distress. Chest imaging concerning for volume overload. BNP elevated at 7000. Patient denies any chest pain, nausea, vomiting. No fever. Cough at baseline. Given 80 mg Lasix once in the ER. Medicine consulted for admission and further management On evaluation, patient is doing somewhat better. Has been on BiPAP for about 4 hours. -1 L since admission. Taken off BiPAP for interview. Family at bedside helps supplement history. Denies any fever or known sick contacts. Hospital Course Hospital Course Hospital Course: 63-year-old male with history of CAD, diastolic heart failure, hypertension, chronic pain, metastatic lung cancer. Patient presented with worsening swelling over the past week in his legs and increased work of breathing. Normally wears 2 L oxygen continuously at baseline. In respiratory distress on arrival to the ER. Significant volume overload and concern for CHF exacerbation on workup with elevated BNP of 7000. ER started patient on BiPAP. Discussed case with ER physician, request admission for management of CHF exacerbation and respiratory failure. I agreed to admit. Initially admitted to ICU due to initiation on BiPAP. Patient showed gradual improvement. Able to wean to nasal cannula oxygen. Return to his baseline 3 L. Stable to discharge home with follow-up with oncologist later this week. Problems addressed as follows: Acute on chronic hypoxic respiratory failure Acute on chronic HFpEF Right-sided pleural effusion Pulmonary edema COPD exacerbation -Echo from 2022 shows diastolic dysfunction. BNP elevated at 7000. Presentation consistent with heart failure exacerbation. Aggressively diuresed during admission. Negative volume status. Showed good response to diuresis with improvement to baseline nasal cannula 3 L. Continue Bumex at discharge. Kidney function and electrolytes remained stable during admission. No signs of infection. White count normal on day of discharge. Will discharge home with home health. -On day of discharge, chest abdomen and pelvis CTs obtained to assist with stag ing and oncologic management for follow-up later this week. Chronic pain with acute cancer related pain.: -Continue oxycodone 20 mg every 4 hours as needed. Continue fentanyl patch 50 mcg daily. Discussed increasing patch with patient's oncologist, to be discussed at follow-up later this week. Depression: Continue Lexapro 20 mg daily Hypertension: Continue metoprolol succinate 25 mL grams daily BPH: Continue tamsulosin 0.4 mg daily Sleep disorder: Continue trazodone 150 mg nightly Total time spent on discharge 32 minutes in counseling, documentation, chart review, and direct care with patient. Interested in home health. Order to discharge Exam Data for Last 24 hours Vital signs and Labs for Last 24 Hours: Temp Pulse Resp BP Pulse Ox O2 Del Method O2 Flow Rate 98.0 F 85 18 102/58 L 90 L Nasal Cannula 3 08/20/24 12:00 08/20/24 13:08 08/20/24 12:00 08/20/24 12:00 08/20/24 12:00 08/20/24 12:48 08/20/24 12:48 FiO2 35 08/18/24 12:00 Laboratory Results - last 24 hr 08/19/24 17:24: POC Glucose 133 H 08/19/24 20:35: POC Glucose 144 H 08/20/24 05:42: POC Glucose 92 08/20/24 06:10: WBC 6.6, RBC 5.57, Hgb 14.0 L, Hct 46.2, MCV 82.9, MCH 25.1 L, MCHC 30.3 L, RDW 18.3 H, Plt Count 212, MPV 9.0, Neut % (Auto) 70.2, Lymph % (Auto) 17.7, [place] % (Auto) 10.7 H, Eos % (Auto) 0.6, Baso % (Auto) 0.5, Neut # (Auto) 4.6, Lymph # (Auto) 1.2, [place] # (Auto) 0.7, Eos # (Auto) 0.0, Baso # (Auto) 0.0, Sodium 133 L, Potassium 4.1, Chloride 91 L, Carbon Dioxide 39 H, Anion Gap 7.1, BUN 21 H, Creatinine 0.60 L, Estimated Creat Clear 87, Estimated GFR 136, Est GFR ( Amer) 164, Glucose 66 L D, Calcium 8.1 L, Magnesium 1.7, Total Bilirubin 0.8, AST 25, ALT 14, Alkaline Phosphatase 140 H, Total Protein 6.6, Albumin 3.1 L, Globulin 3.5 H, Albumin/Globulin Ratio 0.9 L 08/20/24 10:47: POC Glucose 177 H I & O for Last 24 hours: Intake & Output 08/17/24 08/18/24 08/19/24 08/20/24 23:59 23:59 23:59 23:59 Intake Total 270 / 670 1480 / 1840 960 / 960 Output Total 2425 / 2425 2650 / 3250 1250 / 1250 Balance -2155 / -1755 -1170 / -1410 -290 / -290 Weight 86.438 kg 85.684 kg 82.735 kg Microbiology Reports for the Last 24 Hours: Microbiology 08/18/24 12:30 Anus CRE Surveillance Culture - Final Negative 08/18/24 Unknown Blood Blood Culture - Preliminary NO GROWTH AFTER 48 HOURS 08/18/24 11:15 Blood Blood Culture - Preliminary NO GROWTH AFTER 48 HOURS Constitutional Constitutional: no acute distress, average body habitus, chronically ill appearing and cooperative *Routine HEENT Exam Head: Present normocephalic Eye: Present EOMI and PERRL ENT: Present mucous membranes moist *Routine Neck Exam Neck: Present supple; Absent lymphadenopathy *Routine Respiratory Exam Respiratory: Present prolonged expiratory phase and rhonchi; Absent wheezes or crackles *Routine Cardiovascular Exam Cardiovascular: Present RRR *Routine Abdominal Exam Abdominal: Present soft and normoactive bowel sounds; Absent tenderness *Routine Rectal Exam Patient deferred: visual exam *Routine Exam Patient deferred: penile exam *Routine Extremities Exam Extremities: Present edema; Absent cyanosis or clubbing Comments: Lower extremity bilateral trace edema. Interval improvement from admission. Chronic venous stasis skin discoloration changes lower extremities. Left arm in sling and brace. *Routine Skin Exam Skin: Present warm; Absent rash Comments: Intertrigo in left axilla with some breakdown on left lateral thoracic region secondary to brace for arm *Routine Neurological Exam Neurological: Present alert, oriented X3 and moving all extremities; Absent altered mental status Results Data Completed and Pending Labs on day of discharge: Labs from last 24 hours 08/20/24 08/20/24 08/20/24 10:47 06:10 05:42 WBC 6.6 RBC 5.57 Hgb 14.0 L Hct 46.2 MCV 82.9 MCH 25.1 L MCHC 30.3 L RDW 18.3 H Plt Count 212 MPV 9.0 Neut % (Auto) 70.2 Lymph % (Auto) 17.7 [place] % (Auto) 10.7 H Eos % (Auto) 0.6 Baso % (Auto) 0.5 Neut # (Auto) 4.6 Lymph # (Auto) 1.2 [place] # (Auto) 0.7 Eos # (Auto) 0.0 Baso # (Auto) 0.0 Sodium 133 L Potassium 4.1 Chloride 91 L Carbon Dioxide 39 H Anion Gap 7.1 BUN 21 H Creatinine 0.60 L Estimated Creat Clear 87 Estimated GFR 136 Est GFR ( Amer) 164 Glucose 66 L D POC Glucose 177 H 92 Calcium 8.1 L Magnesium 1.7 Total Bilirubin 0.8 AST 25 ALT 14 Alkaline Phosphatase 140 H Total Protein 6.6 Albumin 3.1 L Globulin 3.5 H Albumin/Globulin Ratio 0.9 L 08/19/24 08/19/24 20:35 17:24 WBC RBC Hgb Hct MCV MCH MCHC RDW Plt Count MPV Neut % (Auto) Lymph % (Auto) [place] % (Auto) Eos % (Auto) Baso % (Auto) Neut # (Auto) Lymph # (Auto) [place] # (Auto) Eos # (Auto) Baso # (Auto) Sodium Potassium Chloride Carbon Dioxide Anion Gap BUN Creatinine Estimated Creat Clear Estimated GFR Est GFR ( Amer) Glucose POC Glucose 144 H 133 H Calcium Magnesium Total Bilirubin AST ALT Alkaline Phosphatase Total Protein Albumin Globulin Albumin/Globulin Ratio Preliminary micro results at discharge 08/18/24 Unknown Blood Culture - Preliminary Blood NO GROWTH AFTER 48 HOURS 08/18/24 11:15 Blood Culture - Preliminary Blood NO GROWTH AFTER 48 HOURS DS: Diagnosis Discharge Diagnosis (1) Acute exacerbation of CHF (congestive heart failure): Status: Resolved Code(s): I50.9 - Heart failure, unspecified Qualifiers: Heart failure type: diastolic Qualified Code(s): I50.33 - Acute on chronic diastolic (congestive) heart failure (2) Acute hypoxic respiratory failure: Status: Acute Code(s): J96.01 - Acute respiratory failure with hypoxia (3) Cancer associated pain: Status: Acute Code(s): G89.3 - Neoplasm related pain (acute) (chronic) (4) Chronic neck pain: Status: Acute Code(s): M54.2 - Cervicalgia; G89.29 - Other chronic pain (5) Degenerative disc disease, cervical: Status: Acute Code(s): M50.30 - Other cervical disc degeneration, unspecified cervical region (6) Cancer, metastatic to bone: Status: Acute Code(s): C79.51 - Secondary malignant neoplasm of bone (7) COPD exacerbation: Status: Resolved Code(s): J44.1 - Chronic obstructive pulmonary disease with (acute) exacerbation (8) Essential hypertension: Status: Acute Code(s): I10 - Essential (primary) hypertension (9) Obesity: Status: Acute Code(s): E66.9 - Obesity, unspecified Qualifiers: Body mass index: BMI 33.0-33.9 Obesity classification: adult class 1 (BMI 30 - 34.9) Obesity type: due to excess calories Serious obesity comorbidity presence: with serious comorbidity Qualified Code(s): E66.09 - Other obesity due to excess calories; Z68.33 - Body mass index (BMI) 33.0-33.9, adult (10) Chronic pain: Status: Acute Code(s): G89.29 - Other chronic pain Qualifiers: Chronic pain type: chronic pain syndrome Qualified Code(s): G89.4 - Chronic pain syndrome (11) Coronary artery disease: Status: Acute Code(s): I25.10 - Atherosclerotic heart disease of [place] coronary artery without angina pectoris Qualifiers: Associated angina: without angina Coronary Disease-Associated Art tyrel/Lesion type: [place] artery [place] vs. transplanted heart: [place] heart Qualified Code(s): I25.10 - Atherosclerotic heart disease of [place] coronary artery without angina pectoris Meds Home Medications and Allergies Home Medications ?Medication ?Instructions ?Recorded ?Confirmed ?Type escitalopram oxalate 20 mg tablet 20 mg PO DAILY 04/09/24 08/18/24 History (Lexapro) tamsulosin 0.4 mg capsule 0.4 mg PO DAILY 04/09/24 08/18/24 History trazodone 150 mg tablet 150 mg PO HS 04/09/24 08/18/24 History naloxone 4 mg/actuation nasal 4 mg intranasal Q3M PRN opioid 04/16/24 08/18/24 Rx spray (Narcan) overdose #2 ea ondansetron 8 mg disintegrating 8 mg PO Q8H nausea and vomiting 05/30/24 08/18/24 Rx tablet #90 tabs pantoprazole 40 mg tablet,delayed 40 mg PO BID #180 tabs 06/26/24 08/18/24 Rx release bumetanide 2 mg tablet 2 mg PO BID #60 tabs 07/05/24 08/18/24 Rx oxycodone 20 mg tablet 20 mg PO Q4H PRN pain #120 tabs 08/01/24 08/18/24 Rx magnesium 250 mg tablet 250 mg PO DAILY #30 tabs 08/03/24 08/18/24 Rx fentanyl 50 mcg/hr transdermal 1 patch transdermal Q72H #10 ea 08/13/24 08/18/24 Rx patch fenofibrate 160 mg tablet 160 mg PO DAILY 08/19/24 08/19/24 History hydroxyzine HCl 25 mg tablet 25 mg PO HSP PRN Sleep 08/19/24 08/19/24 History metoprolol succinate 25 mg 25 mg PO DAILY 08/19/24 08/19/24 History tablet,extended release 24 hr nystatin 100,000 unit/gram topical 1 unit topical QID 30 days #60 08/20/24 Rx powder grams sennosides 8.6 mg-docusate sodium 2 tab PO BID 30 days #120 tabs 08/20/24 Rx 50 mg tablet (Stimulant Laxative Plus) New Prescriptions to Start Prescriptions: Sander Malone sennoboras-docusate sodium [Stimulant Laxative Plus] Sander Arellano Allergies Allergy/AdvReac Type Severity Reaction Status Date / Time ciprofloxacin (From Cipro) Allergy Severe Rash Verified 08/02/24 10:09 methocarbamol (Robaxin) Allergy Severe Rash Verified 08/02/24 10:09 Penicillins Allergy Hives Verified 08/02/24 10:09 Discharge Plan Disposition Patient Disposition: Home Health Service Condition: Undetermined Discharge Order Discharge Orders: Discharge Order (Routine); Ordered 08/20/24 Ordered By: Sander Arellano Follow up Plan Follow up with: Nish Rashid MD [Staff Physician] - 08/23/24 10:00 am Gerson Croft MD [Primary Care Provider] - 08/27/24 1:00 pm Prescriptions/Medication Reconciliation: New nystatin 100,000 unit/gram Powder 1 unit topical QID 30 Days Qty: 60 0RF sennosides-docusate sodium [Stimulant Laxative Plus] 8.6-50 mg Tablet 2 tab PO BID 30 Days Qty: 120 0RF Continued naloxone [Narcan] 4 mg/actuation spray,non-aerosol 4 mg intranasal Q3M PRN (Reason: opioid overdose) Qty: 2 0RF Rx Instructions: spray 1 dose into ONE nostril; alternate nostrils w each dose until help arrives ondansetron 8 mg tablet,disintegrating 8 mg PO Q8H Qty: 90 0RF pantoprazole 40 mg tablet,delayed release (DR/EC) 40 mg PO BID Qty: 180 0RF bumetanide 2 mg tablet 2 mg PO BID Qty: 60 3RF oxycodone 20 mg tablet 20 mg PO Q4H PRN (Reason: pain) Qty: 120 0RF magnesium 250 mg tablet 250 mg PO DAILY Qty: 30 0RF fentanyl 50 mcg/hr patch 72 hour 1 patch transdermal Q72H Qty: 10 0RF tamsulosin 0.4 mg capsule 0.4 mg PO DAILY trazodone 150 mg tablet 150 mg PO HS escitalopram oxalate [Lexapro] 20 mg tablet 20 mg PO DAILY hydroxyzine HCl 25 mg tablet 25 mg PO HSP PRN (Reason: Sleep) Patient Comments: TAKE 1 TABLET BY MOUTH ONCE NIGHTLY AT BEDTIME NEEDED FOR SLEEP metoprolol succinate 25 mg tablet extended release 24 hr 25 mg PO DAILY Patient Comments: TAKE 1 TABLET BY MOUTH ONCE DAILY fenofibrate 160 mg tablet 160 mg PO DAILY Patient Comments: TAKE 1 TABLET BY MOUTH ONCE DAILY Problem Reconciliation Problems Reviewed?: Yes Patient Discharge Instructions ACTIVITY: Continue current activity DIET: continue same diet Patient Instructions: Respiratory Failure Print Language: Malagasy Providers Primary Care Provider: Gerson Croft Admit Provider: Sander Arellano Attending Provider: Sander Arellano
--- NOTE | 2024-08-21 09:54 | SW/DCPLANNER ---
Spoke with patient on the phone. Patient stated that he is doing alright. Patient stated that his brace came off in the middle of the night and that he has it back on but its hurting and dsriving his crazy and that he is going to try and see his family DR today. Patient stated that he is aware of his upcoming appointments and that he has them written down in his folder. Patient stated that he was able to get his new medicine from clinic pharmacy. Patient stated that he has no concerns or questions at this time. Kathy Reed
== END 2024-08-20 14:58 | disposition home health service (06) | DRG 189 ==
LOC: ER 10:55 → ICU 12:01 → 2ND 08-19 06:09
PROVIDERS: Admitting Provider Internal Medicine Adolescent Medicine; Emergency Provider Emergency Medicine; PCP Family Medicine; Visit Provider Internal Medicine Adolescent Medicine
DX: J96.21 Acute and chronic respiratory failure with hypoxia (principal); I50.33 Acute on chronic diastolic (congestive) heart failure; I26.99 Other pulmonary embolism without acute cor pulmonale; I26.94 Multiple subsegmental thrombotic pulmonary emboli without acute cor pulmonale; J44.1 Chronic obstructive pulmonary disease with (acute) exacerbation; C34.90 Malignant neoplasm of unspecified part of unspecified bronchus or lung; C79.51 Secondary malignant neoplasm of bone; F17.210 Nicotine dependence, cigarettes, uncomplicated; E78.5 Hyperlipidemia, unspecified; N40.0 Benign prostatic hyperplasia without lower urinary tract symptoms; F32.A Depression, unspecified; G47.9 Sleep disorder, unspecified; E66.9 Obesity, unspecified; Z68.29 Body mass index [BMI] 29.0-29.9, adult; G89.3 Neoplasm related pain (acute) (chronic); I11.0 Hypertensive heart disease with heart failure; I25.10 Atherosclerotic heart disease of native coronary artery without angina pectoris; M50.30 Other cervical disc degeneration, unspecified cervical region; Z79.899 Other long term (current) drug therapy; Z95.5 Presence of coronary angioplasty implant and graft; Z99.81 Dependence on supplemental oxygen
CPT/HCPCS: 36415; 71045; 71260; 74177; 80053; 81001; 82803; 82962; 83605; 83735; 83880; 84484; 85025; 85610; 85730; 87040; 87081; 87633; 87636; 93005; 94640; 94660; 97110; 97162; 97166; 99291; J1171; J1650; J1939; J1940; J2919; J7620; Q9967

== ENCOUNTER 2024-08-23 09:29 | Outpatient (CLI) | payer MEDICARE, SELFPAY ==
[2024-08-23 09:32] VITALS: BMI 27.8
[2024-08-23 09:52] LABS: Basophils # 0.1 K/mm3 (0-0.2); Basophils % 1.7 % (0.1-2.0); Eosinophils # 0.2 K/mm3 (0.0-0.4); Eosinophils % 2.7 % (0.1-12.0); Hematocrit 49.1 % (42.0-52.0); Hemoglobin 15.2 g/dL (14.1-18.0); Lymphocytes # 1.7 K/mm3 (0.7-4.5); Lymphocytes % 21.5 % (10-50); Mean Corpuscular Hemoglobin 24.8 pg (27.0-31.2); Mean Corpuscular Volume 80.2 fl (80-94); Mean Platelet Volume 8.8 fl (7.4-10.4); Monocytes # 0.7 K/mm3 (0.1-1.0); Neutrophils % 64.6 % (37.0-80.0); Platelet Count 246 K/mm3 (142-424); Red Blood Count 6.12 M/mm3 (4.60-6.20); Red Cell Distribution Width 18.9 % (11.5-17.5); White Blood Count 7.7 K/mm3 (4.8-10.8)
[2024-08-23 10:40] LABS: Alanine Aminotransferase 18 U/L (12-78); Albumin Level 3.6 g/dl (3.5-5.0); Alkaline Phosphatase 156 U/L (38-126); Anion Gap 9.8 mEq/L (5-15); Aspartate Amino Transferase 24 U/L (17-59); Bilirubin,Total 0.5 mg/dl (0.2-1.3); Blood Urea Nitrogen 22 mg/dl (9-20); Calcium 8.6 mg/dl (8.4-10.2); Carbon Dioxide 38 mmol/L (22.0-30.0); Chloride 91 mmol/L (98-107); Creatinine Clearance Estimated 85 mL/min (50-200); Estimated Glomerular Filt Rate 114 ml/min (>60); GFR (African American) 137 ML/MIN (>60); Globulin 3.7 g/dL (1.3-3.2); Glucose 122 mg/dl (74-100); Potassium 3.8 mmoL/L (3.5-5.1); Sodium 135 mmol/L (136-145); Total Protein,Serum 7.3 g/dl (6.3-8.2)
[2024-08-23 10:42] LABS: Thyroid Stimulating Hormone 3.63 uIU/mL (0.465-4.68)
== END 2024-08-23 10:28 | disposition home or self-care (01) ==
LOC: INF 09:30
PROVIDERS: PCP Family Medicine; Visit Provider Internal Medicine Medical Oncology
DX: C34.90 Malignant neoplasm of unspecified part of unspecified bronchus or lung (principal); C79.51 Secondary malignant neoplasm of bone; R59.0 Localized enlarged lymph nodes
CPT/HCPCS: 36415; 80053; 82024; 82533; 84443; 85025